=== PATIENT | female | born 1980 | race Caucasian/White ===

== ENCOUNTER → 2016-05-15 | Outpatient (CLI) | payer BC ==
[2016-05-15 09:34] VITALS: BP 119/76; PULSE 60; RESP 14; TEMP 97.9; BMI 32.2
[2016-05-15 10:50] LABS: INR 1.1 (<1.1); Partial Thromboplastin Time 24.6 sec (22.0-30.0); Prothrombin Time 11.4 sec (9.0-12.0)
[2016-05-15 11:06] LABS: ALT 35 U/L (9-52); AST 23 U/L (14-36); Alkaline Phosphatase 83 U/L (38-126); Anion Gap 9 mmol/L; Blood Urea Nitrogen 9 mg/dL (7-17); Calcium 8.9 mg/dL (8.4-10.2); Carbon Dioxide 27 mmol/L (22-30); Chloride 108 mmol/L (98-107); Cholesterol 120 mg/dL (<200); Glucose 91 mg/dL (74-99); HDL Cholesterol 49 mg/dL (40-60); Iron 84 ug/dL (37-170); Magnesium 2.1 mg/dL (1.6-2.3); Non-African American GFR(MDRD) >60 (>60 ml/min/1.73 sqM); Phosphorous 4.3 mg/dL (2.5-4.5); Potassium 3.7 mmol/L (3.5-5.1); Sodium 144 mmol/L (137-145); Total Bilirubin 0.8 mg/dL (0.2-1.3); Total Protein 6.5 g/dL (6.3-8.2); Triglycerides 76 mg/dL (<150)
[2016-05-15 11:16] LABS: % Iron Saturation 33.5 % (20-50); Prealbumin 18 mg/dL (18-36); Total Iron Binding Capacity 251 ug/dL (265-497)
[2016-05-15 12:12] LABS: Vitamin B12 355 pg/mL (239-931)
[2016-05-15 14:18] LABS: CH 28.8; CHCM 33.8; HCT 41.8 % (34.0-46.0); HDW 2.83; HGB 13.7 gm/dL (11.4-16.0); MCH 28.1 pg (25.0-35.0); MCHC 32.8 g/dL (31.0-37.0); MCV 85.6 fL (80.0-100.0); Mean Platelet Volume 7.8; RBC 4.88 m/uL (3.80-5.40); RDW 13.5 % (11.5-15.5); WBC 4.3 k/uL (3.8-10.6)
[2016-05-15 16:01] LABS: Hemoglobin A1C 4.6 % (4.2-6.1)
--- NOTE | 2016-05-17 17:53 | PN ---
DATE OF SERVICE: 05/15/2016 CHIEF COMPLAINT: Follow-up gastric bypass. HISTORY OF PRESENT ILLNESS: Shefali Akers is a 35-year-old female who is status post revision to Michelle-en-Y gastric bypass on 02/25/2016. She is short of 3 months out. Her gastroesophageal reflux disease has completely resolved. Now she is drinking adequate amounts of fluids. She does report some challenge with eating textured foods such as beef and steak. She is able to eat eggs including beef jerky. She started noticing more troubles with choking on more textured foods one month ago. Her highest weight for her 5 feet 4-3/4 inches frame is 302 pounds. Today she comes in weighing 192 pounds. She has maintained 110 pound weight loss. From her index bariatric operation in August 2015, she is still less than one year out from her procedure. She did achieve 70% excess weight loss. Body mass index is reduced was 50.8 down to 32.2. Total BMI reduction is 18.5. Separately she also reports moderate and recurrent panniculitis with erythema and redness. Now she presents for further evaluation and management. She also reports lower back pain as well. Separately she has developed diarrhea of unclear etiology. Incidentally, her gallbladder has been removed. PHYSICAL EXAM: VITAL SIGNS: 97.9, 60, 14, 119/76, 5 feet 4-3/4 inches frame. 192 pounds. Body mass index of 32.2. ABDOMEN: Pannus extends over pubis by over 6 cm. Mild hyperemic consistent with panniculitis. No large abdominal wall hernia is identified. Pannus weighed between 5 to 10 pounds. GENERAL: Well-developed female in mild distress. HEENT: No scleral icterus. Extraocular movements grossly intact. Moist buccal mucosa. NECK: Supple without lymphadenopathy. CHEST: Nonlabored respirations. Equal bilateral excursions. CARDIOVASCULAR: Regular rate, regular rhythm. Bilateral pulses radial 2+. MUSCULOSKELETAL: No clubbing, cyanosis. NEURO: Cranial nerves II through XII grossly within normal limits. No focal deficits. PSYCH: Alert and oriented to person, place, and time. LABS: Hemoglobin normal at 13.7. Platelet count of 156 and normal. This is improved from 377 two months ago. Chloride elevated at 108. Potassium normal at 3.7. Magnesium normal at 2.1. Iron normal at 84. Total iron-binding capacity low at 251. Vitamin A low at 36. Vitamin D low at 28.6. Zinc low at 58. Total protein and albumin within normal limits. Copper and selenium is pending. ASSESSMENT: 1. Morbid obesity due to excess calories, resolved. 2. Body mass index reduced from 50.8 down to 32.2. 3. Overweight. 4. 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 5. Personal history of complications from sleeve gastrectomy requiring revision. 6. Panniculitis. 7. Vitamin A deficiency. 8. Vitamin D deficiency. 9. Zinc deficiency. 10. Dysphagia to solid foods. 11. Status post massive weight loss, 110 pounds. 12. History of hypertension, resolved. 13. Intractable nausea and vomiting, resolved. 14. Epigastric abdominal pain, resolved. 15. Gastroesophageal reflux disease, resolved. PLAN: 1. Recommend upper endoscopy with balloon dilatation as she has trouble with textured food. This option was given to her; however, at this time she wants to consider her options. 2. Recommend vitamin A supplement. 3. Recommend vitamin D supplement. 4. Recommend zinc supplement. 5. On exam she does have panniculitis for which nystatin treatment is started. 6. Although she has obtained massive weight loss of over 100+ pounds, will still recommend nystatin treatment at this time. 7. Benefits and risks of surgical intervention with panniculectomy including bleeding, infection, need for further surgery, flap failure, was described at length. 8. Will need inpatient hospitalization anticipated for 2 nights. 9. Deep venous thrombosis prophylaxis. 10. Antibiotic prophylaxis. [facility]
[2016-05-20 18:24] LABS: Selenium 116 mcg/L (63-160)
== END | disposition home or self-care (01) ==
LOC: BARWHC3 09:10
PROVIDERS: ATTEND Surgery Plastic and Reconstructive Surgery
DX: Z48.815 Encounter for surgical aftercare following surgery on the digestive system (principal); Z71.3 Dietary counseling and surveillance; E89.1 Postprocedural hypoinsulinemia; E21.1 Secondary hyperparathyroidism, not elsewhere classified; D50.8 Other iron deficiency anemias; E44.0 Moderate protein-calorie malnutrition; K74.1 Hepatic sclerosis; N19 Unspecified kidney failure; K50.90 Crohn's disease, unspecified, without complications; Z68.32 Body mass index [BMI] 32.0-32.9, adult; E66.3 Overweight; Z98.84 Bariatric surgery status; K95.89 Other complications of other bariatric procedure; M79.3 Panniculitis, unspecified; E50.9 Vitamin A deficiency, unspecified; E55.9 Vitamin D deficiency, unspecified; E60 Dietary zinc deficiency; R13.10 Dysphagia, unspecified
CPT/HCPCS: 80053; 80061; 82306; 82525; 82607; 82728; 82746; 83036; 83540; 83550; 83735; 83970; 84100; 84134; 84255; 84425; 84443; 84590; 84630; 85027; 85610; 85730; 99211

== ENCOUNTER 2016-05-16 12:46 | Day surgery (SDC) | payer BC ==
[2016-05-15 14:41] VITALS: BMI 33.3
[~2016-05-16 12:46] MED LIST: LACTATED RINGERS 1,000 ML IV SCH
--- NOTE | 2016-05-16 13:22 | P.GSHP ---
History of Present Illness H&P Date: 05/16/16 CHIEF COMPLAINT: Dysphagia. HISTORY OF PRESENT ILLNESS: The patient is a 35-year-old female who presents reports dysphagia. Upper endoscopy was offered for further evaluation and management. PAST MEDICAL HISTORY: Please see list. PAST SURGICAL HISTORY: Please see list. MEDICATIONS: Please see list. ALLERGIES: Please see list. SOCIAL HISTORY: No illicit drug use FAMILY HISTORY: No reports of Crohn disease or ulcerative colitis. REVIEW OF ORGAN SYSTEMS: CONSTITUTIONAL: No reports of fevers or chills. GI: Denies any blood in stools or constipation. PHYSICAL EXAM: VITAL SIGNS: Stable GENERAL: Well-developed and pleasant in no acute distress. HEENT: No scleral icterus. Extraocular movements grossly intact. Moist buccal mucosa. NECK: Supple without lymphadenopathy. CHEST: Unlabored respirations. Equal bilateral excursions. CARDIOVASCULAR: Regular rate and rhythm. Distal 2+ pulses. ABDOMEN: Soft, nondistended. MUSCULOSKELETAL: No clubbing, cyanosis, or edema. ASSESSMENT: 1. Dysphagia. PLAN: 1. Recommend proceeding with an upper endoscopy Past Medical History Past Medical History: GERD/Reflux, Hypertension, Skin Disorder Additional Past Medical History / Comment(s): hx. migraines, skin irritation abd. skin folds History of Any Multi-Drug Resistant Organisms: None Reported Past Surgical History: Bariatric Surgery, Cholecystectomy, Orthopedic Surgery, Tubal Ligation Additional Past Surgical History / Comment(s): BILATERAL CARPAL TUNNEL, EGD, GASTRIC SLEEVE. 02-25-16 LEONCIO EN Y Past Anesthesia/Blood Transfusion Reactions: Previous Problems w/ Anesthesia, Motion Sickness, Postoperative Nausea & Vomiting (PONV) Additional Past Anesthesia/Blood Transfusion Reaction / Comment(s): STAYED 2 EXTRA DAYS R/T "ANESTHESIA NOT GETTING OUT OF MY SYSTEM" Past Psychological History: Depression Additional Psychological History / Comment(s): PT STATED FOR PAST 15 DAYS DIFFICLTY KEEPING PILLS DOWN. DENIES DEPRSSION CURRENTLY.NO THOUGHTS OF HARMING SELF. Smoking Status: Former smoker Past Alcohol Use History: None Reported Additional Past Alcohol Use History / Comment(s): QUIT SMOKING 02/2015, 23 YR SMOKER, 1 PPD. Past Drug Use History: None Reported Additional Drug Use History / Comment(s): PER PTS SPOUSE " TEENAGER USED CRACK " - Past Family History Father History Unknown: Yes Mother History Unknown: Yes Family Medical History: No Reported History Brother(s) History Unknown: Yes Sister(s) History Unknown: Yes Daughter(s) Family Medical History: No Reported History Son(s) Family Medical History: No Reported History Medications and Allergies Home Medications Medication Instructions Recorded Confirmed Type Multivitamin [Multivitamins Adult 4 each PO DAILY 05/15/16 05/15/16 History Gummies] Nystatin 100,000 Unit/gm Powd 1 applic TOPICAL TID 05/15/16 05/15/16 History [Mycostatin Powder] Allergies Allergy/AdvReac Type Severity Reaction Status Date / Time cinnamon AdvReac Wheezing Verified 05/15/16 14:39 environmental AdvReac Cough Uncoded 05/15/16 14:39 sun AdvReac skin Uncoded 05/15/16 14:39 blisters
[2016-05-16 13:28] VITALS: RESP 16; TEMP 97.4
[2016-05-16] MEDS ORDERED: LIDOCAINE 1% 20 ML VIAL (10MG/ML) FOR IV START INTRADERMA ONE (13:34)
[2016-05-16] MEDS ORDERED: PROPOFOL 10 MG/ML 20 ML VIAL IV ONE (13:43)
[2016-05-16] MEDS ORDERED: LIDOCAINE 1% INJ 10MG/ML (20 ML MDV) ONE (13:43)
--- NOTE | 2016-05-16 13:58 | P.PCN ---
Date of Procedure: 05/16/16 Description of Procedure: PREOPERATIVE DIAGNOSIS: Dysphagia. Nausea with vomiting. Gastrojejunal stricture. POSTOPERATIVE DIAGNOSIS: Dysphagia. Nausea with vomiting. Gastrojejunal stricture. OPERATION: Esophagogastrojejunoscopy with balloon dilatation from 10 to 15 mm. SURGEON: Monalisa Araiza MD ANESTHESIA: MAC. INDICATIONS: The patient is a 35-year-old female who presents with a history of dysphagia including gastrojejunal stricture. Benefits and risks of the procedure were described. Informed consent was obtained. DESCRIPTION: The patient was brought into the endoscopy suite and laid in the left lateral decubitus position. After a timeout was confirmed, the procedure was initiated. An Olympus gastroscope was passed along the posterior oropharynx down to the distal esophagus where the squamocolumnar junction was unremarkable. The gastric pouch was entered. A gastrojejunal stricture of 10 mm was found as the adult gastroscope was 8.6 mm in size. A [employer] balloon dilator was placed through the scope. Final insufflation up to 15 mm was performed with a total of 2 minutes. The scope was advanced up to 60 cm from the incisors into the Michelle limb. The mucosa of the gastrojejunal anastomosis was intact. No full-thickness injury was encountered. The GI tract was desufflated. The patient tolerated the procedure well. 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 No chronic gastrojejunal ulceration encountered. Foreign body staple along gastric jejunal anastomosis identified. Successful balloon dilatation to 15 mm. RECOMMENDATIONS: Upper endoscopy as needed.
[2016-05-16 14:40] VITALS: BP 137/86; PULSE 52
== END 2016-05-16 14:47 | disposition home or self-care (01) ==
LOC: ORWHC2ENDO 12:46
PROVIDERS: ATTEND Surgery Plastic and Reconstructive Surgery
DX: K56.69 Other intestinal obstruction (principal); K31.89 Other diseases of stomach and duodenum; K21.9 Gastro-esophageal reflux disease without esophagitis; I10 Essential (primary) hypertension; G43.909 Migraine, unspecified, not intractable, without status migrainosus; Z91.018 Allergy to other foods; Z91.09 Other allergy status, other than to drugs and biological substances; Z79.899 Other long term (current) drug therapy; Z87.891 Personal history of nicotine dependence; Z98.84 Bariatric surgery status
CPT/HCPCS: 81025; 43245; J2001; J2704; C1726; 43249; 99153

== ENCOUNTER 2016-05-25 20:57 | Observation (INO) | payer BC ==
[2016-05-25] MEDS ORDERED: SODIUM CHLORIDE 0.9% 1,000 ML IV STA ×2 (22:32)
[2016-05-25] MEDS ORDERED: HYDROmorphone 1 MG/ML 1 ML SYRINGE IVP STA (22:32)
[2016-05-25] MEDS ORDERED: ONDANSETRON 4 MG/2 ML VIAL IVP STA (22:32)
[2016-05-25] MEDS ORDERED: RX INFO: IV CONTRAST WAS GIVEN 1 EACH MISC MISCELLANE PRN (22:34)
[2016-05-25] MEDS ORDERED: IOHEXOL 350 MG/ML 25 ML BOTTLE (ORAL USE) PO PRN (22:34)
--- NOTE | 2016-05-25 22:42 | ED ---
General Adult HPI - General Chief complaint: Abdominal Pain Stated complaint: Abd Pain Time Seen by Provider: 05/25/16 22:23 Source: patient, family, RN notes reviewed, old records reviewed Mode of arrival: ambulatory Limitations: no limitations - History of Present Illness Initial comments: Chief complaint and history of present illness this is a 35-year-old female who' s had bariatric surgery. She called her surgeon tell her she had mid abdominal pain nausea vomiting once. She was sent in for further evaluation. Current problem started approximately 13 hours ago. Patient reports still eating and normal appetite. When the pain hits its stabbing twisting pain in the midabdomen. - Related Data Home Medications Medication Instructions Recorded Confirmed Multivitamin [Multivitamins Adult 4 each PO DAILY 05/15/16 05/16/16 Gummies] Nystatin 100,000 Unit/gm Powd 1 applic TOPICAL TID 05/15/16 05/16/16 [Mycostatin Powder] Previous Rx's Medication Instructions Recorded Omeprazole 40 mg PO DAILY #60 capsule. 05/16/16 Ergocalciferol [Vitamin D2 50,000 unit PO Q7D #10 cap 05/17/16 (DRISDOL)] Vitamin A 8,000 unit PO DAILY #30 capsule 05/17/16 Zinc Gluconate [Zinc] 50 mg PO DAILY@1200 #60 tablet 05/17/16 Allergies Allergy/AdvReac Type Severity Reaction Status Date / Time cinnamon AdvReac Wheezing Verified 05/15/16 14:39 environmental AdvReac Cough Uncoded 05/15/16 14:39 sun AdvReac skin Uncoded 05/15/16 14:39 blisters Review of Systems ROS Statement: Those systems with pertinent positive or pertinent negative responses have been documented in the HPI. Review of systems. No visual acuity changes headache chest pain or shortness of breath. Occasionally discomfort radiates to the epigastric region. No back pain. No complaints of a neuro deficits. Vomited once. She still have bowel movements. States she still has normal appetite. All systems are reviewed. Past medical problems significant for GERD, hypertension, eczema, migraines. Surgeries patient had a sleeve surgery followed by bypass bariatric procedure. She also had cholecystectomy, tubal ligation bilateral carpal tunnel surgeries. Family history significant for grandmother and skin cancer. She has ALLERGIES to cinnamon. Quit smoking 15 months ago drinks alcohol socially. ROS Other: All systems not noted in ROS Statement are negative. Past Medical History Past Medical History: GERD/Reflux, Hypertension, Skin Disorder Additional Past Medical History / Comment(s): hx. migraines, skin irritation abd. skin folds History of Any Multi-Drug Resistant Organisms: None Reported Past Surgical History: Bariatric Surgery, Cholecystectomy, Orthopedic Surgery, Tubal Ligation Additional Past Surgical History / Comment(s): BILATERAL CARPAL TUNNEL, EGD, GASTRIC SLEEVE. 02-25-16 LEONCIO EN Y Past Anesthesia/Blood Transfusion Reactions: Previous Problems w/ Anesthesia, Motion Sickness, Postoperative Nausea & Vomiting (PONV) Additional Past Anesthesia/Blood Transfusion Reaction / Comment(s): STAYED 2 EXTRA DAYS R/T "ANESTHESIA NOT GETTING OUT OF MY SYSTEM" Past Psychological History: Depression Additional Psychological History / Comment(s): PT STATED FOR PAST 15 DAYS DIFFICLTY KEEPING PILLS DOWN. DENIES DEPRSSION CURRENTLY.NO THOUGHTS OF HARMING SELF. Smoking Status: Former smoker Past Alcohol Use History: None Reported Additional Past Alcohol Use History / Comment(s): QUIT SMOKING 02/2015, 23 YR SMOKER, 1 PPD. Past Drug Use History: None Reported Additional Drug Use History / Comment(s): PER PTS SPOUSE " TEENAGER USED CRACK " - Past Family History Father History Unknown: Yes Mother History Unknown: Yes Family Medical History: No Reported History Brother(s) History Unknown: Yes Sister(s) History Unknown: Yes Daughter(s) Family Medical History: No Reported History Son(s) Family Medical History: No Reported History General Exam - General Exam Comments Initial Comments: General: The patient is awake and alert, in no distress, and does not appear acutely ill. Appears comfortable this time complains of stabbing pain on-again off- again midabdomen. No signs showed temperature 98.3 pulse 77 respiratory rate 20 pulse ox on percent room air blood pressure 117/77. Elevated systolic noted patient will be following up with family physician in next 1-2 weeks. Eye: Pupils are equal, round and reactive to light, extra-ocular movements are intact ; there is normal conjunctiva bilaterally. No signs of icterus. Ears, nose, mouth and throat: There are moist mucous membranes and no oral lesions. Multiple tongue rings Neck: The neck is supple, there is no tenderness , no anterior cervical lymphadenopathy thyroid not enlarged. Cardiovascular: There is a regular rate and rhythm. No murmur, rub or gallop is appreciated. Respiratory: Lungs are clear to auscultation, respirations are non-labored, breath sounds are equal. No wheezes, stridor, rales, or rhonchi. Gastrointestinal: Soft, non-distended, non-tender abdomen without masses or organomegaly noted. There is no rebound or guarding present. No CVA tenderness. Bowel sounds are unremarkable. On again off again sharp stabbing pains midabdomen Back: No back pain Musculoskeletal: Normal ROM, no tenderness, There is no pedal edema. There is no calf tenderness or swelling. Sensation intact. Neurological: No neuro deficits noted on complained of. Skin: Patient states she has eczema on her feet. Limitations: no limitations Course Vital Signs 05/25/16 05/25/16 21:20 23:15 Temperature 98.3 F Pulse Rate 57 L 64 Respiratory 20 18 Rate Blood Pressure 157/77 130/70 O2 Sat by Pulse 100 98 Oximetry Medical Decision Making - Medical Decision Making Medical decision making; patient's white count is 4.8 hemoglobin 14 hematocrit 41 with a potassium 3.6, BUN 8 creatinine 0.8 GFR greater than 60. Glucose 85. Urine shows large amount of blood 5 reds 6 whites. Amylase lipase within normal limits. Urine shows [address] the abdomen was done and reviewed by radiologist his final impression is #1 possible mild colitis changes involving the descending and sigmoid colon. #2 possible ileus or enteritis changes involving the small bowel loops. #3 stable nodularity in the right lung base. Number for stable cystic changes in both kidneys. #5 gastric sleeve surgery changes. As read by Dr. Bhakta Patient be admitted to the hospital for the evening for hydration for evaluation by her general surgeon in the morning. - Lab Data Result diagrams: 05/25/16 22:20 05/25/16 22:20 Lab Results 05/25/16 05/25/16 05/25/16 Range/Units 22:20 22:20 22:40 WBC 4.8 (3.8-10.6) k/uL RBC 4.95 (3.80-5.40) m/uL Hgb 14.0 (11.4-16.0) gm/dL Hct 41.5 (34.0-46.0) % MCV 83.8 (80.0-100.0) fL MCH 28.3 (25.0-35.0) pg MCHC 33.8 (31.0-37.0) g/dL RDW 13.5 (11.5-15.5) % Plt Count 153 (150-450) k/uL Neutrophils % 64 % Lymphocytes % 25 % Monocytes % 6 % Eosinophils % 1 % Basophils % 1 % Neutrophils # 3.1 (1.3-7.7) k/uL Lymphocytes # 1.2 (1.0-4.8) k/uL Monocytes # 0.3 (0-1.0) k/uL Eosinophils # 0.1 (0-0.7) k/uL Basophils # 0.1 (0-0.2) k/uL Sodium 146 H (137-145) mmol/L Potassium 3.6 (3.5-5.1) mmol/L Chloride 109 H (98-107) mmol/L Carbon Dioxide 27 (22-30) mmol/L Anion Gap 10 mmol/L BUN 8 (7-17) mg/dL Creatinine 0.80 (0.52-1.04) mg/dL Est GFR (MDRD) Af Amer >60 (>60 ml/min/1.73 sqM) Est GFR (MDRD) Non-Af >60 (>60 ml/min/1.73 sqM) Glucose 85 (74-99) mg/dL Plasma Lactic Acid Cecilio 0.7 (0.7-2.0) mmol/L Calcium 9.1 (8.4-10.2) mg/dL Total Bilirubin 0.5 (0.2-1.3) mg/dL AST 21 (14-36) U/L ALT 33 (9-52) U/L Alkaline Phosphatase 86 (38-126) U/L Total Protein 6.8 (6.3-8.2) g/dL Albumin 3.9 (3.5-5.0) g/dL Amylase 39 (30-110) U/L Lipase 137 (23-300) U/L Urine Color Urine Appearance (Clear) Urine pH (5.0-8.0) Ur Specific [place] (1.001-1.035) Urine Protein (Negative) Urine Glucose (UA) (Negative) Urine Ketones (Negative) Urine Blood (Negative) Urine Nitrate (Negative) Urine Bilirubin (Negative) Urine Urobilinogen (<2.0) mg/dL Ur Leukocyte Esterase (Negative) Urine RBC (0-5) /hpf Urine WBC (0-5) /hpf Ur Squamous Epith Cells (0-4) /hpf Calcium Oxalate Crystal (None) /hpf Urine Mucus (None) /hpf 05/25/16 Range/Units 23:00 WBC (3.8-10.6) k/uL RBC (3.80-5.40) m/uL Hgb (11.4-16.0) gm/dL Hct (34.0-46.0) % MCV (80.0-100.0) fL MCH (25.0-35.0) pg MCHC (31.0-37.0) g/dL RDW (11.5-15.5) % Plt Count (150-450) k/uL Neutrophils % % Lymphocytes % % Monocytes % % Eosinophils % % Basophils % % Neutrophils # (1.3-7.7) k/uL Lymphocytes # (1.0-4.8) k/uL Monocytes # (0-1.0) k/uL Eosinophils # (0-0.7) k/uL Basophils # (0-0.2) k/uL Sodium (137-145) mmol/L Potassium (3.5-5.1) mmol/L Chloride (98-107) mmol/L Carbon Dioxide (22-30) mmol/L Anion Gap mmol/L BUN (7-17) mg/dL Creatinine (0.52-1.04) mg/dL Est GFR (MDRD) Af Amer (>60 ml/min/1.73 sqM) Est GFR (MDRD) Non-Af (>60 ml/min/1.73 sqM) Glucose (74-99) mg/dL Plasma Lactic Acid Cecilio (0.7-2.0) mmol/L Calcium (8.4-10.2) mg/dL Total Bilirubin (0.2-1.3) mg/dL AST (14-36) U/L ALT (9-52) U/L Alkaline Phosphatase (38-126) U/L Total Protein (6.3-8.2) g/dL Albumin (3.5-5.0) g/dL Amylase (30-110) U/L Lipase (23-300) U/L Urine Color Yellow Urine Appearance Cloudy H (Clear) Urine pH 6.0 (5.0-8.0) Ur Specific [place] 1.021 (1.001-1.035) Urine Protein Trace H (Negative) Urine Glucose (UA) Negative (Negative) Urine Ketones Trace H (Negative) Urine Blood Large H (Negative) Urine Nitrate Negative (Negative) Urine Bilirubin Negative (Negative) Urine Urobilinogen 2.0 (<2.0) mg/dL Ur Leukocyte Esterase Trace H (Negative) Urine RBC 5 (0-5) /hpf Urine WBC 6 H (0-5) /hpf Ur Squamous Epith Cells 3 (0-4) /hpf Calcium Oxalate Crystal Few H (None) /hpf Urine Mucus Many H (None) /hpf Disposition Clinical Impression: Abdominal pain Disposition: ADMITTED IP TO THIS HOSP Condition: Stable
[2016-05-25 22:46] LABS: Basophils # (A) 0.1 k/uL (0-0.2); Basophils % (A) 1 %; CH 29.1; CHCM 34.8; Eosinophils # (A) 0.1 k/uL (0-0.7); Eosinophils % (A) 1 %; HCT 41.5 % (34.0-46.0); HDW 2.82; Luc # (Auto) 0.15; Luc % (Auto) 3; Lymphocytes # (A) 1.2 k/uL (1.0-4.8); Lymphocytes % (A) 25 %; MCH 28.3 pg (25.0-35.0); MCHC 33.8 g/dL (31.0-37.0); MCV 83.8 fL (80.0-100.0); Mean Platelet Volume 7.9; Monocytes # (A) 0.3 k/uL (0-1.0); Monocytes % (A) 6 %; Neutrophils # (A) 3.1 k/uL (1.3-7.7); Neutrophils % (A) 64 %; RBC 4.95 m/uL (3.80-5.40); RDW 13.5 % (11.5-15.5); WBC 4.8 k/uL (3.8-10.6); WBC (Perox) 4.57
[2016-05-25 22:55] LABS: ALT 33 U/L (9-52); AST 21 U/L (14-36); Alkaline Phosphatase 86 U/L (38-126); Amylase 39 U/L (30-110); Anion Gap 10 mmol/L; Blood Urea Nitrogen 8 mg/dL (7-17); Calcium 9.1 mg/dL (8.4-10.2); Carbon Dioxide 27 mmol/L (22-30); Chloride 109 mmol/L (98-107); Glucose 85 mg/dL (74-99); Non-African American GFR(MDRD) >60 (>60 ml/min/1.73 sqM); Potassium 3.6 mmol/L (3.5-5.1); Sodium 146 mmol/L (137-145); Total Bilirubin 0.5 mg/dL (0.2-1.3); Total Protein 6.8 g/dL (6.3-8.2)
[2016-05-25 23:17] LABS: Appearance,Urine Cloudy (Clear); Bilirubin,Urine Negative (Negative); Calcium Oxalate Crystals,Urine Few /hpf; Glucose,Urine (UA) Negative (Negative); Ketones,Urine Trace (Negative); Leukocyte Esterase,Urine Trace (Negative); Mucus,Urine Many /hpf; Nitrite,Urine Negative (Negative); Particle Count 10252; Protein,Urine Trace (Negative); RBC,Urine 5 /hpf (0-5); Specific Gravity,Urine 1.021 (1.001-1.035); Squamous Epithelial Cell,Urine 3 /hpf (0-4); UA Billing (MACRO vs. MICRO) MICRO; WBC,Urine 6 /hpf (0-5)
--- NOTE | 2016-05-26 00:24 | CT ---
EXAMINATION TYPE: CT abdomen pelvis w con DATE OF EXAM: 05/25/2016 11:35 PM COMPARISON: March 19, 2016 HISTORY: Lt sided abd pain Hx of gastric sleeve and other bariatric surgery, cholecystectomy, tubal8 23.30 CT DLP: 823.30 mGycm Automated exposure control for dose reduction was used. TECHNIQUE: Helical acquisition of images was performed from the lung bases through the pelvis. CONTRAST: Performed with Oral Contrast and with IV Contrast, patient injected with 100 mL of Omnipaque 300. FINDINGS: LUNG BASES: Stable nodular scarring is noted in the right lung base since previous study. LIVER/GB: Mild fatty infiltration of liver is noted. PANCREAS: No significant abnormality is seen. SPLEEN: Stable small cleft is noted in the anterior aspect of spleen in the axial image 28. ADRENALS: No significant abnormality is seen. KIDNEYS: Stable bilateral renal cysts are noted on one of the largest cyst measuring 7.8 cm in the ri ght kidney. RETROPERITONEAL ADENOPATHY: None visualized REPRODUCTIVE ORGANS: Uterus is tilted towards right. Mild cystic changes are suggested in the ovaries . URINARY BLADDER: No significant abnormality is seen. PELVIC ADENOPATHY: None visualized. OSSEOUS STRUCTURES: Mild degenerative changes are present in the thoracal lumbar spine. BOWEL: Gastric sleeve surgery changes are noted. Appendix is not well visualized. No significant inflammation is noted in the visualized appendix in t he axial image 67. Small bowel loops showed fluid distention with mild ileus changes or enteritis changes. No significan t focal bowel obstruction is noted. No definite transition zone is noted. Colonic bowel loops showed no significant obstruction. Mild mucosal thickening in the descending colo n and sigmoid colon could be related to mild colitis changes. OTHER: There is evidence of generalized edema and anasarca involving chest and abdomen and pelvic wal l. IMPRESSION: 1. POSSIBLE MILD COLITIS CHANGES INVOLVING DESCENDING AND SIGMOID COLON. 2. POSSIBLE ILEUS OR ENTERITIS CHANGES INVOLVING SMALL BOWEL LOOPS. 3. STABLE NODULARITY IN THE RIGHT LUNG BASE. 4. STABLE CYSTIC CHANGES IN BOTH KIDNEYS. 5. GASTRIC SLEEVE SURGERY CHANGES. A CLINICAL CORRELATION AND FOLLOW-UP IS RECOMMENDED.
[2016-05-26] MEDS ORDERED: NALOXONE 0.4 MG/ML 1 ML VIAL IV PRN (00:35)
[2016-05-26] MEDS ORDERED: HYDROmorphone 1 MG/ML 1 ML SYRINGE IV PRN (00:35)
[2016-05-26] MEDS ORDERED: ONDANSETRON 4 MG/2 ML VIAL IVP PRN (00:35)
[2016-05-26 01:44] VITALS: BMI 32.5
[2016-05-26] MEDS ORDERED: PANTOPRAZOLE 40 MG/10 ML VIAL IV SCH (09:00)
[2016-05-26] MEDS ORDERED: NYSTATIN 100,000 UNIT/GM POWD 15 GM TOPICAL SCH (09:00)
--- NOTE | 2016-05-26 09:46 | P.GSHP ---
History of Present Illness H&P Date: 05/26/16 A 35-year-old female being seen on rounds this morning. Patient presented to the emergency room on May 25 with a chief complaint of waking up with epigastric pain. After eating the pain seemed to get worse. Patient stated it was associated with nausea sensation vomit 1. Patient does have a history of bariatric surgery done in February 2016. Patient stated that she did call the surgeon was advised to come to the emergency room for further evaluation. Patient describes pain as a sharp stabbing twisting pain points to the mid abdomen as to the reference point. Patient does state that the pain medication has been effective for pain control. Patient states last week she did undergo esophageal dilatation for nausea with vomiting dysphagia gastrojejunal stricture CAT scan obtained in the emergency room of the abdomen and pelvis showed possible mild colitis changes involving the descending and sigmoid colon possible ileus or enteritis involving small bowel loops stable cystic changes in both kidneys stable nodule in the right lung base gastric sleeve surgery changes Patient currently is resting in bed states there is a slight improvement in the epigastric pain compared to admission - Review of Systems Comment: Essentially unremarkable except as mentioned in the present illness Past Medical History Past Medical History: GERD/Reflux, Hypertension, Skin Disorder Additional Past Medical History / Comment(s): hx. migraines, skin irritation abd. skin folds History of Any Multi-Drug Resistant Organisms: None Reported Past Surgical History: Bariatric Surgery, Cholecystectomy, Orthopedic Surgery, Tubal Ligation Additional Past Surgical History / Comment(s): BILATERAL CARPAL TUNNEL, EGD, GASTRIC SLEEVE. 02-25-16 LEONCIO EN Y Past Anesthesia/Blood Transfusion Reactions: Previous Problems w/ Anesthesia, Motion Sickness, Postoperative Nausea & Vomiting (PONV) Additional Past Anesthesia/Blood Transfusion Reaction / Comment(s): STAYED 2 EXTRA DAYS R/T "ANESTHESIA NOT GETTING OUT OF MY SYSTEM" Past Psychological History: Depression Additional Psychological History / Comment(s): PT STATED FOR PAST 15 DAYS DIFFICLTY KEEPING PILLS DOWN. DENIES DEPRSSION CURRENTLY.NO THOUGHTS OF HARMING SELF. Smoking Status: Former smoker Past Alcohol Use History: None Reported Additional Past Alcohol Use History / Comment(s): QUIT SMOKING 02/2015, 25 YR SMOKER, 1 PPD. Past Drug Use History: None Reported Additional Drug Use History / Comment(s): PER PTS SPOUSE " TEENAGER USED CRACK " - Past Family History Father History Unknown: Yes Mother History Unknown: Yes Family Medical History: No Reported History Brother(s) History Unknown: Yes Sister(s) History Unknown: Yes Daughter(s) Family Medical History: No Reported History Son(s) Family Medical History: No Reported History Medications and Allergies Home Medications Medication Instructions Recorded Confirmed Type Multivitamin [Multivitamins Adult 4 tab PO DAILY 05/15/16 05/26/16 History Gummies] Nystatin 100,000 Unit/gm Powd 1 applic TOPICAL TID 05/15/16 05/26/16 History [Mycostatin Powder] Zinc Gluconate [Zinc] 50 mg PO DAILY 05/26/16 05/26/16 History Allergies Allergy/AdvReac Type Severity Reaction Status Date / Time cinnamon AdvReac Wheezing Verified 05/26/16 08:30 grass pollen AdvReac Unknown Verified 05/26/16 08:30 sun AdvReac skin Uncoded 05/15/16 14:39 blisters Surgical - Exam Vital Signs Temp Pulse Resp BP Pulse Ox 98.3 F 57 L 20 157/77 100 05/25/16 21:20 05/25/16 21:20 05/25/16 21:20 05/25/16 21:20 05/25/16 21:20 GENERAL APPEARANCE: 35-year-old female patient is alert, oriented, in no acute distress. Currently resting comfortably in bed appears well-hydrated VITAL SIGNS: Reviewed HEENT: Head is normocephalic and atraumatic. Pupils are equal and reactive. The nares are patent. Oropharynx is clear without lesions. NECK: Supple without lymphadenopathy. Traches midline. HEART: S1, S2. Regular rate and rhythm. Denying chest pain LUNGS: No crackles or wheezes are heard. Adequate air movement bilaterally no cough noted no conversational dyspnea noted on room air sats are 94% ABDOMEN: Soft, nontender, nondistended with good bowel sounds. No peritoneal signs. No palpable organomegaly or masses. Patient states having on and off sharp stabbing pain to the mid abdominal area states no nausea sensation no active emesis no stooling states had a bowel movement yesterday EXTREMITIES: Normal skin color and turgor. No cyanosis, rash, ulceration, clubbing or edema. Radial pedal pulses are 2/4 bilaterally. NEUROLOGICAL: No focal deficits. Strength and sensation are grossly intact Skin warm and dry no rash Results - Labs 05/25/16 22:20 05/25/16 22:20 Assessment and Plan Plan: Impression Present on admission mid epigastric pain unclear etiology History of a gastric sleeve February 2016 for weight loss Status post 05/16/2016 esophagogastrojejunoscopy with balloon dilatation for gastrojejunal stricture History of dysphasia with nausea vomiting status post 05/16/2016 esophagojejunostomy with dilatation of gastrojejunal stricture History of vitamin a and D deficiency Hypertension Status post massive weight loss 110 pounds urinalysis microscopic hematuria likely due to menses Mild hypokalemia present on admission Plan Pain control IV fluid at 100 hours for hydration DVT and GI prophylaxis Resume home meds as appropriate Further recommendations pending will follow The above dictated assessment and findings were discussed with dr Araiza Impression and the plan of care have been dictated as directed. Miriam Hyatt nurse practitioner acting as a scribe for Dr. Araiza
[2016-05-26] MEDS: SODIUM CHLORIDE 0.9% 1,000 ML IV SCH ×2 (10:03→14:14)
[2016-05-26] MEDS ORDERED: ACETAMINOPHEN TAB 500 MG TAB PO STA (14:06)
[2016-05-26 14:11] VITALS: BP 135/87; PULSE 53; RESP 18; TEMP 97.9
--- NOTE | 2016-05-26 15:12 | P.DS ---
Providers Date of admission: 05/26/16 00:35 Expected date of discharge: 05/26/16 Attending physician: Monalisa Araiza [facility] Course: A 35-year-old female presented on the day of admission to the emergency room to be evaluated for a chief complaint of mid epigastric pain onset 12-13 hours prior. Patient states that she woke up experiencing sharp mid epigastric pain. Patient stated the pain felt like a stabbing twisting pain in the midabdomen. Patient points to the epigastric area as to the reference point. Patient stated that she felt that the pain continued to persist throughout the day with no relief came into the emergency room to be evaluated for the above-mentioned symptoms in the emergency room patient was afebrile hemoglobin 14 electrolytes within normal limits amylase and lipase within the normal limits CAT scan of the abdomen pelvis was done. It shows possible mild colitis changes involving the descending and sigmoid colon. Stable nodule in the right lung base. Multiple stable cysts noted on both kidneys. There were gastric sleeve surgery changes. Patient was admitted for hydration and was seen by the attending surgeon History of dysphasia with nausea vomiting status post 05/16/2016 esophagojejunostomy with dilatation of gastrojejunal stricture patient did report that she stopped taking omeprazole 40 mg daily patient stated that she was feeling better and didn't feel like she needed to take it. They attending Surgeon did have a discussion with the patient the importance of continuing to take omeprazole daily as directed. Patient was started on a diet and tolerated the diet was felt to be clinically stable and appropriate proceed with a discharge to home Impression discharge diagnosis Present on admission mid epigastric pain unclear etiology History of a gastric sleeve February 2016 for weight loss Status post 05/16/2016 esophagogastrojejunoscopy with balloon dilatation for gastrojejunal stricture History of dysphasia with nausea vomiting status post 05/16/2016 esophagojejunostomy with dilatation of gastrojejunal stricture History of vitamin a and D deficiency Hypertension Status post massive weight loss 110 pounds urinalysis microscopic hematuria likely due to menses Mild hypokalemia present on admission The above dictated assessment and findings were discussed with dr Araiza Impression and the plan of care have been dictated as directed. Miriam Hyatt nurse practitioner acting as a scribe for Dr. Araiza Patient Condition at Discharge: Stable Plan - Discharge Summary Discharge Medication List Multivitamin [Multivitamins Adult Gummies] 4 tab PO DAILY 05/15/16 [History] Nystatin 100,000 Unit/gm Powd [Mycostatin Powder] 1 applic TOPICAL TID 05/15/16 [History] Omeprazole 40 mg PO DAILY #60 capsule.dr 05/16/16 [Rx] Ergocalciferol [Vitamin D2 (DRISDOL)] 50,000 unit PO Q7D #10 cap 05/17/16 [Rx] Vitamin A 8,000 unit PO DAILY #30 capsule 05/17/16 [Rx] Zinc Gluconate [Zinc] 50 mg PO DAILY 05/26/16 [History] Follow up Appointment(s)/Referral(s): Tyler Daugherty MD [Primary Care Provider] - 1-2 days Monalisa Araiza MD [STAFF PHYSICIAN] - 05/29/16 10:45 am ([facility]) Patient Instructions/Handouts: Gastritis (GEN) Discharge Disposition: HOME SELF-CARE
== END 2016-05-26 17:29 | disposition home or self-care (01) ==
LOC: EC 20:57 → 3SUR 05-26 00:35
PROVIDERS: ADMIT Surgery Plastic and Reconstructive Surgery; ATTEND Surgery Plastic and Reconstructive Surgery
DX: R10.13 Epigastric pain (principal); E50.9 Vitamin A deficiency, unspecified; R11.2 Nausea with vomiting, unspecified; E55.9 Vitamin D deficiency, unspecified; I10 Essential (primary) hypertension; E87.6 Hypokalemia; L98.9 Disorder of the skin and subcutaneous tissue, unspecified; K21.9 Gastro-esophageal reflux disease without esophagitis; Z98.84 Bariatric surgery status; Z87.891 Personal history of nicotine dependence; Z79.899 Other long term (current) drug therapy; Z91.018 Allergy to other foods; Z91.048 Other nonmedicinal substance allergy status; Z90.49 Acquired absence of other specified parts of digestive tract; R91.1 Solitary pulmonary nodule; Q61.02 Congenital multiple renal cysts
CPT/HCPCS: 96361 ×3; 96376; 96375 ×2; 96374; 99285; 36415; 80053; 82150; 83605; 83690; 85025; 81001; 74177; G0378; J2405; J1170 ×2; Q9967; C9113

== ENCOUNTER → 2016-05-29 | Outpatient (CLI) | payer BC ==
[2016-05-29 11:23] VITALS: BP 128/91; PULSE 63; RESP 20; TEMP 98; BMI 30.9
--- NOTE | 2016-07-15 22:20 | P.PN ---
Progress Note - Text DATE OF SERVICE: 05/29/2016. CHIEF COMPLAINT: Follow-up gastric bypass. HISTORY OF PRESENT ILLNESS: Shefali Akers is a 36-year-old female with a complicated history of complications following a sleeve gastrectomy in August 2015. At her height of 5 feet 4-3/4 quarters inch frame, her ideal body weight on 144 pounds. She was initially 302 pounds. Today she comes in weighing 184 pounds. She has lost 118 pounds. Percent excess weight loss is 74%. Since her last follow-up just 3 weeks ago, she has already lost another 7 pounds. Body mass index reduced from 50.8 down to 31. Total BMI point reduction is 20 points. She is 40 pounds weight. Her hypertension is resolved. Gastroesophageal reflux disease is resolved. She was admitted within the last one week for acute onset abdominal pain. Her colitis is now completely resolved. Her main concern today also includes moderate redundant skin with redness consistent with panniculitis despite treatment. Now she presents for evaluation of panniculectomy. PAST MEDICAL HISTORY: 1. Morbid obesity. 2. Gastroesophageal reflux disease. 3. Hypertension. 4. Migraines. 5. Gastric stenosis following sleeve gastrectomy. PAST SURGICAL HISTORY: 1. Sleeve gastrectomy in August 13, 2015. 2. Bilateral carpal tunnel release. 3. Upper endoscopy. 4. Cholecystectomy. 5. Tubal ligation. 6. Gastric bypass, 02/2016. MEDICATIONS: 1. Vitamin A. 2. Thiamine. 3. Vitamin D. ALLERGIES: CINNAMON. ENVIRONMENTAL. SUN. SOCIAL HISTORY: She is . She reports prior tobacco abuse. She had quit smoking in February 2015. FAMILY HISTORY: Morbid obesity. REVIEW OF SYSTEMS: CONSTITUTIONAL: At her height of 5 feet 4-3/4 quarters inch frame, her ideal body weight on 144 pounds. She was initially 302 pounds. Today she comes in weighing 184 pounds. She has lost 118 pounds. Percent excess weight loss is 74%. Since her last follow-up just 3 weeks ago, she has already lost another 7 pounds. Body mass index reduced from 50.8 down to 31. Total BMI point reduction is 20 points. She is 40 pounds weight. GASTROINTESTINAL: Gastroesophageal reflux disease is resolved. Denies any blood in stools. HEENT: She wears glasses. She reports dysphagia to liquids including solid foods is resolved. No reports of troubles with hearing. ENDOCRINE: No reports of thyroid disorders or diabetes. CARDIOVASCULAR: History of hypertension, resolved. No reports of chest pain. RESPIRATORY: No overt history of obstructive sleep apnea or dyspnea on exertion. GENITOURINARY: Denies recent bladder infections. NEURO: Denies any procedure disorder, however, prior history of migraines. PSYCH: Prior history of depression. No recent suicidal ideation. HEMATOLOGIC: Denies any easy bruising or bleeding. PHYSICAL EXAM: VITAL SIGNS: 98, 63, 20, 120/91, 5' 4 3/4 inches, 184 pounds. Body mass index of 31. GENERAL: Well-developed female in no acute distress. ABDOMEN: Pannus extends over pubis by 6 cm with hyperemia consistent with panniculitis. Pannus weighed between 5 to 10 pounds. Soft, non-distended , nontender. HEENT: No scleral icterus. Extraocular movements grossly intact. Moist buccal mucosa. NECK: Supple without lymphadenopathy. CHEST: Nonlabored respirations. Equal bilateral excursions. CARDIOVASCULAR: Regular rate, regular rhythm. Bilateral pulses radial 2+. MUSCULOSKELETAL: No clubbing, cyanosis. NEURO: Cranial nerves II through XII grossly within normal limits. No focal deficits. PSYCH: Alert and oriented to person, place, and time. ASSESSMENT: 1. Morbid obesity due to excess calories, resolved. 2. Body mass index reduced from 50.8 down to 31. 3. Overweight. 4. 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 5. Personal history of complications from sleeve gastrectomy requiring revision. 6. Recurrent panniculitis. 7. Vitamin A deficiency. 8. Vitamin D deficiency. 9. Zinc deficiency. 10. Dysphagia to solid foods. 11. Status post massive weight loss of 118 pounds. 12. History of hypertension, resolved. 13. Intractable nausea and vomiting, resolved. 14. Epigastric abdominal pain, resolved. 15. Gastroesophageal reflux disease, resolved. PLAN: 1. I have gone over the benefits and risks of panniculectomy particularly flap failure, abdominal wall seroma, bleeding, infection and cosmetic deformity. 2. Panniculectomy packet has been reviewed and dispensed to her. 3. In the interim, I recommend complete correction of all nutritional deficiencies prior to any additional surgical intervention. 4. DVT prophylaxis. 5. Antibiotic prophylaxis. 6. Inpatient hospitalization anticipated for at least over night.
== END | disposition home or self-care (01) ==
LOC: BARWHC3 10:32
PROVIDERS: ATTEND Surgery Plastic and Reconstructive Surgery
DX: E66.01 Morbid (severe) obesity due to excess calories (principal); Z68.30 Body mass index [BMI] 30.0-30.9, adult
CPT/HCPCS: 99211

== ENCOUNTER → 2016-06-26 | Outpatient (CLI) | payer BC ==
[2016-06-26 12:26] LABS: EKG EKG PERFORMED
[2016-06-26 12:42] LABS: Basophils % (A) 0 %; CH 29.2; CHCM 34.6; Eosinophils % (A) 1 %; HCT 40.2 % (34.0-46.0); HDW 2.82; HGB 13.6 gm/dL (11.4-16.0); Luc # (Auto) 0.15; Luc % (Auto) 4; Lymphocytes # (A) 1.3 k/uL (1.0-4.8); Lymphocytes % (A) 34 %; MCH 28.8 pg (25.0-35.0); MCHC 33.9 g/dL (31.0-37.0); MCV 84.9 fL (80.0-100.0); Mean Platelet Volume 7.9; Monocytes # (A) 0.2 k/uL (0-1.0); Monocytes % (A) 6 %; Neutrophils # (A) 2.1 k/uL (1.3-7.7); Neutrophils % (A) 55 %; RBC 4.74 m/uL (3.80-5.40); RDW 13.7 % (11.5-15.5); WBC 3.8 k/uL (3.8-10.6); WBC (Perox) 4.04
[2016-06-26 12:54] LABS: ALT 33 U/L (9-52); AST 21 U/L (14-36); Alkaline Phosphatase 85 U/L (38-126); Anion Gap 9 mmol/L; Blood Urea Nitrogen 7 mg/dL (7-17); Calcium 9.2 mg/dL (8.4-10.2); Carbon Dioxide 27 mmol/L (22-30); Chloride 108 mmol/L (98-107); Glucose 86 mg/dL (74-99); Non-African American GFR(MDRD) >60 (>60 ml/min/1.73 sqM); Sodium 144 mmol/L (137-145); Total Bilirubin 0.6 mg/dL (0.2-1.3); Total Protein 6.4 g/dL (6.3-8.2)
== END ==
LOC: LABPAT 11:54
PROVIDERS: ATTEND Surgery Plastic and Reconstructive Surgery
DX: Z01.812 Encounter for preprocedural laboratory examination (principal)
CPT/HCPCS: 80053; 85025; 93005

== ENCOUNTER → 2016-06-26 | Outpatient (CLI) | payer BC ==
[2016-06-26 10:43] VITALS: BP 119/73; PULSE 58; TEMP 97.6; BMI 31.3
--- NOTE | 2016-07-20 08:12 | PN ---
DATE OF SERVICE: 06/26/2016 CHIEF COMPLAINT: Panniculitis. HISTORY OF PRESENT ILLNESS: Shefali Akers is a 36-year-old female status post sleeve gastrectomy August 2015. At her height of 5 feet 4-3/4 inches her initial weight has been 302 pounds. Today she comes in weighing 186 pounds. She has lost 116 pounds. Body mass index is reduced was 50.8 down to 31.3. BMI point reduction is 19.4. Percent excess weight loss is 73%. She is still 42 pounds overweight. She complains of moderate problems with the apron of her skin including hyperemia and panniculitis. PAST MEDICAL HISTORY: 1. Morbid obesity. 2. Gastroesophageal reflux disease. 3. Hypertension. 4. Migraines. 5. Gastric stenosis following sleeve gastrectomy. 6. Panniculitis. PAST SURGICAL HISTORY: 1. Sleeve gastrectomy in August 13, 2015. 2. Bilateral carpal tunnel release. 3. Upper endoscopy. 4. Cholecystectomy. 5. Tubal ligation. 6. Gastric bypass, 02/2016. MEDICATIONS: 1. Multivitamin. 2. Vitamin D. 3. Vitamin A. 4. Omeprazole. ALLERGIES: CINNAMON. ENVIRONMENTAL. SUN. SOCIAL HISTORY: She is . She reports prior tobacco abuse. She had quit smoking in February 2015. FAMILY HISTORY: Morbid obesity. REVIEW OF SYSTEMS: CONSTITUTIONAL: Weight loss of 116 pounds. Initial 302 pounds. Red Bud body weight of 144 pounds for a 5 foot 4-3/4 inches. Body mass index reduced from 50.8 down to 31.3. A 73% excess weight loss achieved in approximately 9 to 10 months. GASTROINTESTINAL: Gastroesophageal reflux disease is resolved. Denies any blood in stools. HEENT: She wears glasses. She reports dysphagia to liquids including solid foods is resolved. No reports of troubles with hearing. ENDOCRINE: No reports of thyroid disorders or diabetes. CARDIOVASCULAR: History of hypertension, resolved. No reports of chest pain. RESPIRATORY: No overt history of obstructive sleep apnea or dyspnea on exertion. GENITOURINARY: Denies recent bladder infections. NEURO: Denies any procedure disorder, however, prior history of migraines. PSYCH: Prior history of depression. No recent suicidal ideation. HEMATOLOGIC: Denies any easy bruising or bleeding. PHYSICAL EXAM: VITAL SIGNS: 97.6, 58, 119/73, 16, 5 feet 4-3/4 inches frame, 186 pounds. Body mass index is 31.3. ABDOMEN: Moderate-sized pannus weighing approximately 5 pounds. Pannus extends over pubis by over 6 cm with hyperemia and panniculitis. MUSCULOSKELETAL: Moderate skin elastosis. No clubbing, cyanosis. GENERAL: Well-developed female in no acute distress. HEENT: No scleral icterus. Extraocular movements grossly intact. Moist buccal mucosa. NECK: Supple without lymphadenopathy. CHEST: Nonlabored respirations. Equal bilateral excursions. CARDIOVASCULAR: Regular rate, regular rhythm. Bilateral pulses radial 2+. NEURO: Cranial nerves II through XII grossly within normal limits. No focal deficits. PSYCH: Alert and oriented to person, place, and time. ASSESSMENT: 1. Morbid obesity due to excess calories, resolved. 2. Body mass index reduced from 50.8 down to 31. 3. Overweight. 4. 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 5. Personal history of complications from sleeve gastrectomy requiring revision. 6. Recurrent panniculitis. 7. Vitamin A deficiency. 8. Vitamin D deficiency. 9. Zinc deficiency. 10. Dysphagia to solid foods, resolved. 11. Status post massive weight loss 116 pounds. 12. History of hypertension, resolved. 13. Intractable nausea and vomiting, resolved. 14. Epigastric abdominal pain, resolved. 15. Gastroesophageal reflux disease, resolved. 16. Panniculitis. 17. Adiposis panniculosis. PLAN: 1. Recommend panniculectomy as despite being treated with nystatin powders symptoms are still progressive. 2. She has achieved over 100 pound weight loss with features of moderate redundant skin and pain from her pannus. 3. Inpatient hospitalization overnight at minimum advised. 4. Deep venous thrombosis prophylaxis. 5. Antibiotic prophylaxis. 6. Goal protein intake of over 60 grams advised for full recovery. 7. Benefits and risks of panniculectomy, including flap failure, anemia, blood loss, infection, seroma, cosmetic deformity were described at length. She demonstrated understanding and wished to proceed. [facility]ERE[facility]
== END | disposition home or self-care (01) ==
LOC: BARWHC3 09:37
PROVIDERS: ATTEND Surgery Plastic and Reconstructive Surgery
DX: Z01.818 Encounter for other preprocedural examination (principal)
CPT/HCPCS: 99211

== ENCOUNTER 2016-07-14 07:29 | Inpatient (IN) | payer BC ==
--- NOTE | 2016-07-14 07:20 | P.GSHP ---
History of Present Illness H&P Date: 07/14/16 DATE OF SERVICE: 07/14/2016 CHIEF COMPLAINT: Panniculitis. HISTORY OF PRESENT ILLNESS: Shefali Akers is a 36-year-old female who is status post revision to Michelle-en-Y gastric bypass on 02/25/2016. Her highest weight for her 5 feet 4-3/4 inches frame is 302 pounds. Today she comes in weighing 183 pounds. She has maintained 118 pound weight loss. She did achieve over 70% excess weight loss. Body mass index is reduced was 50.8 down to 31.6 Separately she also reports moderate and recurrent panniculitis with erythema and redness. Now she presents for further evaluation and management. PAST MEDICAL HISTORY: 1. Morbid obesity. 2. Gastroesophageal reflux disease. 3. Hypertension. 4. Migraines. 5. Gastric stenosis following sleeve gastrectomy. PAST SURGICAL HISTORY: 1. Sleeve gastrectomy in August 13, 2015. 2. Bilateral carpal tunnel release. 3. Upper endoscopy. 4. Cholecystectomy. 5. Tubal ligation. 6. Status post Michelle-en-Y gastric bypass. MEDICATIONS: 1. Vitamin A. 2. Thiamine. 3. Zantac. 4. Reglan. 5. Lanagan. 6. Vitamin D. ALLERGIES: CINNAMON. ENVIRONMENTAL. SUN. SOCIAL HISTORY: She is . She reports prior tobacco abuse. She had quit smoking in February 2015. FAMILY HISTORY: Denies. REVIEW OF SYSTEMS: CONSTITUTIONAL: Weight loss of 118 pounds. Highest weight was 302 pounds. Body mass index reduction of 51.9 down to 31.6. Percent excess weight loss over 70%. GASTROINTESTINAL: Gastroesophageal reflux disease resolved. HEENT: She wears glasses. No reports of troubles with hearing. ENDOCRINE: No reports of thyroid disorders or diabetes. CARDIOVASCULAR: History of hypertension. Now resolved. No reports of chest pain. RESPIRATORY: No overt history of obstructive sleep apnea or dyspnea on exertion. Again, prior tobacco use. GENITOURINARY: Denies recent bladder infections. NEURO: Denies any procedure disorder, however, prior history of migraines. PSYCH: Prior history of depression. No recent suicidal ideation. HEMATOLOGIC: Denies any easy bruising or bleeding. PHYSICAL EXAM: VITAL SIGNS: 97.9, 60, 14, 119/76, 5 feet 4-3/4 inches frame. 183 pounds. Body mass index of 31.6. ABDOMEN: Pannus extends over pubis by over 6 cm. Mild hyperemic consistent with panniculitis. No large abdominal wall hernia is identified. Pannus weighed between 5 to 10 pounds. GENERAL: Well-developed female in mild distress. HEENT: No scleral icterus. Extraocular movements grossly intact. Moist buccal mucosa. NECK: Supple without lymphadenopathy. CHEST: Nonlabored respirations. Equal bilateral excursions. CARDIOVASCULAR: Regular rate, regular rhythm. Bilateral pulses radial 2+. MUSCULOSKELETAL: No clubbing, cyanosis. NEURO: Cranial nerves II through XII grossly within normal limits. No focal deficits. PSYCH: Alert and oriented to person, place, and time. LABS: Hemoglobin normal at 13.7. Platelet count of 156 and normal. This is improved from 377 two months ago. Chloride elevated at 108. Potassium normal at 3.7. Magnesium normal at 2.1. Iron normal at 84. Total iron-binding capacity low at 251. Vitamin A low at 36. Vitamin D low at 28.6. Zinc low at 58. Total protein and albumin within normal limits. Copper and selenium is pending. ASSESSMENT: 1. Morbid obesity due to excess calories, resolved. 2. Body mass index reduced from 50.8 down to 31.6 3. Overweight. 4. 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 5. Personal history of complications from sleeve gastrectomy requiring revision. 6. Panniculitis. 7. Vitamin A deficiency. 8. Vitamin D deficiency. 9. Zinc deficiency. 10. Dysphagia to solid foods. 11. Status post massive weight loss, 118 pounds. 12. History of hypertension, resolved. 13. Intractable nausea and vomiting, resolved. 14. Epigastric abdominal pain, resolved. 15. Gastroesophageal reflux disease, resolved. PLAN: 1. Benefits and risks of surgical intervention with panniculectomy including bleeding, infection, need for further surgery, flap failure, was described at length. 2. Will need inpatient hospitalization anticipated for 2 nights. 3. Deep venous thrombosis prophylaxis. 4. Antibiotic prophylaxis. Past Medical History Past Medical History: GERD/Reflux, Hypertension, Osteoarthritis (OA) Additional Past Medical History / Comment(s): Hx Migraines. HX BORDERLINE HTN. OA KNEES. HX Skin irritation abd skin folds. HX DYSPHAGIA - HAD DILATION. History of Any Multi-Drug Resistant Organisms: None Reported Past Surgical History: Bariatric Surgery, Cholecystectomy, Orthopedic Surgery, Tubal Ligation Additional Past Surgical History / Comment(s): [facility]. EGD. GASTRIC SLEEVE 2015; 02-25-16 MICHELLE-EN-Y. EGD W/ DILATION 05/16/16 Past Anesthesia/Blood Transfusion Reactions: Previous Problems w/ Anesthesia, Motion Sickness, Postoperative Nausea & Vomiting (PONV) Additional Past Anesthesia/Blood Transfusion Reaction / Comment(s): STAYED 2 EXTRA DAYS R/T "ANESTHESIA NOT GETTING OUT OF MY SYSTEM" Past Psychological History: Depression Additional Psychological History / Comment(s): DENIES DEPRESSION CURRENTLY. Smoking Status: Former smoker Past Alcohol Use History: Rare Additional Past Alcohol Use History / Comment(s): QUIT SMOKING 02/2015, 23 YR SMOKER, 1 PPD. Past Drug Use History: None Reported Additional Drug Use History / Comment(s): PER PTS SPOUSE " TEENAGER USED CRACK " - Past Family History Father History Unknown: Yes Mother History Unknown: Yes Family Medical History: No Reported History Brother(s) History Unknown: Yes Sister(s) History Unknown: Yes Daughter(s) Family Medical History: No Reported History Son(s) Family Medical History: No Reported History Medications and Allergies Home Medications Medication Instructions Recorded Confirmed Type Multivitamin [Multivitamins Adult 2 tab PO BID 05/15/16 07/08/16 History Gummies] Omeprazole 40 mg PO HS 07/08/16 07/08/16 History Vitamin A 8,000 unit PO HS 07/08/16 07/08/16 History Allergies Allergy/AdvReac Type Severity Reaction Status Date / Time cinnamon AdvReac Wheezing Verified 07/08/16 15:18 grass pollen AdvReac Unknown Verified 07/08/16 15:18 sun AdvReac skin Uncoded 07/08/16 15:18 blisters
[~2016-07-14 07:29] MED LIST changes: +DEXAMETHASONE SOD PHOSPHATE 10 MG/ML 1 ML VIAL IV ONE; +MIDAZOLAM 2 MG/2 ML VIAL IV PRN; +ONDANSETRON 4 MG/2 ML VIAL IVP ONE; +SCOPOLAMINE 1.5MG/72HR PATCH TRANSDERM ONE; +ceFAZolin 2 GM in SODIUM CHLORIDE 0.9% 100 ML IVPB ONE
[2016-07-14] MEDS ORDERED: HEPARIN SODIUM,PORCINE 5,000 UNIT/ML 1 ML VIAL SQ ONE (07:32)
[2016-07-14] MEDS ORDERED: LIDOCAINE 1% 20 ML VIAL (10MG/ML) FOR IV START INTRADERMA ONE (08:20)
[2016-07-14] MEDS ORDERED: SUCCINYLCHOLINE CHLORIDE 100 MG/5 ML SYR IV ONE (09:42)
[2016-07-14] MEDS ORDERED: MIDAZOLAM 2 MG/2 ML VIAL ONE (09:42)
[2016-07-14] MEDS ORDERED: fentaNYL (PF) 50 MCG/ML 2 ML AMP ONE (09:42)
[2016-07-14] MEDS ORDERED: NEOSTIGMINE 1 MG/ML 10 ML VIAL ONE (09:42)
[2016-07-14] MEDS ORDERED: PROPOFOL 10 MG/ML 20 ML VIAL IV ONE (09:42)
[2016-07-14] MEDS ORDERED: LIDOCAINE 1% INJ 10MG/ML (20 ML MDV) ONE (09:42)
[2016-07-14] MEDS ORDERED: GLYCOPYRROLATE 0.2 MG/ML 2 ML VIAL ONE (09:42)
[2016-07-14] MEDS ORDERED: VECURONIUM 10 MG VIAL IV ONE (09:42)
[2016-07-14] MEDS ORDERED: ONDANSETRON 4 MG/2 ML VIAL ONE (09:42)
[2016-07-14] MEDS ORDERED: LACTATED RINGERS 1,000 ML IV ONE ×2 (10:30→12:41)
[2016-07-14] MEDS ORDERED: BUPIVACAIN-EPI 0.25%-1:200,000 30 ML VIAL SQ ONE (10:40)
--- NOTE | 2016-07-14 13:23 | P.PCN ---
Date of Procedure: 07/14/16 Preoperative Diagnosis: Panniculitis Postoperative Diagnosis: Panniculitis, ventral hernia 18 x 28 cm Procedure(s) Performed: Panniculectomy, ventral hernia repair 18 x 20 cm, reducible Anesthesia: GETA, local (90 mL Marcaine) Surgeon: Monalisa Araiza Estimated Blood Loss (ml): 300 Urine output (ml): 350 Pathology: none sent Condition: stable Disposition: floor Operative Findings: Skin elastosis with panniculitis, 4.86 pounds of skin excised, ventral hernia 18 x 28 cm repaired using fascial imbrication
[2016-07-14] MEDS ORDERED: HYDROcodone/APAP 15 ML SOLUTION PO PRN (13:24)
[2016-07-14] MEDS ORDERED: ONDANSETRON 4 MG/2 ML VIAL IVP PRN (13:24)
[2016-07-14] MEDS ORDERED: HYDROmorphone 1 MG/ML 1 ML SYRINGE IVP PRN (13:24)
[2016-07-14] MEDS ORDERED: NALOXONE 0.4 MG/ML 1 ML VIAL IV PRN ×2 (13:24→17:14)
[2016-07-14 13:40] LABS: Glucose,Whole Blood 127 mg/dL (75-99)
[2016-07-14] MEDS: HYDROmorphone 1 MG/ML 1 ML SYRINGE IVP PRN ×2 (13:47→13:52)
[2016-07-14] MEDS ORDERED: HYDROmorphone PCA 5 MG/25 ML SYRINGE IV PRN (17:14)
[2016-07-14] MEDS: 0.9% NACL WITH KCL 20 MEQ/L 1,000 ML IV SCH (17:19)
[2016-07-14] MEDS: ceFAZolin 2 GM in SODIUM CHLORIDE 0.9% 100 ML IVPB SCH (17:20)
[2016-07-14 18:45] VITALS: BMI 31.1
[2016-07-14] MEDS: KETOROLAC 30 MG/ML 1 ML VIAL IVP SCH (18:49)
--- NOTE | 2016-07-14 18:57 | P.PN ---
Progress Note - Text Bhardwaj catheter discontinued this evening. Pain control with REPAIR DEPARTMENT SUPERVISOR. Discharged home once pain is controlled with oral pain meds.
[2016-07-15] MEDS: KETOROLAC 30 MG/ML 1 ML VIAL IVP SCH ×4 (00:05→17:55)
[2016-07-15] MEDS: ceFAZolin 2 GM in SODIUM CHLORIDE 0.9% 100 ML IVPB SCH (00:53)
[2016-07-15] MEDS: 0.9% NACL WITH KCL 20 MEQ/L 1,000 ML IV SCH ×3 (00:53→13:09)
[2016-07-15 07:26] LABS: Basophils % (A) 1 %; CH 28.4; CHCM 33.9; Eosinophils % (A) 1 %; HDW 2.75; HGB 12.3 gm/dL (11.4-16.0); Luc # (Auto) 0.11; Luc % (Auto) 2; Lymphocytes # (A) 1.6 k/uL (1.0-4.8); Lymphocytes % (A) 30 %; MCH 29.5 pg (25.0-35.0); MCHC 35.1 g/dL (31.0-37.0); MCV 84.1 fL (80.0-100.0); Mean Platelet Volume 7.2; Monocytes # (A) 0.3 k/uL (0-1.0); Monocytes % (A) 6 %; Neutrophils # (A) 3.2 k/uL (1.3-7.7); Neutrophils % (A) 61 %; RBC 4.17 m/uL (3.80-5.40); RDW 13.4 % (11.5-15.5); WBC 5.3 k/uL (3.8-10.6); WBC (Perox) 5.37
[2016-07-15] MEDS ORDERED: ENOXAPARIN 40 MG/0.4 ML SYRINGE SQ SCH (09:00)
[2016-07-15] MEDS ORDERED: PANTOPRAZOLE 40 MG/10 ML VIAL IV SCH (09:00)
--- NOTE | 2016-07-15 12:49 | P.PN ---
Subjective 36-year-old female being seen this morning on rounds patient is postop Panniculectomy, ventral hernia repair 18 x 20 cm, reducible done on July 14 for Panniculitis, ventral hernia 18 x 28 cm. 4.8 pounds of skin excised. Patient been started on a bariatric clear liquid diet [place] elixir has been initiated for pain control labs reviewed the white count 5.3 hemoglobin 12.3 patient has been afebrile. Objective - Vital Signs Vital signs: Vital Signs Temp 97.9 F 07/15/16 08:00 Pulse 51 L 07/15/16 08:00 Resp 20 07/15/16 08:00 BP 100/63 07/15/16 08:00 Pulse Ox 100 07/15/16 08:00 Intake & Output 07/14/16 07/15/16 07/15/16 18:59 06:59 18:59 Intake Total 2300 480 Output Total 1360 70 Balance 940 410 Weight 82.2 kg Intake: IV 2300 Oral 480 Output: Drainage 110 70 DONALDO #1 60 40 DONALDO #2 50 30 Urine 950 Uretheral (Bhardwaj) 600 Estimated Blood Loss 300 Other: Voiding Method Indwelling Catheter Toilet - Exam Physical exam 36-year-old female sitting up in bed states has been up to the bathroom denies any nausea vomiting Lungs essentially clear adequate air movement on room air sats 100% no cough noted heart S1-S2 audible and regular denying chest pain no murmur Abdomen abdominal binder in place soft not distended urinating no difficulty no nausea no vomiting Extremities no edema noted bilaterally - Labs CBC & Chem 7: 07/15/16 06:55 Labs: Abnormal Lab Results - Last 24 Hours (Table) 07/14/16 Range/Units 13:35 POC Glucose (mg/dL) 127 H (75-99) mg/dL Assessment and Plan Plan: Impression Postop July 14 Panniculectomy, ventral hernia repair 18 x 20 cm, reducible with 4.8 pounds of skin excised Panniculitis, ventral hernia 18 x 28 cm status post revision to Michelle-en-Y gastric bypass on 02/25/2016. Morbid obesity 118 pound weight loss after gastric bypass surgery Hypertension History of migraines Esophageal reflux disease Plan Pain control Bariatric clear diet Increase activity as tolerated Continue postop surgical care DVT prophylaxis Anticipate discharge in the next 24 hours The above dictated assessment and findings were discussed with dr guzman . Impression and the plan of care have been dictated as directed. Miriam Hyatt nurse practitioner acting as a scribe for dr guzman
[2016-07-15] MEDS ORDERED: HYDROcodone/APAP 7.5-325MG 1 EACH TAB PO PRN (18:49)
--- NOTE | 2016-07-15 18:59 | P.DS ---
Providers Date of admission: 07/14/16 07:29 Expected date of discharge: 07/15/16 Attending physician: Monalisa Araiza Primary care physician: Stated None - Discharge Diagnosis(es) (1) Panniculitis Status: Acute (2) Ventral hernia Status: Acute (3) Bariatric surgery status Status: Acute Hospital Course: POSTOPERATIVE DIAGNOSES: 1. Morbid obesity due to excess calories, resolved. 2. Body mass index reduced from 50.8 down to 31.1. 3. Overweight. 4. 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 5. Personal history of complications from sleeve gastrectomy requiring revision. 6. Panniculitis. 7. Vitamin A deficiency. 8. Vitamin D deficiency. 9. Zinc deficiency. 10. Dysphagia to solid foods. 11. Status post massive weight loss, 120 pounds. 12. History of hypertension, resolved. 13. Intractable nausea and vomiting, resolved. 14. Epigastric abdominal pain, resolved. 15. Gastroesophageal reflux disease, resolved. 16. Ventral hernia, reducible, 18 x 28 cm. 17. Central adiposity with adiposis panniculosis. The patient is a 36-year-old female with history of a bariatric procedure. She has lost over 100+ pounds. She has developed chronic panniculitis despite treatment with local prescription treatment. She presented for panniculectomy. She underwent panniculectomy with ventral hernia without sequela. Postoperatively, she had been doing well. Her pain is well-controlled. Procedures: OPERATION: 1. Panniculectomy, 4.86 pounds. 2. Primary repair of incarcerated incisional ventral hernia 18 cm x 28 cm without mesh with primary fascial indication bilateral musculocutaneous flap advancement. Patient Condition at Discharge: Stable Plan - Discharge Summary Discharge Medication List HYDROcodone/APAP 7.5-325MG [[place] 7.5-325] 1 tab PO Q6HR PRN #60 tab 07/21/16 [ Rx] Omeprazole 40 mg PO HS 08/02/16 [History] Omeprazole 40 mg PO DAILY #90 capsule. 08/07/16 [Rx] Follow up Appointment(s)/Referral(s): Monalisa Araiza MD [STAFF PHYSICIAN] - 07/17/16 10:30 am ([facility] Center) Patient Instructions/Handouts: *Surgery [facility] - Scopalamine Patch Instructions, Belt Lipectomy (GEN), Abdominal Binder (DC), Narcotic-Analgesic/Acetaminophen ( By mouth) Activity/Diet/Wound Care/Special Instructions: Wear abdominal binder at all times. Check DONALDO drains. Avoid pets. No lifting over 4 pound in 4 weeks. Discharge Disposition: HOME SELF-CARE
[2016-07-15 20:17] VITALS: BP 121/84; PULSE 76; RESP 18; TEMP 98.7
--- NOTE | 2016-07-15 22:09 | P.OP ---
Date of Procedure: 07/14/16 Description of Procedure: SURGEON: MAI MACKENZIE MD PREOPERATIVE DIAGNOSES: 1. Morbid obesity due to excess calories, resolved. 2. Body mass index reduced from 50.8 down to 31.1 3. Overweight. 4. 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 5. Personal history of complications from sleeve gastrectomy requiring revision. 6. Panniculitis of the lower abdomen. 7. Vitamin A deficiency. 8. Vitamin D deficiency. 9. Zinc deficiency. 10. Dysphagia to solid foods. 11. Status post massive weight loss, 120 pounds. 12. History of hypertension, resolved. 13. Intractable nausea and vomiting, resolved. 14. Epigastric abdominal pain, resolved. 15. Gastroesophageal reflux disease, resolved. POSTOPERATIVE DIAGNOSES: 1. Morbid obesity due to excess calories, resolved. 2. Body mass index reduced from 50.8 down to 31.1. 3. Overweight. 4. 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 5. Personal history of complications from sleeve gastrectomy requiring revision. 6. Panniculitis. 7. Vitamin A deficiency. 8. Vitamin D deficiency. 9. Zinc deficiency. 10. Dysphagia to solid foods. 11. Status post massive weight loss, 120 pounds. 12. History of hypertension, resolved. 13. Intractable nausea and vomiting, resolved. 14. Epigastric abdominal pain, resolved. 15. Gastroesophageal reflux disease, resolved. 16. Ventral hernia, reducible, 18 x 28 cm. 17. Central adiposity with adiposis panniculosis. OPERATION: 1. Panniculectomy, 4.86 pounds. 2. Primary repair of incarcerated incisional ventral hernia 18 cm x 28 cm without mesh with primary fascial indication bilateral musculocutaneous flap advancement. ANESTHESIA: General with 90 mL 0.25% sensorcaine with epinephrine and normal saline mixture. ESTIMATED BLOOD LOSS: 300 mL SPECIMENS REMOVED: Pannus 4.86 pounds. COMPLICATIONS: None. CONDITION: Stable. DRAINS: Two #19 Pedro drains below abdominal flap extending through the pubis. OPERATIVE FINDINGS: 1. Panniculectomy, 5.6 pounds. 2. Repair of incarcerated ventral hernia without mesh, 18 cm x 28 cm. INDICATIONS: Shefali Akers is a 36-year-old female who is status post revision to Michelle-en-Y gastric bypass on 02/25/2016. Her highest weight for her 5 feet 4-3/4 inches frame is 302 pounds. Today she comes in weighing 181 pounds. She has maintained 120 pound weight loss. She did achieve over 70% excess weight loss. Body mass index is reduced was 50.8 down to 31.1. Separately she also reports moderate and recurrent panniculitis with erythema and redness. Now she presents for further evaluation and management. Given her clinical symptoms, including massive weight loss, she elected for surgical intervention with a panniculectomy. Benefits and risks of the procedure including bleeding, infection, risk of flap failure, chronic pain, cosmetic deformity, need for further surgery were described at length. Informed consent was obtained. DESCRIPTION: In the preanesthesia care unit the patient was marked with an indelible marker. She had also been given heparin subcutaneously. The patient was brought into the operating room and laid in supine position. After general induction, a Bhardwaj catheter was placed. The abdomen was then prepped and draped in standard sterile fashion using ChloraPrep. The skin was prepped as far laterally to the back, inferiorly to the upper thighs and superiorly to above the bilateral breasts. A timeout protocol was confirmed with the surgical team regarding patient's name , procedure to be performed, including preoperative medications. She had received Ancef 2 grams IV antibiotics. Once the time-out protocol was confirmed with the surgical team, the patient was re-marked with indelible marker whereby the midline of the xiphoid to the mons pubis was marked. The anterior/superior iliac spine along the bilateral hips was also marked. Approximately 8 cm above the pubis commissure a transverse incision was made for the inferior portion of the flap. Using a #10 blade, the incision was taken from the midline laterally to above the anterior/superior iliac spine, initially on the left side of the patient and then on the right side of the patient. Electro-Bovie cautery was used to control for hemostasis. The dissection was taken down to the level of the fascia. Landmarks used were the xiphoid process as well as the bilateral costal margins for the superior margin. Care was taken to avoid any creation of dog ears during the dissection. Once hemostasis was checked, a large incarcerated incisional lower ventral hernia fascial defect of 18 cm x 28 cm was identified unrelated to her bariatric procedure. During this dissection, the umbilicus was truncated at its fascial insertion. Starting from the xiphoid process, fascial imbrication with bilateral musculocutaneous flap advancement was performed using #2 Ethibond. Multiple facial imbrications over 4 layers were performed. The ventral hernia defect was completely repaired and closed. For postop analgesia , 90 mL of sensorcaine with epinephrine and normal saline mixture was infiltrated along the midline and fascia. Hemostasis was once again checked with electro-Bovie cautery and all defects were addressed. Attention was now brought to closure of the flap. Using stainless steel skin vincent, the midline was once again marked of the upper flap as well as the pubic commissure. The patient was placed in a flexed position of approximately 30 degrees at the hips. The pannus was extended inferiorly to the feet. The upper flap was created once the excess skin was excised. Again care was taken to avoid any dog ears along the lateral aspect of the incisions. Once excised, the pannus was weighed at 4.86 pounds. The upper and lower flaps were reapproximated at the midline and then laterally to the skin with skin vincent. Once reapproximated, the skin was closed in layers using 0 Vicryl for the superficial fascial system followed by running 3- 0 Monocryl for the deep dermis. Prior to skin closure, two round #19 Pedro drains were placed underneath the flap and brought out just inferior to the incision along the pubis. Drain stitch using 2-0 nylon was placed. Once the incision was closed, bulb suction was attached. Hemostasis was checked. At the end of the procedure, the needle, sponge and instrument count was verified correct. Antibiotic Optifoam sponge dressing was placed over the incision following Dermabond tape. Antibiotic CHG Tegaderm was placed over the DONALDO exit sites. The patient was then transferred to a hospital bed in a beach chair position. An abdominal binder was placed and marked. The patient was taken to the postanesthesia care unit in stable condition, awake and extubated. Total time for procedure from skin to skin was 155 minutes. Patient was deemed an ASA2.
== END 2016-07-15 20:18 | disposition home or self-care (01) | DRG 572 ==
LOC: 2ORWHC 07:29 → 6PED 13:19
PROVIDERS: ADMIT Surgery Plastic and Reconstructive Surgery; ATTEND Surgery Plastic and Reconstructive Surgery
PROC: 0HB7XZZ Excision of Abdomen Skin, External Approach (ICD-10-PCS; principal; 2016-07-14 09:15)
PROC: 0WQF0ZZ Repair Abdominal Wall, Open Approach (ICD-10-PCS; principal; 2016-07-14 09:15)
PROC: 0KX10ZZ Transfer Facial Muscle, Open Approach (ICD-10-PCS; principal; 2016-07-14 09:15)
DX: M79.3 Panniculitis, unspecified (principal); R13.10 Dysphagia, unspecified; E50.9 Vitamin A deficiency, unspecified; K43.9 Ventral hernia without obstruction or gangrene; E55.9 Vitamin D deficiency, unspecified; E60 Dietary zinc deficiency; M17.0 Bilateral primary osteoarthritis of knee; Z79.899 Other long term (current) drug therapy; Z87.891 Personal history of nicotine dependence; Z98.84 Bariatric surgery status; E66.3 Overweight; Z68.31 Body mass index [BMI] 31.0-31.9, adult
CPT/HCPCS: 81025; 85025

== ENCOUNTER → 2016-07-17 | Outpatient (CLI) | payer BC ==
[2016-07-17 10:50] VITALS: BP 133/84; PULSE 85; RESP 20; TEMP 98.8; BMI 31.3
--- NOTE | 2016-07-27 13:20 | PN ---
DATE OF SERVICE: 07/17/2016 CHIEF COMPLAINT: Follow-up panniculectomy. HISTORY OF PRESENT ILLNESS: Shefali Akers is a 36-year-old female status post panniculectomy on 07/14/2016. She is now 3 days postop. Her pain is in control. No reports of fevers or chills. At her height of 5 feet 4-3/4 inches frame, her ideal body is 144 pound. Her highest weight is 302 pounds. Today she comes in weighing 186 pounds. She has lost 116 pounds. Body mass index has been reduced from 50.8 down to 31.3. BMI point reduction is 19.4. She is 42 pounds overweight. Her percent excess weight loss is 73%. She reports moderate drainage from her JPs drain. PHYSICAL EXAMINATION: VITAL SIGNS: 98.8, 85, 20, 133/84, 5 feet 4-3/4 inches frame, 186 pounds. Body mass index 31.3. ABDOMEN: Dressings clean, dry and intact. DONALDO were stripped. CHG antibiotic Tegaderm were changed. JPs were maintained, however. MUSCULOSKELETAL: Mild bilateral edema 1+ bilaterally. No clubbing, cyanosis. GENERAL: Well-developed female in no acute distress. HEENT: No scleral icterus. Extraocular movements grossly intact. Moist buccal mucosa. NECK: Supple without lymphadenopathy. CHEST: Nonlabored respirations. Equal bilateral excursions. CARDIOVASCULAR: Regular rate, regular rhythm. Bilateral pulses radial 2+. NEURO: Cranial nerves II through XII grossly within normal limits. No focal deficits. PSYCH: Alert and oriented to person, place, and time. ASSESSMENT: 1. Panniculitis, now resolved. 2. Status post panniculectomy. 3. Status post massive weight loss, 116 pounds. 4. Status post Michelle-en-Y gastric bypass. PLAN: 1. She reports moderate swelling of her bilateral legs following surgery and DVT cannot be excluded. Recommend ultrasound of bilateral lower extremities. 2. In the interim, recommend wearing an abdominal binder at all times to minimize risk for seromas. 3. Her JPs are still putting outputs over 30 mL which she will continue with her DONALDO drains. 4. Follow-up in one week. [facility]ITALEmeli
== END | disposition home or self-care (01) ==
LOC: BARWHC3 10:41
PROVIDERS: ATTEND Surgery Plastic and Reconstructive Surgery
DX: Z48.815 Encounter for surgical aftercare following surgery on the digestive system (principal); Z68.31 Body mass index [BMI] 31.0-31.9, adult; Z98.84 Bariatric surgery status; R60.9 Edema, unspecified
CPT/HCPCS: 99212

== ENCOUNTER → 2016-07-17 | Outpatient (CLI) | payer BC ==
--- NOTE | 2016-07-17 12:35 | US ---
EXAMINATION TYPE: US venous doppler duplex LE BI DATE OF EXAM: 07/17/2016 12:26 PM COMPARISON: NONE CLINICAL HISTORY: R0602,SOB,R22.42 SWELLING LLL,R22.41 SWELLING RLL. Leg pain and swelling/ No known prior DVT SIDE PERFORMED: Bilateral TECHNIQUE: The lower extremity deep venous system is examined utilizing real time linear array sonog rudy with graded compression, doppler sonography and color-flow sonography. VESSELS IMAGED: External Iliac Vein (EIV) Common Femoral Vein Deep Femoral Vein Greater Saphenous Vein * Femoral Vein Popliteal Vein Small Saphenous Vein * Proximal Calf Veins (* superficial vessels) Right Leg: Negative for DVT Left Leg: Negative for DVT IMPRESSION: No evidence of DVT at this time.
== END | disposition home or self-care (01) ==
LOC: RADUSWWP 12:00
PROVIDERS: ATTEND Surgery Plastic and Reconstructive Surgery
DX: R22.42 Localized swelling, mass and lump, left lower limb (principal); R06.02 Shortness of breath
CPT/HCPCS: 93970

== ENCOUNTER → 2016-07-21 | Outpatient (CLI) | payer BC ==
[2016-07-21 09:49] VITALS: BP 123/82; PULSE 74; RESP 14; TEMP 98.1; BMI 30.8
--- NOTE | 2016-07-21 10:38 | P.PN ---
Progress Note - Text TO whom it may concern: Shefali Akers is under my surgical care. She may return to work with restrictions of not lifting over 4 pounds for 4 weeks on July 28, 2016. Regards, Monalisa Araiza MD, FACS
--- NOTE | 2016-08-22 22:46 | P.PN ---
Progress Note - Text DATE OF SERVICE: 07/21/2016 CHIEF COMPLIANT: Panniculitis. HISTORY OF PRESENT ILLNESS: Shfeali Akers is a 36-year-old female status post panniculectomy on 07/14/2016. She is now one week out. She has been managing her drains. No reports of fevers or chills. No reports of increased abdominal pain. At her height of 5 feet 4 inches, her ideal body weight is 144 pounds. Her initial weight was 302 pounds. Today she comes weighing 179 pounds. She has lost 123 pounds. Percent excess weight loss is 78%. Body mass has reduced from 51.9 down to 30.8. Total BMI point reduction is 21. She is only 35 pounds overweight. In one week she has lost 7 pounds. Separately she also reports reduction of swelling of the bilateral lower extremities. PHYSICAL EXAM: VITAL SIGNS: 98.1, 74, 14, 123/82, 5'4", 179 pounds. Body mass index of 30.8. ABDOMEN: External dressings were discontinued. DONALDO drain with CHG Tegaderm were also changed. No signs of infection or cellulitis. Abdominal binder was replaced. GENERAL: Well-developed female in mild distress. HEENT: No scleral icterus. Extraocular movements grossly intact. Moist buccal mucosa. NECK: Supple without lymphadenopathy. CHEST: Nonlabored respirations. Equal bilateral excursions. CARDIOVASCULAR: Regular rate, regular rhythm. Bilateral pulses radial 2+. MUSCULOSKELETAL: No clubbing, cyanosis. NEURO: Cranial nerves II through XII grossly within normal limits. No focal deficits. PSYCH: Alert and oriented to person, place, and time. ASSESSMENT: 1. Morbid obesity due to excess calories, resolved. 2. Body mass index reduced from 51.9 to 30.8. 3. Status post massive weight loss of 123 pounds. 4. Status post panniculectomy for panniculitis. PLAN: 1. Continue with DONALDO drain as the output is still over 20 mL. We went over her risk of premature removal of DONALDO drains include needle aspirations for seromas. 2. She will wear abdominal binder at all time. 3. She and her significant other were shown how to change her dressings to minimize risk of infection. 4. Recommend follow-up in 2 weeks. ADDENDUM: Ultrasound of the bilateral lower extremities negative for DVTs.
== END ==
LOC: BARWHC3 09:06
PROVIDERS: ATTEND Surgery Plastic and Reconstructive Surgery
DX: Z48.815 Encounter for surgical aftercare following surgery on the digestive system (principal); Z98.84 Bariatric surgery status
CPT/HCPCS: 99212

== ENCOUNTER 2016-08-02 18:05 | Emergency (ER) | payer BC ==
[2016-08-02 18:16] VITALS: RESP 18
--- NOTE | 2016-08-02 18:50 | ED ---
General Adult HPI - General Chief complaint: Skin/Abscess/Foreign Body Stated complaint: poss post op infection drain tube Time Seen by Provider: 08/02/16 18:21 Source: patient, family, RN notes reviewed, old records reviewed Mode of arrival: ambulatory Limitations: no limitations - History of Present Illness Initial comments: If complaint and history of present illness a 28-year-old female who had a panniculectomy 3 weeks ago. She's been emptying the Laci-Caban drains daily approximately 25 ML's per day been coming out. For the last 2 days she's had an M rolled green colored drainage fluid being collected in the DONALDO drains. Odor similar to that of pseudomonas. Patient denies fever. She does have pain at the 2 sites with her drains are entering the skin just above the symphysis pubis. - Related Data Home Medications Medication Instructions Recorded Confirmed Omeprazole 40 mg PO HS 08/02/16 08/02/16 Previous Rx's Medication Instructions Recorded HYDROcodone/APAP 7.5-325MG [[place] 1 tab PO Q6HR PRN #60 tab 07/21/16 7.5-325] Allergies Allergy/AdvReac Type Severity Reaction Status Date / Time cinnamon AdvReac Wheezing Verified 08/02/16 18:46 grass pollen AdvReac Unknown Verified 08/02/16 18:46 sun AdvReac skin Uncoded 08/02/16 18:17 blisters Review of Systems ROS Statement: Those systems with pertinent positive or pertinent negative responses have been documented in the HPI. Review of systems no other complaints now denies headache chest pain shows breath GI or problems. All systems were reviewed. Past medical problems significant for GERD, hypertension, osteoarthritis, migraines. The patient said to bariatric surgeries and 3 weeks ago a panniculectomy. She's also had a gallbladder removed, tubal ligation. Family history no cancer. Patient quit smoking 18 months ago drinks alcohol socially. ROS Other: All systems not noted in ROS Statement are negative. Past Medical History Past Medical History: GERD/Reflux, Hypertension, Osteoarthritis (OA) Additional Past Medical History / Comment(s): Hx Migraines. HX BORDERLINE HTN. OA KNEES. HX Skin irritation abd skin folds. HX DYSPHAGIA - HAD DILATION. History of Any Multi-Drug Resistant Organisms: None Reported Past Surgical History: Bariatric Surgery, Cholecystectomy, Orthopedic Surgery, Tubal Ligation Additional Past Surgical History / Comment(s): [facility]. EGD. GASTRIC SLEEVE 2015; 02-25-16 [facility]-Y. EGD W/ DILATION 05/16/16, Panniculectomy 07/14/16 Past Anesthesia/Blood Transfusion Reactions: Previous Problems w/ Anesthesia, Motion Sickness, Postoperative Nausea & Vomiting (PONV) Additional Past Anesthesia/Blood Transfusion Reaction / Comment(s): STAYED 2 EXTRA DAYS R/T "ANESTHESIA NOT GETTING OUT OF MY SYSTEM" Past Psychological History: Depression Additional Psychological History / Comment(s): DENIES DEPRESSION CURRENTLY. Smoking Status: Former smoker Past Alcohol Use History: None Reported Additional Past Alcohol Use History / Comment(s): QUIT SMOKING 02/2015, 23 YR SMOKER, 1 PPD. Past Drug Use History: None Reported Additional Drug Use History / Comment(s): PER PTS SPOUSE " TEENAGER USED CRACK " - Past Family History Father History Unknown: Yes Mother History Unknown: Yes Family Medical History: No Reported History Brother(s) History Unknown: Yes Sister(s) History Unknown: Yes Daughter(s) Family Medical History: No Reported History Son(s) Family Medical History: No Reported History General Exam - General Exam Comments Initial Comments: General: The patient is awake and alert, plenty of increased pain at the sites where the Laci-Caban drains exit the skin. He also states the drains now filling the containers with a foul smelling [place] green liquid. Vital signs show temperature 98.6 pulse 70 respiratory rate 18 pulse ox on percent room air blood pressure 133/70 Eye: Pupils are equal, extra-ocular movements are intact; there is normal conjunctiva bilaterally. No signs of icterus. Ears, nose, mouth and throat: There are moist mucous membranes Neck: The neck is supple, no complaint of headache or neck pain. Cardiovascular: There is a regular rate and rhythm. No murmur, rub or gallop is appreciated. Respiratory: Lungs are clear to auscultation, respirations are non-labored, breath sounds are equal. No wheezes, stridor, rales, or rhonchi. Gastrointestinal: Well-healing surgical panniculectomy site. She does have [place] green colored fluid coming to both Laci-Caban drains with the odor of pseudomonas. Back: No back pain Musculoskeletal: Normal ROM, no tenderness, There is no pedal edema. There is no calf tenderness or swelling. Sensation intact. Neurological: No neuro deficits Skin: Skin is warm and dry and no rashes or lesions are noted. Limitations: no limitations Course Vital Signs 08/02/16 18:15 Temperature 98.6 F Pulse Rate 70 Respiratory 18 Rate Blood Pressure 133/70 O2 Sat by Pulse 100 Oximetry Medical Decision Making - Medical Decision Making Case discussed with Dr. Araiza she will see the patient in the emergency room. Dr. Callahan saw the patient in emergency room. Remove the Steri-Strips and the drains. sHe ordered a CBC and a comp. The patient's white count is normal she can go home and follow-up as directed. Patient white count 4.8 hemoglobin 13 hematocrit of 40, potassium 3.8 with a BUN 11 creatinine 0.7 and GFR is 60. Glucose 94. A she'll be discharged home to follow up with her family physician and her surgeon. - Lab Data Result diagrams: 08/02/16 20:25 08/02/16 20:25 Lab Results 08/02/16 08/02/16 Range/Units 20:25 20:25 WBC 4.8 (3.8-10.6) k/uL RBC 4.72 (3.80-5.40) m/uL Hgb 13.6 (11.4-16.0) gm/dL Hct 40.2 (34.0-46.0) % MCV 85.3 (80.0-100.0) fL MCH 28.8 (25.0-35.0) pg MCHC 33.8 (31.0-37.0) g/dL RDW 13.6 (11.5-15.5) % Plt Count 199 (150-450) k/uL Neutrophils % 68 % Lymphocytes % 24 % Monocytes % 4 % Eosinophils % 1 % Basophils % 1 % Neutrophils # 3.3 (1.3-7.7) k/uL Lymphocytes # 1.2 (1.0-4.8) k/uL Monocytes # 0.2 (0-1.0) k/uL Eosinophils # 0.1 (0-0.7) k/uL Basophils # 0.1 (0-0.2) k/uL Sodium 142 (137-145) mmol/L Potassium 3.8 (3.5-5.1) mmol/L Chloride 110 H (98-107) mmol/L Carbon Dioxide 25 (22-30) mmol/L Anion Gap 7 mmol/L BUN 11 (7-17) mg/dL Creatinine 0.70 (0.52-1.04) mg/dL Est GFR (MDRD) Af Amer >60 (>60 ml/min/1.73 sqM) Est GFR (MDRD) Non-Af >60 (>60 ml/min/1.73 sqM) Glucose 94 (74-99) mg/dL Calcium 9.0 (8.4-10.2) mg/dL Total Bilirubin 0.4 (0.2-1.3) mg/dL AST 22 (14-36) U/L ALT 28 (9-52) U/L Alkaline Phosphatase 95 (38-126) U/L Total Protein 6.7 (6.3-8.2) g/dL Albumin 3.8 (3.5-5.0) g/dL Disposition Clinical Impression: S/P panniculectomy Disposition: HOME SELF-CARE Condition: Good Instructions: [facility] Drain [facility] (ED) Additional Instructions: All follow-up with her surgeon and family doctor as needed follow the directions. Time of Disposition: 21:02
[2016-08-02 20:35] LABS: Basophils # (A) 0.1 k/uL (0-0.2); Basophils % (A) 1 %; CH 29.4; CHCM 34.6; Eosinophils # (A) 0.1 k/uL (0-0.7); Eosinophils % (A) 1 %; HCT 40.2 % (34.0-46.0); HDW 2.94; HGB 13.6 gm/dL (11.4-16.0); Luc # (Auto) 0.08; Luc % (Auto) 2; Lymphocytes # (A) 1.2 k/uL (1.0-4.8); Lymphocytes % (A) 24 %; MCH 28.8 pg (25.0-35.0); MCHC 33.8 g/dL (31.0-37.0); MCV 85.3 fL (80.0-100.0); Mean Platelet Volume 6.6; Monocytes # (A) 0.2 k/uL (0-1.0); Monocytes % (A) 4 %; Neutrophils # (A) 3.3 k/uL (1.3-7.7); Neutrophils % (A) 68 %; RBC 4.72 m/uL (3.80-5.40); RDW 13.6 % (11.5-15.5); WBC 4.8 k/uL (3.8-10.6)
[2016-08-02 20:43] LABS: ALT 28 U/L (9-52); AST 22 U/L (14-36); Alkaline Phosphatase 95 U/L (38-126); Anion Gap 7 mmol/L; Blood Urea Nitrogen 11 mg/dL (7-17); Carbon Dioxide 25 mmol/L (22-30); Chloride 110 mmol/L (98-107); Glucose 94 mg/dL (74-99); Non-African American GFR(MDRD) >60 (>60 ml/min/1.73 sqM); Potassium 3.8 mmol/L (3.5-5.1); Sodium 142 mmol/L (137-145); Total Bilirubin 0.4 mg/dL (0.2-1.3); Total Protein 6.7 g/dL (6.3-8.2)
[2016-08-02 21:20] VITALS: BP 130/82; PULSE 77; TEMP 98.5
--- NOTE | 2016-08-02 21:29 | P.GSCN ---
History of Present Illness Consult date: 08/02/16 Reason for Consult: Green fluid in Laci-Rich drain Requesting physician: Luis Snyder History of present illness: The patient is a 36-year-old female who status post panniculectomy over 2+ weeks ago. She was last seen in the bariatric center 1-1/2 weeks ago where her DONALDO drains had primarily serosanguineous drainage. She reports no fevers or chills. She also reports that her drains in the bulb had gone from pink to green within the last 2 days. She had not notified the bariatric center or myself regarding the green fluid. Secondary to the green color in her DONALDO drain , she presents to the emergency room for further evaluation. Again she denies any fevers or chills or purulent discharge from her DONALDO sites. Review of Systems CONSTITUTIONAL: Denies any fever or chills. Intentional weight also over heart 120+ pounds from sleeve gastrectomy and gastric bypass in 9 months. HEENT: Denies any trouble with vision, hearing or nosebleeds. She wears glasses. No difficulty swallowing. LYMPHATIC: The patient denies any lumps and bumps around the neck. ENDOCRINE: Denies any thyroid disorders. Denies any blood sugar glucose intolerance. RESPIRATORY: Denies pneumonia. Denies any troubles with breathing or dyspnea on exertion. CARDIOVASCULAR: Denies any chest pain, palpitations, or recent heart attacks. GASTROINTESTINAL: Denies heart burn, constipation or bright red blood per rectum. GENITOURINARY: Denies any blood in urine or increased urinary frequency. MUSCULOSKELETAL: Denies any back pain, stiffness, joint arthritis. NEUROLOGIC: Denies any numbness or tingling along the distal extremities. No seizure disorders or headaches. PSYCHIATRIC: Denies depression or suidical ideation. HEMATOLOGIC: Denies any abnormal bleeding or bruising. Past Medical History Past Medical History: GERD/Reflux, Hypertension, Osteoarthritis (OA) Additional Past Medical History / Comment(s): Hx Migraines. HX BORDERLINE HTN. OA KNEES. HX Skin irritation abd skin folds. HX DYSPHAGIA - HAD DILATION. History of Any Multi-Drug Resistant Organisms: None Reported Past Surgical History: Bariatric Surgery, Cholecystectomy, Orthopedic Surgery, Tubal Ligation Additional Past Surgical History / Comment(s): [facility]. EGD. GASTRIC SLEEVE 2015; 02-25-16 LEONCIO-EN-Y. EGD W/ DILATION 05/16/16, Panniculectomy 07/14/16 Past Anesthesia/Blood Transfusion Reactions: Previous Problems w/ Anesthesia, Motion Sickness, Postoperative Nausea & Vomiting (PONV) Additional Past Anesthesia/Blood Transfusion Reaction / Comm: STAYED 2 EXTRA DAYS R/T "ANESTHESIA NOT GETTING OUT OF MY SYSTEM" Past Psychological History: Depression Additional Psychological History / Comment(s): DENIES DEPRESSION CURRENTLY. Smoking Status: Former smoker Past Alcohol Use History: None Reported Additional Past Alcohol Use History / Comment(s): QUIT SMOKING 02/2015, 23 YR SMOKER, 1 PPD. Past Drug Use History: None Reported Additional Drug Use History / Comment(s): PER PTS SPOUSE " TEENAGER USED CRACK " - Past Family History Father History Unknown: Yes Mother History Unknown: Yes Family Medical History: No Reported History Brother(s) History Unknown: Yes Sister(s) History Unknown: Yes Daughter(s) Family Medical History: No Reported History Son(s) Family Medical History: No Reported History Medications and Allergies Home Medications Medication Instructions Recorded Confirmed Type Omeprazole 40 mg PO HS 08/02/16 08/02/16 History Allergies Allergy/AdvReac Type Severity Reaction Status Date / Time cinnamon AdvReac Wheezing Verified 08/02/16 18:46 grass pollen AdvReac Unknown Verified 08/02/16 18:46 sun AdvReac skin Uncoded 08/02/16 18:17 blisters Surgical - Exam Vital Signs Temp Pulse Resp BP Pulse Ox 98.6 F 70 18 133/70 100 08/02/16 18:15 08/02/16 18:15 08/02/16 18:15 08/02/16 18:15 08/02/16 18:15 GENERAL: Well developed and in no acute distress. Pleasant. HEENT: No sclera icterus. Extraocular movements grossly intact. Moist buccal mucosa. Head is atraumatic, normocephalic. Hears conversational speech. No nasal drainage. NECK: Supple without lymphadenopathy. No JV distention. CHEST: Non-labored respirations and equal bilateral excursions. CARDIOVASCULAR: Regular rate and rhythm. Palpable 2+ radial pulses. ABDOMEN: Soft. Nondistended. Two DONALDO drains exiting from the pubis with green fluid in DONALDO bulb. No cellulitis along the abdominal skin flap. No palpable fluid collection or seroma along the abdominal flap. No purulent drainage from the DONALDO insertion sites. Dermabond tape present along the panniculectomy incision. No cellulitis along the abdominal incisions. MUSCULOSKELETAL: No clubbing, cyanosis or edema. NEUROLOGIC: No focal or lateralizing signs. PSYCH: Appropriate affect. Alert and oriented to person, place and time. Results - Labs 08/02/16 20:25 08/02/16 20:25 Abnormal Lab Results - Last 24 Hours (Table) 08/02/16 Range/Units 20:25 Chloride 110 H (98-107) mmol/L Diabetes panel 08/02/16 Range/Units 20:25 Sodium 142 (137-145) mmol/L Potassium 3.8 (3.5-5.1) mmol/L Chloride 110 H (98-107) mmol/L Carbon Dioxide 25 (22-30) mmol/L BUN 11 (7-17) mg/dL Creatinine 0.70 (0.52-1.04) mg/dL Glucose 94 (74-99) mg/dL Calcium 9.0 (8.4-10.2) mg/dL AST 22 (14-36) U/L ALT 28 (9-52) U/L Alkaline Phosphatase 95 (38-126) U/L Total Protein 6.7 (6.3-8.2) g/dL Albumin 3.8 (3.5-5.0) g/dL Calcium panel 08/02/16 Range/Units 20:25 Calcium 9.0 (8.4-10.2) mg/dL Albumin 3.8 (3.5-5.0) g/dL Pituitary panel 08/02/16 Range/Units 20:25 Sodium 142 (137-145) mmol/L Potassium 3.8 (3.5-5.1) mmol/L Chloride 110 H (98-107) mmol/L Carbon Dioxide 25 (22-30) mmol/L BUN 11 (7-17) mg/dL Creatinine 0.70 (0.52-1.04) mg/dL Glucose 94 (74-99) mg/dL Calcium 9.0 (8.4-10.2) mg/dL Adrenal panel 08/02/16 Range/Units 20:25 Sodium 142 (137-145) mmol/L Potassium 3.8 (3.5-5.1) mmol/L Chloride 110 H (98-107) mmol/L Carbon Dioxide 25 (22-30) mmol/L BUN 11 (7-17) mg/dL Creatinine 0.70 (0.52-1.04) mg/dL Glucose 94 (74-99) mg/dL Calcium 9.0 (8.4-10.2) mg/dL Total Bilirubin 0.4 (0.2-1.3) mg/dL AST 22 (14-36) U/L ALT 28 (9-52) U/L Alkaline Phosphatase 95 (38-126) U/L Total Protein 6.7 (6.3-8.2) g/dL Albumin 3.8 (3.5-5.0) g/dL Assessment and Plan (1) Laci rich drain site pain Status: Acute (2) Status post panniculectomy Status: Acute Plan: 1. Laci-Rich drains and Dermabond tape were discontinued as the collecting system is contaminated. 2 x 2 dressing and Tegaderm were placed over DONALDO extraction sites. 2. No foul odor or purulent drainage noted from insertion site of DONALDO which is serosanguineous. 3. CBC and CMP has been obtained demonstrating no systemic infection. 4. Patient denies any systemic symptoms of fevers or chills. 5. As her drains have been discontinued, she is at high risk for postoperative seroma. She was advised to wear her abdominal binder at all times. 6. Recommended follow-up in 3-4 days or sooner for any new abdominal swelling or pain. 7. Patient is clear from a surgical standpoint for discharge home as CBC is normal and DONALDO drains have been discontinued. The above assessment and plan was discussed in detail with Dr. Synder.
== END 2016-08-02 21:20 | disposition home or self-care (01) ==
LOC: EC 18:05
DX: G89.18 Other acute postprocedural pain (principal); R10.30 Lower abdominal pain, unspecified; K21.9 Gastro-esophageal reflux disease without esophagitis; Z87.891 Personal history of nicotine dependence; Z79.899 Other long term (current) drug therapy; Z91.018 Allergy to other foods; Z91.09 Other allergy status, other than to drugs and biological substances; Z90.49 Acquired absence of other specified parts of digestive tract; Z98.84 Bariatric surgery status; Y83.8 Other surgical procedures as the cause of abnormal reaction of the patient, or of later complication, without mention of misadventure at the time of the procedure
CPT/HCPCS: 36415; 80053; 85025; 87070; 87075; 87077; 87186; 87205; 99284

== ENCOUNTER → 2016-08-07 | Outpatient (CLI) | payer BC ==
[2016-08-07 09:47] VITALS: BMI 29.2
--- NOTE | 2016-08-07 10:03 | P.PN ---
Progress Note - Text To whom it may concern: Shefali Akers is under my surgical care. She may return to work with restrictions on August 11, 2016 with restrictions of no lifting greater than 4 pounds. Regards, Monalisa Araiza MD, FACS
[2016-08-07 10:44] VITALS: BP 110/76; PULSE 63; TEMP 97.8
[2016-08-07 11:43] LABS: INR 1.1 (<1.1); Partial Thromboplastin Time 24.6 sec (22.0-30.0); Prothrombin Time 10.9 sec (9.0-12.0)
[2016-08-07 12:02] LABS: CH 29.1; CHCM 34.8; HCT 39.1 % (34.0-46.0); HGB 13.5 gm/dL (11.4-16.0); MCH 29.2 pg (25.0-35.0); MCHC 34.6 g/dL (31.0-37.0); MCV 84.3 fL (80.0-100.0); Mean Platelet Volume 6.8; RBC 4.64 m/uL (3.80-5.40); RDW 13.3 % (11.5-15.5)
[2016-08-07 12:59] LABS: Hemoglobin A1C 4.8 % (4.2-6.1)
[2016-08-07 14:42] LABS: ALT 28 U/L (9-52); AST 22 U/L (14-36); Alkaline Phosphatase 78 U/L (38-126); Anion Gap 9 mmol/L; Blood Urea Nitrogen 9 mg/dL (7-17); Carbon Dioxide 25 mmol/L (22-30); Chloride 109 mmol/L (98-107); Cholesterol 132 mg/dL (<200); Glucose 84 mg/dL (74-99); HDL Cholesterol 45 mg/dL (40-60); Iron 99 ug/dL (37-170); Magnesium 2.1 mg/dL (1.6-2.3); Non-African American GFR(MDRD) >60 (>60 ml/min/1.73 sqM); Phosphorous 4.1 mg/dL (2.5-4.5); Potassium 3.9 mmol/L (3.5-5.1); Sodium 143 mmol/L (137-145); Total Bilirubin 0.6 mg/dL (0.2-1.3); Total Protein 6.5 g/dL (6.3-8.2); Triglycerides 85 mg/dL (<150)
[2016-08-07 14:55] LABS: % Iron Saturation 41.8 % (20-50); Prealbumin 16 mg/dL (18-36); Total Iron Binding Capacity 237 ug/dL (265-497)
[2016-08-07 15:52] LABS: Vitamin B12 264 pg/mL (239-931)
[2016-08-12 16:31] LABS: Selenium 91 mcg/L (63-160)
--- NOTE | 2016-09-29 07:57 | PN ---
DATE OF SERVICE: 08/07/2016 CHIEF COMPLAINT: Follow-up panniculectomy. HISTORY OF PRESENT ILLNESS: Shefali Akers is a 36-year-old female who is status post panniculectomy on 07/14/2016. She is a little less than one month out. She had presented to the ER almost less than a week ago, as her DONALDO tube had changed colors. She denies any abdominal pain. Her DONALDO tube was discontinued in the ER. Separately, she reports no redness or swelling along her abdomen. No signs of infection is noted. Now she presents for further evaluation and management. At her height of 5 foot 4 and 3/4 inch, her initial weight was 302 pounds. Today she comes in weighing 174 pounds. She has 128 pounds in one year. Percent excess weight loss is 81%. Body mass index is reduced from 50.8 down to 29.2. Total BMI point reduction is 21.6 points. She is barely 30 pounds overweight. PHYSICAL EXAM: VITAL SIGNS: 97.8, 63, 16, 110/76, 5 foot 4-3/4 inches, 174 pounds. Body mass index 29.2. ABDOMEN: Abdomen flat, without palpable abdominal wall seroma. No palpable incisional hernias. No signs of cellulitis or infection. GENERAL: Well-developed female in mild distress. HEENT: No scleral icterus. Extraocular movements grossly intact. Moist buccal mucosa. NECK: Supple without lymphadenopathy. CHEST: Nonlabored respirations. Equal bilateral excursions. CARDIOVASCULAR: Regular rate, regular rhythm. Bilateral pulses radial 2+. MUSCULOSKELETAL: No clubbing, cyanosis. NEURO: Cranial nerves II through XII grossly within normal limits. No focal deficits. PSYCH: Alert and oriented to person, place, and time. ASSESSMENT: 1. History of panniculitis, now resolved. 2. Status post panniculectomy and ventral hernia repair. 3. Body mass index reduced from 50.8 down to 29.2. PLAN: 1. Return to work notice was written on her behalf. 2. She will continue wearing an abdominal binder at all times to minimize risk of postoperative seroma. 3. Limited activities including no lifting over 4 pounds for 4 weeks. 4. Recommend follow-up at minimum 1-2 months postop. [facility]
== END | disposition home or self-care (01) ==
LOC: BARWHC3 08:42
PROVIDERS: ATTEND Surgery Plastic and Reconstructive Surgery
DX: E66.01 Morbid (severe) obesity due to excess calories (principal); E21.1 Secondary hyperparathyroidism, not elsewhere classified; E89.1 Postprocedural hypoinsulinemia; D50.8 Other iron deficiency anemias; K90.89 Other intestinal malabsorption; E55.9 Vitamin D deficiency, unspecified; K76.9 Liver disease, unspecified; N19 Unspecified kidney failure; K50.90 Crohn's disease, unspecified, without complications
CPT/HCPCS: 80053; 80061; 82306; 82525; 82607; 82728; 82746; 83036; 83540; 83550; 83735; 83970; 84100; 84134; 84255; 84425; 84443; 84590; 84630; 85027; 85610; 85730; 97803; 99211

== ENCOUNTER → 2016-09-24 | Outpatient (CLI) | payer BC ==
[2016-09-24 15:06] VITALS: BP 143/101; PULSE 111; RESP 16; TEMP 98.1; BMI 29.0
--- NOTE | 2016-10-08 13:22 | P.PN ---
Progress Note - Text DATE OF SERVICE: 09/24/2016 CHIEF COMPLAINT: Follow-up panniculectomy. HISTORY OF PRESENT ILLNESS: Shefali Akers is a 36-year-old female who is status post panniculectomy on 07/14/2016. She is is also status post revision from a sleeve to the gastric bypass on 02/14/2016. She presents today with concerns of abdominal wall seroma. No reports of moderate increased abdominal pain. No reports of fevers or chills. No reports of intractable nausea and vomiting. No reports of dysphasia. At her height of 5 foot 4 and 3/4 inch, her initial weight was 302 pounds. Today she comes in weighing 173 pounds. She has 129 pounds. Percent excess weight loss is 82%. Body mass index is reduced from 50.8 down to 29.1. Total BMI point reduction is 21.7 points. She is 29 pounds overweight. She has lost another pound in 1 month. PHYSICAL EXAM: VITAL SIGNS: 5 foot 4-3/4 inches, 173 pounds. Body mass index 29.1. Vital Signs Temp 98.1 F 09/24/16 15:04 Pulse 111 H 09/24/16 15:04 Resp 16 09/24/16 15:04 BP 143/101 09/24/16 15:04 Pulse Ox ABDOMEN: Abdomen flat, without palpable abdominal wall seroma. Nondistended. Nontender. No palpable incisional hernias. GENERAL: Well-developed female in mild distress. HEENT: No scleral icterus. Extraocular movements grossly intact. Moist buccal mucosa. NECK: Supple without lymphadenopathy. CHEST: Nonlabored respirations. Equal bilateral excursions. CARDIOVASCULAR: Tachycardic. Bilateral pulses radial 2+. MUSCULOSKELETAL: No clubbing, cyanosis. NEURO: Cranial nerves II through XII grossly within normal limits. No focal deficits. PSYCH: Alert and oriented to person, place, and time. ASSESSMENT: 1. History of panniculitis, now resolved. 2. Status post panniculectomy and ventral hernia repair. 3. Body mass index reduced from 50.8 down to 29.1. 4. History of gastric bypass. PLAN: 1. On exam, no acute evidence of abdominal wall seroma. No needle compression needed. 2. Recommend follow up yearly for her bariatric procedure. 3. I recommended follow up sooner for any additional problems.
== END ==
LOC: BARWHC3 14:39
PROVIDERS: ATTEND Surgery Plastic and Reconstructive Surgery
DX: Z09 Encounter for follow-up examination after completed treatment for conditions other than malignant neoplasm (principal); Z98.890 Other specified postprocedural states; Z98.84 Bariatric surgery status
CPT/HCPCS: 99211

== ENCOUNTER → 2016-12-25 | Outpatient (CLI) | payer BC ==
--- NOTE | 2017-01-04 20:38 | P.PN ---
Progress Note - Text DATE OF SERVICE: 12/25/2016 CHIEF COMPLAINT: Sleeve gastrectomy. HISTORY OF PRESENT ILLNESS: Shefali Akers is a 36-year-old female status post sleeve gastrectomy August 2015. At her height of 5 feet 4-3/4 inches her initial weight has been 302 pounds. Today she comes in weighing 175 pounds. She has lost 127 pounds. Body mass index down from 50.8 down to 29.4. Percent excess weight loss is 80%. She is 31 pounds overweight. She has gastroesophageal reflux disease. She has been taking omeprazole. She is not able to eat chicken, pork, and turkey. She reports food being stuck. She reports epigastric abdominal pain as well as left lower quadrant abdominal pain. PAST MEDICAL HISTORY: 1. Morbid obesity. 2. Gastroesophageal reflux disease. 3. Hypertension. 4. Migraines. 5. Gastric stenosis following sleeve gastrectomy. 6. Panniculitis. PAST SURGICAL HISTORY: 1. Sleeve gastrectomy in August 13, 2015. 2. Bilateral carpal tunnel release. 3. Upper endoscopy. 4. Cholecystectomy. 5. Tubal ligation. 6. Gastric bypass, 02/2016. 7. Panniculectomy, 2016. MEDICATIONS: 1. Multivitamin. 2. Vitamin D. 3. Vitamin A. 4. Omeprazole. ALLERGIES: CINNAMON. ENVIRONMENTAL. SUN. SOCIAL HISTORY: She reports prior tobacco abuse. She had quit smoking in February 2015. FAMILY HISTORY: Morbid obesity. REVIEW OF SYSTEMS: CONSTITUTIONAL: At her height of 5 feet 4-3/4 inches her initial weight has been 302 pounds. Today she comes in weighing 175 pounds. She has lost 127 pounds. Body mass index down from 50.8 down to 29.4. Percent excess weight loss is 80%. She is 31 pounds overweight. GASTROINTESTINAL: Gastroesophageal reflux disease has returned. Has dysphagia to solid foods. Denies any blood in stools. HEENT: She wears glasses. She reports dysphagia to liquids including solid foods is resolved. No reports of troubles with hearing. ENDOCRINE: No reports of thyroid disorders or diabetes. CARDIOVASCULAR: History of hypertension, resolved. No reports of chest pain. RESPIRATORY: No overt history of obstructive sleep apnea or dyspnea on exertion. GENITOURINARY: Denies recent bladder infections. NEURO: Denies any procedure disorder, however, prior history of migraines. PSYCH: Prior history of depression. No recent suicidal ideation. HEMATOLOGIC: Denies any easy bruising or bleeding. MUSCULOSKELETAL: Bilateral hip and joint pain improved. PHYSICAL EXAM: VITAL SIGNS: 5 feet 4-3/4 inches frame, 175 pounds. Body mass index is 29.4. Vital Signs Temp 97.8 F 12/25/16 10:06 Pulse 56 L 12/25/16 10:06 Resp BP 125/76 12/25/16 10:06 Pulse Ox ABDOMEN: Soft, nondistended. Tenderness along the epigastrium and left lower quadrant. No palpable incisional hernias. MUSCULOSKELETAL: No clubbing, cyanosis. GENERAL: Well-developed female in no acute distress. HEENT: No scleral icterus. Extraocular movements grossly intact. Moist buccal mucosa. Hears conversational speech. NECK: Supple without lymphadenopathy. CHEST: Nonlabored respirations. Equal bilateral excursions. CARDIOVASCULAR: Regular rate, regular rhythm. Bilateral pulses radial 2+. NEURO: Cranial nerves II through XII grossly within normal limits. No focal deficits. PSYCH: Alert and oriented to person, place, and time. SKIN: Well perfused. Good skin turgor. Has tattoos. ASSESSMENT: 1. Morbid obesity due to excess calories, resolved. 2. Body mass index reduced from 50.8 down to 29.4. 3. Overweight. 4. 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 5. Personal history of complications from sleeve gastrectomy requiring revision. 6. Status post panniculectomy. 7. Vitamin A deficiency. 8. Vitamin D deficiency. 9. Zinc deficiency. 10. Dysphagia to solid foods. 11. Status post massive weight loss 127 pounds. PLAN: 1. Recommend upper endoscopy with her history of gastrojejunal stricture. 2. May benefit from Carafate. 3. Recommend bariatric panel.
== END | disposition home or self-care (01) ==
CPT/HCPCS: 99211

== ENCOUNTER 2016-12-26 06:13 | Inpatient (IN) | payer BC, OTHER ==
[2016-12-25 12:37] VITALS: BMI 29.3
[~2016-12-26 06:13] MED LIST changes: -DEXAMETHASONE SOD PHOSPHATE 10 MG/ML 1 ML VIAL IV ONE; -LACTATED RINGERS 1,000 ML IV SCH; +LIDOCAINE 1% 20 ML VIAL (10MG/ML) FOR IV START INTRADERMA PRN; -MIDAZOLAM 2 MG/2 ML VIAL IV PRN; -ONDANSETRON 4 MG/2 ML VIAL IVP ONE; -SCOPOLAMINE 1.5MG/72HR PATCH TRANSDERM ONE; -ceFAZolin 2 GM in SODIUM CHLORIDE 0.9% 100 ML IVPB ONE
--- NOTE | 2016-12-26 06:54 | P.GSHP ---
History of Present Illness H&P Date: 12/26/16 CHIEF COMPLAINT: GERD HISTORY OF PRESENT ILLNESS: The patient is a 36-year-old female who presents reports gastroesophageal reflux disease. Upper endoscopy was offered for further evaluation and management. PAST MEDICAL HISTORY: Please see list. PAST SURGICAL HISTORY: Please see list. MEDICATIONS: Please see list. ALLERGIES: Please see list. SOCIAL HISTORY: No illicit drug use FAMILY HISTORY: No reports of Crohn disease or ulcerative colitis. REVIEW OF ORGAN SYSTEMS: CONSTITUTIONAL: No reports of fevers or chills. GI: Denies any blood in stools or constipation. PHYSICAL EXAM: VITAL SIGNS: Stable GENERAL: Well-developed and pleasant in no acute distress. HEENT: No scleral icterus. Extraocular movements grossly intact. Moist buccal mucosa. NECK: Supple without lymphadenopathy. CHEST: Unlabored respirations. Equal bilateral excursions. CARDIOVASCULAR: Regular rate and rhythm. Distal 2+ pulses. ABDOMEN: Soft, nondistended. MUSCULOSKELETAL: No clubbing, cyanosis, or edema. ASSESSMENT: 1. Gastroesophageal reflux disease PLAN: 1. Recommend proceeding with an upper endoscopy Past Medical History Past Medical History: GERD/Reflux, Hypertension, Osteoarthritis (OA) Additional Past Medical History / Comment(s): Hx Migraines. HX BORDERLINE HTN. OA KNEES. HX DYSPHAGIA - HAD DILATION. GERD IS WORSENING. History of Any Multi-Drug Resistant Organisms: None Reported Past Surgical History: Bariatric Surgery, Cholecystectomy, Orthopedic Surgery, Tubal Ligation Additional Past Surgical History / Comment(s): [facility]. EGD. GASTRIC SLEEVE 2015; 02-25-16 [facility]-Y. EGD W/ DILATION 05/16/16. Panniculectomy 07/14/16. Past Anesthesia/Blood Transfusion Reactions: Previous Problems w/ Anesthesia, Motion Sickness, Postoperative Nausea & Vomiting (PONV) Additional Past Anesthesia/Blood Transfusion Reaction / Comment(s): STAYED 2 EXTRA DAYS R/T "ANESTHESIA NOT GETTING OUT OF MY SYSTEM" Smoking Status: Former smoker - Past Family History Father History Unknown: Yes Mother History Unknown: Yes Family Medical History: No Reported History Brother(s) History Unknown: Yes Sister(s) History Unknown: Yes Daughter(s) Family Medical History: No Reported History Son(s) Family Medical History: No Reported History Medications and Allergies Home Medications Medication Instructions Recorded Confirmed Type Omeprazole 40 mg PO DAILY #90 capsule. 08/07/16 12/25/16 Rx Multivitamin [Multivitamins Adult 2 each PO BID 12/25/16 12/25/16 History Gummies] Allergies Allergy/AdvReac Type Severity Reaction Status Date / Time cinnamon AdvReac Wheezing Verified 12/25/16 10:07 grass pollen AdvReac Unknown Verified 12/25/16 10:07 sun AdvReac skin Uncoded 12/25/16 10:07 blisters
[2016-12-26] MEDS: LACTATED RINGERS 1,000 ML IV SCH ×2 (06:57→23:29)
[2016-12-26] MEDS ORDERED: PROPOFOL 10 MG/ML 20 ML VIAL IV ONE (07:03)
[2016-12-26] MEDS ORDERED: LIDOCAINE 1% INJ 10MG/ML (20 ML MDV) ONE (07:03)
--- NOTE | 2016-12-26 07:23 | P.PCN ---
Date of Procedure: 12/26/16 Description of Procedure: PREOPERATIVE DIAGNOSIS: Dysphagia. s/p Michelle-en-y gastric bypass. Nausea with vomiting. Gastroesophageal reflux disease Personal history of gastrojejunal stricture. POSTOPERATIVE DIAGNOSIS: Dysphagia. s/p Michelle-en-y gastric bypass. Nausea with vomiting. 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 Esophagogastroduodenoscopy with cold forceps biopsy along gastric pouch. SURGEON: Monalisa Araiza MD ANESTHESIA: MAC. INDICATIONS: The patient is a 36-year-old female who presents with a history of dysphagia, gastroesophageal reflux disease, gastric bypass including nausea and vomiting. Benefits and risks of the procedure were described. Informed consent was obtained. DESCRIPTION: The patient was brought into the endoscopy suite and laid in the left lateral decubitus position. After a timeout was confirmed, the procedure was initiated. An Olympus gastroscope was passed along the posterior oropharynx down to the distal esophagus where the squamocolumnar junction was unremarkable. The gastric pouch was entered. A gastrojejunal stricture of 12 mm was found as the adult gastroscope was 9.5 mm in size. A Neon Mobile balloon dilator was placed through the scope. Final insufflation up to 20 mm was performed with a total of 2 minutes. The scope was advanced up to 60 cm from the incisors into the Michelle limb. The mucosa of the gastrojejunal anastomosis was intact. Healed chronic gastrojejunal marginal ulcer was encountered. No full-thickness injury was encountered. The GI tract was desufflated. The patient tolerated the procedure well. FINDINGS: Squamocolumnar junction unremarkable at 38 cm. Stricture of approximately 12 mm encountered. Healed chronic gastrojejunal ulceration encountered. Successful balloon dilatation to 20 mm. Gastric pouch 2 cm. Erosive esophagitis, LA grade A. RECOMMENDATIONS: Start combined therapy of Carafate and continue omeprazole. Upper endoscopy as needed Plan - Discharge Summary New Discharge Prescriptions: No Action Omeprazole 40 mg PO DAILY #90 capsule. Multivitamin [Multivitamins Adult Gummies] 2 each PO BID Discharge Medication List Omeprazole 40 mg PO DAILY #90 capsule. 08/07/16 [Rx] Multivitamin [Multivitamins Adult Gummies] 2 each PO BID 12/25/16 [History]
[2016-12-26] MEDS ORDERED: SODIUM CHLORIDE 0.9% 1,000 ML IV ONE (09:00)
[2016-12-26] MEDS ORDERED: DILTIAZEM 5 MG/ML 5 ML VIAL IVP STA (09:17)
[2016-12-26] MEDS ORDERED: METOPROLOL TARTRATE 25 MG TAB PO SCH (09:30)
[2016-12-26] MEDS: METOPROLOL TARTRATE 25 MG TAB PO STA ×2 (09:40→20:22)
--- NOTE | 2016-12-26 14:17 | P.CRDCN ---
History of Present Illness Consult date: 12/26/16 History of present illness: This is a pleasant a 36-year-old female patient with a past medical history significant for borderline diabetes who underwent in the past weight reduction surgery and she was scheduled today to undergo an upper endoscopy and possible esophageal dilation dictation. Just before the procedure the patient went into an A. fib with RVR which is a newly diagnosis atrial fibrillation for her. The patient was started on Cardizem drip and she was converted into normal sinus mechanism. Currently she denies having any chest pain or discomfort or difficulty breathing or heart racing or fluttering. Past Medical History Past Medical History: GERD/Reflux, Hypertension, Osteoarthritis (OA) Additional Past Medical History / Comment(s): Hx Migraines. HX BORDERLINE HTN. OA KNEES. HX DYSPHAGIA - HAD DILATION. GERD IS WORSENING. History of Any Multi-Drug Resistant Organisms: None Reported Past Surgical History: Bariatric Surgery, Cholecystectomy, Orthopedic Surgery, Tubal Ligation Additional Past Surgical History / Comment(s): [facility]. EGD. GASTRIC SLEEVE 2015; 02-25-16 LEONCIO-EN-Y. EGD W/ DILATION 05/16/16. Panniculectomy 07/14/16. Past Anesthesia/Blood Transfusion Reactions: Previous Problems w/ Anesthesia, Motion Sickness, Postoperative Nausea & Vomiting (PONV) Additional Past Anesthesia/Blood Transfusion Reaction / Comment(s): STAYED 2 EXTRA DAYS R/T "ANESTHESIA NOT GETTING OUT OF MY SYSTEM" Smoking Status: Former smoker - Past Family History Father History Unknown: Yes Mother History Unknown: Yes Family Medical History: No Reported History Brother(s) History Unknown: Yes Sister(s) History Unknown: Yes Daughter(s) Family Medical History: No Reported History Son(s) Family Medical History: No Reported History Medications and Allergies Home Medications Medication Instructions Recorded Confirmed Type Omeprazole 40 mg PO DAILY #90 capsule. 08/07/16 12/26/16 Rx Multivitamin [Multivitamins Adult 2 tab PO BID 12/25/16 12/26/16 History Gummies] Sucralfate [Carafate] 1 gm PO BID #30 tablet 12/26/16 Rx Allergies Allergy/AdvReac Type Severity Reaction Status Date / Time cinnamon AdvReac Wheezing Verified 12/26/16 11:29 grass pollen AdvReac Unknown Verified 12/26/16 11:29 sun AdvReac skin Uncoded 12/25/16 10:07 blisters Physical Exam Vitals: Vital Signs Temp Pulse Resp BP Pulse Ox 12/26/16 09:53 62 16 115/80 100 12/26/16 09:30 83 16 131/77 100 12/26/16 09:25 71 12/26/16 09:17 71 16 108/79 100 12/26/16 08:45 100 16 136/83 98 12/26/16 08:41 117 H 12/26/16 08:39 167 H 16 131/91 100 12/26/16 08:15 127 H 16 143/83 98 12/26/16 08:00 98 16 129/92 98 12/26/16 07:45 92 16 123/81 99 12/26/16 07:31 97.2 F L 97 16 127/87 100 12/26/16 06:54 97.9 F 62 18 127/77 98 Intake and Output 12/25/16 12/26/16 12/26/16 22:59 06:59 14:59 Intake Total 50 892 Balance 50 892 Intake: IV 50 670 Oral 222 - Constitutional General appearance: no acute distress - Respiratory Respiratory: bilateral: CTA - Cardiovascular Rhythm: regular Heart sounds: normal: S1, S2 Results Current Medications Generic Name Dose Route Start Last Admin Trade Name Pastorq PRN Reason Stop Dose Admin Lactated Ringer's 1,000 mls @ 20 mls/hr 12/26/16 05:49 12/26/16 06:57 Lactated Ringers IV 700 mls .Q24H JIA Administration Diltiazem HCl 125 mg/ Sodium 125 mls @ 10 mls/hr 12/26/16 09:30 Chloride IV .[id number] JIA Protocol 10 MG/HR Lidocaine HCl 0.1 ml 12/26/16 05:49 .Xylocaine 1% Inj (10mg/Ml) For Iv Start INTRADERMA PER PROTOCOL PRN IV Start Intake and Output 12/25/16 12/26/16 12/26/16 22:59 06:59 14:59 Intake Total 50 892 Balance 50 892 Intake: IV 50 670 Oral 222 Assessment and Plan Plan: This is a 36-year-old female patient was no significant past medical history besides borderline diabetes who was admitted to the hospital to undergo an upper endoscopy and she developed an A. fib with RVR. The procedure was canceled. The patient was converted to normal sinus mechanism. She has been maintaining normal sinus mechanism since then. I will start the patient on metoprolol by mouth. Obtain an echocardiogram was Doppler. Check the TSH. And the patient need to be on anticoagulation.
[2016-12-26] MEDS ORDERED: HEPARIN SODIUM,PORCINE 5,000 UNIT/ML 1 ML VIAL IV PRN (14:21)
[2016-12-26] MEDS ORDERED: HEPARIN SODIUM,PORCINE/D5W PMX 25,000 UNIT in DEXTROSE/WATER 1 500ML.BAG IV SCH (15:00)
[2016-12-26 15:04] LABS: Basophils % (A) 1 %; CH 28.6; CHCM 32.9; Eosinophils # (A) 0.1 k/uL (0-0.7); Eosinophils % (A) 1 %; HCT 40.3 % (34.0-46.0); HDW 2.68; HGB 13.1 gm/dL (11.4-16.0); Luc % (Auto) 2; Lymphocytes # (A) 1.1 k/uL (1.0-4.8); Lymphocytes % (A) 20 %; MCH 28.5 pg (25.0-35.0); MCHC 32.6 g/dL (31.0-37.0); MCV 87.3 fL (80.0-100.0); Mean Platelet Volume 7.1; Monocytes # (A) 0.3 k/uL (0-1.0); Monocytes % (A) 5 %; Neutrophils # (A) 4.1 k/uL (1.3-7.7); Neutrophils % (A) 72 %; RBC 4.62 m/uL (3.80-5.40); RDW 13.3 % (11.5-15.5); WBC 5.7 k/uL (3.8-10.6); WBC (Perox) 6.06
[2016-12-26] MEDS: DILTIAZEM 125 MG in SODIUM CHLORIDE 0.9% 100 ML IV SCH ×2 (20:23→23:07)
[2016-12-26] MEDS ORDERED: APIXABAN 5 MG TAB PO SCH (21:00)
--- NOTE | 2016-12-26 21:52 | ECHOF ---
Referral Reason:NEW ONSET A FIB MEASUREMENTS -------- HEIGHT: 162.6 cm WEIGHT: 79.4 kg BP: IVSd: 1.1 cm (0.6 - 1.1) LVIDd: 4.4 cm (3.9 - 5.3) LVPWd: 1.1 cm (0.6 - 1.1) IVSs: 1.0 cm LVIDs: 3.9 cm LVPWs: 0.8 cm LA Diam: 3.0 cm (2.7 - 3.8) LAESV Index (A-L): 28.62 ml/m Ao Diam: 2.6 cm (2.0 - 3.7) AV Cusp: 1.9 cm (1.5 - 2.6) LA Diam: 2.9 cm (2.7 - 3.8) MV EXCURSION: 20.043 mm (> 18.000) MV EF SLOPE: 112 mm/s (70 - 150) EPSS: 0.2 cm MV E Gui: 0.94 m/s MV DecT: 188 ms MV A Gui: 0.72 m/s MV E/A Ratio: 1.32 RAP: 5.00 mmHg RVSP: 22.30 mmHg FINDINGS -------- Sinus rhythm. This was a technically excellent study. LV size, wall thickness and systolic function are normal, with an EF greater than 55%. The left ventricular size is normal. Overall left ventricular systolic function is normal with, an EF between 60 - 65 %. The right ventricle is normal in size. Normal LA size by volume 22+/-6 ml/m2. The right atrial size is normal. The aortic valve is trileaflet, and appears structurally normal. No aortic stenosis or regurgitation. Mild mitral regurgitation is present. Mild tricuspid regurgitation present. Right ventricular systolic pressure is normal at < 35 mmHg. There is no evidence of pulmonary hypertension. There is no pulmonic regurgitation present. The aortic root size is normal. There is no pericardial effusion. CONCLUSIONS -------- 1. LV size, wall thickness and systolic function are normal, with an EF greater than 55%. 2. There is no pulmonic regurgitation present. 3. The aortic root size is normal. 4. There is no pericardial effusion. 5. The left ventricular size is normal. 6. Overall left ventricular systolic function is normal with, an EF between 60 - 65 %. 7. Normal LA size by volume 22+/-6 ml/m2. 8. The aortic valve is trileaflet, and appears structurally normal. No aortic stenosis or regurgitation. 9. Mild mitral regurgitation is present. 10. Mild tricuspid regurgitation present. 11. Right ventricular systolic pressure is normal at < 35 mmHg. 12. There is no evidence of pulmonary hypertension. NEPHROLOGY NURSE: Ximena Berkowitz RDCS
[2016-12-27 03:04] VITALS: RESP 16
[2016-12-27 07:00] LABS: Basophils % (A) 1 %; CH 28.5; CHCM 33.2; Eosinophils # (A) 0.1 k/uL (0-0.7); Eosinophils % (A) 2 %; HDW 2.66; Luc % (Auto) 3; Lymphocytes # (A) 1.7 k/uL (1.0-4.8); Lymphocytes % (A) 40 %; MCH 28.7 pg (25.0-35.0); MCHC 33.3 g/dL (31.0-37.0); MCV 86.4 fL (80.0-100.0); Mean Platelet Volume 7.4; Monocytes # (A) 0.2 k/uL (0-1.0); Monocytes % (A) 6 %; Neutrophils # (A) 2.1 k/uL (1.3-7.7); Neutrophils % (A) 50 %; RBC 4.52 m/uL (3.80-5.40); RDW 13.2 % (11.5-15.5); WBC 4.2 k/uL (3.8-10.6); WBC (Perox) 4.09
[2016-12-27] MEDS ORDERED: METOPROLOL TARTRATE 25 MG TAB PO SCH (09:00)
[2016-12-27] MEDS: DILTIAZEM 125 MG in SODIUM CHLORIDE 0.9% 100 ML IV SCH (10:31)
[2016-12-27 11:14] VITALS: BP 116/72; PULSE 55; TEMP 97.4
[2016-12-27] MEDS ORDERED: APIXABAN 5 MG TAB PO SCH (12:00)
--- NOTE | 2016-12-27 12:29 | P.PN ---
Subjective Principal diagnosis: new onset PAF This a pleasant 36-year-old female with medical history significant for borderline diabetes. She came in for a scheduled upper endoscopy and possible esophageal dilatation. She was found to be in atrial fibrillation with rapid ventricular response of new onset. She is started on a Cardizem drip and converted to sinus rhythm. She is maintaining sinus rhythm. TSH is normal. Echocardiogram shows ejection fraction of 60-65% with mild MR and mild TR. She is currently on IV heparin and metoprolol 25 mg by mouth twice a day. Objective - Vital Signs Vital signs: Vital Signs Temp 97.4 F L 12/27/16 11:14 Pulse 55 L 12/27/16 11:14 Resp 16 12/27/16 11:14 BP 116/72 12/27/16 11:14 Pulse Ox 99 12/27/16 08:00 Intake & Output 12/26/16 12/27/16 12/27/16 18:59 06:59 18:59 Intake Total 1252 624.633 118 Output Total 800 Balance 452 624.633 118 Weight 79.379 kg 79.7 kg Intake: IV 670 226.2 Heparin Sodium,Porcine/ 226.2 D5w Pmx 25,000 unit In Dextrose/Water 1 500ml. bag @ 12 UNITS/KG/HR 19. 05 mls/hr IV .Q24H JIA Rx #:[id number] Intake, IV Titration 158.433 Amount Heparin Sodium,Porcine/ 158.433 D5w Pmx 25,000 unit In Dextrose/Water 1 500ml. bag @ 12 UNITS/KG/HR 19. 05 mls/hr IV .Q24H JIA Rx #:[id number] Oral 582 240 118 Output: Urine 800 Other: Voiding Method Toilet # Voids 3 - Exam PHYSICAL EXAMINATION: HEENT: [Head is atraumatic, normocephalic. Pupils equal, round. Neck is supple. There is no elevated jugular venous pressure.] HEART EXAMINATION: [Heart sounds regular, S1 and S2 normal. No murmur or gallop heard.] CHEST EXAMINATION:[ Lungs are clear to auscultation and precussion. No chest wall tenderness is noted on palpation or with deep breathing.] ABDOMEN: [ Soft, nontender. Bowel sounds are heard. No organomegaly noted]. EXTREMITIES:[ 2+ peripheral pulses with no evidence of peripheral edema and no calf tenderness noted]. NEUROLOGIC [patient is awake, alert and oriented x3.] . - Labs CBC & Chem 7: 12/27/16 05:54 Labs: Abnormal Lab Results - Last 24 Hours (Table) 12/26/16 12/27/16 Range/Units 21:38 05:54 APTT 34.8 H 68.4 H (22.0-30.0) sec Assessment and Plan Plan: Assessment and plan #1 new onset paroxysmal atrial fibrillation with rapid ventricular response #2 borderline diabetes From cardiology's perspective, we will start the patient on Eliquis 5 mg by mouth twice a day. She may be discharged home today on anticoagulation and metoprolol 25 mg by mouth twice a day. Follow-up in the office with Dr. Freed within the next 3 weeks. ARCH SUPPORT TECHNICIAN note has been reviewed, I agree with a documented findings and plan of care. Patient was seen and examined.
== END 2016-12-27 15:04 | disposition home or self-care (01) | DRG 309 ==
LOC: ORWHC2ENDO 06:13 → 6SEL 08:00
PROVIDERS: ADMIT Internal Medicine Interventional Cardiology; ATTEND Internal Medicine Interventional Cardiology
PROC: 0DB68ZX Excision of Stomach, Via Natural or Artificial Opening Endoscopic, Diagnostic (ICD-10-PCS; principal; 2016-12-26 07:00)
PROC: 0D7A8ZZ Dilation of Jejunum, Via Natural or Artificial Opening Endoscopic (ICD-10-PCS; principal; 2016-12-26 07:00)
PROC: 0D768ZZ Dilation of Stomach, Via Natural or Artificial Opening Endoscopic (ICD-10-PCS; principal; 2016-12-26 07:00)
DX: I48.0 Paroxysmal atrial fibrillation (principal); K22.10 Ulcer of esophagus without bleeding; I10 Essential (primary) hypertension; K21.9 Gastro-esophageal reflux disease without esophagitis; M17.0 Bilateral primary osteoarthritis of knee; R73.03 Prediabetes; Z79.899 Other long term (current) drug therapy; Z87.11 Personal history of peptic ulcer disease; Z87.891 Personal history of nicotine dependence; Z98.84 Bariatric surgery status
CPT/HCPCS: 43239; 43245; 81025; 84443; 85025; 85730; 88305; 88342; 93005; 93306

== ENCOUNTER → 2017-08-19 | Outpatient (CLI) | payer BC ==
[2017-08-19 18:25] VITALS: BP 135/81; PULSE 64; RESP 16; TEMP 98.4; BMI 32.3
--- NOTE | 2017-08-19 18:27 | P.PN ---
Subjective Progress Note Date: 08/19/17 HPI: She comes in with GERD. She reports right lower quadrant pain that is transient. She comes in with 20 pound weight gain. She is not food tracking. She reports transient a-fib secondary to anesthetic medication upon her last upper endoscopy. She is taking Omeprazole. She denies dysphagia to food. ABDOMEN: No palpable incisional hernia. PLAN: 1. Bariatric labs. 2. Food tracker advised. 3. Carafate for heartburn, however upper endoscopy discussed. 4. Protein goal of 70+ grams advised. Carbohydrate restriction reviewed. 5. For brachioplasty, board certified plastic surgeon referral reviewed for Dr. Locke
== END | disposition home or self-care (01) ==
LOC: BARWHC3 18:16
PROVIDERS: ATTEND Surgery Plastic and Reconstructive Surgery
DX: R10.31 Right lower quadrant pain (principal); K21.9 Gastro-esophageal reflux disease without esophagitis; R63.5 Abnormal weight gain
CPT/HCPCS: 99211

== ENCOUNTER → 2017-08-20 | Outpatient (CLI) | payer BC ==
[2017-08-20 16:53] LABS: HCT 37.9 % (34.0-46.0); HGB 12.6 gm/dL (11.4-16.0); MCH 26.8 pg (25.0-35.0); MCHC 33.2 g/dL (31.0-37.0); MCV 80.5 fL (80.0-100.0); Mean Platelet Volume 6.5; Platelet Count 214 k/uL (150-450); RBC 4.71 m/uL (3.80-5.40); WBC 5.1 k/uL (3.8-10.6)
[2017-08-20 16:55] LABS: INR 1.1 (<1.2); Partial Thromboplastin Time 22.6 sec (22.0-30.0); Prothrombin Time 10.4 sec (9.0-12.0)
[2017-08-20 17:07] LABS: ALT 27 U/L (9-52); AST 23 U/L (14-36); Albumin 3.9 g/dL (3.5-5.0); Alkaline Phosphatase 100 U/L (38-126); Anion Gap 12 mmol/L; Blood Urea Nitrogen 13 mg/dL (7-17); Carbon Dioxide 25 mmol/L (22-30); Chloride 107 mmol/L (98-107); Cholesterol 138 mg/dL (<200); Glucose 79 mg/dL (74-99); HDL Cholesterol 65 mg/dL (40-60); LDL Cholesterol,Calculated 54 mg/dL (0-99); Magnesium 1.9 mg/dL (1.6-2.3); Phosphorus 3.8 mg/dL (2.5-4.5); Potassium 4.1 mmol/L (3.5-5.1); Sodium 144 mmol/L (137-145); Total Bilirubin 0.4 mg/dL (0.2-1.3); Total Protein 6.5 g/dL (6.3-8.2); Triglycerides 96 mg/dL (<150)
[2017-08-21 00:34] LABS: Iron Saturation 17.91 (12.00-45.00)
[2017-08-21 00:44] LABS: Vitamin D 25 Hydroxy 24.2 ng/mL (30.0-100.0)
[2017-08-21 00:48] LABS: Folate, Serum 18.9 ng/mL
[2017-08-21 01:04] LABS: Parathyroid Hormone Intact 89.4 pg/mL (14.0-72.0)
[2017-08-21 15:30] LABS: Zinc, Serum 73 ug/dL (60-130)
[2017-08-22 10:11] LABS: Vitamin A 36 ug/dL (38-106)
[2017-08-24 06:16] LABS: Vitamin B1 47 ug/L (38-122)
== END ==
LOC: LABWHC1 16:14
PROVIDERS: ATTEND Surgery Plastic and Reconstructive Surgery
DX: E66.01 Morbid (severe) obesity due to excess calories (principal); E21.1 Secondary hyperparathyroidism, not elsewhere classified; E89.1 Postprocedural hypoinsulinemia; D50.9 Iron deficiency anemia, unspecified; E44.0 Moderate protein-calorie malnutrition; E55.9 Vitamin D deficiency, unspecified; K74.1 Hepatic sclerosis; N19 Unspecified kidney failure; K50.90 Crohn's disease, unspecified, without complications
CPT/HCPCS: 36415; 80053; 80061; 82306; 82525; 82607; 82728; 82746; 83036; 83540; 83550; 83735; 83970; 84100; 84134; 84255; 84425; 84443; 84590; 84630; 85027; 85610; 85730

== ENCOUNTER 2018-05-08 16:07 | Emergency (ER) | payer BC ==
[2018-05-08 16:24] VITALS: RESP 18
[2018-05-08] MEDS ORDERED: FLUCONAZOLE 150 MG TAB PO STA (18:07)
[2018-05-08] MEDS ORDERED: AZITHROMYCIN 500 MG TAB PO STA (18:07)
[2018-05-08] MEDS ORDERED: cefTRIAXone 250 MG VIAL IM STA (18:07)
--- NOTE | 2018-05-08 18:11 | ED ---
General Adult HPI - General Chief complaint: Urogenital Stated complaint: Urogenital Time Seen by Provider: 05/08/18 17:41 Source: patient, RN notes reviewed Mode of arrival: ambulatory Limitations: no limitations - History of Present Illness Initial comments: 37-year-old female presents to the emergency department for a chief complaint of vaginal irritation times one day. Patient states this started yesterday. She states she did not want to wait until Thursday to see her physician. Patient describes this irritation as a burning pain. She denies burning with urination and states all the burn is in the vaginal area. Patient states this worsens when she is walking. Patient admits to discharge, denies foul order. Patient denies concern for sexually transmitted diseases. Patient denies chance of stating she had a tubal ligation previously. Patient denies abdominal pain. Patient has no other complaints at this time including shortness of breath, chest pain, abdominal pain, nausea or vomiting, headache, or visual changes. - Related Data Home Medications Medication Instructions Recorded Confirmed Multivitamin [Multivitamins Adult 2 tab PO BID 12/25/16 05/08/18 Gummies] Ferrous Sulfate [Iron (65 MG 325 mg PO DAILY 05/08/18 05/08/18 Elemental)] Propylene Glycol/Peg 400/Pf 1 drop RIGHT EYE DAILY PRN 05/08/18 05/08/18 [Systane 0.3-0.4% Eye Drop] Allergies Allergy/AdvReac Type Severity Reaction Status Date / Time cinnamon AdvReac Wheezing Verified 05/08/18 16:49 grass pollen AdvReac Unknown Verified 05/08/18 16:49 sun AdvReac skin Uncoded 12/25/16 10:07 blisters Review of Systems ROS Statement: Those systems with pertinent positive or pertinent negative responses have been documented in the HPI. ROS Other: All systems not noted in ROS Statement are negative. Past Medical History Past Medical History: GERD/Reflux, Hypertension, Osteoarthritis (OA) Additional Past Medical History / Comment(s): Hx Migraines. HX BORDERLINE HTN. OA KNEES. HX DYSPHAGIA - HAD DILATION. GERD IS WORSENING. History of Any Multi-Drug Resistant Organisms: None Reported Past Surgical History: Bariatric Surgery, Cholecystectomy, Orthopedic Surgery, Tubal Ligation Additional Past Surgical History / Comment(s): [facility]. EGD. GASTRIC SLEEVE 2015; 02-25-16 LEONCIO-EN-Y. EGD W/ DILATION 05/16/16. Panniculectomy 07/14/16. Past Anesthesia/Blood Transfusion Reactions: Previous Problems w/ Anesthesia, Motion Sickness, Postoperative Nausea & Vomiting (PONV) Additional Past Anesthesia/Blood Transfusion Reaction / Comment(s): STAYED 2 EXTRA DAYS R/T "ANESTHESIA NOT GETTING OUT OF MY SYSTEM" Past Psychological History: Depression Smoking Status: Former smoker Past Alcohol Use History: None Reported Past Drug Use History: None Reported - Past Family History Father History Unknown: Yes Mother History Unknown: Yes Family Medical History: No Reported History Brother(s) History Unknown: Yes Sister(s) History Unknown: Yes Daughter(s) Family Medical History: No Reported History Son(s) Family Medical History: No Reported History General Exam Limitations: no limitations General appearance: alert, in no apparent distress Head exam: Present: atraumatic, normocephalic, normal inspection Eye exam: Present: normal appearance, PERRL, EOMI. Absent: scleral icterus, conjunctival injection ENT exam: Present: normal exam, normal oropharynx, mucous membranes moist, TM's normal bilaterally, normal external ear exam Neck exam: Present: normal inspection, full ROM. Absent: tenderness, meningismus, lymphadenopathy Respiratory exam: Present: normal lung sounds bilaterally. Absent: respiratory distress, wheezes, rales, rhonchi, stridor Cardiovascular Exam: Present: regular rate, normal rhythm, normal heart sounds. Absent: systolic murmur, diastolic murmur, rubs, gallop, clicks GI/Abdominal exam: Present: soft, normal bowel sounds. Absent: distended, tenderness, guarding, rebound, rigid External exam: Present: normal external exam. Absent: erythema, swelling, lesions, lacerations, ecchymosis, other Speculum exam: Present: vaginal discharge (white milky vaginal discharge, non odorous). Absent: normal speculum exam, cervical discharge, vaginal bleeding, foreign body By manual exam: Present: normal by manual exam. Absent: cervical motion tenderness, adnexal tenderness, adnexal mass, uterine enlargement, uterine tenderness Neurological exam: Present: alert, oriented X3, CN II-XII intact Psychiatric exam: Present: normal affect, normal mood Course Vital Signs 05/08/18 16:20 Temperature 97.8 F Pulse Rate 57 L Respiratory 18 Rate Blood Pressure 125/73 O2 Sat by Pulse 99 Oximetry Medical Decision Making - Medical Decision Making 37-year-old female presents for vaginal discharge times one day. On exam patient does have white nonodorous vaginal discharge. No pelvic pain. Swabs were sent for gonorrhea chlamydia and Trichomonas, still pending. Patient was treated empirically for gonorrhea and chlamydia as well as bacterial vaginosis and trich with Flagyl. Patient was also given Diflucan for possible yeast infection. Patient will follow-up with her primary care provider on Thursday. She will return if she has any worsening symptoms or abdominal pain or discomfort. - Lab Data Lab Results 05/08/18 05/08/18 Range/Units 18:14 18:14 Urine Color Yellow Urine Appearance Cloudy H (Clear) Urine pH 5.5 (5.0-8.0) Ur Specific [place] 1.018 (1.001-1.035) Urine Protein Negative (Negative) Urine Glucose (UA) Negative (Negative) Urine Ketones Negative (Negative) Urine Blood Negative (Negative) Urine Nitrite Negative (Negative) Urine Bilirubin Negative (Negative) Urine Urobilinogen <2.0 (<2.0) mg/dL Ur Leukocyte Esterase Large H (Negative) Urine RBC 3 (0-5) /hpf Urine WBC 3 (0-5) /hpf Ur Squamous Epith Cells 19 H (0-4) /hpf Calcium Oxalate Crystal Moderate H (None) /hpf Urine Bacteria Rare H (None) /hpf Urine Mucus Occasional H (None) /hpf Urine HCG, Qual Not Detected (Not Detectd) Disposition Clinical Impression: Vaginal discharge Disposition: HOME SELF-CARE Condition: Good Instructions (If sedation given, give patient instructions): Yeast Infection ( ED), Vaginal Discharge (ED) Additional Instructions: Please follow up on results for cultures. Do not engage in sexual activity until you have results. Follow up with primary care in 1-2 days. Please return to the emergency department if you have any worsening symptoms. Is patient prescribed a controlled substance at d/c from ED?: No Referrals: Tyler Daugherty MD [Primary Care Provider] - 1-2 days Time of Disposition: 18:49
[2018-05-08 18:28] LABS: Appearance,Urine Cloudy (Clear); Bacteria,Urine Rare /hpf; Bilirubin,Urine Negative (Negative); Blood,Urine Negative (Negative); Calcium Oxalate Crystals,Urine Moderate /hpf; Color,Urine Yellow; Glucose,Urine (UA) Negative (Negative); Ketones,Urine Negative (Negative); Leukocyte Esterase,Urine Large (Negative); Mucus,Urine Occasional /hpf; Nitrite,Urine Negative (Negative); PH, Urine 5.5 (5.0-8.0); Protein,Urine Negative (Negative); RBC,Urine 3 /hpf (0-5); Specific Gravity,Urine 1.018 (1.001-1.035); Squamous Epithelial Cell,Urine 19 /hpf (0-4); Urobilinogen,Urine <2.0 mg/dL (<2.0); WBC,Urine 3 /hpf (0-5)
[2018-05-08] MEDS ORDERED: metroNIDAZOLE 500 MG TAB PO STA (18:52)
[2018-05-08 19:24] VITALS: BP 132/72; PULSE 70; TEMP 98
[2018-05-10 15:25] LABS: C. trachomatis,PCR Negative (Neg,Equiv); Chlamydia trachomatis Source Vagina
[2018-05-10 15:34] LABS: N. gonorrhoeae,PCR Negative (Neg,Equiv); Neisseria Source Vagina
== END 2018-05-08 19:24 | disposition home or self-care (01) ==
LOC: EC 16:07
DX: N89.8 Other specified noninflammatory disorders of vagina (principal); Z98.51 Tubal ligation status; Z87.891 Personal history of nicotine dependence; Z91.018 Allergy to other foods; Z91.048 Other nonmedicinal substance allergy status
CPT/HCPCS: 81001; 81025; 87808; 87491; 87591; 99283; 96372; J0696

== ENCOUNTER → 2018-06-09 | Outpatient (CLI) | payer BC ==
--- NOTE | 2018-06-09 09:57 | MM ---
Reason for exam: screening (asymptomatic). Baseline mammogram. Physical Findings: Nurse did not find any significant physical abnormalities on exam. MG 3D Screening Mammo W/Cad Bilateral CC and MLO view(s) were taken. The breast tissue is heterogeneously dense. This may lower the sensitivity of mammography. There is no discrete abnormality. Skin lesion posterior upper outer quadrant. These results were verbally communicated with the patient and result sheet given to the patient on 06/09/18. ASSESSMENT: Negative, BI-RAD 1 RECOMMENDATION: Routine screening mammogram of both breasts in 1 year.
== END | disposition home or self-care (01) ==
LOC: RADMAMWWP 08:55
PROVIDERS: ATTEND Obstetrics & Gynecology
DX: Z12.31 Encounter for screening mammogram for malignant neoplasm of breast (principal)
CPT/HCPCS: 77063; 77067

== ENCOUNTER → 2018-07-07 | Outpatient (CLI) | payer BC ==
--- NOTE | 2018-07-07 18:07 | P.PN ---
Subjective Progress Note Date: 07/07/18 DATE OF SERVICE: 07/07/2018 CHIEF COMPLAINT: s/p Sleeve gastrectomy HISTORY OF PRESENT ILLNESS: Shefali Akers is a 38-year-old female status post sleeve gastrectomy August 2015. She is 3 years out. She reports recurrent gastroesophageal reflux disease. She has epigastric pain. She also has dysphagia. At her height of 5 feet 4-3/4 inches her initial weight has been 302 pounds. Today she comes in weighing 187 pounds from 193, 1 year ago. She has lost 5 pounds in 1 year. She has lost 115 pounds. Body mass index down from 50.8 down to 31.5. Percent excess weight loss is 73%. She is 43 pounds overweight. PAST MEDICAL HISTORY: 1. Morbid obesity, initial 50.8. 2. Gastroesophageal reflux disease. 3. Hypertension. 4. Migraines. 5. Gastric stenosis following sleeve gastrectomy. 6. Panniculitis. PAST SURGICAL HISTORY: 1. Sleeve gastrectomy in August 13, 2015. 2. Bilateral carpal tunnel release. 3. Upper endoscopy. 4. Cholecystectomy. 5. Tubal ligation. 6. Gastric bypass, 02/2016. 7. Panniculectomy, 2017. MEDICATIONS: 1. Multivitamin. 2. Vitamin D. 3. Vitamin A. 4. Omeprazole. ALLERGIES: CINNAMON. ENVIRONMENTAL. SUN. SOCIAL HISTORY: She reports prior tobacco abuse. She had quit smoking in February 2015. FAMILY HISTORY: Morbid obesity. REVIEW OF SYSTEMS: CONSTITUTIONAL: At her height of 5 feet 4-3/4 inches her initial weight has been 302 pounds. Body mass index was 50.8. GASTROINTESTINAL: Gastroesophageal reflux disease has returned. Denies any blood in stools. HEENT: She wears glasses. She reports dysphagia intermittent troubles with swallowing. No reports of troubles with hearing. ENDOCRINE: No reports of thyroid disorders or diabetes. CARDIOVASCULAR: History of hypertension, resolved. No reports of chest pain. RESPIRATORY: No overt history of obstructive sleep apnea or dyspnea on exertion. GENITOURINARY: Denies recent bladder infections. NEURO: Denies any procedure disorder, however, prior history of migraines. PSYCH: Prior history of depression. No recent suicidal ideation. HEMATOLOGIC: Denies any easy bruising or bleeding. MUSCULOSKELETAL: Bilateral hip and joint pain improved. PHYSICAL EXAM: VITAL SIGNS: 5 feet 4-3/4 inches frame, 187 pounds. Body mass index is 31.5. Vital Signs Temp 98.2 F 07/08/18 17:45 Pulse 62 07/08/18 17:45 Resp BP 144/86 07/08/18 17:45 Pulse Ox ABDOMEN: Soft, nondistended. Nontender. No palpable incisional hernias. MUSCULOSKELETAL: No clubbing, cyanosis. GENERAL: Well-developed female in no acute distress. HEENT: No scleral icterus. Extraocular movements grossly intact. Moist buccal mucosa. Hears conversational speech. NECK: Supple without lymphadenopathy. CHEST: Nonlabored respirations. Equal bilateral excursions. CARDIOVASCULAR: Regular rate, regular rhythm. Bilateral pulses radial 2+. NEURO: Cranial nerves II through XII grossly within normal limits. No focal deficits. PSYCH: Alert and oriented to person, place, and time. SKIN: Well perfused. Good skin turgor. Has tattoos. ASSESSMENT: 1. Morbid obesity due to excess calories, resolved. 2. Body mass index reduced from 50.8 down to 31.5 3. Overweight. 4. 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 5. Personal history of complications from sleeve gastrectomy requiring revision. 6. Dietary surveillance and counseling. 7. Gastroesophageal reflux disease. 8. Dysphagia PLAN: 1. Recommend upper scope for gastrojejunal stricture and dysphagia 2. Recommend bariatric labs
[2018-07-15 15:12] VITALS: BP 144/86; PULSE 62; TEMP 98.2; BMI 31.4
== END | disposition home or self-care (01) ==
LOC: BARWHC3 15:50
PROVIDERS: ATTEND Surgery Plastic and Reconstructive Surgery
DX: E66.01 Morbid (severe) obesity due to excess calories (principal); K21.9 Gastro-esophageal reflux disease without esophagitis; R63.4 Abnormal weight loss; I10 Essential (primary) hypertension; Z68.31 Body mass index [BMI] 31.0-31.9, adult; Z98.84 Bariatric surgery status; Z87.898 Personal history of other specified conditions; Z71.3 Dietary counseling and surveillance; Z79.899 Other long term (current) drug therapy; Z87.891 Personal history of nicotine dependence; Z90.49 Acquired absence of other specified parts of digestive tract; Z98.890 Other specified postprocedural states
CPT/HCPCS: 99211

== ENCOUNTER → 2018-07-08 | Outpatient (CLI) | payer BC ==
[2018-07-08 13:12] LABS: HCT 37.9 % (34.0-46.0); HGB 12.8 gm/dL (11.4-16.0); MCH 26.6 pg (25.0-35.0); MCHC 33.8 g/dL (31.0-37.0); MCV 78.6 fL (80.0-100.0); Mean Platelet Volume 7.3; Platelet Count 225 k/uL (150-450); RBC 4.82 m/uL (3.80-5.40); RDW 13.5 % (11.5-15.5); WBC 4.7 k/uL (3.8-10.6)
[2018-07-08 13:16] LABS: Partial Thromboplastin Time 23.1 sec (22.0-30.0); Prothrombin Time 10.5 sec (9.0-12.0)
[2018-07-08 18:48] LABS: Albumin 4.1 g/dL (3.80-4.90); Albumin/Globulin Ratio 2.16 (1.60-3.17); Anion Gap 4.8 mmol/L (4.00-12.00); Calcium 8.9 mg/dL (8.7-10.3); Carbon Dioxide 24.2 mmol/L (21.6-31.8); Globulin 1.9 g/dL (1.6-3.3); Iron Saturation 14.4 (12.00-45.00); LDL Cholesterol,Calculated 68.8 mg/dL (0.0-131.0); Phosphorus 2.7 mg/dL (2.4-5.1); Potassium 3.8 mmol/L (3.5-5.5); Total Bilirubin 0.4 mg/dL (0.3-1.2); VLDL Calculation 14.2 mg/dL (5.00-40.00)
[2018-07-08 18:57] LABS: Vitamin D 25 Hydroxy 23.3 ng/mL (30.0-100.0)
[2018-07-08 19:56] LABS: Parathyroid Hormone Intact 50.8 pg/mL (14.0-72.0)
[2018-07-08 20:46] LABS: Folate, Serum 16.7 ng/mL
[2018-07-09 14:37] LABS: Zinc, Serum 78 ug/dL (60-130)
[2018-07-09 14:51] LABS: Vit B1(Thiamine) 63 ug/L (38-122)
== END | disposition home or self-care (01) ==
LOC: LABWHC1 12:18
PROVIDERS: ATTEND Surgery Plastic and Reconstructive Surgery
DX: E66.01 Morbid (severe) obesity due to excess calories (principal); E21.1 Secondary hyperparathyroidism, not elsewhere classified; E89.1 Postprocedural hypoinsulinemia; D50.9 Iron deficiency anemia, unspecified; K90.9 Intestinal malabsorption, unspecified; E55.9 Vitamin D deficiency, unspecified; K76.9 Liver disease, unspecified; N19 Unspecified kidney failure; K50.90 Crohn's disease, unspecified, without complications
CPT/HCPCS: 36415; 80053; 80061; 82306; 82525; 82607; 82728; 82746; 83036; 83540; 83550; 83735; 83970; 84100; 84134; 84255; 84425; 84443; 84590; 84630; 85027; 85610; 85730

== ENCOUNTER 2018-07-14 07:23 | Day surgery (SDC) | payer BC ==
[2018-07-12 13:37] VITALS: BMI 32.2
[~2018-07-14 07:23] MED LIST changes: +LACTATED RINGERS 1,000 ML IV SCH
[2018-07-14 07:43] VITALS: RESP 16; TEMP 97.7
--- NOTE | 2018-07-14 08:01 | P.GSHP ---
History of Present Illness H&P Date: 07/14/18 CHIEF COMPLAINT: GERD HISTORY OF PRESENT ILLNESS: The patient is a 38-year-old female who presents reports gastroesophageal reflux disease. Upper endoscopy was offered for further evaluation and management. PAST MEDICAL HISTORY: Please see list. PAST SURGICAL HISTORY: Please see list. MEDICATIONS: Please see list. ALLERGIES: Please see list. SOCIAL HISTORY: No illicit drug use FAMILY HISTORY: No reports of Crohn disease or ulcerative colitis. REVIEW OF ORGAN SYSTEMS: CONSTITUTIONAL: No reports of fevers or chills. GI: Denies any blood in stools or constipation. PHYSICAL EXAM: VITAL SIGNS: Stable GENERAL: Well-developed and pleasant in no acute distress. HEENT: No scleral icterus. Extraocular movements grossly intact. Moist buccal mucosa. NECK: Supple without lymphadenopathy. CHEST: Unlabored respirations. Equal bilateral excursions. CARDIOVASCULAR: Regular rate and rhythm. Distal 2+ pulses. ABDOMEN: Soft, nondistended. MUSCULOSKELETAL: No clubbing, cyanosis, or edema. ASSESSMENT: 1. Gastroesophageal reflux disease PLAN: 1. Recommend proceeding with an upper endoscopy Past Medical History Past Medical History: GERD/Reflux, Hypertension, Osteoarthritis (OA) Additional Past Medical History / Comment(s): Hx Migraines. HX BORDERLINE HTN. OA KNEES. HX DYSPHAGIA - HAD DILATION. GERD IS WORSENING. History of Any Multi-Drug Resistant Organisms: None Reported Past Surgical History: Bariatric Surgery, Cholecystectomy, Orthopedic Surgery, Tubal Ligation Additional Past Surgical History / Comment(s): [facility]. EGD. GASTRIC SLEEVE 08/2015; 02-25-16 LEONCIO-EN-Y. EGD W/ DILATION 05/16/16. Panniculectomy 07/14/16, lesions removed from cervix Past Anesthesia/Blood Transfusion Reactions: Previous Problems w/ Anesthesia, Motion Sickness, Postoperative Nausea & Vomiting (PONV) Additional Past Anesthesia/Blood Transfusion Reaction / Comment(s): STAYED 2 EXTRA DAYS R/T "ANESTHESIA NOT GETTING OUT OF MY SYSTEM" Smoking Status: Former smoker - Past Family History Father History Unknown: Yes Mother History Unknown: Yes Family Medical History: No Reported History Brother(s) History Unknown: Yes Sister(s) History Unknown: Yes Daughter(s) Family Medical History: No Reported History Son(s) Family Medical History: No Reported History Medications and Allergies Home Medications Medication Instructions Recorded Confirmed Type Multivitamin [Multivitamins Adult 2 tab PO BID 12/25/16 07/12/18 History Gummies] Ferrous Sulfate [Iron (65 MG 325 mg PO DAILY 05/08/18 07/12/18 History Elemental)] Propylene Glycol/Peg 400/Pf 1 drop RIGHT EYE DAILY PRN 05/08/18 07/12/18 History [Systane 0.3-0.4% Eye Drop] Omeprazole [PriLOSEC] 20 mg PO AC-BRKFST 07/12/18 07/12/18 History Thyroid,Pork [Thyroid] 30 mg PO DAILY 07/12/18 07/12/18 History Allergies Allergy/AdvReac Type Severity Reaction Status Date / Time cinnamon AdvReac Wheezing Verified 07/14/18 07:36 grass pollen AdvReac Unknown Verified 07/14/18 07:36 sun AdvReac skin Uncoded 07/12/18 13:28 blisters Surgical - Exam Vital Signs Temp Pulse Resp BP Pulse Ox 97.7 F 65 16 141/84 98 07/14/18 07:42 07/14/18 07:42 07/14/18 07:42 07/14/18 07:42 07/14/18 07:42
[2018-07-14] MEDS ORDERED: LIDOCAINE 1% INJ 10MG/ML (20 ML MDV) ONE (08:03)
[2018-07-14] MEDS ORDERED: PROPOFOL 10 MG/ML 20 ML VIAL IV ONE (08:03)
--- NOTE | 2018-07-14 08:20 | P.PCN ---
Date of Procedure: 07/14/18 Description of Procedure: PREOPERATIVE DIAGNOSIS: Dysphagia. Nausea with vomiting. POSTOPERATIVE DIAGNOSIS: Dysphagia. Nausea with vomiting. 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 SURGEON: Monalisa Araiza MD ANESTHESIA: MAC. INDICATIONS: The patient is a 38-year-old female who presents with a history of dysphagia including new-onset nausea and vomiting. Benefits and risks of the procedure were described. Informed consent was obtained. DESCRIPTION: The patient was brought into the endoscopy suite and laid in the left lateral decubitus position. After a timeout was confirmed, the procedure was initiated. An Olympus gastroscope was passed along the posterior oropharynx down to the distal esophagus where the squamocolumnar junction was unremarkable. The gastric pouch was entered. A distal esophageal stricture of 15 mm was found as the adult gastroscope was 9.5 mm in size. A [employer] balloon dilator was placed through the scope. Final insufflation up to 20 mm was performed with a total of 2 minutes. The scope was advanced up to 60 cm from the incisors into the Michelle limb. The mucosa of the distal esophagus was intact. No chronic gastrojejunal marginal ulcer was encountered. No full-thickness injury was encountered. The GI tract was desufflated. The patient tolerated the procedure well. FINDINGS: Esophageal stricture of approximately 15 mm encountered. No chronic gastrojejunal ulceration encountered. Successful balloon dilatation to 20 mm. Gastric pouch 3 cm. RECOMMENDATIONS: Continue omeprazole indefinitely Upper endoscopy as needed Plan - Discharge Summary Discharge Rx Participant: No New Discharge Prescriptions: No Action Multivitamin [Multivitamins Adult Gummies] 2 tab PO BID Ferrous Sulfate [Iron (65 MG Elemental)] 325 mg PO DAILY Propylene Glycol/Peg 400/Pf [Systane 0.3-0.4% Eye Drop] 1 drop RIGHT EYE DAILY PRN PRN Reason: Dry Eye(S) Thyroid,Pork [Thyroid] 30 mg PO DAILY Omeprazole [PriLOSEC] 20 mg PO AC-BRKFST Discharge Medication List Multivitamin [Multivitamins Adult Gummies] 2 tab PO BID 12/25/16 [History] Ferrous Sulfate [Iron (65 MG Elemental)] 325 mg PO DAILY 05/08/18 [History] Propylene Glycol/Peg 400/Pf [Systane 0.3-0.4% Eye Drop] 1 drop RIGHT EYE DAILY PRN 05/08/18 [History] Omeprazole [PriLOSEC] 20 mg PO AC-BRKFST 07/12/18 [History] Thyroid,Pork [Thyroid] 30 mg PO DAILY 07/12/18 [History] Follow up Appointment(s)/Referral(s): [facility] [[facility]-STAFF] - 08/04/18 Patient Instructions/Handouts: Esophageal Dilation (DC) Activity/Diet/Wound Care/Special Instructions: Liquid diet today. Regular diet tomorrow. Discharge Disposition: HOME SELF-CARE
[2018-07-14 08:48] VITALS: BP 133/85; PULSE 62
== END 2018-07-14 09:23 | disposition home or self-care (01) ==
LOC: ORWHC2ENDO 07:23
PROVIDERS: ATTEND Surgery Plastic and Reconstructive Surgery
DX: K22.2 Esophageal obstruction (principal); K21.9 Gastro-esophageal reflux disease without esophagitis; M19.90 Unspecified osteoarthritis, unspecified site; I10 Essential (primary) hypertension; G43.909 Migraine, unspecified, not intractable, without status migrainosus; Z98.84 Bariatric surgery status; Z87.891 Personal history of nicotine dependence; Z79.899 Other long term (current) drug therapy; Z91.018 Allergy to other foods; Z91.09 Other allergy status, other than to drugs and biological substances
CPT/HCPCS: 81025; 43249; J2001; J2704; C1726

== ENCOUNTER → 2018-08-04 | Outpatient (CLI) | payer BC ==
[2018-08-04 16:23] VITALS: BP 106/67; PULSE 78; TEMP 98.5; BMI 30.4
--- NOTE | 2018-08-04 17:06 | P.PN ---
Subjective Progress Note Date: 08/04/18 HPI: She has lost weight. She is feeling better. She reports diarrhea. ABDOMEN: Unremarkable LABS: Reviewed ASSESSMENT: 1. S/p gastric bypass PLAN: 1. Vitamin B-12 2. Supplement Vitamin A Objective - Vital Signs Vital signs: Vital Signs Temp 98.5 F 08/04/18 16:17 Pulse 78 08/04/18 16:17 Resp BP 106/67 08/04/18 16:17 Pulse Ox Intake & Output 08/03/18 08/04/18 08/04/18 18:59 06:59 18:59 Weight 82.418 kg
== END ==
LOC: BARWHC3 15:05
PROVIDERS: ATTEND Surgery Plastic and Reconstructive Surgery
DX: R19.7 Diarrhea, unspecified (principal); Z98.84 Bariatric surgery status
CPT/HCPCS: 99211

== ENCOUNTER → 2018-08-09 | Outpatient (CLI) | payer BC ==
[~2018-08-09] MED LIST changes: +CYANOCOBALAMIN 1,000 MCG/ML 1 ML VIAL IM ONE; -LACTATED RINGERS 1,000 ML IV SCH; -LIDOCAINE 1% 20 ML VIAL (10MG/ML) FOR IV START INTRADERMA PRN
[2018-08-09 13:53] VITALS: BP 123/81; PULSE 60; RESP 16; TEMP 97.9
== END ==
LOC: PROCWHC3 13:38
PROVIDERS: ATTEND Surgery Plastic and Reconstructive Surgery
DX: D51.9 Vitamin B12 deficiency anemia, unspecified (principal)
CPT/HCPCS: 96372; J3420

== ENCOUNTER → 2018-08-27 | Outpatient (CLI) | payer BC ==
[2018-08-27 09:28] LABS: HCT 37.2 % (34.0-46.0); HGB 11.9 gm/dL (11.4-16.0); MCH 25.4 pg (25.0-35.0); MCHC 31.9 g/dL (31.0-37.0); MCV 79.4 fL (80.0-100.0); Platelet Count 193 k/uL (150-450); RBC 4.69 m/uL (3.80-5.40); RDW 14.3 % (11.5-15.5); WBC 4.3 k/uL (3.8-10.6)
[2018-08-27 16:32] LABS: Iron Saturation 18.47 (12.00-45.00)
== END | disposition home or self-care (01) ==
LOC: LABWHC1 08:48
PROVIDERS: ATTEND Surgery Plastic and Reconstructive Surgery
DX: D50.8 Other iron deficiency anemias (principal); E66.01 Morbid (severe) obesity due to excess calories
CPT/HCPCS: 36415; 82607; 82728; 83540; 83550; 85027

== ENCOUNTER 2018-10-17 18:27 | Emergency (ER) | payer OTHER, BC ==
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
[2018-10-17] MEDS ORDERED: CYCLOBENZAPRINE 10MG STARTER 3 TAB BTL PO STA (20:24)
[2018-10-17] MEDS ORDERED: ACETAMINOPHEN TAB 500 MG TAB PO STA (20:24)
[2018-10-17] MEDS ORDERED: IBUPROFEN 600 MG TAB PO STA (20:24)
[2018-10-17 21:09] VITALS: BP 124/71; PULSE 58; RESP 14; TEMP 98.8
== END 2018-10-17 21:02 | disposition home or self-care (01) ==
LOC: EC 18:27
DX: S06.0X0A Concussion without loss of consciousness, initial encounter (principal); S80.11XA Contusion of right lower leg, initial encounter; M79.89 Other specified soft tissue disorders; M25.562 Pain in left knee; K21.9 Gastro-esophageal reflux disease without esophagitis; Z87.891 Personal history of nicotine dependence; Z91.018 Allergy to other foods; Z91.048 Other nonmedicinal substance allergy status; Z79.890 Hormone replacement therapy; Z79.899 Other long term (current) drug therapy; Z87.39 Personal history of other diseases of the musculoskeletal system and connective tissue; V49.59XA Passenger injured in collision with other motor vehicles in traffic accident, initial encounter; Y92.410 Unspecified street and highway as the place of occurrence of the external cause
CPT/HCPCS: 70450; 72125; 99285

== ENCOUNTER 2018-10-18 16:48 | Emergency (ER) | payer BC ==
[2018-10-18 17:00] VITALS: BP 127/83; PULSE 62; RESP 18; TEMP 98.4
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
== END 2018-10-18 17:48 | disposition home or self-care (01) ==
LOC: EC 16:48
DX: M54.2 Cervicalgia (principal); K21.9 Gastro-esophageal reflux disease without esophagitis; M19.90 Unspecified osteoarthritis, unspecified site; Z87.891 Personal history of nicotine dependence; Z79.899 Other long term (current) drug therapy; Z91.018 Allergy to other foods; Z91.048 Other nonmedicinal substance allergy status
CPT/HCPCS: 99283

== ENCOUNTER → 2019-04-28 | Outpatient (CLI) | payer BC ==
[2019-04-28 08:52] LABS: Appearance,Urine Clear (Clear); Bilirubin,Urine Negative (Negative); Blood,Urine Negative (Negative); Color,Urine Yellow; Glucose,Urine (UA) Negative (Negative); Ketones,Urine Negative (Negative); Leukocyte Esterase,Urine Negative (Negative); Nitrite,Urine Negative (Negative); Protein,Urine Negative (Negative); Specific Gravity,Urine 1.019 (1.001-1.035); Urobilinogen,Urine <2.0 mg/dL (<2.0)
[2019-04-28 08:53] LABS: Basophils % (A) 1 %; Eosinophils # (A) 0.1 k/uL (0-0.7); Eosinophils % (A) 1 %; HCT 41.3 % (34.0-46.0); HGB 13.7 gm/dL (11.4-16.0); Lymphocytes # (A) 1.3 k/uL (1.0-4.8); Lymphocytes % (A) 34 %; MCH 26.3 pg (25.0-35.0); MCV 79.5 fL (80.0-100.0); Mean Platelet Volume 7.4; Monocytes # (A) 0.3 k/uL (0-1.0); Monocytes % (A) 7 %; Neutrophils # (A) 2.1 k/uL (1.3-7.7); Neutrophils % (A) 55 %; Platelet Count 180 k/uL (150-450); RDW 13.8 % (11.5-15.5); WBC 3.9 k/uL (3.8-10.6)
[2019-04-28 16:32] LABS: African American GFR (CKD) 106.9 (60.0-200.0); Albumin 4.4 g/dL (3.80-4.90); Albumin/Globulin Ratio 2.2 (1.60-3.17); Anion Gap 7.3 mmol/L (4.00-12.00); BUN/Creat Ratio 16.25 Ratio (12.00-20.00); Calcium 9.1 mg/dL (8.7-10.3); Carbon Dioxide 24.7 mmol/L (21.6-31.8); Non-African American GFR(CKD) 92.2 (60.0-200.0); Potassium 3.8 mmol/L (3.5-5.5); Total Bilirubin 0.5 mg/dL (0.3-1.2); Total Protein 6.4 g/dL (6.2-8.2)
== END | disposition home or self-care (01) ==
LOC: LABWHC1 08:16
PROVIDERS: ATTEND Family Medicine
DX: N28.1 Cyst of kidney, acquired (principal)
CPT/HCPCS: 36415; 80053; 81003; 84100; 85025

== ENCOUNTER → 2019-05-18 | Outpatient (CLI) | payer BC ==
[2019-05-18 14:53] VITALS: BP 128/87; PULSE 61; RESP 16; TEMP 97.9; BMI 30.2
--- NOTE | 2019-05-18 15:54 | P.PN ---
Subjective Progress Note Date: 05/18/19 DATE OF SERVICE: 05/18/2019 CHIEF COMPLAINT: s/p conversion sleeve to gastric bypass HISTORY OF PRESENT ILLNESS: Shefali Akers is a 38-year-old female status post sleeve gastrectomy to gastric bypass, 2016. She is over 2 years out. She comes in with new right lower quadrant abdominal pain for more than 2 weeks sharp, and crampy in nature. She also reports new dysphagia with textured foods for the past week. She still has her appendix. Her last bariatric labs were July 2018. She is not taking Omeprazoel regularly. At her height of 5 feet 4-3/4 inches her initial weight has been 302 pounds. Today she comes in weighing 180 pounds from 181 pounds, 9 months ago. She has lost 2 pounds in 9 months. She has lost 122 pounds lifetime. Body mass index down from 50.8 down to 30.2. Percent excess weight loss is 77 %. She is 36 pounds overweight. PAST MEDICAL HISTORY: 1. Morbid obesity, initial 50.8. 2. Gastroesophageal reflux disease. 3. Hypertension. 4. Migraines. 5. Gastric stenosis following sleeve gastrectomy. 6. Panniculitis. PAST SURGICAL HISTORY: 1. Sleeve gastrectomy in August 13, 2015. 2. Bilateral carpal tunnel release. 3. Upper endoscopy. 4. Cholecystectomy. 5. Tubal ligation. 6. Gastric bypass, 02/2016. 7. Panniculectomy, 2016. MEDICATIONS: Home Medications Medication Instructions Recorded Confirmed Multivitamin [Multivitamins Adult 2 tab PO BID 12/25/16 08/09/18 Gummies] Ferrous Sulfate [Iron (65 MG 325 mg PO DAILY 05/08/18 08/09/18 Elemental)] Propylene Glycol/Peg 400/Pf 1 drop RIGHT EYE DAILY PRN 05/08/18 08/09/18 [Systane 0.3-0.4% Eye Drop] Omeprazole [PriLOSEC] 20 mg PO AC-BRKFST 07/12/18 08/09/18 Thyroid,Pork [Thyroid] 30 mg PO DAILY 07/12/18 08/09/18 Cholecalciferol (Vitamin D3) 10,000 unit PO DAILY 08/04/18 08/09/18 [Vitamin D3] Cyanocobalamin (Vitamin B-12) 1,000 mcg PO DAILY 08/04/18 08/09/18 [Vitamin B-12] Vitamin A Acetate [Vitamin A] 10,000 unit SL DAILY 08/04/18 08/09/18 ALLERGIES: CINNAMON. ENVIRONMENTAL. SUN. SOCIAL HISTORY: She reports prior tobacco abuse. She had quit smoking in February 2015. FAMILY HISTORY: Morbid obesity. REVIEW OF SYSTEMS: CONSTITUTIONAL: At her height of 5 feet 4-3/4 inches her initial weight has been 302 pounds. Body mass index was 50.8. GASTROINTESTINAL: Gastroesophageal reflux disease. Denies any blood in stools. HEENT: She wears glasses. She reports dysphagia intermittent troubles with swallowing. No reports of troubles with hearing. ENDOCRINE: No reports of thyroid disorders or diabetes. CARDIOVASCULAR: History of hypertension, resolved. No reports of chest pain. RESPIRATORY: No overt history of obstructive sleep apnea or dyspnea on exertion. GENITOURINARY: Denies recent bladder infections. NEURO: Denies any procedure disorder, however, prior history of migraines. PSYCH: Prior history of depression. No recent suicidal ideation. HEMATOLOGIC: Denies any easy bruising or bleeding. MUSCULOSKELETAL: Bilateral hip and joint pain improved. PHYSICAL EXAM: VITAL SIGNS: 5 feet 4-3/4 inches frame, 180 pounds. Body mass index is 30.2 Vital Signs Temp 97.9 F 05/18/19 14:51 Pulse 61 05/18/19 14:51 Resp 16 05/18/19 14:51 BP 128/87 05/18/19 14:51 Pulse Ox ABDOMEN: Soft, nondistended. Nontender. MUSCULOSKELETAL: No clubbing, cyanosis. GENERAL: Well-developed female in no acute distress. HEENT: No scleral icterus. Extraocular movements grossly intact. Moist buccal mucosa. Hears conversational speech. NECK: Supple without lymphadenopathy. CHEST: Nonlabored respirations. Equal bilateral excursions. CARDIOVASCULAR: Regular rate, regular rhythm. Bilateral pulses radial 2+. NEURO: Cranial nerves II through XII grossly within normal limits. No focal deficits. PSYCH: Alert and oriented to person, place, and time. SKIN: Well perfused. Good skin turgor. Has tattoos. ASSESSMENT: 1. Morbid obesity due to excess calories, resolved. 2. Body mass index reduced from 50.8 down to 30.2 3. Overweight. 4. 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 5. Personal history of complications from sleeve gastrectomy requiring conversion to gastric bypass. 6. Dietary surveillance and counseling. 7. Gastroesophageal reflux disease. 8. Dysphagia 9. Vitamin A deficiency 10. Vitamin B-12 deficiency 11. Right lower quadrant abdominal pain PLAN: 1. Recommend upper endoscopy and dilation for dysphagia. She is at risk for ulcers and strictures. 2. Recommend diagnostic laparoscopy with appendectomy for right lower quadrant abdominal pain. 3. DVT prophylaxis 4. Antibiotic prophylaxis. Objective - Vital Signs Vital signs: Vital Signs Temp 97.9 F 05/18/19 14:51 Pulse 61 05/18/19 14:51 Resp 16 05/18/19 14:51 BP 128/87 05/18/19 14:51 Pulse Ox Intake & Output 05/17/19 05/18/19 05/18/19 18:59 06:59 18:59 Weight 81.647 kg
== END | disposition home or self-care (01) ==
LOC: BARWHC3 14:14
PROVIDERS: ATTEND Surgery Plastic and Reconstructive Surgery
DX: Z48.815 Encounter for surgical aftercare following surgery on the digestive system (principal); E66.01 Morbid (severe) obesity due to excess calories; I10 Essential (primary) hypertension; K21.9 Gastro-esophageal reflux disease without esophagitis; G43.909 Migraine, unspecified, not intractable, without status migrainosus; M79.3 Panniculitis, unspecified; Z68.43 Body mass index [BMI] 50.0-59.9, adult; Z98.84 Bariatric surgery status; Z90.49 Acquired absence of other specified parts of digestive tract
CPT/HCPCS: 99211

== ENCOUNTER → 2019-05-19 | Outpatient (CLI) | payer BC ==
[2019-05-19 07:37] LABS: HCT 38.1 % (34.0-46.0); HGB 12.4 gm/dL (11.4-16.0); MCH 25.3 pg (25.0-35.0); MCHC 32.6 g/dL (31.0-37.0); MCV 77.6 fL (80.0-100.0); Mean Platelet Volume 7.5; Platelet Count 160 k/uL (150-450); RBC 4.92 m/uL (3.80-5.40); RDW 14.1 % (11.5-15.5)
[2019-05-19 07:50] LABS: Partial Thromboplastin Time 23.2 sec (22.0-30.0); Prothrombin Time 10.8 sec (9.0-12.0)
[2019-05-19 12:31] LABS: % Iron Saturation 12.68 (12.00-45.00); ALT 11 U/L (8-44); AST 16 U/L (13-35); African American GFR (CKD) 106.9 (60.0-200.0); Albumin/Globulin Ratio 1.95 (1.60-3.17); Alkaline Phosphatase 97 U/L (41-126); Calcium 8.5 mg/dL (8.7-10.3); Carbon Dioxide 22.6 mmol/L (21.6-31.8); Chloride 114 mmol/L (96-109); Chol/HDL Ratio 2.59; Cholesterol 119 mg/dL (0-200); Glucose 87 mg/dL (70-110); Iron 45 ug/dL (50-170); Magnesium 2.1 mg/dL (1.5-2.4); Non-African American GFR(CKD) 92.2 (60.0-200.0); Phosphorus 3.7 mg/dL (2.4-5.1); Potassium 3.5 mmol/L (3.5-5.5); Sodium 143 mmol/L (135-145); Total Bilirubin 0.4 mg/dL (0.3-1.2); Total Iron Binding Capacity 355 ug/dL (228-460); Total Protein 5.9 g/dL (6.2-8.2); Triglycerides <50.0 mg/dL (0.0-149.0)
[2019-05-19 12:41] LABS: Folate, Serum 7.7 ng/mL
[2019-05-19 13:13] LABS: Ferritin 6.1 ng/mL (10.0-291.0)
[2019-05-19 13:59] LABS: Hemoglobin A1C 5.2 % (4.0-6.0)
[2019-05-20 13:51] LABS: Zinc, Serum 74 ug/dL (60-130)
[2019-05-21 11:14] LABS: Vitamin A 33 ug/dL (38-106)
[2019-05-21 23:16] LABS: Selenium 103 mcg/L (63-160)
[2019-05-23 06:31] LABS: Vit B1(Thiamine) 55 ug/L (38-122)
== END | disposition home or self-care (01) ==
LOC: LABWHC1 07:06
PROVIDERS: ATTEND Surgery Plastic and Reconstructive Surgery
DX: Z01.818 Encounter for other preprocedural examination (principal); E21.1 Secondary hyperparathyroidism, not elsewhere classified; D50.9 Iron deficiency anemia, unspecified; K90.9 Intestinal malabsorption, unspecified; E55.9 Vitamin D deficiency, unspecified; K74.1 Hepatic sclerosis; N19 Unspecified kidney failure; K50.90 Crohn's disease, unspecified, without complications
CPT/HCPCS: 36415; 80053; 80061; 82306; 82525; 82607; 82728; 82746; 83036; 83540; 83550; 83735; 83970; 84100; 84134; 84255; 84425; 84443; 84590; 84630; 85027; 85610; 85730; 93005

== ENCOUNTER 2019-05-30 07:03 | Inpatient (IN) | payer BC ==
[2019-05-26 14:55] VITALS: BMI 29.0
--- NOTE | 2019-05-29 20:03 | P.GSHP ---
History of Present Illness H&P Date: 05/30/19 CHIEF COMPLAINT: GERD HISTORY OF PRESENT ILLNESS: The patient is a 38-year-old female who presents reports gastroesophageal reflux disease. Upper endoscopy was offered for further evaluation and management. PAST MEDICAL HISTORY: Please see list. PAST SURGICAL HISTORY: Please see list. MEDICATIONS: Please see list. ALLERGIES: Please see list. SOCIAL HISTORY: No illicit drug use FAMILY HISTORY: No reports of Crohn disease or ulcerative colitis. REVIEW OF ORGAN SYSTEMS: CONSTITUTIONAL: No reports of fevers or chills. GI: Denies any blood in stools or constipation. PHYSICAL EXAM: VITAL SIGNS: Stable GENERAL: Well-developed and pleasant in no acute distress. HEENT: No scleral icterus. Extraocular movements grossly intact. Moist buccal mucosa. NECK: Supple without lymphadenopathy. CHEST: Unlabored respirations. Equal bilateral excursions. CARDIOVASCULAR: Regular rate and rhythm. Distal 2+ pulses. ABDOMEN: Soft, nondistended. MUSCULOSKELETAL: No clubbing, cyanosis, or edema. ASSESSMENT: 1. Gastroesophageal reflux disease PLAN: 1. Recommend proceeding with an upper endoscopy Past Medical History Past Medical History: GERD/Reflux, Osteoarthritis (OA) Additional Past Medical History / Comment(s): Hx Migraines. past HX BORDERLINE HTN. prev hx of diabeties, no problems post weight loss. HX DYSPHAGIA (leading to multiple EGD with DILATION procedures). History of Any Multi-Drug Resistant Organisms: None Reported Past Surgical History: Bariatric Surgery, Cholecystectomy, Orthopedic Surgery, Tubal Ligation Additional Past Surgical History / Comment(s): [facility]. EGD. GASTRIC SLEEVE 08/2015; 02-25-16 LEONCIO-EN-Y. EGD W/ DILATION 05/16/16. Panniculectomy 07/14/16,LEEP Past Anesthesia/Blood Transfusion Reactions: Previous Problems w/ Anesthesia, Motion Sickness, Postoperative Nausea & Vomiting (PONV) Additional Past Anesthesia/Blood Transfusion Reaction / Comment(s): STAYED 2 EXTRA DAYS R/T "ANESTHESIA NOT GETTING OUT OF MY SYSTEM" states takes "a long time to wake up" also "new anesthesia put me in AFIB" Smoking Status: Former smoker - Past Family History Father History Unknown: Yes Mother History Unknown: Yes Family Medical History: No Reported History Brother(s) History Unknown: Yes Sister(s) History Unknown: Yes Daughter(s) Family Medical History: No Reported History Son(s) Family Medical History: No Reported History Medications and Allergies Home Medications Medication Instructions Recorded Confirmed Type No Known Home Medications 05/18/19 05/26/19 History Allergies Allergy/AdvReac Type Severity Reaction Status Date / Time cinnamon AdvReac Wheezing Verified 05/26/19 14:52 grass pollen AdvReac Unknown Verified 05/26/19 14:52 sun AdvReac skin Uncoded 05/26/19 14:52 blisters
[~2019-05-30 07:03] MED LIST changes: -CYANOCOBALAMIN 1,000 MCG/ML 1 ML VIAL IM ONE; +LIDOCAINE 1% 20 ML VIAL (10MG/ML) FOR IV START INTRADERMA PRN
[2019-05-30] MEDS ORDERED: ONDANSETRON 4 MG/2 ML VIAL IVP ONE ×2 (07:40→21:35)
[2019-05-30] MEDS ORDERED: DEXAMETHASONE SOD PHOSPHATE 10 MG/ML 1 ML VIAL IV ONE (07:40)
[2019-05-30] MEDS: LACTATED RINGERS 1,000 ML IV SCH (07:40)
[2019-05-30] MEDS ORDERED: LIDOCAINE 1% INJ 10MG/ML (20 ML MDV) ONE ×2 (08:02→20:10)
[2019-05-30] MEDS ORDERED: PROPOFOL 10 MG/ML 20 ML VIAL IV ONE ×2 (08:02→20:10)
[2019-05-30] MEDS ORDERED: METOCLOPRAMIDE 5 MG/ML 2 ML VIAL IVP PRN (08:19)
[2019-05-30] MEDS ORDERED: NALOXONE 0.4 MG/ML 1 ML VIAL IV PRN (08:19)
[2019-05-30] MEDS ORDERED: ONDANSETRON 4 MG/2 ML VIAL IVP PRN (08:19)
--- NOTE | 2019-05-30 08:19 | P.HPADDEND ---
H&P Addendum H&P Addendum Date: 05/30/19 Patient presents with right lower quadrant abdominal pain. She still has her appendix. It has become moderate to severe. Recommend admission for appendicitis.
--- NOTE | 2019-05-30 08:25 | P.PCN ---
Date of Procedure: 05/30/19 Description of Procedure: PREOPERATIVE DIAGNOSIS: Dysphagia. History of gastroesophageal reflux disease POSTOPERATIVE DIAGNOSIS: Dysphagia. History of gastroesophageal reflux disease Distal esophageal spasms Gastrojejunal stricture OPERATION: Esophagogastrojejunoscopy with balloon dilatation from 15 to 20 mm. SURGEON: Monalisa Araiza MD ANESTHESIA: MAC. INDICATIONS: The patient is a 38-year-old female who presents with a history of dysphagia and gastroesophageal reflux disease. Benefits and risks of the procedure were described. Informed consent was obtained. DESCRIPTION: The patient was brought into the endoscopy suite and laid in the left lateral decubitus position. After a timeout was confirmed, the procedure was initiated. An Olympus gastroscope was passed along the posterior oropharynx down to the distal esophagus where the squamocolumnar junction was unremarkable. The gastric pouch was entered. A gastrojejunal stricture of 15 mm was found as the adult gastroscope was 9.5 mm in size. A [employer] balloon dilator was placed through the scope. Final insufflation up to 20 mm was performed with a total of 2 minutes. The scope was advanced up to 60 cm from the incisors into the Michelle limb. The mucosa of the gastrojejunal anastomosis was intact. No chronic gastrojejunal marginal ulcer was encountered. No full-thickness injury was encountered. Separately, diffuse distal esophageal spasms were identified. The GI tract was desufflated. The patient tolerated the procedure well. FINDINGS: Squamocolumnar junction unremarkable at 37 cm. Stricture of approximately 15 mm encountered. No chronic gastrojejunal ulceration encountered. Successful balloon dilatation to 20 mm. Diffuse distal esophageal spasm RECOMMENDATIONS: 1. Recommend manometry for assessment of esophageal spasms
[2019-05-30] MEDS ORDERED: BUPIVACAINE (PF) 0.25% 30 ML VIAL SQ ONE (08:37)
[2019-05-30] MEDS: IOPAMIDOL CONTRAST (ORAL USE) VIAL PO PRN ×2 (09:28→10:21)
[2019-05-30 09:37] LABS: Basophils % (A) 0 %; Eosinophils % (A) 1 %; HCT 36.2 % (34.0-46.0); Lymphocytes # (A) 0.6 k/uL (1.0-4.8); Lymphocytes % (A) 15 %; MCH 25.8 pg (25.0-35.0); MCHC 33.2 g/dL (31.0-37.0); MCV 77.8 fL (80.0-100.0); Mean Platelet Volume 7.7; Monocytes # (A) 0.1 k/uL (0-1.0); Monocytes % (A) 3 %; Neutrophils # (A) 3.1 k/uL (1.3-7.7); Neutrophils % (A) 80 %; Platelet Count 150 k/uL (150-450); RBC 4.65 m/uL (3.80-5.40); RDW 13.9 % (11.5-15.5); WBC 3.9 k/uL (3.8-10.6)
[2019-05-30 09:47] LABS: ALT 12 U/L (4-34); AST 22 U/L (14-36); African American GFR (CKD) >90 (>60 ml/min/1.73 sqM); Albumin 3.6 g/dL (3.5-5.0); Alkaline Phosphatase 96 U/L (38-126); Anion Gap 6 mmol/L; Blood Urea Nitrogen 11 mg/dL (7-17); Calcium 8.6 mg/dL (8.4-10.2); Carbon Dioxide 24 mmol/L (22-30); Chloride 112 mmol/L (98-107); Glucose 90 mg/dL (74-99); Non-African American GFR(CKD) >90 (>60 ml/min/1.73 sqM); Potassium 3.7 mmol/L (3.5-5.1); Sodium 142 mmol/L (137-145); Total Bilirubin 0.6 mg/dL (0.2-1.3); Total Protein 6.3 g/dL (6.3-8.2)
--- NOTE | 2019-05-30 11:51 | CT ---
EXAMINATION TYPE: CT abdomen pelvis w con DATE OF EXAM: 05/30/2019 COMPARISON: 05/25/2016 HISTORY: RLQ pain with fever. CT DLP: 934.2 mGycm CONTRAST: CT scan of the abdomen and pelvis is performed with Oral Contrast and with IV Contrast, patient injec john with 100 mL of Isovue 300. FINDINGS: LUNG BASES-: No visible nodule. No infiltrate. LIVER/GB: Nonvisualization of the gallbladder. No space occupying hepatic lesion. Biliary tree is of normal caliber. PANCREAS: No inflammation. No distinct mass. SPLEEN: No splenic enlargement. No lesion seen. ADRENALS: No nodule. No thickening. KIDNEYS/BLADDER: No hydronephrosis. No nephrolithiasis. Large bilateral simple renal cysts redemons trated. Urinary bladder grossly unremarkable. BOWEL: Normal appendix. Normal bowel caliber. No inflammation. Gastric bypass changes identified. GENITAL ORGANS: No gross abnormality. LYMPH NODES: No greater than 1cm abdominal or pelvic lymph nodes are appreciated. AORTA: No significant abnormality. OSSEOUS STRUCTURES: No significant abnormality is seen. OTHER: No significant additional abnormality is seen. IMPRESSION: 1. No evidence for acute appendicitis.
[2019-05-30] MEDS ORDERED: SUMAtriptan SUCCINATE 6 MG/0.5 ML VIAL SQ STA (17:37)
--- NOTE | 2019-05-30 20:03 | P.PN ---
Progress Note - Text Progress Note Date: 05/30/19 CT of the abdomen and pelvis independently reviewed demonstrating worsening bilateral large renal cysts. At the patient's location of pain right lower and right upper quadrant, appendix is also present. Presence of mesenteric swirl of the mid abdomen highly suspicious for internal hernia. With patient's clinical presentation including history of gastric bypass, she is higher risk of small bowel volvulus and small bowel obstruction. Recommend robotic lysis of adhesions, diagnostic laparoscopy, appendectomy for right lower quadrant pain in patient with history of gastric bypass reviewed. All questions addressed. Patient agreed with proceeding with surgery.
[2019-05-30] MEDS ORDERED: ceFAZolin 1,000 MG VIAL ONE (20:10)
[2019-05-30] MEDS ORDERED: NEOSTIGMINE 1 MG/ML 10 ML VIAL ONE (20:10)
[2019-05-30] MEDS ORDERED: GLYCOPYRROLATE 0.2 MG/ML 2 ML VIAL ONE (20:10)
[2019-05-30] MEDS ORDERED: MIDAZOLAM 2 MG/2 ML VIAL ONE (20:10)
[2019-05-30] MEDS ORDERED: fentaNYL (PF) 50 MCG/ML 2 ML AMP ONE (20:10)
[2019-05-30] MEDS ORDERED: ROCURONIUM BROMIDE 10 MG/ML 5 ML VIAL IV ONE (20:10)
[2019-05-30] MEDS ORDERED: SUCCINYLCHOLINE CHLORIDE 100 MG/5 ML SYR IV ONE (20:10)
[2019-05-30] MEDS ORDERED: LACTATED RINGERS 1,000 ML IV ONE ×2 (20:15→20:30)
[2019-05-30] MEDS ORDERED: ACETAMINOPHEN TAB 325 MG TAB PO PRN (21:42)
--- NOTE | 2019-05-30 21:42 | P.OP ---
Date of Procedure: 05/30/19 Description of Procedure: SURGEON: MONALISA ARAIZA MD Preoperative Diagnosis: 1. Right lower quadrant abdominal pain 2. Right upper quadrant abdominal pain 3. History of peritoneal adhesions 4. Abnormal computed tomography scan with mesenteric swirl, internal hernia 5. Large bilateral renal cyst right greater than left Postoperative Diagnosis: 1. Right lower quadrant abdominal pain 2. Right upper quadrant abdominal pain 3. History of peritoneal adhesions 4. Abnormal computed tomography scan with mesenteric swirl, internal hernia 5. Large bilateral renal cyst right greater than left 6. Other appendicitis 7. Adhesive band epigastrium causing small bowel volvulus/internal hernia Procedure(s) Performed: 1. Robotic-assisted daVinci Xi laparoscopic lysis of adhesions 2. Robotic-assisted daVinci Xi laparoscopic appendectomy Anesthesia: GETA, local Surgeon: Monalisa Araiza Estimated Blood Loss (ml): 5 Pathology: other (appendix) Condition: stable Disposition: floor Operative Findings: 1. Adhesive band from abdominal wall of epigastrium to jejunojejunostomy causing small bowel volvulus, internal hernia 2. Terminal ileum unremarkable 3. Cecum unremarkable 4. No bilateral inguinal hernias 5. Large right renal cyst with compression along the proximal transverse colon and duodenum 6. Obliterated Petersons defect 7. Obliterated jejunojejunostomy defect INDICATIONS: The patient is a 38-year-old female who presents with right lower quadrant abdominal pain including right upper quadrant abdominal pain. CT of the abdomen and pelvis independently reviewed demonstrated mesenteric swirl suspicious for internal hernia and adhesive band disease. Separately with her right lower quadrant abdominal pain, other appendicitis cannot be excluded. Benefits and risks, including infection, open surgery, and bleeding for additional surgery was discussed at length. Informed consent was obtained. All questions of the patient and family were answered. DESCRIPTION: The patient was transferred to the operating room and placed in supine position. The patient had previously voided. The abdomen was then prepped and draped in standard sterile fashion as Ioban was placed along the abdomen to minimize any contamination of skin floor. After a timeout protocol was performed, attention was then brought to the left upper quadrant whereby a 0 degree 5 mm laparoscopic trocar entry was performed. The abdominal cavity was entered and insufflated to 15 mmHg pressure, which was tolerated well. Diagnostic laparoscopy demonstrated no injury to bowel, viscera or mesentery. The appendix was extremely long with dilated tip. Adhesive band from the abdominal wall epigastrium to the jejunojejunostomy was found with small bowel volvulus/internal hernia. Next a robotic 12-mm trocar was placed along the left lower quadrant, 15-cm lateral to the midline. Two 8 mm ports were placed along the left lateral abdominal wall after exchanging the 5 mm trocar. Ports were placed 10 cm apart from each other including 15-20 cm away from the target anatomy of the right pelvis. The patient was then placed in Trendelenburg position, at least 6 down and right side up at least 6. The robotic da Abhijit XI system was primed and docked from the left side of the patient. Using atraumatic graspers and vessel sealer, the robotic system was docked and primed as described. Instruments were interchanged by the data control assistant including graspers, robotic stapler and vessel sealer. The adhesive band was lysed using vessel sealer. The internal hernia/volvulus was released after excising the adhesive band. Next, attention was brought to identify the cecum. A systematic view within the abdominal cavity was started with the small bowel which was unremarkable. The base of the cecum was unremarkable. No inguinal hernias were identified. The tip of the appendix was dilated with extremely long body. No perforation was identified. A 45 mm blue robotic staple loads were fired along the base of the appendix. The staple line was hemostatic. The small bowel was investigated from the terminal ileum proximally to the jejunojejunostomy. Likewise the small bowel was investigated from the ligament of Treitz distally as well as the Michelle limb distally. The Petersons defect and jejunojejunostomy defect were completely obliterated. Hemostasis was checked prior to undocking the robot. The robot was undocked. I re-scrubbed into the case. The specimen was removed from the abdominal cavity with an Endo Catch bag through the 12 mm trocar at the left lower quadrant. All instruments and pneumoperitoneum were evacuated from the abdominal cavity. Local anesthetic was infiltrated to all wounds for postop analgesia. All incisions were also cleansed with diluted hydrogen peroxide. The incisions were closed with 4-0 Monocryl. Exofin glue was applied to the rest of the skin incisions. The patient had tolerated the procedure well. The patient was extubated successfully. The patient was transferred to the postanesthesia care unit in stable condition.
[2019-05-30] MEDS ORDERED: SODIUM CHLORIDE 0.9% 2,000 ML IV ONE (21:43)
[2019-05-30] MEDS ORDERED: PROMETHAZINE INJ 25 MG/ML 1 ML VIAL IVPB ONE (21:46)
[2019-05-30] MEDS: MEPERIDINE 50 MG/ML SYRINGE IVP ONE ×2 (21:53→22:03)
[2019-05-31] MEDS: HYDROmorphone 0.5 MG/0.5 ML SYRINGE IVP PRN ×5 (00:44→21:05)
[2019-05-31] MEDS: D5-0.45% NACL WITH KCL 20MEQ/L 1,000 ML IV SCH ×4 (01:14→21:06)
[2019-05-31] MEDS: LACTATED RINGERS 1,000 ML IV SCH (02:25)
[2019-05-31] MEDS: HYDROcodone/APAP 5-325MG 1 EACH TAB PO PRN (07:35)
[2019-05-31] MEDS ORDERED: ENOXAPARIN 30 MG/0.3 ML SYRINGE SQ SCH (09:00)
[2019-05-31] MEDS ORDERED: CYANOCOBALAMIN 1,000 MCG/ML 1 ML VIAL IM ONE (09:01)
[2019-05-31] MEDS: SODIUM FERRIC GLUCONAT-SUCROSE 125 MG in SODIUM CHLORIDE 0.9% 100 ML IVPB SCH (09:32)
[2019-05-31] MEDS: PANTOPRAZOLE 40 MG/10 ML VIAL IVP SCH (09:34)
[2019-05-31] MEDS: KETOROLAC 30 MG/ML 1 ML VIAL IVP PRN ×2 (10:17→15:36)
--- NOTE | 2019-05-31 11:20 | P.PN ---
<Sue Blair Argentina - Last Filed: 05/31/19 11:15> Subjective Progress Note Date: 05/31/19 CHIEF COMPLAINT: Abdominal pain HISTORY OF PRESENT ILLNESS: 38-year-old female who is status post robotic- assisted laparoscopic lysis of adhesions and appendectomy with Dr. Araiza. Postoperative day #1. Patient examined this morning at the bedside. Patient reports her pain is currently in 9. She is tolerating diet without nausea or vomiting. She has not been ambulating this morning per the RN. Vital signs are stable. She is afebrile. PHYSICAL EXAM: VITAL SIGNS: Currently stable. GENERAL: Well-developed in no acute distress. HEENT: No sclera icterus. Extraocular movements grossly intact. Moist buccal mucosa. Head is atraumatic, normocephalic. Hears conversational speech. No nasal drainage. NECK: Supple without lymphadenopathy. CHEST: Non-labored respirations and equal bilateral excursions. CARDIOVASCULAR: Regular rate with regular rhythm. Palpable 2+ radial pulses. ABDOMEN: Soft. Nondistended. Surgical sites clean and dry without drainage or erythema. MUSCULOSKELETAL: No clubbing, cyanosis or edema. NEUROLOGIC: No focal or lateralizing signs. Cranial nerves II through XII grossly intact. PSYCH: Appropriate affect. Alert and oriented to person, place and time. SKIN: Well perfused. Good skin turgor. ASSESSMENT: 1. Right lower quadrant abdominal pain 2. Right upper quadrant abdominal pain 3. History of peritoneal adhesions 4. Abnormal computed tomography scan with mesenteric swirl, internal hernia 5. Large bilateral renal cyst right greater than left 6. Other appendicitis 7. 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 Large right renal cyst with compression along the proximal transverse colon and duodenum PLAN: -Urology consulted for large right renal cyst. Await recommendations and input -Continue diet as tolerated -Increase activity as tolerated -Incentive spirometer 10 times an hour -Pain control. Continue [place]. Add Toradol when necessary -Anticipate discharge home when pain is controlled and cleared by urology Nurse practitioner note has been reviewed by physician. Signing provider agrees with the documented findings, assessment, and plan of care. Objective - Vital Signs Vital signs: Vital Signs Temp 98.1 F 05/31/19 07:25 Pulse 55 L 05/31/19 09:00 Resp 16 02/25/20 09:00 BP 115/55 05/31/19 07:25 Pulse Ox 100 05/31/19 07:25 Intake & Output 05/30/19 05/31/19 05/31/19 18:59 06:59 18:59 Intake Total 300 3300 Output Total 205 Balance 300 3095 Weight 83.6 kg Intake: IV 300 800 Intake, IV Titration 2500 Amount D5-0.45% NaCl with KCl 500 20Meq/l 1,000 ml @ 100 mls/hr IV .Q10H JIA Rx#: [id number] Sodium Chloride 0.9% 2, 2000 000 ml @ 999 mls/hr IV . Q2H1M ONE Rx#:[id number] Output: Urine 200 Estimated Blood Loss 5 Other: Voiding Method Toilet Toilet # Voids 1 175 3 - Labs CBC & Chem 7: 05/30/19 09:20 05/30/19 09:20 <Monalisa Araiza - Last Filed: 05/31/19 18:47> Subjective Patient seen and evaluated. Patient has been seen by urology with recommendations noted. Patient has elected for aspiration of her renal cysts as she still has pain present prior to surgery along the right lower/upper quadrant. Patient to be discharged after aspiration of cysts and cleared by urology. Objective - Vital Signs Vital signs: Vital Signs Temp 98.5 F 05/31/19 15:00 Pulse 60 05/31/19 15:00 Resp 16 05/31/19 15:00 BP 115/65 05/31/19 15:00 Pulse Ox 100 05/31/19 15:00 Intake & Output 05/30/19 05/31/19 05/31/19 18:59 06:59 18:59 Intake Total 300 3300 Output Total 205 Balance 300 3095 Weight 83.6 kg Intake: IV 300 800 Intake, IV Titration 2500 Amount D5-0.45% NaCl with KCl 500 20Meq/l 1,000 ml @ 100 mls/hr IV .Q10H JIA Rx#: [id number] Sodium Chloride 0.9% 2, 2000 000 ml @ 999 mls/hr IV . Q2H1M ONE Rx#:[id number] Output: Urine 200 Estimated Blood Loss 5 Other: Voiding Method Toilet Toilet # Voids 1 175 3 - Labs CBC & Chem 7: 05/30/19 09:20 05/30/19 09:20
--- NOTE | 2019-05-31 15:47 | P.GSCN ---
History of Present Illness Consult date: 05/31/19 Reason for Consult: Renal cysts Requesting physician: Monalisa Araiza History of present illness: The patient is a 38-year-old white female admitted with right-sided abdominal pain. She underwent robotic-assisted daVinci Xi laparoscopic lysis of adhesions and appendectomy yesterday. Her computed tomography scan showed bilateral simple renal cysts. The largest on the right side is a 9.2 cm upper pole cyst, while the largest on the left side is a 9.5 cm lower pole cyst. She reports recent bilateral abdominal discomfort, R > L. She denies any prior history of kidney stones. She has been treated for occasional UTIs. Review of Systems - Constitutional Denies chills, Denies fever - Gastrointestinal Reports abdominal pain - Genitourinary Genitourinary: Denies dysuria, Denies hematuria Past Medical History Past Medical History: GERD/Reflux, Osteoarthritis (OA) Additional Past Medical History / Comment(s): Hx Migraines. past HX BORDERLINE HTN. prev hx of diabeties, no problems post weight loss. HX DYSPHAGIA (leading to multiple EGD with DILATION procedures). History of Any Multi-Drug Resistant Organisms: None Reported Past Surgical History: Bariatric Surgery, Cholecystectomy, Orthopedic Surgery, Tubal Ligation Additional Past Surgical History / Comment(s): [facility]. EGD. GASTRIC SLEEVE 08/2015; 02-25-16 LEONCIO-EN-Y. EGD W/ DILATION 05/16/16. Panniculectomy 07/14/16,LEEP Past Anesthesia/Blood Transfusion Reactions: Previous Problems w/ Anesthesia, Motion Sickness, Postoperative Nausea & Vomiting (PONV) Additional Past Anesthesia/Blood Transfusion Reaction / Comm: STAYED 2 EXTRA DAYS R/T "ANESTHESIA NOT GETTING OUT OF MY SYSTEM" states takes "a long time to wake up" also "new anesthesia put me in AFIB" Past Psychological History: No Psychological Hx Reported Additional Psychological History / Comment(s): DENIES DEPRESSION CURRENTLY. Smoking Status: Former smoker Past Alcohol Use History: None Reported Additional Past Alcohol Use History / Comment(s): QUIT SMOKING 02/2015, 25 YR SMOKER, 1 PPD. Past Drug Use History: None Reported Additional Drug Use History / Comment(s): . - Past Family History Father History Unknown: Yes Mother History Unknown: Yes Family Medical History: No Reported History Brother(s) History Unknown: Yes Sister(s) History Unknown: Yes Daughter(s) Family Medical History: No Reported History Son(s) Family Medical History: No Reported History Medications and Allergies Home Medications Medication Instructions Recorded Confirmed Type No Known Home Medications 05/18/19 05/26/19 History Allergies Allergy/AdvReac Type Severity Reaction Status Date / Time cinnamon AdvReac Wheezing Verified 05/26/19 14:52 grass pollen AdvReac Unknown Verified 05/26/19 14:52 sun AdvReac skin Uncoded 05/26/19 14:52 blisters Surgical - Exam Vital Signs Temp Pulse Resp BP Pulse Ox 98.6 F 68 20 117/77 97 05/30/19 07:40 05/30/19 07:40 05/30/19 07:40 05/30/19 07:40 05/30/19 07:40 - General well developed, well nourished, no distress - Neck no masses, trachea midline - Respiratory normal respiratory effort - Abdomen Soft, non-distended. Right lateral abdominal tenderness to palpation is noted, without guarding or rebound. The incisions are clean and dry. - Psychiatric oriented to time, oriented to person, oriented to place, speech is normal, memory intact Results - Labs 05/30/19 09:20 05/30/19 09:20 - Imaging CT scan - abdomen: report reviewed, image reviewed Assessment and Plan (1) Renal cyst Current Visit: Yes Status: Acute Code(s): N28.1 - CYST OF KIDNEY, ACQUIRED SNOMED Code(s): 123750508 Plan: I had a lengthy discussion with Mrs. Akers regarding her bilateral renal cysts. I explained to her that renal cysts are common, and that classification of the cyst(s) allows one to determine its risk of malignancy. The patient was reassured that the cysts meet the criteria of simple cysts. These are non-malignant and do not require further evaluation. While renal cysts usually do not cause symptoms, they can cause discomfort and there is no diagnostic test to determine whether or not the cysts are responsible for her symptoms. Treatment options include aspiration with or without sclerotherapy versus surgical unroofing, typically done laparoscopically. The patient has elected to undergo aspiration of the right renal cyst. She understands that the cyst will reaccumulate over time, in which case she will undergo surgical unroofing the first symptoms resolved following aspiration. Potential risks associated with aspiration were discussed, including renal injury, infection, a nd injury to adjacent organs such as the colon. Time with Patient: Greater than 30
[2019-06-01] MEDS: HYDROmorphone 0.5 MG/0.5 ML SYRINGE IVP PRN ×2 (02:51→07:44)
[2019-06-01] MEDS: LACTATED RINGERS 1,000 ML IV SCH (05:20)
[2019-06-01] MEDS: SODIUM FERRIC GLUCONAT-SUCROSE 125 MG in SODIUM CHLORIDE 0.9% 100 ML IVPB SCH (08:41)
--- NOTE | 2019-06-01 08:50 | P.PN ---
Progress Note - Text Progress Note Date: 06/01/19 Mrs. Akers continues to report abdominal discomfort. It is impossible to determine whether or not her renal cysts are contributing to this discomfort. I spoke with interventional radiology, and her schedules do not allow cyst aspiration to be performed during this hospitalization. Arrangements will be made for this to be done as an outpatient. Please notify me if I can be of any further assistance.
[2019-06-01] MEDS ORDERED: ENOXAPARIN 40 MG/0.4 ML SYRINGE SQ SCH (09:00)
[2019-06-01] MEDS: HYDROcodone/APAP 5-325MG 1 EACH TAB PO PRN ×3 (09:33→19:58)
[2019-06-01] MEDS: PANTOPRAZOLE 40 MG/10 ML VIAL IVP SCH (10:04)
--- NOTE | 2019-06-01 10:40 | P.PN ---
<Sue Blair [place] - Last Filed: 06/01/19 10:38> Subjective Progress Note Date: 06/01/19 CHIEF COMPLAINT: Abdominal pain HISTORY OF PRESENT ILLNESS: 38-year-old female who is status post robotic- assisted laparoscopic lysis of adhesions and appendectomy with Dr. Araiza. Postoperative day #2. Patient examined this morning at the bedside. Patient reports her pain is currently is 8/10. She is tolerating diet without nausea or vomiting. Patient has been ambulating minimally in her room. Vital signs are stable. She is afebrile. PHYSICAL EXAM: VITAL SIGNS: Currently stable. GENERAL: Well-developed in no acute distress. HEENT: No sclera icterus. Extraocular movements grossly intact. Moist buccal mucosa. Head is atraumatic, normocephalic. Hears conversational speech. No nasal drainage. NECK: Supple without lymphadenopathy. CHEST: Non-labored respirations and equal bilateral excursions. CARDIOVASCULAR: Regular rate with regular rhythm. Palpable 2+ radial pulses. ABDOMEN: Soft. Nondistended. Surgical sites clean and dry without drainage or erythema. MUSCULOSKELETAL: No clubbing, cyanosis or edema. NEUROLOGIC: No focal or lateralizing signs. Cranial nerves II through XII grossly intact. PSYCH: Appropriate affect. Alert and oriented to person, place and time. SKIN: Well perfused. Good skin turgor. ASSESSMENT: 1. Right lower quadrant abdominal pain 2. Right upper quadrant abdominal pain 3. History of peritoneal adhesions 4. Abnormal computed tomography scan with mesenteric swirl, internal hernia 5. Large bilateral renal cyst right greater than left 6. Other appendicitis 7. 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 Large right renal cyst with compression along the proximal transverse colon and duodenum PLAN: -Urology consulted for large right renal cyst. Patient to follow up outpatient for cyst aspiration -Continue diet as tolerated -Increase activity as tolerated -Incentive spirometer 10 times an hour -Pain control. Continue [place]. Continue Toradol. Limit use of IV Dilaudid if possible Nurse practitioner note has been reviewed by physician. Signing provider agrees with the documented findings, assessment, and plan of care. Objective - Vital Signs Vital signs: Vital Signs Temp 98.2 F 06/01/19 08:14 Pulse 72 06/01/19 08:14 Resp 16 06/01/19 08:14 BP 130/83 06/01/19 08:14 Pulse Ox 99 06/01/19 08:14 Intake & Output 05/31/19 06/01/19 06/01/19 18:59 06:59 18:59 Other: Voiding Method Toilet Toilet # Voids 3 - Labs CBC & Chem 7: 05/30/19 09:20 05/30/19 09:20 <Monalisa Araiza - Last Filed: 06/01/19 18:28> Subjective Patient initially was scheduled to undergo drainage of renal cysts however now scheduled for outpatient management per urology. Pathology report of appendix, consistent with benign pathology. Separately, patient being treated for severe iron deficiency anemia and vitamin B12 deficiency with iron infusion and vitamin b12 supplements. Patient also advised to ambulate to minimize risk for pulmonary embolus and DVTs. Patient also advised for adjustment of pain management as Dilaudid will not be discharged upon home. Recommend discharge home tomorrow. Continue with vitamin supplements. Objective - Vital Signs Vital signs: Vital Signs Temp 98.3 F 06/01/19 14:33 Pulse 61 06/01/19 14:33 Resp 16 06/01/19 14:33 BP 125/75 06/01/19 14:33 Pulse Ox 99 06/01/19 14:33 Intake & Output 05/31/19 06/01/19 06/01/19 18:59 06:59 18:59 Other: Voiding Method Toilet Toilet # Voids 3 - Labs CBC & Chem 7: 05/30/19 09:20 05/30/19 09:20
[2019-06-01] MEDS: KETOROLAC 30 MG/ML 1 ML VIAL IVP PRN (11:22)
[2019-06-01] MEDS: D5-0.45% NACL WITH KCL 20MEQ/L 1,000 ML IV SCH (15:25)
[2019-06-01] MEDS: KETOROLAC 30 MG/ML 1 ML VIAL IVP SCH ×2 (17:15→23:58)
[2019-06-01] MEDS: CYANOCOBALAMIN 1,000 MCG/ML 1 ML VIAL IM SCH (19:57)
[2019-06-02] MEDS: D5-0.45% NACL WITH KCL 20MEQ/L 1,000 ML IV SCH ×3 (00:01→10:54)
[2019-06-02] MEDS: KETOROLAC 30 MG/ML 1 ML VIAL IVP SCH ×4 (06:08→23:31)
[2019-06-02] MEDS: PANTOPRAZOLE 40 MG/10 ML VIAL IVP SCH (08:57)
[2019-06-02] MEDS: HYDROcodone/APAP 5-325MG 1 EACH TAB PO PRN ×2 (08:57→21:17)
[2019-06-02] MEDS: CYANOCOBALAMIN 1,000 MCG/ML 1 ML VIAL IM SCH (08:58)
[2019-06-02] MEDS: SODIUM FERRIC GLUCONAT-SUCROSE 125 MG in SODIUM CHLORIDE 0.9% 100 ML IVPB SCH (08:58)
--- NOTE | 2019-06-02 13:35 | P.PN ---
<Sue Blair - Last Filed: 06/02/19 13:34> Subjective Progress Note Date: 06/02/19 CHIEF COMPLAINT: Abdominal pain HISTORY OF PRESENT ILLNESS: 38-year-old female who is status post robotic- assisted laparoscopic lysis of adhesions and appendectomy with Dr. Araiza. Postoperative day #3. Patient examined this morning at the bedside. Patient continues to report abdominal pain. She is tolerating diet without nausea or vomiting. Patient has been ambulating minimally in her room. Vital signs are stable. She is afebrile. PHYSICAL EXAM: VITAL SIGNS: Currently stable. GENERAL: Well-developed in no acute distress. HEENT: No sclera icterus. Extraocular movements grossly intact. Moist buccal mucosa. Head is atraumatic, normocephalic. Hears conversational speech. No nasal drainage. NECK: Supple without lymphadenopathy. CHEST: Non-labored respirations and equal bilateral excursions. CARDIOVASCULAR: Regular rate with regular rhythm. Palpable 2+ radial pulses. ABDOMEN: Soft. Nondistended. Surgical sites clean and dry without drainage or erythema. MUSCULOSKELETAL: No clubbing, cyanosis or edema. NEUROLOGIC: No focal or lateralizing signs. Cranial nerves II through XII grossly intact. PSYCH: Appropriate affect. Alert and oriented to person, place and time. SKIN: Well perfused. Good skin turgor. ASSESSMENT: 1. Right lower quadrant abdominal pain 2. Right upper quadrant abdominal pain 3. History of peritoneal adhesions 4. Abnormal computed tomography scan with mesenteric swirl, internal hernia 5. Large bilateral renal cyst right greater than left 6. Other appendicitis 7. 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 Large right renal cyst with compression along the proximal transverse colon and duodenum PLAN: -Urology consulted for large right renal cyst. Patient to follow up outpatient for cyst aspiration -Continue diet as tolerated -Increase activity as tolerated -Incentive spirometer 10 times an hour -Pain control. Continue [place]. -Anticipate discharge home this afternoon after patient is reevaluated by Dr. Araiza Nurse practitioner note has been reviewed by physician. Signing provider agrees with the documented findings, assessment, and plan of care. Objective - Vital Signs Vital signs: Vital Signs Temp 98.5 F 06/02/19 08:20 Pulse 66 06/02/19 08:20 Resp 16 06/02/19 08:20 BP 136/85 06/02/19 08:20 Pulse Ox 94 L 06/02/19 08:20 Intake & Output 06/01/19 06/02/19 06/02/19 18:59 06:59 18:59 Intake Total 360 Balance 360 Intake: Oral 360 Other: Voiding Method Toilet Toilet # Voids 2 1 - Labs CBC & Chem 7: 05/30/19 09:20 05/30/19 09:20 <Monalisa Araiza - Last Filed: 06/02/19 16:06> Subjective Spoke with patient and interventional radiology team for drainage of renal cysts. Will attempt tomorrow as she reports persistent flank/abdominal pain. PT/INR ordered. Objective - Vital Signs Vital signs: Vital Signs Temp 98.2 F 06/02/19 14:52 Pulse 66 06/02/19 14:52 Resp 16 06/02/19 14:52 BP 142/89 06/02/19 14:52 Pulse Ox 98 06/02/19 14:52 Intake & Output 06/01/19 06/02/19 06/02/19 18:59 06:59 18:59 Intake Total 360 Balance 360 Intake: Oral 360 Other: Voiding Method Toilet Toilet # Voids 2 1 - Labs CBC & Chem 7: 05/30/19 09:20 05/30/19 09:20
[2019-06-02 16:57] LABS: INR 1.1 (<1.2); Prothrombin Time 11.4 sec (9.0-12.0)
[2019-06-03] MEDS: D5-0.45% NACL WITH KCL 20MEQ/L 1,000 ML IV SCH (04:42)
[2019-06-03] MEDS: KETOROLAC 30 MG/ML 1 ML VIAL IVP SCH ×2 (05:34→12:07)
[2019-06-03 07:56] VITALS: TEMP 98.5
[2019-06-03] MEDS: PANTOPRAZOLE 40 MG/10 ML VIAL IVP SCH (09:45)
[2019-06-03] MEDS: CYANOCOBALAMIN 1,000 MCG/ML 1 ML VIAL IM SCH (09:47)
--- NOTE | 2019-06-03 10:27 | P.DS ---
<Sue Blair - Last Filed: 06/03/19 10:24> Providers Expected date of discharge: 06/03/19 Hospital Course: 38-year-old female who originally presented to Hospital for scheduled outpatient EGD secondary to GERD. Patient began complaining of right lower quadrant abdominal pain afterwards. She was admitted to the hospital. Computed tomography scan was completed revealing worsening bilateral large renal cyst. Presence of mesenteric swirling of the mid abdomen highly suspicious for internal hernia. Patient underwent robotic-assisted laparoscopic lysis of adhesions and appendectomy with Dr. Araiza on 05/30/2019. Patient continued to complain of a lot of pain postoperatively. Urology was consulted to evaluate her large renal cyst and recommended aspiration. Interventional radiology was consulted and patient is to undergo aspiration of right renal cyst today. She w ill be discharged home following procedure today. Please see EMR for further Hospital course details. Discharge diagnosis 1. Right lower quadrant abdominal pain 2. Right upper quadrant abdominal pain 3. History of peritoneal adhesions 4. Abnormal computed tomography scan with mesenteric swirl, internal hernia 5. Large bilateral renal cyst right greater than left 6. Other appendicitis 7. 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 Large right renal cyst with compression along the proximal transverse colon and duodenum Nurse practitioner note has been reviewed by physician. Signing provider agrees with the documented findings, assessment, and plan of care. Patient Condition at Discharge: Stable Plan - Discharge Summary Discharge Rx Participant: No New Discharge Prescriptions: New Hydrocodone/Acetaminophen [Worth 5-325] 1 tab PO Q6HR PRN #10 tab PRN Reason: Pain Discharge Medication List Hydrocodone/Acetaminophen [Worth 5-325] 1 tab PO Q6HR PRN #10 tab 06/02/19 [Rx] [facility]Ref[facility] [place] [place] [facility] [place] [facility] 2:00 pm Activity/Diet/Wound Care/Special Instructions: No driving while taking [place] No lifting over 10 pounds You may shower. No soaking or tub baths Very light activity until you are reevaluated at your follow up appointment with your surgeon Discharge Disposition: HOME SELF-CARE <Monalisa Araiza - Last Filed: 06/03/19 15:46> Providers Date of admission: 06/02/19 09:38 Attending physician: Monalisa Araiza Consults: 05/30/19 21:42 Consult Physician Routine Consulting Provider: Stalin Briseno Consult Reason/Comments: Symptomatic LARGE renal cysts Do you want consulting provider notified?: Yes, Notify in am Primary care physician: Marvin Brown [facility] Hospital Course: As above. Patient has symptomatic renal cyst with over 400 mL of fluid aspirated for persistent right flank/right upper and lower quadrant abdominal pain due to symptomatic renal cysts. Patient was discharged following drainage of renal cyst.
[2019-06-03 11:22] VITALS: PULSE 58; RESP 18
[2019-06-03 11:51] VITALS: BP 155/84
--- NOTE | 2019-06-03 11:59 | CT ---
EXAMINATION TYPE: CT guided right renal cyst aspiration DATE OF EXAM: 06/03/2019 HISTORY: Right lower quadrant pain COMPARISON: CT 05/30/2019 PROCEDURE: Maximal barrier technique was utilized. The skin over suitable path to the right renal cyst was loca lized with CT and the overlying skin prepped and draped. Lidocaine was used for local anesthesia. A skin faustino made with a scalpel. Access was gained using CT guidance with 8 Czech catheter, clear fl uid returned in the hub of the needle. The catheter advanced and needle removed. Catheter attached t o suction and 400 cc of clear fluid was removed. The catheter was removed. Hemostasis achieved. No i mmediate complication. The patient remained in stable condition. IMPRESSION: STATUS POST CT GUIDED RIGHT RENAL CYST DRAINAGE. THIS PROCEDURE WAS PERFORMED BY THE UNDERSIGNED.
== END 2019-06-03 12:31 | disposition home or self-care (01) | DRG 336 ==
LOC: ORWHC2ENDO 07:03 → 4SSUR 08:36 → OBSVTOIN 06-02 09:38
PROVIDERS: ADMIT Surgery Plastic and Reconstructive Surgery; ATTEND Surgery Plastic and Reconstructive Surgery
PROC: 0D7A8ZZ Dilation of Jejunum, Via Natural or Artificial Opening Endoscopic (ICD-10-PCS; 2019-05-30)
PROC: 0D768ZZ Dilation of Stomach, Via Natural or Artificial Opening Endoscopic (ICD-10-PCS; 2019-05-30)
PROC: 0DTJ4ZZ Resection of Appendix, Percutaneous Endoscopic Approach (ICD-10-PCS; principal; 2019-05-30 07:50)
PROC: 8E0W4CZ Robotic Assisted Procedure of Trunk Region, Percutaneous Endoscopic Approach (ICD-10-PCS; principal; 2019-05-30 07:50)
PROC: 0DN84ZZ Release Small Intestine, Percutaneous Endoscopic Approach (ICD-10-PCS; principal; 2019-05-30 07:50)
PROC: 0T903ZZ Drainage of Right Kidney, Percutaneous Approach (ICD-10-PCS; 2019-06-03)
DX: K56.50 Intestinal adhesions [bands], unspecified as to partial versus complete obstruction (principal); K95.89 Other complications of other bariatric procedure; D50.9 Iron deficiency anemia, unspecified; E53.8 Deficiency of other specified B group vitamins; N28.1 Cyst of kidney, acquired; K21.9 Gastro-esophageal reflux disease without esophagitis; K22.4 Dyskinesia of esophagus; K37 Unspecified appendicitis; G43.909 Migraine, unspecified, not intractable, without status migrainosus; M19.90 Unspecified osteoarthritis, unspecified site; R13.10 Dysphagia, unspecified; Z87.891 Personal history of nicotine dependence; Z90.49 Acquired absence of other specified parts of digestive tract; Z91.048 Other nonmedicinal substance allergy status; Z87.440 Personal history of urinary (tract) infections; Z98.51 Tubal ligation status; Y83.8 Other surgical procedures as the cause of abnormal reaction of the patient, or of later complication, without mention of misadventure at the time of the procedure
CPT/HCPCS: 43249; 74177; 77012; 80053; 81025; 85025; 85610; 88304

== ENCOUNTER 2019-06-05 20:47 | Emergency (ER) | payer BC ==
[2019-06-05] MEDS ORDERED: IOPAMIDOL CONTRAST (ORAL USE) VIAL PO PRN (21:08)
[2019-06-05] MEDS ORDERED: MORPHINE SULFATE 4 MG/ML SYRINGE IV STA (21:08)
[2019-06-05] MEDS ORDERED: SODIUM CHLORIDE 0.9% 1,000 ML IV STA (21:08)
[2019-06-05 21:35] LABS: Basophils % (A) 1 %; Eosinophils # (A) 0.1 k/uL (0-0.7); Eosinophils % (A) 2 %; HGB 13.6 gm/dL (11.4-16.0); Lymphocytes # (A) 1.1 k/uL (1.0-4.8); Lymphocytes % (A) 30 %; MCH 25.4 pg (25.0-35.0); MCHC 32.4 g/dL (31.0-37.0); MCV 78.3 fL (80.0-100.0); Mean Platelet Volume 7.4; Monocytes # (A) 0.3 k/uL (0-1.0); Monocytes % (A) 7 %; Neutrophils # (A) 2.1 k/uL (1.3-7.7); Neutrophils % (A) 57 %; Platelet Count 221 k/uL (150-450); RBC 5.36 m/uL (3.80-5.40); RDW 14.2 % (11.5-15.5); WBC 3.7 k/uL (3.8-10.6)
[2019-06-05 21:37] LABS: Appearance,Urine Clear (Clear); Bilirubin,Urine Negative (Negative); Blood,Urine Negative (Negative); Color,Urine Yellow; Glucose,Urine (UA) Negative (Negative); Ketones,Urine Negative (Negative); Leukocyte Esterase,Urine Negative (Negative); Nitrite,Urine Negative (Negative); PH, Urine 5.5 (5.0-8.0); Protein,Urine Trace (Negative); Specific Gravity,Urine 1.031 (1.001-1.035)
[2019-06-05 21:39] LABS: ALT 13 U/L (4-34); AST 23 U/L (14-36); African American GFR (CKD) >90 (>60 ml/min/1.73 sqM); Albumin 4.6 g/dL (3.5-5.0); Alkaline Phosphatase 96 U/L (38-126); Anion Gap 10 mmol/L; Blood Urea Nitrogen 16 mg/dL (7-17); Carbon Dioxide 22 mmol/L (22-30); Chloride 109 mmol/L (98-107); Glucose 88 mg/dL (74-99); Non-African American GFR(CKD) >90 (>60 ml/min/1.73 sqM); Potassium 3.5 mmol/L (3.5-5.1); Sodium 141 mmol/L (137-145); Total Bilirubin 0.3 mg/dL (0.2-1.3); Total Protein 7.6 g/dL (6.3-8.2)
--- NOTE | 2019-06-05 21:50 | CT ---
EXAMINATION TYPE: CT abdomen pelvis w con DATE OF EXAM: 06/05/2019 HISTORY: abdominal pain post appy and renal cyst drainage CT DLP: 888.2mGycm Automated Exposure Control for Dose Reduction was Utilized. CONTRAST: CT scan of the abdomen and pelvis is performed with IV Contrast, patient injected with 100 mL of Isov ue 300. COMPARISON: CT abdomen and pelvis 8 days earlier. FINDINGS: LUNG BASES: Bibasilar linear scarring redemonstrated. LIVER/GB: Gallbladder not seen and presumed surgically absent similar to prior. PANCREAS: No significant abnormality is seen. SPLEEN: No significant abnormality is seen. ADRENALS: No significant abnormality is seen. KIDNEYS: Symmetric cortical medullary uptake and excretion from both kidneys without hydronephrosis s een bilaterally. Several simple appearing thin-walled renal cysts bilaterally. Interval aspiration of the exophytic anterior large right renal renal cyst. Some residual hypodensity axial image 33 likely reflects small amount of residual fluid in the prior visualized thin-walled cyst. Small area of ezequiel l nonperfusion not excluded along with other etiologies. Stable large exophytic anterior left renal c yst measuring 9.0 x 9.3 x 10.7 cm-image 37 and coronal image 47. BOWEL: Oral contrast only reaches mid small bowel loops in the central abdomen. Surgical sutures from gastric bypass surgery are identified. No suspicious small or large bowel dilatation. Surgical sutur es from appendectomy seen at base of cecum. Small bowel feces sign ileal loops in the pelvis. UTERUS/ADNEXA: Heterogeneous slightly anteverted uterus. LYMPH NODES: No greater than 1cm abdominal or pelvic lymph nodes are appreciated. OSSEOUS STRUCTURES: Mild disc space narrowing lumbosacral junction. OTHER: No significant additional abnormality is seen. IMPRESSION: 1. No bowel obstruction. Small bowel feces sign consistent with delayed passage of ingested material to colonic level. Interval appendectomy. 2. Interval near complete drainage of large exophytic anterior right renal cyst. Persistent large exo phytic anterior left renal cyst with focal mass effect. No new well-formed thick walled drainable abs cess.
--- NOTE | 2019-06-05 22:40 | ED ---
General Adult HPI - General Chief complaint: Abdominal Pain Stated complaint: Abd pain Time Seen by Provider: 06/05/19 20:59 Source: patient, RN notes reviewed, old records reviewed Mode of arrival: ambulatory Limitations: no limitations - History of Present Illness Initial comments: 38-year-old female patient presents emergency and plan postop pain. Patient reports that one week ago she had an appendectomy and adhesion removal by Dr. Araiza. Reports that she's had significant pain since reports that she was discharged on Thursday. Reports that her pain has been worse. Reports that she has pain in her incision site left lower quadrant. Denies any other complaints. Systemic: Pt denies fatigue, fever/chills, rash. Pt denies weakness, night swe ats, weight loss. Neuro: Pt denies headache, visual disturbances, syncope or pre-syncope. HEENT: Pt denies ocular discharge or irritation, otalgia, rhinorrhea, pharyngitis or notable lymphadenopathy. Cardiopulmonary: Pt denies chest pain, SOB, heart palpitations, dyspnea on exertion. Abdominal/GI: Pt denies abdominal pain, n/v/d. : Pt denies dysuria, burning w/ urination, frequency/urgency. Denies new onset urinary or bowel incontinence. MSK: Pt denies myalgia, loss of strength or function in extremities. Neuro: Pt denies new onset weakness, paresthesias. - Related Data Previous Rx's Medication Instructions Recorded Hydrocodone/Acetaminophen [[place] 1 tab PO Q6HR PRN #10 tab 06/02/19 5-325] Allergies Allergy/AdvReac Type Severity Reaction Status Date / Time cinnamon AdvReac Wheezing Verified 06/05/19 20:54 grass pollen AdvReac Unknown Verified 06/05/19 20:54 sun AdvReac skin Uncoded 06/05/19 20:54 blisters Review of Systems ROS Statement: Those systems with pertinent positive or pertinent negative responses have been documented in the HPI. ROS Other: All systems not noted in ROS Statement are negative. Past Medical History Past Medical History: GERD/Reflux, Osteoarthritis (OA) Additional Past Medical History / Comment(s): Hx Migraines. past HX BORDERLINE HTN. prev hx of diabeties, no problems post weight loss. HX DYSPHAGIA (leading to multiple EGD with DILATION procedures). History of Any Multi-Drug Resistant Organisms: None Reported Past Surgical History: Appendectomy, Bariatric Surgery, Cholecystectomy, Orthopedic Surgery, Tubal Ligation Additional Past Surgical History / Comment(s): THUAN CTR. EGD. GASTRIC SLEEVE 08/2015; 02-25-16 LEONCIO-EN-Y. EGD W/ DILATION 05/16/16. Panniculectomy 07/14/16,LEEP Past Anesthesia/Blood Transfusion Reactions: Previous Problems w/ Anesthesia, Motion Sickness, Postoperative Nausea & Vomiting (PONV) Additional Past Anesthesia/Blood Transfusion Reaction / Comment(s): STAYED 2 EXTRA DAYS R/T "ANESTHESIA NOT GETTING OUT OF MY SYSTEM" states takes "a long time to wake up" also "new anesthesia put me in AFIB" Past Psychological History: No Psychological Hx Reported Smoking Status: Former smoker Past Alcohol Use History: None Reported Past Drug Use History: None Reported - Past Family History Father History Unknown: Yes Mother History Unknown: Yes Family Medical History: No Reported History Brother(s) History Unknown: Yes Sister(s) History Unknown: Yes Daughter(s) Family Medical History: No Reported History Son(s) Family Medical History: No Reported History General Exam - General Exam Comments Initial Comments: Constitutional: NAD, AOX3, Pt has pleasant affect. HEENT: NC/AT, trachea midline, neck supple, no lymphadenopathy. Posterior pharynx non erythematous, without exudates. External ears appear normal, without discharge. Mucous membranes moist. Eyes PERRLA, EOM intact. There is no scleral icterus. No pallor noted. Cardiopulmonary: RRR, no murmurs, rubs or gallops, no JVD noted. Lungs CTAB in anterior and posterior flores. No peripheral edema. Abdominal exam: Abdomen soft and non-distended. Mild generalized abdominal tenderness, left lower quadrant region., incision site clean and dry nonerythematous signs of infection or drainage.. Bowel sounds active in LLQ. No hepatosplenomegaly. No ecchymosis Neuro: CN II-XII grossly intact. No nuchal rigidity. No raccon eyes, no west sign, no hemotympanum. No cervical spinal tenderness. MSK: No posterior calf tenderness bilaterally, homans sign negative bilaterally. Posterior tibialis and radial pulse +2 bilaterally. Sensation intact in upper and lower extremities. Full active ROM in upper and lower extremities, 5/5 stregnth. Limitations: no limitations Course Vital Signs 06/05/19 20:51 Temperature 97.4 F L Pulse Rate 80 Respiratory 20 Rate Blood Pressure 159/91 O2 Sat by Pulse 100 Oximetry Medical Decision Making - Medical Decision Making 38-year-old female patient presents emergency and plan postop pain. Patient reports that one week ago she had an appendectomy and adhesion removal by Dr. Araiza. Reports that she's had significant pain since reports that she was discharged on Thursday. Reports that her pain has been worse. Reports that she has pain in her incision site left lower quadrant. Denies any other complaints. Patient vital signs are stable, afebrile. Physical exam displayed: Abdomen soft and non-distended. Mild generalized abdominal tenderness, left lower quadrant region., incision site clean and dry nonerythematous signs of infection or drainage. Laboratory investigations obtained non-impressive. TMs pelvis displayed no bowel obstruction, intra-abdominal appendectomy. General new complete drainage of a large exophytic anterior right renal cyst. Present large exophytic anterior left renal cyst with focal mass effect. No new well formed thick-walled general abscess. Patient pain well-controlled in ED. Attempts to reach Dr. Araiza unsuccessful. Patient requests not to contact the on-call surgeon Dr. Sprague. Patient will be discharged for follow-up with primary care provider and has appointment with Dr. Araiza Thursday. Return to ER physician worsens. Case discussed and pt seen by Dr. Adorno. - Lab Data Result diagrams: 06/05/19 21:05 06/05/19 21:05 Lab Results 06/05/19 06/05/19 06/05/19 Range/Units 21:05 21:05 21:05 WBC 3.7 L (3.8-10.6) k/uL RBC 5.36 (3.80-5.40) m/uL Hgb 13.6 (11.4-16.0) gm/dL Hct 42.0 (34.0-46.0) % MCV 78.3 L (80.0-100.0) fL MCH 25.4 (25.0-35.0) pg MCHC 32.4 (31.0-37.0) g/dL RDW 14.2 (11.5-15.5) % Plt Count 221 (150-450) k/uL Neutrophils % 57 % Lymphocytes % 30 % Monocytes % 7 % Eosinophils % 2 % Basophils % 1 % Neutrophils # 2.1 (1.3-7.7) k/uL Lymphocytes # 1.1 (1.0-4.8) k/uL Monocytes # 0.3 (0-1.0) k/uL Eosinophils # 0.1 (0-0.7) k/uL Basophils # 0.0 (0-0.2) k/uL Sodium 141 (137-145) mmol/L Potassium 3.5 (3.5-5.1) mmol/L Chloride 109 H (98-107) mmol/L Carbon Dioxide 22 (22-30) mmol/L Anion Gap 10 mmol/L BUN 16 (7-17) mg/dL Creatinine 0.75 (0.52-1.04) mg/dL Est GFR (CKD-EPI)AfAm >90 (>60 ml/min/1.73 sqM) Est GFR (CKD-EPI)NonAf >90 (>60 ml/min/1.73 sqM) Glucose 88 (74-99) mg/dL Plasma Lactic Acid Cecilio 0.8 (0.7-2.0) mmol/L Calcium 9.0 (8.4-10.2) mg/dL Total Bilirubin 0.3 (0.2-1.3) mg/dL AST 23 (14-36) U/L ALT 13 (4-34) U/L Alkaline Phosphatase 96 (38-126) U/L Total Protein 7.6 (6.3-8.2) g/dL Albumin 4.6 (3.5-5.0) g/dL Lipase 208 (23-300) U/L Urine Color Urine Appearance (Clear) Urine pH (5.0-8.0) Ur Specific [place] (1.001-1.035) Urine Protein (Negative) Urine Glucose (UA) (Negative) Urine Ketones (Negative) Urine Blood (Negative) Urine Nitrite (Negative) Urine Bilirubin (Negative) Urine Urobilinogen (<2.0) mg/dL Ur Leukocyte Esterase (Negative) Urine HCG, Qual (Not Detectd) 06/05/19 06/05/19 Range/Units 21:20 21:20 WBC (3.8-10.6) k/uL RBC (3.80-5.40) m/uL Hgb (11.4-16.0) gm/dL Hct (34.0-46.0) % MCV (80.0-100.0) fL MCH (25.0-35.0) pg MCHC (31.0-37.0) g/dL RDW (11.5-15.5) % Plt Count (150-450) k/uL Neutrophils % % Lymphocytes % % Monocytes % % Eosinophils % % Basophils % % Neutrophils # (1.3-7.7) k/uL Lymphocytes # (1.0-4.8) k/uL Monocytes # (0-1.0) k/uL Eosinophils # (0-0.7) k/uL Basophils # (0-0.2) k/uL Sodium (137-145) mmol/L Potassium (3.5-5.1) mmol/L Chloride (98-107) mmol/L Carbon Dioxide (22-30) mmol/L Anion Gap mmol/L BUN (7-17) mg/dL Creatinine (0.52-1.04) mg/dL Est GFR (CKD-EPI)AfAm (>60 ml/min/1.73 sqM) Est GFR (CKD-EPI)NonAf (>60 ml/min/1.73 sqM) Glucose (74-99) mg/dL Plasma Lactic Acid Cecilio (0.7-2.0) mmol/L Calcium (8.4-10.2) mg/dL Total Bilirubin (0.2-1.3) mg/dL AST (14-36) U/L ALT (4-34) U/L Alkaline Phosphatase (38-126) U/L Total Protein (6.3-8.2) g/dL Albumin (3.5-5.0) g/dL Lipase (23-300) U/L Urine Color Yellow Urine Appearance Clear (Clear) Urine pH 5.5 (5.0-8.0) Ur Specific [place] 1.031 (1.001-1.035) Urine Protein Trace H (Negative) Urine Glucose (UA) Negative (Negative) Urine Ketones Negative (Negative) Urine Blood Negative (Negative) Urine Nitrite Negative (Negative) Urine Bilirubin Negative (Negative) Urine Urobilinogen 2.0 (<2.0) mg/dL Ur Leukocyte Esterase Negative (Negative) Urine HCG, Qual Not Detected (Not Detectd) Disposition Clinical Impression: Postoperative abdominal pain Disposition: HOME SELF-CARE Condition: Stable Instructions (If sedation given, give patient instructions): Abdominal Pain (ED) Additional Instructions: Follow-up with primary care provider and Dr. Araiza on Thursday. May use z ofran as needed for nausea every 8 hours. Return to ER if condition worsens. Is patient prescribed a controlled substance at d/c from ED?: No Referrals: Marvin Dukes MD [Primary Care Provider] - 1-2 days
[2019-06-05] MEDS ORDERED: ONDANSETRON 4 MG ODT STARTER PACK 2 TAB BTL PO STA (23:05)
[2019-06-05 23:16] VITALS: BP 137/89; PULSE 75; RESP 18; TEMP 98.1
== END 2019-06-05 23:10 | disposition home or self-care (01) ==
LOC: EC 20:47
DX: G89.18 Other acute postprocedural pain (principal); R10.32 Left lower quadrant pain; N28.1 Cyst of kidney, acquired; Z87.891 Personal history of nicotine dependence; Z91.018 Allergy to other foods; Z91.048 Other nonmedicinal substance allergy status; Z87.19 Personal history of other diseases of the digestive system; Z90.49 Acquired absence of other specified parts of digestive tract; Z98.84 Bariatric surgery status
CPT/HCPCS: 99284; 96374; 96361; 36415; 80053; 83605; 83690; 85025; 81003; 81025; 74177; J2270; S0119; Q9967

== ENCOUNTER → 2019-06-08 | Outpatient (CLI) | payer BC ==
[2019-06-08 15:06] VITALS: BP 112/63; PULSE 54; RESP 16; TEMP 97.9; BMI 30.3
--- NOTE | 2019-06-08 15:31 | P.PN ---
Subjective Progress Note Date: 06/08/19 DATE OF SERVICE: 06/08/2019 CHIEF COMPLAINT: Abdominal pain HISTORY OF PRESENT ILLNESS: Shefali Akers is a 38-year-old female status post sleeve gastrectomy to gastric bypass, 2017. She is over 3 years out. She reports abdominal pain now on the left side which is new. The right side went away after her kidney cyst drainage. She is status post appendectomy, 05/30/19. She is 1 week out. She also had drainage of a complicated right renal cyst. She comes in seeking additional pain meds for left renal cyst pain. At her height of 5 feet 4-3/4 inches her initial weight has been 302 pounds. Today she comes in weighing 181 pounds from 180 pounds, 1 month ago. She has gained 1 pound in 1 month. She has lost 121 pounds lifetime. Body mass index down from 50.8 down to 30.4. Percent excess weight loss is 77 %. She is 37 pounds overweight. PHYSICAL EXAM: VITAL SIGNS: 5 feet 4-3/4 inches frame, 181 pounds. Body mass index is 30.4 Vital Signs Temp 97.9 F 06/08/19 15:02 Pulse 54 L 06/08/19 15:02 Resp 16 06/08/19 15:02 BP 112/63 06/08/19 15:02 Pulse Ox ABDOMEN: Soft, nondistended. No peritonitis. Incisions are clean, dry and intact. MUSCULOSKELETAL: No clubbing, cyanosis. GENERAL: Well-developed female in no acute distress. HEENT: No scleral icterus. Extraocular movements grossly intact. Moist buccal mucosa. Hears conversational speech. NECK: Supple without lymphadenopathy. CHEST: Nonlabored respirations. Equal bilateral excursions. CARDIOVASCULAR: Regular rate, regular rhythm. Bilateral pulses radial 2+. NEURO: Cranial nerves II through XII grossly within normal limits. No focal deficits. PSYCH: Alert and oriented to person, place, and time. SKIN: Well perfused. Good skin turgor. ASSESSMENT: 1. Morbid obesity due to excess calories, resolved. 2. Body mass index reduced from 50.8 down to 30.4 3. Overweight. 4. 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 5. Personal history of complications from sleeve gastrectomy requiring conversion to gastric bypass. 6. Dietary surveillance and counseling. 7. Gastroesophageal reflux disease. 8. Dysphagia 9. Vitamin A deficiency 10. Vitamin B-12 deficiency 11. Right lower quadrant abdominal pain 12. Status post appendectomy 13. Complicated bilateral renal cysts. PLAN: 1. Plan for cyst drainage of the left side of her kidney 2. Dille was e-prescribed 5-325 tablets given for 10 tablets 3. Patient to follow up with urology regarding recurrent large symptomatic renal cysts Objective - Vital Signs Vital signs: Vital Signs Temp 97.9 F 06/08/19 15:02 Pulse 54 L 06/08/19 15:02 Resp 16 06/08/19 15:02 BP 112/63 06/08/19 15:02 Pulse Ox Intake & Output 06/07/19 06/08/19 06/08/19 18:59 06:59 18:59 Weight 82.1 kg
== END | disposition home or self-care (01) ==
LOC: BARWHC3 13:40
PROVIDERS: ATTEND Surgery Plastic and Reconstructive Surgery
DX: E66.01 Morbid (severe) obesity due to excess calories (principal); R10.31 Right lower quadrant pain; N28.1 Cyst of kidney, acquired; Z68.30 Body mass index [BMI] 30.0-30.9, adult; Z98.84 Bariatric surgery status; Z98.890 Other specified postprocedural states; Z90.49 Acquired absence of other specified parts of digestive tract; Z71.3 Dietary counseling and surveillance; K21.9 Gastro-esophageal reflux disease without esophagitis; E50.9 Vitamin A deficiency, unspecified; E53.8 Deficiency of other specified B group vitamins
CPT/HCPCS: 99211

== ENCOUNTER → 2020-04-25 | Outpatient (CLI) | payer BC ==
--- NOTE | 2020-04-26 07:18 | US ---
EXAMINATION TYPE: US kidneys/renal and bladder DATE OF EXAM: 04/25/2020 COMPARISON: CT 06/04/2018 CLINICAL HISTORY: N28.1 Cyst of kidney, acquired. EXAM MEASUREMENTS: Right Kidney: 11.1 x 6.0 x 8.8 cm Left Kidney: 11.7 x 5.1 x 5.4 cm Right Kidney: No hydronephrosis. Multiple cystic areas visualized, largest upper pole measuring 7.5 x 6.5 x 8.0 cm Left Kidney: No hydronephrosis. Multiple cystic areas visualized, largest upper pole measuring 8.0 x 5.1 x 7.3 cm Bladder: Not distended There is no evidence for hydronephrosis at this point in time. No nephrolithiasis is seen. IMPRESSION: 1. Multiple bilateral renal cysts
== END | disposition home or self-care (01) ==
LOC: RADUSWWP 16:05
PROVIDERS: ATTEND Urology
DX: N28.1 Cyst of kidney, acquired (principal)
CPT/HCPCS: 76770

== ENCOUNTER → 2020-06-14 | Outpatient (CLI) | payer BC | END | disposition home or self-care (01) | LOC: LABPAT 10:04 | PROVIDERS: ATTEND Urology | DX: Z53.9 Procedure and treatment not carried out, unspecified reason (principal) | CPT/HCPCS: 80048; 85025; 86850; 86900; 86901 ==

== ENCOUNTER 2020-06-21 10:14 | Day surgery (SDC) | payer BC ==
[2020-06-14 10:51] LABS: Basophils % (A) 1 %; Eosinophils # (A) 0.1 k/uL (0-0.7); Eosinophils % (A) 2 %; HCT 38.5 % (34.0-46.0); Lymphocytes % (A) 27 %; MCHC 33.7 g/dL (31.0-37.0); MCV 82.9 fL (80.0-100.0); Monocytes # (A) 0.3 k/uL (0-1.0); Monocytes % (A) 8 %; Neutrophils # (A) 2.3 k/uL (1.3-7.7); Neutrophils % (A) 62 %; Platelet Count 188 k/uL (150-450); RBC 4.65 m/uL (3.80-5.40); RDW 13.2 % (11.5-15.5); WBC 3.7 k/uL (3.8-10.6)
[2020-06-14 11:02] LABS: African American GFR (CKD) >90 (>60 ml/min/1.73 sqM); Anion Gap 6 mmol/L; Blood Urea Nitrogen 10 mg/dL (7-17); Calcium 8.7 mg/dL (8.4-10.2); Carbon Dioxide 26 mmol/L (22-30); Chloride 109 mmol/L (98-107); Glucose 89 mg/dL (74-99); Non-African American GFR(CKD) >90 (>60 ml/min/1.73 sqM); Sodium 141 mmol/L (137-145)
[2020-06-19 12:03] VITALS: BMI 32.9
--- NOTE | 2020-06-20 22:31 | P.HPIHPCON ---
History of Present Illness H&P Date: 06/20/20 39 yo female with hx of bilateral renal cyst. She is symptomatic from her cyst, requiring narcotic pain medications. She is S/P IR aspiration of bilateral large renal cysts in 06/2019 . He symptoms resolved post drainage, But her pain reoccurred this year. She underwent a renal U/S which showed the cyst have reformed. Discussed with her the option of doing robotic cyst decortication. Discussed with her the surgery in details. Discussed risk of bleeding, infection, injury to the kidney, injury to nearby organs. Discussed with her she is at an increased risk of complication give her multiple previous abdominal surgeries. Discussed risk of reoccurrence of the cyst, discussed potential of persistent pain. Discussed with her will start with the left sided renal cyst, and if there is no significant adhesions then will do the right sided in the same setting. She understood all risks and agreed to proceed with robotic left sided cyst decortication possible right Consent for Procedure: I have explained the operation/procedure to the patient, including the risks, benefits, side effects, alternative therapies (including not receiving the proposed treatment or service), the likelihood of the patient achieving his/her goals, and potential recuperation problems for the procedure/sedation/analgesia, as well as any blood products, if indicated. I also explained to the patient the risks, benefits and side effects of the alternatives, as well as the risks related to not receiving the proposed procedure, care, treatment, or services. Past Medical History Past Medical History: GERD/Reflux, Osteoarthritis (OA) Additional Past Medical History / Comment(s): Hx Migraines. past HX BORDERLINE HTN. prev hx of diabeties, no problems post weight loss. HX DYSPHAGIA-not currently cyst on thuan kidneys, History of Any Multi-Drug Resistant Organisms: None Reported Past Surgical History: Appendectomy, Bariatric Surgery, Cholecystectomy, Ortho pedic Surgery, Tubal Ligation Additional Past Surgical History / Comment(s): THUAN carpal tunnel surgery, GASTRIC SLEEVE then LEONCIO-EN-Y in 2016. MULT EGD W/ DILATION Panniculectomy, LEEP, thuan kidney cyst aspiration Past Anesthesia/Blood Transfusion Reactions: Previous Problems w/ Anesthesia, Motion Sickness, Postoperative Nausea & Vomiting (PONV) Additional Past Anesthesia/Blood Transfusion Reaction / Comment(s): STAYED 2 EXTRA DAYS R/T "ANESTHESIA NOT GETTING OUT OF MY SYSTEM" states takes "a long time to wake up" also "new anesthesia put me in AFIB" Smoking Status: Former smoker - Past Family History Father History Unknown: Yes Mother History Unknown: Yes Family Medical History: No Reported History Brother(s) History Unknown: Yes Sister(s) History Unknown: Yes Daughter(s) Family Medical History: No Reported History Son(s) Family Medical History: No Reported History Medications and Allergies Home Medications Medication Instructions Recorded Confirmed Type HYDROcodone/APAP 5-325MG [[place] 1 tab PO Q6HR PRN 3 Days #10 tab 06/08/19 06/19/20 Rx 5-325] Medroxyprogesterone Acetate 150 mg IM DIRECTED 06/19/20 06/19/20 History [Depo-Provera] Melatonin 20 mg PO HS 06/19/20 06/19/20 History buPROPion XL [Wellbutrin Xl] 150 mg PO HS 06/19/20 06/19/20 History Allergies Allergy/AdvReac Type Severity Reaction Status Date / Time cinnamon AdvReac Wheezing Verified 06/19/20 11:51 grass pollen AdvReac Unknown Verified 06/19/20 11:51 sun AdvReac skin Uncoded 06/19/20 11:51 blisters Surgical - Exam - General well developed, well nourished - Eyes PERRL, normal ocular movement - Respiratory normal expansion, normal respiratory effort - Psychiatric oriented to time, oriented to person, oriented to place Results - Labs 06/14/20 10:13 06/14/20 10:13 Assessment and Plan Assessment: Bilateral renal cysts OR for robotic left sided cyst decortication possible right
[~2020-06-21 10:14] MED LIST changes: +DEXAMETHASONE SOD PHOSPHATE 4 MG/ML 1 ML VIAL IV ONE; +HEPARIN SODIUM,PORCINE 5,000 UNIT/ML 1 ML VIAL SQ PRN; -LIDOCAINE 1% 20 ML VIAL (10MG/ML) FOR IV START INTRADERMA PRN; +ONDANSETRON 4 MG/2 ML VIAL IVP ONE
[2020-06-21] MEDS: LACTATED RINGERS 1,000 ML IV SCH (10:55)
[2020-06-21 11:00] LABS: Glucose,Whole Blood 93 mg/dL (75-99)
[2020-06-21] MEDS ORDERED: SCOPOLAMINE 1.5MG/72HR PATCH TRANSDERM ONE (11:00)
[2020-06-21] MEDS ORDERED: LIDOCAINE 1% (10MG/ML) FOR IV START INTRADERMA ONE (11:00)
[2020-06-21] MEDS ORDERED: MIDAZOLAM 2 MG/2 ML VIAL IV ONE (11:25)
[2020-06-21] MEDS ORDERED: fentaNYL (PF) 50 MCG/ML 2 ML AMP IV ONE ×2 (11:26→11:41)
[2020-06-21] MEDS ORDERED: fentaNYL (PF) 50 MCG/ML 2 ML AMP ONE (12:04)
[2020-06-21] MEDS ORDERED: PROPOFOL 10 MG/ML 20 ML VIAL IV ONE (12:04)
[2020-06-21] MEDS ORDERED: ROPIVACAINE 5 MG/ML 30 ML VIAL ONE (12:04)
[2020-06-21] MEDS ORDERED: ROCURONIUM 10 MG/ML (5 ML VIAL) IV ONE (12:04)
[2020-06-21] MEDS ORDERED: GLYCOPYRROLATE 0.2 MG/ML 2 ML VIAL ONE (12:04)
[2020-06-21] MEDS ORDERED: DEXAMETHASONE SOD PHOSPHATE 4 MG/ML 1 ML VIAL ONE (12:04)
[2020-06-21] MEDS ORDERED: NEOSTIGMINE 1 MG/ML 10 ML VIAL ONE (12:04)
[2020-06-21] MEDS ORDERED: LIDOCAINE 1% INJ 10MG/ML (20 ML MDV) ONE (12:04)
[2020-06-21] MEDS ORDERED: SUCCINYLCHOLINE CHLORIDE 100 MG/5 ML SYR IV ONE (12:04)
[2020-06-21] MEDS ORDERED: BUPIVACAINE (PF) 0.5% 30 ML VIAL SQ ONE (12:08)
--- NOTE | 2020-06-21 13:31 | P.ANPRN ---
Procedure Note - Anesthesia - Nerve Block Performed Bilateral Erector Spinae Single Time Out Performed: Yes Date of Procedure: 06/21/20 Procedure Start Time: 11:24 Procedure Stop Time: 11:33 Location of Patient: PreOp Indication: Requested by Surgeon Specifically requested for management of pain by DrFermín: Kang Barone Sedation Type: Sedate with meaningful contact maintained Preparation: Sterile Prep Position: Prone Needle Types: Pajunk Needle Gauge: 21 Ultrasound used to visualize needle placement: Yes Ultrasound used to observe medication spread: Yes Injectate: Other (see comment) (Ropivacaine 0.25 % 30 ml plus Dexamethason 4 mg Per side) Blood Aspirated: No Pain Paresthesia on Injection Noted: No Resistance on Injection: Normal Image Stored and Saved: Yes Events: Uneventful and Well Tolerated (thae block done as part of multimodel pain management ,to minimize post operative opioid use)
[2020-06-21] MEDS ORDERED: LACTATED RINGERS 1,000 ML IV ONE (13:45)
[2020-06-21] MEDS ORDERED: NON FORMULARY DRUG (Medroxyprogesterone Acetate [Depo-Provera] 150 MG/ML Syringe) IM SCH (15:15)
--- NOTE | 2020-06-21 15:26 | P.OP ---
Date of Procedure: 06/21/20 Preoperative Diagnosis: bilateral renal cysts Postoperative Diagnosis: same Procedure(s) Performed: robotic assisted bilateral cyst decortication Implants: none Anesthesia: SHEN Surgeon: Kang Barone Honey Grader And Blender #1: Forrest Eli Estimated Blood Loss (ml): 25 Pathology: other (bilateral cysts wall) Condition: stable Disposition: PACU Indications for Procedure: 39 yo female with hx of bilateral renal cyst. She is symptomatic from her cyst, requiring narcotic pain medications. She is S/P IR aspiration of bilateral large renal cysts in 06/2019 . He symptoms resolved post drainage, But her pain reoccurred this year. She underwent a renal U/S which showed the cyst have reformed. Discussed with her the option of doing robotic cyst decortication. Discussed with her the surgery in details. Discussed risk of bleeding, in fection, injury to the kidney, injury to nearby organs. Discussed with her she is at an increased risk of complication give her multiple previous abdominal surgeries. Discussed risk of reoccurrence of the cyst, discussed potential of persistent pain. Discussed with her will start with the left sided renal cyst, and if there is no significant adhesions then will do the right sided in the same setting. She understood all risks and agreed to proceed with robotic left sided cyst decortication possible right Operative Findings: 3large renal cysts on the left 2 large renal cysts on the right Description of Procedure: patient was brought to the operating room, general anesthesia was induced. she was prepped and draped in sterile fashion and placed in left flank position. Pneumoperitoneum was obtained using a Veress needle. After obtaining pneumoperitoneum 8mm camera port was placed, 3 additional robotic arms were also placed. A 12 mm shipping assistant port was placed along the midline. The robot was docked. The colon was mobilized along the line of Toldt, exposing the anterior cyst. Of note spleen was adherent to the kidney, but I was able to mobilize the spleen away from the kidney. The upper pole cyst was incised and fluid was drained. The cyst wall was excised, and the edges of the cyst wall were cauterized. Same procedure was performed for the 2 additional cyst along the left side, both of the cyst wall were removed and the edges were cauterized. In total there was 3 cyst on the left kidneys the were drained. At this time the robot was undocked, the robotic arms were removed, and the skin incision were closed with 4-0 Monocryl. The midline port was covered with Tegaderm. The patient was repositioned in right flank, the midline port was reinserted and insufflation was obtained. A total of 4 robotic arms were placed laterally along the right side. The robot was docked in place. The colon was mobilized along the line of Toldt. Exposing the anterior cyst. Of note there were 2 large anterior cysts. Both cysts were drained and the cyst wall were removed. In total there were 2 cysts along the right kidney, the edges of the cyst was thoroughly fulgurated. At this time the robot was undocked, the 12 mm port was closed with a Miguel Boyer using 0 vicryl. The skin incision were closed in 4-0 Monocryl. Dermabond was applied to the incisions. The patient tolerated the procedure well was taken to PACU in stable condition
[2020-06-21] MEDS ORDERED: ONDANSETRON 4 MG/2 ML VIAL IVP ONE (15:52)
[2020-06-21] MEDS: HYDROmorphone 0.5 MG/0.5 ML SYRINGE IVP PRN ×4 (15:55→17:55)
[2020-06-21] MEDS ORDERED: KETOROLAC 15 MG/ML 1 ML VIAL IVP ONE (16:20)
[2020-06-21 16:28] LABS: Glucose,Whole Blood 113 mg/dL (75-99)
[2020-06-21] MEDS ORDERED: HYDROmorphone 0.5 MG/0.5 ML SYRINGE IVP ONE (19:00)
[2020-06-21] MEDS: KETOROLAC 15 MG/ML 1 ML VIAL IVP SCH (21:48)
[2020-06-21] MEDS: HEPARIN SODIUM,PORCINE 5,000 UNIT/ML 1 ML VIAL SQ SCH ×2 (22:07→23:03)
[2020-06-21] MEDS: D5-0.45% NACL WITH KCL 20MEQ/L 1,000 ML IV SCH (22:08)
[2020-06-21] MEDS: buPROPion XL 150 MG TAB.ER.24H PO SCH (22:13)
[2020-06-21] MEDS: HYDROcodone/APAP 5-325MG 1 EACH TAB PO PRN (23:01)
[2020-06-22] MEDS: KETOROLAC 15 MG/ML 1 ML VIAL IVP SCH ×5 (01:25→23:43)
[2020-06-22] MEDS: HYDROcodone/APAP 5-325MG 1 EACH TAB PO PRN ×3 (04:10→17:41)
[2020-06-22] MEDS: D5-0.45% NACL WITH KCL 20MEQ/L 1,000 ML IV SCH ×3 (04:28→20:26)
[2020-06-22] MEDS: HEPARIN SODIUM,PORCINE 5,000 UNIT/ML 1 ML VIAL SQ SCH ×3 (08:21→23:43)
[2020-06-22] MEDS ORDERED: methocarbamoL 750 MG TAB PO PRN (08:54)
[2020-06-22] MEDS ORDERED: MORPHINE SULFATE 4 MG/ML SYRINGE IVP PRN (14:12)
--- NOTE | 2020-06-22 17:31 | P.PN ---
Progress Note - Text Progress Note Date: 06/22/20 No acute overnight event, still having incisional pain this am. denies any N/V, has ambulated. Incision; CDI Abdomen: soft non tender graf clear yellow urine A/P 39 yo female with hx of bilateral renal cyst, She is S/P Bilateral renal cyst decortication -Ambulate -Will add robaxin -D/C graf -Possible discharge home today vs tomorrow based on pain control
[2020-06-22] MEDS: buPROPion XL 150 MG TAB.ER.24H PO SCH (20:25)
[2020-06-23] MEDS: LACTATED RINGERS 1,000 ML IV SCH (00:45)
[2020-06-23] MEDS: D5-0.45% NACL WITH KCL 20MEQ/L 1,000 ML IV SCH (00:45)
[2020-06-23] MEDS: KETOROLAC 15 MG/ML 1 ML VIAL IVP SCH (05:13)
[2020-06-23 07:21] VITALS: BP 115/69; PULSE 80; RESP 16; TEMP 98.6
[2020-06-23] MEDS: HEPARIN SODIUM,PORCINE 5,000 UNIT/ML 1 ML VIAL SQ SCH (08:30)
--- NOTE | 2020-06-23 10:14 | P.DS ---
Providers Attending physician: Kang Barone MD Primary care physician: [facility] Course: This a 39-year-old female with history of bilateral renal cyst. She underwent a robotic cyst decortication bilaterally on June 21. Patient admitted to the hospital postoperatively, catheter was removed on postoperative day #1. Patient was having intractable pain on POD #1. Her pain improved on postoperative day #2, she was discharged home on postoperative day #2. At time of discharge she was tolerating a diet, ambulating, and pain was well-controlled Plan - Discharge Summary Discharge Rx Participant: No New Discharge Prescriptions: New Hydrocodone/Acetaminophen [[place] 7.5-325] 1 tab PO Q6HR PRN 3 Days #12 tab PRN Reason: Pain methocarbamoL [Robaxin] 750 mg PO QID 10 Days #40 tab No Action HYDROcodone/APAP 5-325MG [[place] 5-325] 1 tab PO Q6HR PRN 3 Days #10 tab PRN Reason: Pain buPROPion XL [Wellbutrin Xl] 150 mg PO HS Melatonin 20 mg PO HS Medroxyprogesterone Acetate [Depo-Provera] 150 mg IM DIRECTED Discharge Medication List HYDROcodone/APAP 5-325MG [[place] 5-325] 1 tab PO Q6HR PRN 3 Days #10 tab 06/08/19 [Rx] Medroxyprogesterone Acetate [Depo-Provera] 150 mg IM DIRECTED 06/19/20 [History] Melatonin 20 mg PO HS 06/19/20 [History] buPROPion XL [Wellbutrin Xl] 150 mg PO HS 06/19/20 [History] Hydrocodone/Acetaminophen [[place] 7.5-325] 1 tab PO Q6HR PRN 3 Days #12 tab 06/22/20 [Rx] methocarbamoL [Robaxin] 750 mg PO QID 10 Days #40 tab 06/22/20 [Rx] Follow up Appointment(s)/Referral(s): Kang Barone MD [STAFF PHYSICIAN] - 07/04/20 10:50 am Patient Instructions/Handouts: Kidney Cyst (GEN) Activity/Diet/Wound Care/Special Instructions: No heavy lifting or straining for 4 weeks
== END 2020-06-23 10:20 | disposition home or self-care (01) ==
LOC: OR 10:14 → 4SSUR 19:49 → OR 06-23 10:20
PROVIDERS: ATTEND Urology
DX: N28.1 Cyst of kidney, acquired (principal); K21.9 Gastro-esophageal reflux disease without esophagitis; M19.90 Unspecified osteoarthritis, unspecified site; G43.909 Migraine, unspecified, not intractable, without status migrainosus; E11.9 Type 2 diabetes mellitus without complications; Z91.02 Food additives allergy status; Z91.09 Other allergy status, other than to drugs and biological substances; Z98.890 Other specified postprocedural states; Z86.79 Personal history of other diseases of the circulatory system; Z86.39 Personal history of other endocrine, nutritional and metabolic disease; Z90.49 Acquired absence of other specified parts of digestive tract; Z98.84 Bariatric surgery status; Z98.51 Tubal ligation status; Z91.89 Other specified personal risk factors, not elsewhere classified; Z87.898 Personal history of other specified conditions; Z87.891 Personal history of nicotine dependence; Z79.891 Long term (current) use of opiate analgesic; Z79.3 Long term (current) use of hormonal contraceptives; Z79.899 Other long term (current) drug therapy
CPT/HCPCS: 50541; S2900; 64999; 76942; 80048; 81025; 85025; 86850; 86900; 86901; 88305

== ENCOUNTER → 2020-07-11 | Outpatient (CLI) | payer BC ==
[2020-07-11 15:39] VITALS: BP 145/84; PULSE 64; RESP 16; TEMP 98.4; BMI 33.3
--- NOTE | 2020-07-11 16:12 | P.HPBAR ---
Bariatric H&P - History & Physicial H&P Date: 07/11/20 History & Physicial: Visit/CC: Pt stated having issues Patient initial contact: Initial weight: 134.173 kg Initial weight in pounds: 295.80 Height: 5 ft 4.75 in Initial BMI: 49.6 Last weight: Current weight: 90.265 kg Current weight in pounds: 199.00 Current BMI: 33.3 [place] body weight (based on NIH guidelines): 56.132 kg Excess body weight loss: 56.2% The patient is a 40 year-old F who presents for Bariatric Assessment. Status post cyst drainage of both kidneys. She had surgery and have new pain. May have incisional hernia. Has trouble swallowing. Plan for EGD. May need lysis of adhesions. Past Medical History Past Medical History: GERD/Reflux, Osteoarthritis (OA) Additional Past Medical History / Comment(s): Hx Migraines. past HX BORDERLINE HTN. prev hx of diabeties, no problems post weight loss. HX DYSPHAGIA (leading to multiple EGD with DILATION procedures). History of Any Multi-Drug Resistant Organisms: None Reported Past Surgical History: Appendectomy, Bariatric Surgery, Cholecystectomy, Orthopedic Surgery, Tubal Ligation Additional Past Surgical History / Comment(s): [facility]. EGD. GASTRIC SLEEVE 08/2015; 02-25-16 LEONCIO-EN-Y. EGD W/ DILATION 05/16/16. Panniculectomy 07/14/16,LEEP, right kidney cyst aspiration 06/23 Past Anesthesia/Blood Transfusion Reactions: Previous Problems w/ Anesthesia, Motion Sickness, Postoperative Nausea & Vomiting (PONV) Additional Past Anesthesia/Blood Transfusion Reaction / Comm: STAYED 2 EXTRA DAYS R/T "ANESTHESIA NOT GETTING OUT OF MY SYSTEM" states takes "a long time to wake up" also "new anesthesia put me in AFIB" Past Psychological History: No Psychological Hx Reported Additional Psychological History / Comment(s): DENIES DEPRESSION CURRENTLY. Smoking Status: Former smoker Past Alcohol Use History: None Reported Additional Past Alcohol Use History / Comment(s): QUIT SMOKING 02/2015, 23 YR SMOKER, 1 PPD. Past Drug Use History: None Reported Additional Drug Use History / Comment(s): . - Past Family History Father History Unknown: Yes Mother History Unknown: Yes Brother(s) History Unknown: Yes Sister(s) History Unknown: Yes Daughter(s) Family Medical History: No Reported History Son(s) Family Medical History: No Reported History Surgical - Exam Vital Signs Temp Pulse Resp BP 98.4 F 64 16 145/84 07/11/20 15:35 07/11/20 15:35 07/11/20 15:35 07/11/20 15:35 Bariatric Checklist Checklist: Plan: Checklist: EGD: 1. Hiatal hernia: 2. H. Pylori: HgbA1c: Vitamin D: Smoking: Former smoker Primary care physician referral: Dr. Rosado Psychiatry clearance: Cardiology clearance: Sleep study: Diet journal: VTE risk score: VTE risk level: Rehab needs at discharge:
== END ==
LOC: BARWHC3 14:31
PROVIDERS: ATTEND Surgery Plastic and Reconstructive Surgery
DX: E66.01 Morbid (severe) obesity due to excess calories (principal); Z68.33 Body mass index [BMI] 33.0-33.9, adult; K21.9 Gastro-esophageal reflux disease without esophagitis; M19.90 Unspecified osteoarthritis, unspecified site; G43.909 Migraine, unspecified, not intractable, without status migrainosus; Z98.84 Bariatric surgery status; Z87.891 Personal history of nicotine dependence
CPT/HCPCS: 99211

== ENCOUNTER 2020-07-12 08:02 | Day surgery (SDC) | payer BC ==
--- NOTE | 2020-07-12 08:28 | P.GSHP ---
History of Present Illness H&P Date: 07/12/20 CHIEF COMPLAINT: GERD HISTORY OF PRESENT ILLNESS: The patient is a 40-year-old female who presents reports gastroesophageal reflux disease. Upper endoscopy was offered for further evaluation and management. PAST MEDICAL HISTORY: Please see list. PAST SURGICAL HISTORY: Please see list. MEDICATIONS: Please see list. ALLERGIES: Please see list. SOCIAL HISTORY: No illicit drug use FAMILY HISTORY: No reports of Crohn disease or ulcerative colitis. REVIEW OF ORGAN SYSTEMS: CONSTITUTIONAL: No reports of fevers or chills. GI: Denies any blood in stools or constipation. PHYSICAL EXAM: VITAL SIGNS: Stable GENERAL: Well-developed and pleasant in no acute distress. HEENT: No scleral icterus. Extraocular movements grossly intact. Moist buccal mucosa. NECK: Supple without lymphadenopathy. CHEST: Unlabored respirations. Equal bilateral excursions. CARDIOVASCULAR: Regular rate and rhythm. Distal 2+ pulses. ABDOMEN: Soft, nondistended. MUSCULOSKELETAL: No clubbing, cyanosis, or edema. ASSESSMENT: 1. Gastroesophageal reflux disease PLAN: 1. Recommend proceeding with an upper endoscopy Past Medical History Past Medical History: GERD/Reflux, Osteoarthritis (OA) Additional Past Medical History / Comment(s): Hx Migraines. past HX BORDERLINE HTN. prev hx of diabeties, no problems post weight loss. HX DYSPHAGIA (leading to multiple EGD with DILATION procedures). History of Any Multi-Drug Resistant Organisms: None Reported Past Surgical History: Appendectomy, Bariatric Surgery, Cholecystectomy, Orthopedic Surgery, Tubal Ligation Additional Past Surgical History / Comment(s): [facility]. EGD. GASTRIC SLEEVE 08/2015; 02-25-16 LEONCIO-EN-Y. EGD W/ DILATION 05/16/16. Panniculectomy 07/14/16,LEEP, right kidney cyst aspiration 06/23 Past Anesthesia/Blood Transfusion Reactions: Previous Problems w/ Anesthesia, Motion Sickness, Postoperative Nausea & Vomiting (PONV) Additional Past Anesthesia/Blood Transfusion Reaction / Comment(s): STAYED 2 EXTRA DAYS R/T "ANESTHESIA NOT GETTING OUT OF MY SYSTEM" states takes "a long time to wake up" also "new anesthesia put me in AFIB" Past Psychological History: No Psychological Hx Reported Additional Psychological History / Comment(s): DENIES DEPRESSION CURRENTLY. Smoking Status: Former smoker Past Alcohol Use History: None Reported Additional Past Alcohol Use History / Comment(s): QUIT SMOKING 02/2015, 23 YR SMOKER, 1 PPD. Past Drug Use History: None Reported Additional Drug Use History / Comment(s): . - Past Family History Father History Unknown: Yes Mother History Unknown: Yes Family Medical History: No Reported History Brother(s) History Unknown: Yes Sister(s) History Unknown: Yes Daughter(s) Family Medical History: No Reported History Son(s) Family Medical History: No Reported History Medications and Allergies Home Medications Medication Instructions Recorded Confirmed Type HYDROcodone/APAP 5-325MG [[place] 1 tab PO Q6HR PRN 3 Days #10 tab 06/08/19 06/21/20 Rx 5-325] Medroxyprogesterone Acetate 150 mg IM DIRECTED 06/19/20 06/21/20 History [Depo-Provera] Melatonin 20 mg PO HS 06/19/20 06/21/20 History buPROPion XL [Wellbutrin Xl] 150 mg PO HS 06/19/20 06/21/20 History Hydrocodone/Acetaminophen [[place] 1 tab PO Q6HR PRN 3 Days #12 tab 06/22/20 Rx 7.5-325] methocarbamoL [Robaxin] 750 mg PO QID 10 Days #40 tab 06/22/20 Rx Allergies Allergy/AdvReac Type Severity Reaction Status Date / Time cinnamon AdvReac Wheezing Verified 06/21/20 10:41 grass pollen AdvReac Unknown Verified 06/21/20 10:41 sun AdvReac skin Uncoded 06/21/20 10:41 blisters
[2020-07-12 09:20] VITALS: TEMP 98.2
[2020-07-12] MEDS ORDERED: LACTATED RINGERS 1,000 ML IV ONE (09:35)
[2020-07-12] MEDS ORDERED: LIDOCAINE 1% (10MG/ML) FOR IV START INTRADERMA ONE (09:36)
[2020-07-12] MEDS ORDERED: PROPOFOL 10 MG/ML 20 ML VIAL IV ONE (09:44)
[2020-07-12] MEDS ORDERED: LIDOCAINE 1% INJ 10MG/ML (20 ML MDV) ONE (09:44)
--- NOTE | 2020-07-12 10:15 | P.PCN ---
Date of Procedure: 07/12/20 Description of Procedure: PREOPERATIVE DIAGNOSIS: Dysphagia. Epigastric abdominal pain History of gastrojejunal stricture POSTOPERATIVE DIAGNOSIS: Dysphagia. Epigastric abdominal pain History of gastrojejunal stricture OPERATION: Esophagogastrojejunoscopy with balloon dilatation from 15 to 20 mm. SURGEON: Monalisa Araiza MD ANESTHESIA: MAC. INDICATIONS: The patient is a 40-year-old female who presents with a history of dysphagia and epigastric abdominal pain. Benefits and risks of the procedure were described. Informed consent was obtained. DESCRIPTION: The patient was brought into the endoscopy suite and laid in the left lateral decubitus position. After a timeout was confirmed, the procedure was initiated. An Olympus gastroscope was passed along the posterior oropharynx down to the distal esophagus where the squamocolumnar junction was unremarkable. The gastric pouch was entered. A gastrojejunal stricture of 12 mm was found as the adult gastroscope was 9.5 mm in size. A OpenQ balloon dilator was placed through the scope. Final insufflation up to 20 mm was performed with a total of 2 minutes. The scope was advanced up to 60 cm from the incisors into the Michelle limb. The mucosa of the gastrojejunal anastomosis was intact. No chronic gastrojejunal marginal ulcer was encountered. No full-thickness injury was encountered. The GI tract was desufflated. The patient tolerated the procedure well. FINDINGS: Squamocolumnar junction unremarkable at 37 cm. Stricture of approximately 15 mm encountered. No chronic gastrojejunal ulceration encountered. Successful balloon dilatation to 20 mm. Gastric pouch 3 cm. RECOMMENDATIONS: Upper endoscopy as needed Plan - Discharge Summary New Discharge Prescriptions: Continue Melatonin 20 mg PO HS Medroxyprogesterone Acetate [Depo-Provera] 150 mg IM DIRECTED Hydrocodone/Acetaminophen [Mun[place] 7.5-325] 1 tab PO Q6HR PRN 3 Days #12 tab PRN Reason: Pain methocarbamoL [Robaxin] 750 mg PO QID 10 Days #40 tab Desvenlafaxine Succinate [Pristiq] 25 mg PO DAILY Discharge Medication List Medroxyprogesterone Acetate [Depo-Provera] 150 mg IM DIRECTED 06/19/20 [History] Melatonin 20 mg PO HS 06/19/20 [History] Hydrocodone/Acetaminophen [Munith 7.5-325] 1 tab PO Q6HR PRN 3 Days #12 tab 06/22/20 [Rx] methocarbamoL [Robaxin] 750 mg PO QID 10 Days #40 tab 06/22/20 [Rx] Desvenlafaxine Succinate [Pristiq] 25 mg PO DAILY 07/12/20 [History] Follow up App[facility]ment(s[facility] [place] [facility] - [facility] Patient Instructions/Handouts: *[facility] - (Anesthesia) Endoscopy Discharge Instructions, Upper Endoscopy (DC), Esophageal Dilation (DC) Activity/Diet/Wound Care/Special Instructions: Diet as tolerated Discharge Disposition: HOME SELF-CARE
[2020-07-12 10:41] VITALS: BP 120/77; PULSE 57; RESP 16
== END 2020-07-12 10:54 | disposition home or self-care (01) ==
LOC: ORWHC2ENDO 08:02
PROVIDERS: ATTEND Surgery Plastic and Reconstructive Surgery
DX: K95.89 Other complications of other bariatric procedure (principal); K56.699 Other intestinal obstruction unspecified as to partial versus complete obstruction; K21.9 Gastro-esophageal reflux disease without esophagitis; M19.90 Unspecified osteoarthritis, unspecified site; I25.10 Atherosclerotic heart disease of native coronary artery without angina pectoris; F32.9 Major depressive disorder, single episode, unspecified; Z87.19 Personal history of other diseases of the digestive system; Z88.8 Allergy status to other drugs, medicaments and biological substances; Z86.69 Personal history of other diseases of the nervous system and sense organs; Z86.79 Personal history of other diseases of the circulatory system; Z86.39 Personal history of other endocrine, nutritional and metabolic disease; Z90.49 Acquired absence of other specified parts of digestive tract; Z98.890 Other specified postprocedural states; Z98.51 Tubal ligation status; Z91.89 Other specified personal risk factors, not elsewhere classified; Z87.898 Personal history of other specified conditions; Z87.891 Personal history of nicotine dependence; Z79.891 Long term (current) use of opiate analgesic; Z79.3 Long term (current) use of hormonal contraceptives; Z79.899 Other long term (current) drug therapy; Z91.02 Food additives allergy status; Z91.09 Other allergy status, other than to drugs and biological substances
CPT/HCPCS: 81025; 43245; J2001; J2704; C1726; 43249

== ENCOUNTER → 2020-07-18 | Outpatient (CLI) | payer BC ==
[2020-07-18 15:14] VITALS: BP 129/81; PULSE 66; RESP 18; TEMP 98.4; BMI 33.2
--- NOTE | 2020-09-08 21:31 | P.PN ---
Subjective Progress Note Date: 07/18/20 DATE OF SERVICE: 07/18/2020 CHIEF COMPLAINT: Abdominal pain HISTORY OF PRESENT ILLNESS: Shefali Akers is a 40-year-old female status post sleeve gastrectomy to gastric bypass, 2016. She is over 4 years out. She is status post drainage of a complex bilateral renal cysts over one month ago. She is status post upper endoscopy for epigastric abdominal pain and history of gastric strictures. She presents for follow up. She still reports moderate to severe abdominal pain of the lower midline and epigastrium. She reports no improvement of her symptoms following stretch. Her pain is worse after eating. "I can't eat." Her symptoms are worse with movement. She presents for management of her symptoms. At her height of 5 feet 4.75 inches her initial weight has been 302 pounds. Today she comes in weighing 197 pounds from 199 pounds, 1 month ago. She has lost 2 pounds in 1 month. She has lost 104 pounds lifetime. Body mass index down from 50.8 down to 33.2. Percent excess weight loss is 68 %. She is 48 pounds overweight. PAST MEDICAL HISTORY: 1. Morbid obesity, initial 50.8. 2. Gastroesophageal reflux disease. 3. Hypertension. 4. Migraines. 5. Depressive disorder PAST SURGICAL HISTORY: 1. Sleeve gastrectomy in August 13, 2015. 2. Bilateral carpal tunnel release. 3. Upper endoscopy. 4. Cholecystectomy. 5. Tubal ligation. 6. Gastric bypass, 02/2016. 7. Panniculectomy, 2017. 8. Appendectomy 9. Renal cystectomy, bilateral MEDICATIONS: Home Medications Medication Instructions Recorded Confirmed Medroxyprogesterone Acetate 150 mg IM DIRECTED 06/19/20 07/24/20 [Depo-Provera] Melatonin 20 mg PO HS 06/19/20 07/27/20 Desvenlafaxine Succinate [Pristiq] 50 mg PO HS 07/24/20 07/27/20 lamoTRIgine [LaMICtal] 25 mg PO DAILY 07/27/20 07/27/20 Previous Rx's Medication Instructions Recorded Hydrocodone/Acetaminophen [Shickley 1 tab PO Q6HR PRN 3 Days #12 tab 06/22/20 7.5-325] Acetaminophen Tab [Tylenol Tab] 1,000 mg PO Q6HR PRN #30 tablet 07/27/20 Simethicone [Gas-X] 125 mg PO AC-TID PRN #20 capsule 07/27/20 bisacodyL [Dulcolax] 5 mg PO DAILY #20 tablet. 08/01/20 ALLERGIES: Allergies Allergy/AdvReac Type Severity Reaction Status Date / Time cinnamon AdvReac Wheezing Verified 07/27/20 07:35 grass pollen AdvReac Unknown Verified 07/27/20 07:35 sun AdvReac skin Uncoded 07/27/20 07:35 blisters SOCIAL HISTORY: She reports prior tobacco abuse. She had quit smoking in February 2015. FAMILY HISTORY: Morbid obesity. REVIEW OF SYSTEMS: CONSTITUTIONAL: At her height of 5 feet 4-3/4 inches her initial weight has been 302 pounds. Body mass index was 50.8. GASTROINTESTINAL: Gastroesophageal reflux disease. Denies any blood in stools. HEENT: She wears glasses. She reports dysphagia intermittent troubles with swallowing. No reports of troubles with hearing. ENDOCRINE: No reports of thyroid disorders or diabetes. CARDIOVASCULAR: History of hypertension, resolved. No reports of chest pain. RESPIRATORY: No overt history of obstructive sleep apnea or dyspnea on exertion. GENITOURINARY: Multiple symptomatic renal cysts drained, 1 month ago. NEURO: Denies any procedure disorder, however, prior history of migraines. PSYCH: Prior history of depression. No recent suicidal ideation. HEMATOLOGIC: Denies any easy bruising or bleeding. MUSCULOSKELETAL: Bilateral hip and joint pain improved. PHYSICAL EXAM: VITAL SIGNS: 5 feet 4.75 inches frame, 197 pounds. Body mass index is 33.2 Vital Signs Temp 98.4 F 07/18/20 15:08 Pulse 66 07/18/20 15:08 Resp 18 07/18/20 15:08 BP 129/81 07/18/20 15:08 Pulse Ox ABDOMEN: Soft, nondistended. Tenderness along the epigastrium. No moderate swelling. MUSCULOSKELETAL: No clubbing, cyanosis. GENERAL: Well-developed female in no acute distress. HEENT: No scleral icterus. Extraocular movements grossly intact. Moist buccal mucosa. Hears conversational speech. NECK: Supple without lymphadenopathy. CHEST: Nonlabored respirations. Equal bilateral excursions. CARDIOVASCULAR: Regular rate, regular rhythm. Bilateral pulses radial 2+. NEURO: Cranial nerves II through XII grossly within normal limits. No focal deficits. PSYCH: Alert and oriented to person, place, and time. SKIN: Well perfused. Good skin turgor. ASSESSMENT: 1. Morbid obesity due to excess calories, resolved. 2. Body mass index reduced from 50.8 down to 33.2 3. Overweight. 4. 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 5. Personal history of complications from sleeve gastrectomy requiring conversion to gastric bypass. 6. Dietary surveillance and counseling. 7. Gastroesophageal reflux disease. 8. Dysphagia 9. Vitamin A deficiency 10. Vitamin B-12 deficiency 11. Right lower quadrant abdominal pain 12. Status post appendectomy 13. Complicated bilateral renal cysts status post drainage PLAN: 1. Her symptoms are progressive despite treatment for gastric stricture. 2. Recommend robotic lysis of adhesions to address her abdominal pain. 3. She is elevated risk of complications due to recent surgical intervention less than 3 months ago. 4. Risks of persistent pain following surgery also described. 1. Objective - Vital Signs Vital signs: Vital Signs Temp 98.4 F 07/18/20 15:08 Pulse 66 07/18/20 15:08 Resp 18 07/18/20 15:08 BP 129/81 07/18/20 15:08 Pulse Ox
== END | disposition home or self-care (01) ==
LOC: BARWHC3 14:44
PROVIDERS: ATTEND Surgery Plastic and Reconstructive Surgery
DX: E66.3 Overweight (principal); N28.1 Cyst of kidney, acquired; K21.9 Gastro-esophageal reflux disease without esophagitis; E50.9 Vitamin A deficiency, unspecified; E53.8 Deficiency of other specified B group vitamins; I10 Essential (primary) hypertension; F32.9 Major depressive disorder, single episode, unspecified; Z91.018 Allergy to other foods; Z90.49 Acquired absence of other specified parts of digestive tract; Z91.09 Other allergy status, other than to drugs and biological substances; Z71.3 Dietary counseling and surveillance; Z98.84 Bariatric surgery status; Z87.891 Personal history of nicotine dependence; Z68.33 Body mass index [BMI] 33.0-33.9, adult
CPT/HCPCS: 99211

== ENCOUNTER → 2020-07-24 | Outpatient (CLI) | payer BC ==
[2020-07-24 16:47] LABS: HCT 40.4 % (34.0-46.0); HGB 13.5 gm/dL (11.4-16.0); MCH 27.8 pg (25.0-35.0); MCHC 33.3 g/dL (31.0-37.0); MCV 83.4 fL (80.0-100.0); Mean Platelet Volume 7.4; Platelet Count 182 k/uL (150-450); RBC 4.84 m/uL (3.80-5.40); RDW 13.4 % (11.5-15.5); WBC 5.2 k/uL (3.8-10.6)
== END | disposition home or self-care (01) ==
LOC: LABPAT 15:35
PROVIDERS: ATTEND Anesthesiology
DX: Z01.818 Encounter for other preprocedural examination (principal)
CPT/HCPCS: 36415; 85027

== ENCOUNTER 2020-07-27 07:22 | Day surgery (SDC) | payer BC ==
[2020-07-24 14:56] VITALS: BMI 32.5
--- NOTE | 2020-07-27 06:01 | P.GSHP ---
History of Present Illness H&P Date: 07/27/20 CHIEF COMPLAINT: History of intra-abdominal adhesions HISTORY OF PRESENT ILLNESS: The patient is a 40-year-old female who presents with history of intra-abdominal adhesions from multiple prior surgeries including increasing abdominal pain. She now presents for diagnostic laparoscopy including lysis of adhesions. PAST MEDICAL HISTORY: Please see list. PAST SURGICAL HISTORY: Please see list. MEDICATIONS: Please see list. ALLERGIES: Please see list. SOCIAL HISTORY: No illicit drug use FAMILY HISTORY: No reports of Crohn disease or ulcerative colitis. REVIEW OF ORGAN SYSTEMS: CONSTITUTIONAL: No reports of fevers or chills. GI: Denies any blood in stools or constipation. PHYSICAL EXAM: VITAL SIGNS: Stable GENERAL: Well-developed pleasant and in no acute distress. HEENT: No scleral icterus. Extraocular movements grossly intact. Moist buccal mucosa. NECK: Supple without lymphadenopathy. CHEST: Unlabored respirations. Equal bilateral excursions. CARDIOVASCULAR: Regular rate and rhythm. Distal 2+ pulses. ABDOMEN: Soft, diffuse abdominal tenderness. No peritonitis. MUSCULOSKELETAL: No clubbing, cyanosis, or edema. ASSESSMENT: 1. Diffuse abdominal pain. 2. History of multiple abdominal surgeries. 3. Intra-abdominal adhesions. PLAN: 1. Robotic lysis of adhesions were described in detail including risk of injury to the intestine, need for further surgery, and open technique. 2. DVT prophylaxis. 3. Antibiotic prophylaxis. Past Medical History Past Medical History: Eye Disorder, GERD/Reflux, Hearing Disorder / Deafness, Osteoarthritis (OA) Additional Past Medical History / Comment(s): Hx Migraines. Hx Borderline Hypertension and Diabetes, no problems post weight loss. HX DYSPHAGIA. Macular Degeneration. Hard of hearing. History of Any Multi-Drug Resistant Organisms: None Reported Past Surgical History: Appendectomy, Bariatric Surgery, Cholecystectomy, Orthopedic Surgery, Tubal Ligation Additional Past Surgical History / Comment(s): BILATERAL Carpal Tunnel Realease. GASTRIC SLEEVE 08/19, LEONCIO-EN-Y 02/19. MULTIPLE EGD's/EGD's W/ DILATION. Panniculectomy, LEEP, bilateral kidney cyst aspirations. Past Anesthesia/Blood Transfusion Reactions: Previous Problems w/ Anesthesia, Motion Sickness, Postoperative Nausea & Vomiting (PONV) Additional Past Anesthesia/Blood Transfusion Reaction / Comment(s): STAYED 2 EXTRA DAYS R/T "ANESTHESIA NOT GETTING OUT OF MY SYSTEM" states takes "a long time to wake up" also "new anesthesia put me in AFIB" Past Psychological History: Depression Additional Psychological History / Comment(s): DENIES DEPRESSION CURRENTLY. Smoking Status: Former smoker Past Alcohol Use History: None Reported Additional Past Alcohol Use History / Comment(s): QUIT SMOKING 02/2015, 23 YR SMOKER, 1 PPD. Past Drug Use History: None Reported - Past Family History Father History Unknown: Yes Mother History Unknown: Yes Brother(s) History Unknown: Yes Sister(s) History Unknown: Yes Daughter(s) Family Medical History: No Reported History Son(s) Family Medical History: No Reported History Medications and Allergies Home Medications Medication Instructions Recorded Confirmed Type Medroxyprogesterone Acetate 150 mg IM DIRECTED 06/19/20 07/24/20 History [Depo-Provera] Melatonin 20 mg PO HS 06/19/20 07/24/20 History Hydrocodone/Acetaminophen [[place] 1 tab PO Q6HR PRN 3 Days #12 tab 06/22/20 07/24/20 Rx 7.5-325] Desvenlafaxine Succinate [Pristiq] 50 mg PO HS 07/24/20 07/24/20 History Allergies Allergy/AdvReac Type Severity Reaction Status Date / Time cinnamon AdvReac Wheezing Verified 07/24/20 14:34 grass pollen AdvReac Unknown Verified 07/24/20 14:34 sun AdvReac skin Uncoded 07/24/20 14:34 blisters
[~2020-07-27 07:22] MED LIST changes: +ACETAMINOPHEN TAB 500 MG TAB PO PRN; +GABAPENTIN 300 MG CAP PO PRN; -HEPARIN SODIUM,PORCINE 5,000 UNIT/ML 1 ML VIAL SQ PRN; +HEPARIN SODIUM,PORCINE/PF 5,000 UNIT/0.5 ML SYRINGE SQ PRN; +HYDROmorphone 0.5 MG/0.5 ML SYRINGE IVP PRN; +KETOROLAC 15 MG/ML 1 ML VIAL IVP PRN; +LACTATED RINGERS 1,000 ML IV SCH; +MIDAZOLAM 2 MG/2 ML VIAL IV PRN; +SCOPOLAMINE 1.5MG/72HR PATCH TRANSDERM ONE
[2020-07-27 07:46] VITALS: TEMP 98.4
[2020-07-27] MEDS ORDERED: fentaNYL (PF) 50 MCG/ML 2 ML AMP IVP ONE (08:38)
[2020-07-27] MEDS ORDERED: LIDOCAINE 1% INJ 10MG/ML (20 ML MDV) ONE (09:15)
[2020-07-27] MEDS ORDERED: SUCCINYLCHOLINE CHLORIDE 100 MG/5 ML SYR IV ONE (09:15)
[2020-07-27] MEDS ORDERED: SODIUM CHLORIDE 0.9% (PF) 10 ML VIAL ONE (09:15)
[2020-07-27] MEDS ORDERED: GLYCOPYRROLATE 0.2 MG/ML 2 ML VIAL ONE (09:15)
[2020-07-27] MEDS ORDERED: ROCURONIUM 10 MG/ML (5 ML VIAL) IV ONE (09:15)
[2020-07-27] MEDS ORDERED: NEOSTIGMINE 1 MG/ML 10 ML VIAL ONE (09:15)
[2020-07-27] MEDS ORDERED: KETOROLAC 15 MG/ML 1 ML VIAL ONE (09:15)
[2020-07-27] MEDS ORDERED: PROPOFOL 10 MG/ML 20 ML VIAL IV ONE (09:15)
[2020-07-27] MEDS ORDERED: fentaNYL (PF) 50 MCG/ML 2 ML AMP ONE (09:15)
[2020-07-27] MEDS ORDERED: ROPIVACAINE 5 MG/ML 30 ML VIAL ONE (09:15)
[2020-07-27] MEDS ORDERED: LIDOCAINE 1%-EPI 1:100,000 20 ML VIAL SQ ONE (09:19)
[2020-07-27] MEDS ORDERED: LACTATED RINGERS 1,000 ML IV ONE (09:59)
--- NOTE | 2020-07-27 11:44 | P.OP ---
Date of Procedure: 07/27/20 Description of Procedure: SURGEON: MAI MACKENZIE MD PREOPERATIVE DIAGNOSES: 1. Epigastric abdominal pain 2. History of multiple abdominal surgeries with peritoneal adhesions 3. Personal history of complications from sleeve gastrectomy requiring conversion to gastric bypass. 4. Overweight. 5. Morbid obesity due to excess calories, resolved. 6. Body mass index reduced from 50.8 down to 32.5 POSTOPERATIVE DIAGNOSES: 1. Epigastric abdominal pain due to internal hernia and small bowel volvulus 2. Peritoneal adhesions, epigastrium/left upper quadrant 3. Personal history of complications from sleeve gastrectomy requiring conversion to gastric bypass. 4. Overweight. 5. Morbid obesity due to excess calories, resolved. 6. Body mass index reduced from 50.8 down to 32.5 OPERATION: 1. Robotic-assisted da Abhijit Xi laparoscopic reduction of internal hernia and small bowel volvulus from Reynolds defect 2. Robotic-assisted da Abhijit Xi laparoscopic with extensive lysis of adhesions 3. Robotic-assisted da Abhijit Xi laparoscopic repair of Reynolds's defect/internal hernia ESTIMATED BLOOD LOSS: 5 mL. SPECIMENS REMOVED: None. COMPLICATIONS: None. OPERATIVE FINDINGS: 1. Small bowel volvulus involving Reynolds's defect, reduced and repair 2. Jejunojejunostomy mesenteric defects completely scarred 3. Interloop adhesions asif limb to jejunojejunostomy, epigastrium/left upper quadrant lysed 4. Small bowel herniation of distal duodenum and jejunum of Reynolds's defect reduced INDICATIONS: The patient is a 40-year-old female who presents with epigastric abdominal pain following recent exploration and excision of bilateral renal cysts. She had developed immediate epigastric persistent abdominal pain including inability to eat with intractable nausea and vomiting. Surgical intervention with diagnostic laparoscopy, lysis of adhesions were described. Informed consent was obtained. Robotic assisted laparoscopic approach was described. Benefits and risks of the procedure including but not limited to bleeding, infection, injury to the small bowel was described. Informed consent was obtained. DESCRIPTION OF PROCEDURE: Patient was brought to the operating room, placed in supine position. After general induction, the abdomen had been prepped and josé miguel ped in standard sterile fashion. The robotic da Abhijit XI system was primed. After a timeout protocol was performed, the patient had been prepped and draped in standard sterile fashion. Second-generation cephalosporin Ancef 2 g was given including heparin 5000 units with bilateral sequential compression devices for DVT prophylaxis. The robot was docked along the right lateral abdomen. A 5 mm 0 degrees laparoscopic trocar entry was performed along the left upper quadrant. The abdomen was insufflated to 15 mmHg pressure which she tolerated well. Diagnostic laparoscopy was performed. Next, three 8 mm robotic ports were placed along the right lateral abdominal wall. The camera 8-mm port was maintained along mid-lateral abdomen. Please note that the ports were placed at least 10 to 15 cm away from the target anatomy. Instruments including graspers and scissors were interchanged by the senior sales assistant. I had sat at the console. No incisional hernia was identified. The small bowel was investigated from the terminal ileum to the ligament of Treitz with finding of redundant mesentery with active small bowel volvulus involving the jejunum to the Reynolds mesenteric defect. Abnormal adhesions from the Asif limb to the jejunojejunostomy was identified and divided. The mesentery small bowel volvulus were reduced. Small bowel herniation involving distal duodenum and proximal jejunum into the Reynolds defect was reduced. The defect was oversewn using 2-0 VLOC. The jejunojejunostomy mesenteric defect was completely scarred. Lysis of adhesions using scissors and cautery was performed to free the Asif limb from the redundant biliopancreatic limb of 5 cm. The small bowel was viable.The robot was undocked. All pneumoperitoneum instruments were evacuated from the abdominal cavity. The incisions were reapproximated using 4-0 Monocryl in an interrupted subcuticular fashion. Please note along the trocar sites, local anesthetic was placed as a field block prior to insertion of all instruments. Exofin was applied to the skin. At the end of the procedure needle, sponge, and instrument count had been verified correct by the surgical nurse practitioner. The patient was transferred to postanesthesia care unit in stable condition. Plan - Discharge Summary Discharge Rx Participant: Yes New Discharge Prescriptions: New Simethicone [Gas-X] 125 mg PO AC-TID PRN #20 capsule PRN Reason: Pain Acetaminophen Tab [Tylenol Tab] 1,000 mg PO Q6HR PRN #30 tablet PRN Reason: Pain Continue Melatonin 20 mg PO HS Medroxyprogesterone Acetate [Depo-Provera] 150 mg IM DIRECTED Hydrocodone/Acetaminophen [[place] 7.5-325] 1 tab PO Q6HR PRN 3 Days #12 tab PRN Reason: Pain Desvenlafaxine Succinate [Pristiq] 50 mg PO HS lamoTRIgine [LaMICtal] 25 mg PO DAILY Discharge Medication List Medroxyprogesterone Acetate [Depo-Provera] 150 mg IM DIRECTED 06/19/20 [History] Melatonin 20 mg PO HS 06/19/20 [History] Hydrocodone/Acetaminophen [[place] 7.5-325] 1 tab PO Q6HR PRN 3 Days #12 tab 06/22/20 [Rx] Desvenlafaxine Succinate [Pristiq] 50 mg PO HS 07/24/20 [History] Acetaminophen Tab [Tylenol Tab] 1,000 mg PO Q6HR PRN #30 tablet 07/27/20 [Rx] Simethicone [Gas-X] 125 mg PO AC-TID PRN #20 capsule 07/27/20 [Rx] lamoTRIgine [LaMICtal] 25 mg PO DAILY 07/27/20 [History] Follow up Appointment(s)/Referral(s): [facility] [place] [facility] - 08/01/20 Patient Instructions/Handouts: Lysis of Abdominal Adhesions (DC) Activity/Diet/Wound Care/Special Instructions: Using antibacterial soap. No lifting over 10 pounds 2 weeks, August 10 May shower. No bathtub soaks for 2 weeks, August 10 Use ice along incisions for today to prevent swelling. Take tylenol, simethicone scheduled for 3 days for best pain relief Discharge Disposition: HOME SELF-CARE
[2020-07-27 12:21] VITALS: RESP 17
[2020-07-27] MEDS ORDERED: ONDANSETRON 4 MG/2 ML VIAL IVP ONE ×2 (12:30→12:35)
[2020-07-27] MEDS ORDERED: ONDANSETRON 4 MG/2 ML VIAL ONE (12:32)
--- NOTE | 2020-07-27 12:37 | P.ANPRN ---
Procedure Note - Anesthesia - Nerve Block Performed Bilateral Erector Spinae Single Time Out Performed: Yes ([id number]) Date of Procedure: 07/27/20 Procedure Start Time: 08:40 Procedure Stop Time: 08:51 Location of Patient: PreOp Indication: Acute Post-Operative Pain, Requested by Surgeon Specifically requested for management of pain by : Monalisa Araiza Sedation Type: Sedate with meaningful contact maintained Preparation: Sterile Prep Position: Prone Catheter: None Needle Types: Pajunk Needle Gauge: 21 Ultrasound used to visualize needle placement: Yes Ultrasound used to observe medication spread: Yes Injectate: 0.5% Ropivacaine (see comment for volume) (15cc + Nacl 15cc PF each side) Blood Aspirated: No Pain Paresthesia on Injection Noted: No Resistance on Injection: Normal Image Stored and Saved: Yes Events: Uneventful and Well Tolerated
[2020-07-27] MEDS ORDERED: METOCLOPRAMIDE 5 MG/ML 2 ML VIAL IVP ONE (12:53)
[2020-07-27] MEDS ORDERED: METOCLOPRAMIDE 5 MG/ML 2 ML VIAL ONE (12:55)
[2020-07-27 13:41] VITALS: BP 107/63; PULSE 67
== END 2020-07-27 13:46 | disposition home or self-care (01) ==
LOC: OR 07:22
PROVIDERS: ATTEND Surgery Plastic and Reconstructive Surgery
DX: K66.0 Peritoneal adhesions (postprocedural) (postinfection) (principal); K56.2 Volvulus; K45.8 Other specified abdominal hernia without obstruction or gangrene; K21.9 Gastro-esophageal reflux disease without esophagitis; H91.90 Unspecified hearing loss, unspecified ear; I10 Essential (primary) hypertension; E11.9 Type 2 diabetes mellitus without complications; H35.30 Unspecified macular degeneration; Z90.89 Acquired absence of other organs; E66.3 Overweight; Z68.32 Body mass index [BMI] 32.0-32.9, adult; Z98.84 Bariatric surgery status; Z90.49 Acquired absence of other specified parts of digestive tract; Z98.51 Tubal ligation status; Z98.890 Other specified postprocedural states; F32.9 Major depressive disorder, single episode, unspecified; Z87.891 Personal history of nicotine dependence; Z91.09 Other allergy status, other than to drugs and biological substances; Z79.3 Long term (current) use of hormonal contraceptives; Z79.899 Other long term (current) drug therapy; Z91.018 Allergy to other foods; Z91.048 Other nonmedicinal substance allergy status
CPT/HCPCS: 44180; 44238; S2900; 64999; 76942; 81025

== ENCOUNTER → 2020-08-01 | Outpatient (CLI) | payer BC ==
[2020-08-01 14:56] VITALS: BP 133/88; PULSE 78; RESP 18; TEMP 98; BMI 33.5
--- NOTE | 2020-08-01 15:23 | P.PN ---
Subjective Progress Note Date: 08/01/20 DATE OF SERVICE: 08/01/2020 CHIEF COMPLAINT: Status post gastric bypass HISTORY OF PRESENT ILLNESS: Shefali Akers is a 40-year-old female status post sleeve gastrectomy to gastric bypass, 2017. She is over 4 years out. She is status post lysis of adhesions 07/27/20. She is POD 5. She reports still having pain along the epigastrium but can tolerate popcorn. She has constipation. No fevers or chills. At her height of 5 feet 4.75 inches her initial weight has been 302 pounds. Today she comes in weighing 199 pounds from 197 pounds, 2 weeks ago. She has gained 2 pounds in 2 weeks. She has lost 102 pounds lifetime. Body mass index down from 50.8 down to 33.5. Percent excess weight loss is 65 %. She is 56 pounds overweight. PHYSICAL EXAM: VITAL SIGNS: 5 feet 4.75 inches frame, 199 pounds. Body mass index is 33.5 Vital Signs Temp 98.0 F 08/01/20 14:46 Pulse 78 08/01/20 14:46 Resp 18 08/01/20 14:46 BP 133/88 08/01/20 14:46 Pulse Ox ABDOMEN: Incisions intact. MUSCULOSKELETAL: No clubbing, cyanosis. GENERAL: Well-developed female in no acute distress. HEENT: No scleral icterus. Extraocular movements grossly intact. Moist buccal mucosa. Hears conversational speech. NECK: Supple without lymphadenopathy. CHEST: Nonlabored respirations. Equal bilateral excursions. CARDIOVASCULAR: Regular rate, regular rhythm. Bilateral pulses radial 2+. NEURO: Cranial nerves II through XII grossly within normal limits. No focal deficits. PSYCH: Alert and oriented to person, place, and time. SKIN: Well perfused. Good skin turgor. ASSESSMENT: 1. Morbid obesity due to excess calories, resolved. 2. Body mass index reduced from 50.8 down to 33.5 3. Overweight. 4. 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 5. Personal history of complications from sleeve gastrectomy requiring conversion to gastric bypass. 6. Dietary surveillance and counseling. 7. Gastroesophageal reflux disease. 8. Dysphagia 9. Vitamin A deficiency 10. Vitamin B-12 deficiency 11. Right lower quadrant abdominal pain 12. Status post appendectomy 13. Complicated bilateral renal cysts status post drainage 14. Peritoneal adhesions PLAN: 1. She has constipation which may add to her abdominal pain. 2. Recommend laxative. 3. Follow up as needed. Objective - Vital Signs Vital signs: Vital Signs Temp 98.0 F 08/01/20 14:46 Pulse 78 08/01/20 14:46 Resp 18 08/01/20 14:46 BP 133/88 08/01/20 14:46 Pulse Ox Intake & Output 07/31/20 08/01/20 08/01/20 18:59 06:59 18:59 Weight 90.718 kg
== END ==
LOC: BARWHC3 13:54
PROVIDERS: ATTEND Surgery Plastic and Reconstructive Surgery
DX: E66.3 Overweight (principal); K21.9 Gastro-esophageal reflux disease without esophagitis; E53.8 Deficiency of other specified B group vitamins; N28.1 Cyst of kidney, acquired; E50.9 Vitamin A deficiency, unspecified; K66.0 Peritoneal adhesions (postprocedural) (postinfection); Z71.3 Dietary counseling and surveillance; Z68.33 Body mass index [BMI] 33.0-33.9, adult; Z98.84 Bariatric surgery status; Z90.49 Acquired absence of other specified parts of digestive tract; Z87.891 Personal history of nicotine dependence; Z91.018 Allergy to other foods; Z91.048 Other nonmedicinal substance allergy status
CPT/HCPCS: 99211

== ENCOUNTER → 2020-09-07 | Outpatient (CLI) | payer BC ==
[2020-09-07 16:14] LABS: Basophils % (A) 1 %; Eosinophils # (A) 0.1 k/uL (0-0.7); Eosinophils % (A) 2 %; HCT 37.9 % (34.0-46.0); HGB 12.8 gm/dL (11.4-16.0); Lymphocytes # (A) 1.3 k/uL (1.0-4.8); Lymphocytes % (A) 28 %; MCH 27.6 pg (25.0-35.0); MCHC 33.8 g/dL (31.0-37.0); MCV 81.8 fL (80.0-100.0); Monocytes # (A) 0.3 k/uL (0-1.0); Monocytes % (A) 6 %; Neutrophils # (A) 2.8 k/uL (1.3-7.7); Neutrophils % (A) 61 %; Platelet Count 193 k/uL (150-450); RBC 4.63 m/uL (3.80-5.40); RDW 14.1 % (11.5-15.5); WBC 4.6 k/uL (3.8-10.6)
[2020-09-07 16:27] LABS: Carbon Dioxide 25 mmol/L (22-30); Chloride 111 mmol/L (98-107); Glucose 59 mg/dL (74-99); Potassium 3.4 mmol/L (3.5-5.1); Sodium 142 mmol/L (137-145)
[2020-09-07 16:28] LABS: African American GFR (CKD) >90 (>60 ml/min/1.73 sqM); Anion Gap 6 mmol/L; Blood Urea Nitrogen 8 mg/dL (7-17); Non-African American GFR(CKD) >90 (>60 ml/min/1.73 sqM)
== END | disposition home or self-care (01) ==
LOC: LABPAT 15:49
PROVIDERS: ATTEND Obstetrics & Gynecology Obstetrics
DX: Z01.812 Encounter for preprocedural laboratory examination (principal); D06.9 Carcinoma in situ of cervix, unspecified
CPT/HCPCS: 36415; 80051; 82565; 82947; 84520; 85025; 87086

== ENCOUNTER 2020-09-17 06:36 | Day surgery (SDC) | payer BC ==
[2020-09-13 14:28] VITALS: BMI 32.9
--- NOTE | 2020-09-13 17:19 | P.HPOB ---
History of Present Illness H&P Date: 09/13/20 Chief Complaint: MIRIAM 2/3 severe cervical dysplasia, s/p LEEP This is a 40-year-old female with a history of high-grade cervical lesions. Patient has a history of a LEEP in the past. Patient underwent colposcopy secondary to high-grade Pap smear. Biopsy revealing MIRIAM 2/3. Patient has had a LEEP in the past and minimal cervix remains. I do not believe she has enough cervix to perform cold knife cone or LEEP procedure. Patient states she is done with childbearing and has been struggling with irregular/heavy menstrual cycles off of Depo-Provera. She does desire definitive treatment with robotic cyst vaginal hysterectomy with ovarian conservation. Review of Systems Constitutional: Reports fatigue, Denies chills, Denies fever Ears, nose, mouth and throat: Denies headache Respiratory: Denies dyspnea Gastrointestinal: Denies constipation, Denies nausea, Denies vomiting Genitourinary: Reports abnormal vaginal bleeding, Reports dysmenorrhea, Reports menorrhagia, Denies Past Medical History Past Medical History: Eye Disorder, GERD/Reflux, Hearing Disorder / Deafness, Osteoarthritis (OA) Additional Past Medical History / Comment(s): "I had too much of cancerous cells on my cervix so I now need to have a hysterectomy",Hx Migraines. HX DYSPHAGIA. Macular Degeneration. Hard of hearing. History of Any Multi-Drug Resistant Organisms: None Reported Past Surgical History: Appendectomy, Bariatric Surgery, Cholecystectomy, Orthopedic Surgery, Tubal Ligation Additional Past Surgical History / Comment(s): BILATERAL Carpal Tunnel Realease. GASTRIC SLEEVE 08/19, LEONCIO-EN-Y 02/19. MULTIPLE EGD's/EGD's W/ DILATION. Panniculectomy, LEEP, bilateral kidney cyst aspirations,elis kidney cysts removed,scar tissue removed from abdomen Past Anesthesia/Blood Transfusion Reactions: Previous Problems w/ Anesthesia, Motion Sickness, Postoperative Nausea & Vomiting (PONV) Additional Past Anesthesia/Blood Transfusion Reaction / Comment(s): stated "STAYED 2 EXTRA DAYS R/T ANESTHESIA NOT GETTING OUT OF MY SYSTEM takes a long time to wake up" and once anesthesia put me in AFIB",Hx PONV Smoking Status: Former smoker - Past Family History Father History Unknown: Yes Mother History Unknown: Yes Brother(s) History Unknown: Yes Sister(s) History Unknown: Yes Daughter(s) Family Medical History: No Reported History Son(s) Family Medical History: No Reported History Medications and Allergies Home Medications Medication Instructions Recorded Confirmed Type lamoTRIgine [LaMICtal] 50 mg PO HS 07/27/20 09/12/20 History Desvenlafaxine Succinate [Pristiq] 50 mg PO HS 09/12/20 09/12/20 History Allergies Allergy/AdvReac Type Severity Reaction Status Date / Time cinnamon AdvReac Wheezing Verified 09/12/20 15:14 grass pollen AdvReac Unknown Verified 09/12/20 15:14 sun AdvReac skin Uncoded 09/12/20 15:14 blisters Exam Osteopathic Statement: *. No significant issues noted on an osteopathic structural exam other than those noted in the History and Physical/Consult. Intake and Output 09/13/20 09/13/20 09/13/20 06:59 14:59 22:59 Other: Weight 92.533 kg Targeted physical exam is performed and state in general this a well-nourished well-developed non female in no acute distress, breathing is nonlabored, heart has a regular rate and rhythm, abdomen is obese. External genitalia is noted to be normal for age no lesions are appreciated. Cervix is noted to be shortened secondary to prior LEEP procedure. Vaginal tissue is noted to be pink and well rugated. No adnexal masses are appreciated. Assessment and Plan (1) Severe dysplasia of cervix (MIRIAM III) Status: Acute Code(s): D06.9 - CARCINOMA IN SITU OF CERVIX, UNSPECIFIED SNOMED Code(s): 625790059 (2) S/P LEEP Status: Acute Code(s): Z98.890 - OTHER SPECIFIED POSTPROCEDURAL STATES SNOMED Code(s): 683289865296653 Plan: Patient is desirous of definitive treatment with robotic assist vaginal hysterotomy, bilateral salpingectomy, diagnostic cystoscopy. Given patient's prior history of LEEP in high-grade/severe dysplasia remaining. Patient does have a history of multiple surgeries. Patient is understanding of possibility of scar tissue and possible bowel/bladder injury. Long discussion with patient regarding these concerns. Patient states understanding and wishes to proceed.
[~2020-09-17 06:36] MED LIST changes: +ACETAMINOPHEN IV (For NPO) 1,000 MG in EMPTY BAG 1 BAG IVPB PRN; -ACETAMINOPHEN TAB 500 MG TAB PO PRN; -GABAPENTIN 300 MG CAP PO PRN; -HEPARIN SODIUM,PORCINE/PF 5,000 UNIT/0.5 ML SYRINGE SQ PRN; -KETOROLAC 15 MG/ML 1 ML VIAL IVP PRN; -LACTATED RINGERS 1,000 ML IV SCH; +LIDOCAINE 1% (10MG/ML) FOR IV START INTRADERMA PRN; -SCOPOLAMINE 1.5MG/72HR PATCH TRANSDERM ONE
[2020-09-17] MEDS: LACTATED RINGERS 1,000 ML IV SCH ×2 (07:34→15:54)
[2020-09-17] MEDS ORDERED: SCOPOLAMINE 1.5MG/72HR PATCH TRANSDERM ONE (07:48)
[2020-09-17] MEDS ORDERED: fentaNYL (PF) 50 MCG/ML 2 ML AMP IVP ONE (08:14)
[2020-09-17] MEDS ORDERED: MIDAZOLAM 2 MG/2 ML VIAL IVP ONE (08:14)
[2020-09-17] MEDS ORDERED: GLYCOPYRROLATE 0.2 MG/ML 2 ML VIAL ONE (08:27)
[2020-09-17] MEDS ORDERED: LIDOCAINE 1% INJ 10MG/ML (20 ML MDV) ONE (08:27)
[2020-09-17] MEDS ORDERED: PROPOFOL 10 MG/ML 20 ML VIAL IV ONE (08:27)
[2020-09-17] MEDS ORDERED: SUCCINYLCHOLINE CHLORIDE 100 MG/5 ML SYR IV ONE (08:27)
[2020-09-17] MEDS ORDERED: ROCURONIUM 10 MG/ML (5 ML VIAL) IV ONE (08:27)
[2020-09-17] MEDS ORDERED: fentaNYL (PF) 50 MCG/ML 2 ML AMP ONE (08:27)
[2020-09-17] MEDS ORDERED: NEOSTIGMINE 1 MG/ML 10 ML VIAL ONE (08:27)
[2020-09-17] MEDS ORDERED: ROPIVACAINE 5 MG/ML 30 ML VIAL ONE (08:27)
[2020-09-17] MEDS ORDERED: BUPIVACAINE (PF) 0.25% 30 ML VIAL SQ ONE (09:31)
[2020-09-17] MEDS ORDERED: SIMETHICONE 80 MG CHEWABLE PO PRN (11:00)
[2020-09-17] MEDS ORDERED: ONDANSETRON 4 MG/2 ML VIAL IVP PRN (11:00)
[2020-09-17] MEDS ORDERED: Acetaminophen-Codeine 300-30mg TAB PO PRN ×2 (11:00)
--- NOTE | 2020-09-17 11:00 | P.OP ---
Date of Procedure: 09/17/20 Preoperative Diagnosis: Persistent MIRIAM 2/3 status post LEEP Postoperative Diagnosis: Same, + endometriosis noted in the posterior cul de sac Procedure(s) Performed: Robotic assist vaginal hysterectomy, bilateral salpingectomy, diagnostic cystoscopy Anesthesia: SHEN Surgeon: Jen Parks Clinical Trial Leader #1: Pedro Blackwell Estimated Blood Loss (ml): 20 IV fluids (ml): 900 Urine output (ml): 200 Pathology: other (Uterus cervix, bilateral fallopian tubes) Condition: stable Disposition: PACU Indications for Procedure: Persistent MIRIAM-2 despite LEEP procedure. Patient desires definitive treatment with hysterectomy. Patient on exam had very minimal cervix and inability to perform second LEEP procedure for cervical dysplasia was noted. Operative Findings: Globular uterus appreciated, normal ovaries bilaterally, endometriosis noted in the posterior cul-de-sac Description of Procedure: Patient was seen in the preoperative suite and surgery is reviewed. Discussion was had with the patient regarding her multiple prior surgeries and risk of scarring. Patient states understanding and wishes to proceed. Patient was taken back to the operating suite where general anesthesia was obtained by the anesthesia Department without difficulty. She was then prepped and draped in the normal sterile fashion in the dorsal lithotomy position. A weighted specul um was placed the posterior vaginal vault and the anterior lip of the cervix is visualized. The endocervical canal was then dilated to be carried her medically was advanced into the cervix and uterus as a means to manipulate the uterus throughout the procedure. A Bhardwaj catheter was placed under sterile technique. Attention was then turned the patient's abdomen where a small skin incision is made approximately 27 m from the pubic symphysis. A Veress needle is placed through the incision and toward the abdominal cavity. Once the Veress needle was deemed to be in the proper position with a drop of CO2 pressure with insufflation of CO2 gas CO2 insufflation was allowed to occur. At this time a 8 mm trocar and sleeve with the laparoscope in place is placed through the skin incision toward the pneumoperitoneum. The above-noted findings are visualized. The da Abhijit robot was then docked in usual fashion with the operative arms placed in the right operative arm the monopolar scissors and the left operative arm the bipolar forceps is placed. Attention then turned to the patient's left fallopian tube which was grasped coagulated and transected. Uterine ovarian ligament was regular distally and proximally and divided. Good hemostasis was appreciated. The round ligament was then visualized regular distally proximal plane divided. The bladder flap from the left was then created using sharp and blunt dissection. The ascending branch the uterine artery was visualized regular distally proximal main divided hemostasis was appreciated. Attention was then turned to the right fallopian tube which was grasped coagulated and transected. This continued through the broad and toward the round which was regular distally proximal length and divided. Hemostasis was appreciated. The bladder flap from the right was then created using sharp and blunt dissection. The ascending branch of the uterine artery from the right was visualized coagulated and transected. At this time the only remaining attachment was a vaginal attachment therefore a colpotomy incision was made in a circumferential fashion. The uterus and fallopian tubes were then delivered through the vaginal opening. The pelvis then copiously irrigated and the vaginal cuff was closed with 0 Vicryl with multiple [id number] sutures. FloSeal was placed over the vaginal cuff. All inserts were then removed from the patient's abdomen and the da Abhijit was undocked in usual fashion. At this time the Bhardwaj catheter was then removed and a cystoscopy was performed. The cystoscope was placed through the urethra and toward the bladder. Bladder bubble was appreciated both ureteral orifices were noted to be spilling clear yellow urine. Attention was then turned the patient's abdomen where the skin incisions were closed with 4-0 Vicryl in a subarticular fashion. Suture strips and sterile dressings were applied. All counts were noted be correct 2 patient tolerated procedure well and was taken the recovery room awake in stable condition.
--- NOTE | 2020-09-17 11:42 | P.ANPRN ---
Procedure Note - Anesthesia - Nerve Block Performed Bilateral Erector Spinae Time Out Performed: Yes (08:12) Date of Procedure: 09/17/20 Procedure Start Time: : Procedure Stop Time: Location of Patient: PreOp Indication: Acute Post-Operative Pain, Requested by Surgeon (Dr Parks) Sedation Type: Sedate with meaningful contact maintained Preparation: Sterile Prep Position: Prone Catheter: None Needle Types: Pajunk Needle Gauge: 21 Ultrasound used to visualize needle placement: Yes Ultrasound used to observe medication spread: Yes Injectate: 0.5% Ropivacaine (see comment for volume) (15cc + 10cc PF normal saline each side) Blood Aspirated: No Pain Paresthesia on Injection Noted: No Resistance on Injection: Normal Image Stored and Saved: Yes Events: Uneventful and Well Tolerated
[2020-09-17] MEDS ORDERED: IBUPROFEN IV 800 MG in SODIUM CHLORIDE 0.9% 250 ML IV ONE (12:00)
[2020-09-17] MEDS: ACETAMINOPHEN TAB 325 MG TAB PO PRN (16:10)
[2020-09-17] MEDS ORDERED: DESVENLAFAXINE SUCCINATE 50 MG TAB.ER.24H PO SCH (21:00)
[2020-09-17] MEDS ORDERED: SENNOSIDES-DOCUSATE SODIUM 1 EACH TAB PO SCH (21:00)
[2020-09-17] MEDS ORDERED: lamoTRIgine 25 MG TAB PO SCH (21:00)
[2020-09-18] MEDS: ACETAMINOPHEN TAB 325 MG TAB PO PRN (03:11)
[2020-09-18 05:44] LABS: Basophils % (A) 1 %; Eosinophils # (A) 0.1 k/uL (0-0.7); Eosinophils % (A) 2 %; HCT 37.6 % (34.0-46.0); HGB 13.3 gm/dL (11.4-16.0); Lymphocytes # (A) 1.2 k/uL (1.0-4.8); Lymphocytes % (A) 22 %; MCH 28.8 pg (25.0-35.0); MCHC 35.2 g/dL (31.0-37.0); MCV 81.8 fL (80.0-100.0); Mean Platelet Volume 7.2; Monocytes # (A) 0.4 k/uL (0-1.0); Monocytes % (A) 7 %; Neutrophils # (A) 3.6 k/uL (1.3-7.7); Neutrophils % (A) 67 %; Platelet Count 178 k/uL (150-450); RDW 13.6 % (11.5-15.5); WBC 5.3 k/uL (3.8-10.6)
[2020-09-18 07:30] VITALS: BP 116/66; PULSE 63; RESP 16; TEMP 98.6
--- NOTE | 2020-09-18 08:31 | P.DS ---
Providers Date of admission: 09/17/2020 Expected date of discharge: 09/18/20 Attending physician: Jen Parks Primary care physician: Yosvany Mccray - Discharge Diagnosis(es) (1) Severe dysplasia of cervix (MIRIAM III) Current Visit: No Status: Acute (2) S/P LEEP Current Visit: No Status: Acute (3) S/P laparoscopic hysterectomy Current Visit: Yes Status: Acute Hospital Course: This is a 40-year-old female that presented to the hospital for scheduled robotic-assisted vaginal hysterectomy with bilateral salpingectomy, diagnostic cystoscopy. Patient has known persistent MIRIAM-2 despite LEEP procedure. Patient desired definitive treatment and given this diagnosis. Patient in addition has struggled off-and-on with irregular vaginal bleeding. Patient was admitted minute and taken to the operating suite for scheduled procedure. For full details on the procedure please see the dictated operative report. Patient's postoperative course has been uneventful. This postoperative day #1 she is ambulating and voiding without difficulty. She is tolerating a regular diet without nausea or vomiting. She states her pain is controlled with by mouth Tylenol 3. She would like discharge home. Patient Condition at Discharge: Good Plan - Discharge Summary Discharge Rx Participant: No New Discharge Prescriptions: No Action lamoTRIgine [LaMICtal] 50 mg PO HS Desvenlafaxine Succinate [Pristiq] 50 mg PO HS Discharge Medication List lamoTRIgine [LaMICtal] 50 mg PO HS 07/27/20 [History] Desvenlafaxine Succinate [Pristiq] 50 mg PO HS 09/12/20 [History] Follow up Appointment(s)/Referral(s): Jen Parks DO [Doctor of Osteopathic Medicine] - 2 Weeks Patient Instructions/Handouts: *Surgery [facility] - Scopalamine Patch Instructions, Laparoscopic Hysterectomy (DC), Laparoscopic Hysterectomy (GEN) Discharge Disposition: HOME SELF-CARE
== END 2020-09-18 09:45 | disposition home or self-care (01) ==
LOC: OR 06:36 → 4FBP 11:13 → OR 09-18 09:45
PROVIDERS: ATTEND Obstetrics & Gynecology Obstetrics
DX: D06.7 Carcinoma in situ of other parts of cervix (principal); K21.9 Gastro-esophageal reflux disease without esophagitis; M19.90 Unspecified osteoarthritis, unspecified site; G43.909 Migraine, unspecified, not intractable, without status migrainosus; Z98.84 Bariatric surgery status; Z98.890 Other specified postprocedural states; H35.30 Unspecified macular degeneration; Z79.899 Other long term (current) drug therapy; Z91.018 Allergy to other foods; Z91.048 Other nonmedicinal substance allergy status
CPT/HCPCS: 58571; S2900; 64999; 81025; 84132; 85025; 86850; 86900; 86901; 87635; 88309

== ENCOUNTER → 2020-10-17 | Outpatient (CLI) | payer BC ==
--- NOTE | 2020-10-17 14:06 | XR ---
EXAMINATION TYPE: XR elbow complete RT DATE OF EXAM: 10/17/2020 CLINICAL HISTORY: Right elbow pain TECHNIQUE: Frontal, lateral and oblique images of the right elbow are obtained. COMPARISON: None FINDINGS: There is no acute fracture/dislocation evident in the right elbow. No abnormal fat pad si gns are seen. The overlying soft tissue appears unremarkable. IMPRESSION: There is no acute fracture or dislocation in the right elbow.
== END | disposition home or self-care (01) ==
LOC: RADXRMAIN 13:30
PROVIDERS: ATTEND Family Medicine
DX: M25.521 Pain in right elbow (principal)

== ENCOUNTER 2020-11-09 16:08 | Emergency (ER) | payer OTHER, BC ==
[2020-11-09 16:54] VITALS: TEMP 97.9
[2020-11-09] MEDS ORDERED: IBUPROFEN 600 MG TAB PO STA (18:14)
--- NOTE | 2020-11-09 19:01 | XR ---
EXAMINATION TYPE: XR Hip LT and AP Pelvis DATE OF EXAM: 11/09/2020 COMPARISON: NONE HISTORY: Pain TECHNIQUE: 3 views FINDINGS: Pelvic ring is intact. Proximal femurs and hip joints are intact. Sacroiliac joints are int act. Hip joint space is fairly normal. IMPRESSION: Negative pelvis and left hip exam.
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
[2020-11-09 19:37] VITALS: BP 144/72; PULSE 78; RESP 18
== END 2020-11-09 19:37 | disposition home or self-care (01) ==
LOC: EC 16:08
DX: M25.552 Pain in left hip (principal); M54.5 Low back pain; M19.90 Unspecified osteoarthritis, unspecified site; K21.9 Gastro-esophageal reflux disease without esophagitis; Z87.891 Personal history of nicotine dependence; V43.52XA Car driver injured in collision with other type car in traffic accident, initial encounter; Y92.410 Unspecified street and highway as the place of occurrence of the external cause
CPT/HCPCS: 73502; 99284

== ENCOUNTER → 2020-12-26 | Outpatient (CLI) | payer BC ==
--- NOTE | 2020-12-27 08:00 | US ---
EXAMINATION TYPE: US kidneys/renal and bladder DATE OF EXAM: 12/26/2020 COMPARISON: US April 25 2020, CT 06/05/2019 CLINICAL HISTORY: N28.1 Renal cyst. Follow up renal cysts, history surgery to have multiple kidney cy sts removed EXAM MEASUREMENTS: Right Kidney: 10.7 x 5.1 x 5.9 cm Left Kidney: 11.7 x 5.6 x 5.3 cm Right Kidney: multiple cysts with largest measuring 2.6cm medial mid pole, there is imperceptible wal l, anechoic appearance, increased through transmission consistent with simple cyst as on prior. [place] e distortion of the right renal cortex likely due to postop change. Left Kidney: multiple cysts with largest measuring2.2cm medial inferior pole, there is increased thro ugh transmission and imperceptible wall, no internal echoes are identified Bladder: wnl Bilateral Jets seen: yes There is no evidence for hydronephrosis at this point in time. No nephrolithiasis is seen. No fiona s are identified. The urinary bladder is anechoic. Bilateral ureteral jets are seen. IMPRESSION: Cysts appear simple within the bilateral kidneys
== END | disposition home or self-care (01) ==
LOC: RADUSWWP 16:13
PROVIDERS: ATTEND Urology
DX: N28.1 Cyst of kidney, acquired (principal)
CPT/HCPCS: 76770

== ENCOUNTER → 2021-02-05 | Outpatient (CLI) | payer BC ==
--- NOTE | 2021-02-06 09:47 | CT ---
EXAMINATION TYPE: CT abdomen pelvis w con DATE OF EXAM: 02/05/2021 COMPARISON: CT 06/05/2019 HISTORY: renal cysts CT DLP: 1194.5 mGycm Automated exposure control for dose reduction was used. TECHNIQUE: Helical acquisition of images from the lung bases through the pelvis have been completed. CONTRAST: Performed with Oral Contrast and with IV Contrast, patient injected with 100 mL of Isovue 300. FINDINGS: Patient is post gastric sleeve LUNG BASES: No significant abnormality is appreciated, minimal atelectatic change or scarring present medially in the right lower lobe. AORTA: No significant abnormality is appreciated. LIVER/GB: No significant interval change is appreciated, patient is post cholecystectomy. PANCREAS: No significant abnormality is seen. SPLEEN: No significant abnormality is seen. ADRENALS: No significant abnormality is seen. KIDNEYS: The large cyst seen at the upper pole the left kidney is no longer noted, there are multiple cortical cysts with areas of focal cortical volume loss, axial image 34 at the midpole the left kidn ey, anteriorly at the midpole the right kidney on axial image 39 and inferior pole axial image 43 rig ht kidney, upper pole left kidney, the largest cortical cyst in the right kidney seen on prior exam i s no longer seen REPRODUCTIVE ORGANS: Not seen, interval hysterectomy BOWEL: No significant abnormality is seen. FREE AIR: No Free Air visible. ASCITES: None visible. PELVIC ADENOPATHY: None visualized. RETROPERITONEAL ADENOPATHY: No Retroperitoneal Adenopathy visible. URINARY BLADDER: No significant abnormality is seen. OSSEOUS STRUCTURES: No significant abnormality is seen. IMPRESSION: SUSPECT INTERVAL SURGERY TO THE KIDNEYS. THERE ARE POSTOP CHANGES STATUS POST GASTRIC SLEEVE.
== END | disposition home or self-care (01) ==
LOC: RADCTMAIN 14:51
PROVIDERS: ATTEND Urology
DX: N28.1 Cyst of kidney, acquired (principal); Z98.84 Bariatric surgery status
CPT/HCPCS: 74177; Q9967

== ENCOUNTER 2021-03-09 19:58 | Emergency (ER) | payer BC ==
[2021-03-09 20:29] VITALS: BP 170/90; PULSE 68; RESP 24; TEMP 98.6
--- NOTE | 2021-03-09 20:34 | ED ---
Abdominal Pain HPI - General Stated Complaint: Dizziness Time Seen by Provider: 03/09/21 20:25 - History of Present Illness Initial Comments: Seen for ATP purposes in triage: 40 year-old female patient presents for evaluation of headache x4 days. State she is also having abdominal pain for months. She has been evaluated and they are having difficulty finding a cause. She does have history of migraine headache. States that she has had some dizziness. Reports some light and sound sensitivity. Denies head injury. Numbness, tingling, or weakness to the extremities. Denies any blurred or double vision. She is also reporting easy bruising over the last couple of weeks. Denies history of clotting disorder. Denies any use of blood thinning medications. - Related Data Home Medications Medication Instructions Recorded Confirmed lamoTRIgine [LaMICtal] 50 mg PO HS 07/27/20 09/12/20 Desvenlafaxine Succinate [Pristiq] 50 mg PO HS 09/12/20 09/12/20 Previous Rx's Medication Instructions Recorded Lidocaine 5% Patch [Lidoderm 5% 1 patch TOPICAL DAILY 7 Days #7 11/09/20 Patch] patch Allergies Allergy/AdvReac Type Severity Reaction Status Date / Time cinnamon AdvReac Wheezing Verified 03/09/21 20:29 grass pollen AdvReac Unknown Verified 03/09/21 20:29 sun AdvReac skin Uncoded 03/09/21 20:29 blisters Review of Systems ROS Statement: Those systems with pertinent positive or pertinent negative responses have been documented in the HPI. ROS Other: All systems not noted in ROS Statement are negative. Past Medical History Past Medical History: Eye Disorder, GERD/Reflux, Hearing Disorder / Deafness, Osteoarthritis (OA) Additional Past Medical History / Comment(s): Hx Migraines. Hx Borderline Hyp ertension and Diabetes, no problems post weight loss. HX DYSPHAGIA. Macular Degeneration. Hard of hearing. History of Any Multi-Drug Resistant Organisms: None Reported Past Surgical History: Appendectomy, Bariatric Surgery, Cholecystectomy, Orthopedic Surgery, Tubal Ligation Additional Past Surgical History / Comment(s): BILATERAL Carpal Tunnel Realease. GASTRIC SLEEVE 08/19, LEONCIO-EN-Y 02/19. MULTIPLE EGD's/EGD's W/ DILATION. Panniculectomy, LEEP, bilateral kidney cyst aspirations. lysis of adhesions 4/23/21. Past Anesthesia/Blood Transfusion Reactions: Previous Problems w/ Anesthesia, Motion Sickness, Postoperative Nausea & Vomiting (PONV) Additional Past Anesthesia/Blood Transfusion Reaction / Comment(s): STAYED 2 EXTRA DAYS R/T "ANESTHESIA NOT GETTING OUT OF MY SYSTEM" states takes "a long time to wake up" also "new anesthesia put me in AFIB" Past Psychological History: Depression Smoking Status: Former smoker - Past Family History Father History Unknown: Yes Mother History Unknown: Yes Family Medical History: No Reported History Brother(s) History Unknown: Yes Sister(s) History Unknown: Yes Daughter(s) Family Medical History: No Reported History Son(s) Family Medical History: No Reported History General Exam General appearance: alert, in no apparent distress, other (This is a well- developed, well-nourished adult female in no acute distress) ENT exam: Present: normal exam, normal oropharynx, mucous membranes moist Respiratory exam: Present: normal lung sounds bilaterally. Absent: respiratory distress, wheezes, rales, rhonchi, stridor Cardiovascular Exam: Present: regular rate, normal rhythm, normal heart sounds. Absent: systolic murmur, diastolic murmur, rubs, gallop, clicks GI/Abdominal exam: Present: soft, normal bowel sounds. Absent: distended, tenderness, guarding, rebound, rigid Neurological exam: Present: alert, oriented X3, CN II-XII intact Expanded Speech: Present: fluid speech Cranial nerves: EOM's Intact: Normal, Tongue Deviation: Normal, Nystagmus: Normal Motor strength exam: RUE: 5, LUE: 5, RLE: 5, LLE: 5 Eye Response: (4) open spontaneously Motor Response: (6) obeys commands Verbal Response: (5) oriented [place] Total: 15 Psychiatric exam: Present: normal affect, normal mood Skin exam: Present: warm, dry, intact, normal color. Absent: rash Course Vital Signs 03/09/21 20:25 Temperature 98.6 F Pulse Rate 68 Respiratory 24 Rate Blood Pressure 170/90 O2 Sat by Pulse 100 Oximetry Medical Decision Making - Medical Decision Making Female patient presented for evaluation of headache and abdominal pain. She was seen in the triage aguilar. Labs were drawn, EKG obtained. Patient left the waiting room before she was able to get a bed and complete her care here. - Lab Data Result diagrams: 03/09/21 20:40 03/09/21 20:40 Lab Results 03/09/21 03/09/21 03/09/21 Range/Units 20:40 20:40 20:40 WBC 4.9 (3.8-10.6) k/uL RBC 5.13 (3.80-5.40) m/uL Hgb 15.2 (11.4-16.0) gm/dL Hct 43.6 (34.0-46.0) % MCV 85.0 (80.0-100.0) fL MCH 29.6 (25.0-35.0) pg MCHC 34.8 (31.0-37.0) g/dL RDW 13.4 (11.5-15.5) % Plt Count 218 (150-450) k/uL MPV 7.4 Neutrophils % 63 % Lymphocytes % 25 % Monocytes % 6 % Eosinophils % 2 % Basophils % 1 % Neutrophils # 3.1 (1.3-7.7) k/uL Lymphocytes # 1.2 (1.0-4.8) k/uL Monocytes # 0.3 (0-1.0) k/uL Eosinophils # 0.1 (0-0.7) k/uL Basophils # 0.0 (0-0.2) k/uL PT 10.3 (9.0-12.0) sec INR 1.0 (<1.2) APTT 23.1 (22.0-30.0) sec Sodium (137-145) mmol/L Potassium (3.5-5.1) mmol/L Chloride (98-107) mmol/L Carbon Dioxide (22-30) mmol/L Anion Gap mmol/L BUN (7-17) mg/dL Creatinine (0.52-1.04) mg/dL Est GFR (CKD-EPI)AfAm (>60 ml/min/1.73 sqM) Est GFR (CKD-EPI)NonAf (>60 ml/min/1.73 sqM) Glucose (74-99) mg/dL Calcium (8.4-10.2) mg/dL Total Bilirubin (0.2-1.3) mg/dL AST (14-36) U/L ALT (4-34) U/L Alkaline Phosphatase (38-126) U/L Total Protein (6.3-8.2) g/dL Albumin (3.5-5.0) g/dL Lipase (23-300) U/L Urine Color Yellow Urine Appearance Clear (Clear) Urine pH 6.5 (5.0-8.0) Ur Specific Carbon 1.018 (1.001-1.035) Urine Protein Negative (Negative) Urine Glucose (UA) Negative (Negative) Urine Ketones Negative (Negative) Urine Blood Negative (Negative) Urine Nitrite Negative (Negative) Urine Bilirubin Negative (Negative) Urine Urobilinogen 3.0 (<2.0) mg/dL Ur Leukocyte Esterase Negative (Negative) 03/09/21 Range/Units 20:40 WBC (3.8-10.6) k/uL RBC (3.80-5.40) m/uL Hgb (11.4-16.0) gm/dL Hct (34.0-46.0) % MCV (80.0-100.0) fL MCH (25.0-35.0) pg MCHC (31.0-37.0) g/dL RDW (11.5-15.5) % Plt Count (150-450) k/uL MPV Neutrophils % % Lymphocytes % % Monocytes % % Eosinophils % % Basophils % % Neutrophils # (1.3-7.7) k/uL Lymphocytes # (1.0-4.8) k/uL Monocytes # (0-1.0) k/uL Eosinophils # (0-0.7) k/uL Basophils # (0-0.2) k/uL PT (9.0-12.0) sec INR (<1.2) APTT (22.0-30.0) sec Sodium 140 (137-145) mmol/L Potassium 3.7 (3.5-5.1) mmol/L Chloride 109 H (98-107) mmol/L Carbon Dioxide 24 (22-30) mmol/L Anion Gap 7 mmol/L BUN 11 (7-17) mg/dL Creatinine 0.64 (0.52-1.04) mg/dL Est GFR (CKD-EPI)AfAm >90 (>60 ml/min/1.73 sqM) Est GFR (CKD-EPI)NonAf >90 (>60 ml/min/1.73 sqM) Glucose 126 H (74-99) mg/dL Calcium 8.6 (8.4-10.2) mg/dL Total Bilirubin 0.3 (0.2-1.3) mg/dL AST 34 (14-36) U/L ALT 32 (4-34) U/L Alkaline Phosphatase 157 H (38-126) U/L Total Protein 6.6 (6.3-8.2) g/dL Albumin 3.8 (3.5-5.0) g/dL Lipase 648 H (23-300) U/L Urine Color Urine Appearance (Clear) Urine pH (5.0-8.0) Ur Specific Carbon (1.001-1.035) Urine Protein (Negative) Urine Glucose (UA) (Negative) Urine Ketones (Negative) Urine Blood (Negative) Urine Nitrite (Negative) Urine Bilirubin (Negative) Urine Urobilinogen (<2.0) mg/dL Ur Leukocyte Esterase (Negative) Disposition Clinical Impression: Headache, Abdominal pain Disposition: Left Against Medical Advice Condition: Undetermined Referrals: Yosvany Mccray DO [Primary Care Provider] - 1-2 days
[2021-03-09 21:20] LABS: ALT 32 U/L (4-34); AST 34 U/L (14-36); African American GFR (CKD) >90 (>60 ml/min/1.73 sqM); Albumin 3.8 g/dL (3.5-5.0); Alkaline Phosphatase 157 U/L (38-126); Anion Gap 7 mmol/L; Blood Urea Nitrogen 11 mg/dL (7-17); Calcium 8.6 mg/dL (8.4-10.2); Carbon Dioxide 24 mmol/L (22-30); Chloride 109 mmol/L (98-107); Glucose 126 mg/dL (74-99); Lipase 648 U/L (23-300); Non-African American GFR(CKD) >90 (>60 ml/min/1.73 sqM); Potassium 3.7 mmol/L (3.5-5.1); Sodium 140 mmol/L (137-145); Total Bilirubin 0.3 mg/dL (0.2-1.3); Total Protein 6.6 g/dL (6.3-8.2)
[2021-03-09 21:26] LABS: Basophils % (A) 1 %; Eosinophils # (A) 0.1 k/uL (0-0.7); Eosinophils % (A) 2 %; HCT 43.6 % (34.0-46.0); HGB 15.2 gm/dL (11.4-16.0); Lymphocytes # (A) 1.2 k/uL (1.0-4.8); Lymphocytes % (A) 25 %; MCH 29.6 pg (25.0-35.0); MCHC 34.8 g/dL (31.0-37.0); Mean Platelet Volume 7.4; Monocytes # (A) 0.3 k/uL (0-1.0); Monocytes % (A) 6 %; Neutrophils # (A) 3.1 k/uL (1.3-7.7); Neutrophils % (A) 63 %; Platelet Count 218 k/uL (150-450); RBC 5.13 m/uL (3.80-5.40); RDW 13.4 % (11.5-15.5); WBC 4.9 k/uL (3.8-10.6)
[2021-03-09 21:30] LABS: Partial Thromboplastin Time 23.1 sec (22.0-30.0); Prothrombin Time 10.3 sec (9.0-12.0)
[2021-03-09 21:32] LABS: Appearance,Urine Clear (Clear); Bilirubin,Urine Negative (Negative); Blood,Urine Negative (Negative); Color,Urine Yellow; Glucose,Urine (UA) Negative (Negative); Ketones,Urine Negative (Negative); Leukocyte Esterase,Urine Negative (Negative); Nitrite,Urine Negative (Negative); PH, Urine 6.5 (5.0-8.0); Protein,Urine Negative (Negative); Specific Gravity,Urine 1.018 (1.001-1.035)
== END 2021-03-09 23:38 | disposition left against medical advice (07) ==
LOC: EC 19:58
DX: R51.9 Headache, unspecified (principal); R10.9 Unspecified abdominal pain; K21.9 Gastro-esophageal reflux disease without esophagitis; M19.90 Unspecified osteoarthritis, unspecified site; Z87.891 Personal history of nicotine dependence; Z79.899 Other long term (current) drug therapy
CPT/HCPCS: 36415; 80053; 81003; 83690; 85025; 85610; 85730; 93005; 99284

== ENCOUNTER → 2021-03-20 | Outpatient (CLI) | payer BC ==
[~2021-03-20] MED LIST changes: -ACETAMINOPHEN IV (For NPO) 1,000 MG in EMPTY BAG 1 BAG IVPB PRN; +CYANOCOBALAMIN 1,000 MCG/ML 1 ML VIAL IM ONE; -DEXAMETHASONE SOD PHOSPHATE 4 MG/ML 1 ML VIAL IV ONE; -HYDROmorphone 0.5 MG/0.5 ML SYRINGE IVP PRN; -LIDOCAINE 1% (10MG/ML) FOR IV START INTRADERMA PRN; -MIDAZOLAM 2 MG/2 ML VIAL IV PRN; -ONDANSETRON 4 MG/2 ML VIAL IVP ONE
[2021-03-20 12:12] VITALS: BP 143/83; PULSE 67; RESP 18; TEMP 98.3
== END ==
LOC: PROCWHC3 11:29
PROVIDERS: ATTEND Surgery Plastic and Reconstructive Surgery
DX: D51.9 Vitamin B12 deficiency anemia, unspecified (principal); Z91.018 Allergy to other foods; Z91.09 Other allergy status, other than to drugs and biological substances; Z87.891 Personal history of nicotine dependence
CPT/HCPCS: 96372; J3420

== ENCOUNTER 2021-03-25 09:07 | Day surgery (SDC) | payer BC ==
[2021-03-21 17:01] VITALS: BMI 35.5
--- NOTE | 2021-03-25 08:39 | P.GSHP ---
History of Present Illness H&P Date: 03/25/21 CHIEF COMPLAINT: GERD HISTORY OF PRESENT ILLNESS: The patient is a 40-year-old female who presents reports gastroesophageal reflux disease. Upper endoscopy was offered for further evaluation and management. PAST MEDICAL HISTORY: Please see list. PAST SURGICAL HISTORY: Please see list. MEDICATIONS: Please see list. ALLERGIES: Please see list. SOCIAL HISTORY: No illicit drug use FAMILY HISTORY: No reports of Crohn disease or ulcerative colitis. REVIEW OF ORGAN SYSTEMS: CONSTITUTIONAL: No reports of fevers or chills. GI: Denies any blood in stools or constipation. PHYSICAL EXAM: VITAL SIGNS: Stable GENERAL: Well-developed and pleasant in no acute distress. HEENT: No scleral icterus. Extraocular movements grossly intact. Moist buccal mucosa. NECK: Supple without lymphadenopathy. CHEST: Unlabored respirations. Equal bilateral excursions. CARDIOVASCULAR: Regular rate and rhythm. Distal 2+ pulses. ABDOMEN: Soft, nondistended. MUSCULOSKELETAL: No clubbing, cyanosis, or edema. ASSESSMENT: 1. Gastroesophageal reflux disease PLAN: 1. Recommend proceeding with an upper endoscopy Past Medical History Past Medical History: GERD/Reflux, Hearing Disorder / Deafness, Osteoarthritis (OA) Additional Past Medical History / Comment(s): Hx Migraines. Hx Borderline Hypertension. c/o Dysphagia. Hard of hearing. OA Lt knee. Low iron level, vitamin deficiencies History of Any Multi-Drug Resistant Organisms: None Reported Past Surgical History: Appendectomy, Bariatric Surgery, Cholecystectomy, Hysterectomy, Orthopedic Surgery, Tubal Ligation Additional Past Surgical History / Comment(s): Bilat Carpal Tunnel Release. Gastric Sleeve 08/2015, Michelle-en-Y 02/2017. Multiple EGD's/EGD's w/ dilation. Panniculectomy, LEEP, bilateral kidney cyst aspirations. lysis of adhesions 07/27/20. Past Anesthesia/Blood Transfusion Reactions: Previous Problems w/ Anesthesia, Motion Sickness, Postoperative Nausea & Vomiting (PONV) Additional Past Anesthesia/Blood Transfusion Reaction / Comment(s): STAYED 2 EXTRA DAYS R/T "ANESTHESIA NOT GETTING OUT OF MY SYSTEM" states takes "a long t judy to wake up" also "new anesthesia put me in AFIB" Smoking Status: Former smoker - Past Family History Father History Unknown: Yes Mother History Unknown: Yes Brother(s) History Unknown: Yes Sister(s) History Unknown: Yes Daughter(s) Family Medical History: No Reported History Son(s) Family Medical History: No Reported History Medications and Allergies Home Medications Medication Instructions Recorded Confirmed Type lamoTRIgine [LaMICtal] 100 mg PO HS 07/27/20 03/21/21 History Desvenlafaxine Succinate [Pristiq] 100 mg PO HS 09/12/20 03/21/21 History Acetaminophen [Tylenol Extra 500 - 1,000 mg PO DIRECTED PRN 03/21/21 03/21/21 History Strength] Ascorbic Acid [Vitamin C] 1,000 mg PO HS 03/21/21 03/21/21 History Diclofenac Sodium [Voltaren] 75 mg PO BID PRN 03/21/21 03/21/21 History Ergocalciferol [Vitamin D2 (1250 1,250 mcg PO WE 03/21/21 03/21/21 History Mcg = 40065 Iu)] Ferrous Sulfate [Feosol] 325 mg PO HS 03/21/21 03/21/21 History Ketorolac [Toradol] 10 mg PO Q6HR PRN 03/21/21 03/21/21 History Multivit-Min/Folic Acid/Biotin 2,500 mcg PO HS 03/21/21 03/21/21 History [Hair, Skin and Nails Softgel] SUMAtriptan SUCCINATE [Imitrex] 100 mg PO DIRECTED PRN 03/21/21 03/21/21 History Vitamin A [Vitamin A (8,000 Units 4,800 mcg PO HS 03/21/21 03/21/21 History = 2,400 MCG)] dexAMETHasone 0.75 mg PO DIRECTED 03/21/21 03/21/21 History hydrOXYzine HCL [Atarax] 25 mg PO TID PRN 03/21/21 03/21/21 History Allergies Allergy/AdvReac Type Severity Reaction Status Date / Time cinnamon AdvReac Wheezing Verified 03/21/21 13:48 grass pollen AdvReac Unknown Verified 03/21/21 13:48 sun AdvReac skin Uncoded 03/21/21 13:48 blisters
[~2021-03-25 09:07] MED LIST changes: -CYANOCOBALAMIN 1,000 MCG/ML 1 ML VIAL IM ONE; +LACTATED RINGERS 1,000 ML IV SCH
[2021-03-25 09:38] VITALS: TEMP 97.6
[2021-03-25 09:43] LABS: Glucose,Whole Blood 87 mg/dL (75-99)
[2021-03-25] MEDS ORDERED: PROPOFOL 10 MG/ML 20 ML VIAL IV ONE (10:22)
[2021-03-25] MEDS ORDERED: LIDOCAINE 1% INJ 10MG/ML (20 ML MDV) ONE (10:22)
[2021-03-25 10:42] VITALS: RESP 14
--- NOTE | 2021-03-25 10:44 | P.PCN ---
Date of Procedure: 03/25/21 Description of Procedure: PREOPERATIVE DIAGNOSIS: Dysphagia. Substernal pain Epigastric abdominal pain Nausea with vomiting. POSTOPERATIVE DIAGNOSIS: Dysphagia. Substernal pain Epigastric abdominal pain Nausea with vomiting. Esophageal stricture OPERATION: Esophagogastrojejunoscopy with rigid dilatation, 57 Fr SURGEON: Monalisa Araiza MD ANESTHESIA: MAC. INDICATIONS: The patient is a 40-year-old female who presents with a history of dysphagia, nausea and vomiting, substernal epigastric abdominal pain. Benefits and risks of the procedure were described. Informed consent was obtained. DESCRIPTION: The patient was brought into the endoscopy suite and laid in the left lateral decubitus position. After a timeout was confirmed, the procedure was initiated. An Olympus gastroscope was passed along the posterior oropharynx down to the distal esophagus where the squamocolumnar junction was unremarkable. The gastric pouch was entered. Additional findings below. Esophageal dysmotility was found as the adult gastroscope was 9.5 mm in size. A guidewire was placed through the scope. The scope was removed. A rigid dilator 57-Syriac placed for dilation performed for 2 minutes. The patient tolerated the procedure well. FINDINGS: Upper esophageal stricture/esophageal dysmotility addressed with rigid dilator, 57-Syriac Early chronic gastrojejunal ulceration encountered. RECOMMENDATIONS: Discontinue nonsteroidal anti-inflammatory drugs Omeprazole 40 mg daily for 2 weeks Plan - Discharge Summary Discharge Rx Participant: No New Discharge Prescriptions: New Omeprazole [PriLOSEC] 40 mg PO DAILY #14 cap Continue lamoTRIgine [LaMICtal] 100 mg PO HS Acetaminophen [Tylenol Extra Strength] 500 - 1,000 mg PO DIRECTED PRN PRN Reason: Pain Ergocalciferol [Vitamin D2 (1250 Mcg = 13604 Iu)] 1,250 mcg PO WE Ferrous Sulfate [Iron (65 MG Elemental)] 325 mg PO HS hydrOXYzine HCL [Atarax] 25 mg PO TID PRN PRN Reason: Panic attack, Anxiety Desvenlafaxine Succinate [Pristiq] 100 mg PO HS Ascorbic Acid [Vitamin C] 1,000 mg PO HS Multivit-Min/Folic Acid/Biotin [Hair, Skin and Nails Softgel] 2,500 mcg PO HS SUMAtriptan SUCCINATE [Imitrex] 100 mg PO DIRECTED PRN PRN Reason: Migraine Headache Vitamin A [Vitamin A (8,000 Units = 2,400 MCG)] 4,800 mcg PO HS dexAMETHasone 0.75 mg PO DIRECTED Discontinued Diclofenac Sodium [Voltaren] 75 mg PO BID PRN PRN Reason: Pain Ketorolac [Toradol] 10 mg PO Q6HR PRN PRN Reason: kidney pain Discharge Medication List lamoTRIgine [LaMICtal] 100 mg PO HS 07/27/20 [History] Desvenlafaxine Succinate [Pristiq] 100 mg PO HS 09/12/20 [History] Acetaminophen [Tylenol Extra Strength] 500 - 1,000 mg PO DIRECTED PRN 03/21/21 [History] Ascorbic Acid [Vitamin C] 1,000 mg PO HS 03/21/21 [History] Ergocalciferol [Vitamin D2 (1250 Mcg = 60060 Iu)] 1,250 mcg PO WE 03/21/21 [History] Ferrous Sulfate [Iron (65 MG Elemental)] 325 mg PO HS 03/21/21 [History] Multivit-Min/Folic Acid/Biotin [Hair, Skin and Nails Softgel] 2,500 mcg PO HS 03/21/21 [History] SUMAtriptan SUCCINATE [Imitrex] 100 mg PO DIRECTED PRN 03/21/21 [History] Vitamin A [Vitamin A (8,000 Units = 2,400 MCG)] 4,800 mcg PO HS 03/21/21 [History] dexAMETHasone 0.75 mg PO DIRECTED 03/21/21 [History] hydrOXYzine HCL [Atarax] 25 mg PO TID PRN 03/21/21 [History] Omeprazole [PriLOSEC] 40 mg PO DAILY #14 cap 03/25/21 [Rx] Follow up Appointment(s[facility] [place] [facility] - [facility] Patient Instructions/Handouts: Diet for Stomach Ulcers and Gastritis (ED), Esophageal Dilation (DC) Activity/Diet/Wound Care/Special Instructions: Avoid NSAIDs for ulcers Discharge Disposition: HOME SELF-CARE
[2021-03-25 10:59] VITALS: PULSE 54
[2021-03-25 11:10] VITALS: BP 150/86
== END 2021-03-25 11:35 | disposition home or self-care (01) ==
LOC: ORWHC2ENDO 09:07
PROVIDERS: ATTEND Surgery Plastic and Reconstructive Surgery
DX: K22.2 Esophageal obstruction (principal); K28.9 Gastrojejunal ulcer, unspecified as acute or chronic, without hemorrhage or perforation; K21.9 Gastro-esophageal reflux disease without esophagitis; H91.90 Unspecified hearing loss, unspecified ear; M19.90 Unspecified osteoarthritis, unspecified site; E61.1 Iron deficiency; Z90.49 Acquired absence of other specified parts of digestive tract; Z98.84 Bariatric surgery status; Z90.710 Acquired absence of both cervix and uterus; Z98.51 Tubal ligation status; Z98.890 Other specified postprocedural states; Z87.891 Personal history of nicotine dependence; Z79.899 Other long term (current) drug therapy; Z91.018 Allergy to other foods; Z91.09 Other allergy status, other than to drugs and biological substances
CPT/HCPCS: 43248; J2001; J2704; 43249

== ENCOUNTER 2022-02-10 08:20 | Day surgery (SDC) | payer BC ==
--- NOTE | 2022-02-10 05:03 | P.GSHP ---
History of Present Illness H&P Date: 02/10/22 CHIEF COMPLAINT: GERD HISTORY OF PRESENT ILLNESS: The patient is a 41-year-old female who presents reports gastroesophageal reflux disease. Upper endoscopy was offered for further evaluation and management. PAST MEDICAL HISTORY: Please see list. PAST SURGICAL HISTORY: Please see list. MEDICATIONS: Please see list. ALLERGIES: Please see list. SOCIAL HISTORY: No illicit drug use FAMILY HISTORY: No reports of Crohn disease or ulcerative colitis. REVIEW OF ORGAN SYSTEMS: CONSTITUTIONAL: No reports of fevers or chills. GI: Denies any blood in stools or constipation. PHYSICAL EXAM: VITAL SIGNS: Stable GENERAL: Well-developed and pleasant in no acute distress. HEENT: No scleral icterus. Extraocular movements grossly intact. Moist buccal mucosa. NECK: Supple without lymphadenopathy. CHEST: Unlabored respirations. Equal bilateral excursions. CARDIOVASCULAR: Regular rate and rhythm. Distal 2+ pulses. ABDOMEN: Soft, nondistended. MUSCULOSKELETAL: No clubbing, cyanosis, or edema. ASSESSMENT: 1. Gastroesophageal reflux disease PLAN: 1. Recommend proceeding with an upper endoscopy Past Medical History Past Medical History: Eye Disorder, GERD/Reflux, Hearing Disorder / Deafness, Osteoarthritis (OA) Additional Past Medical History / Comment(s): Hx Migraines. Hx Borderline Hypertension and Diabetes, no problems post weight loss. HX DYSPHAGIA. Macular Degeneration. Hard of hearing. OA bilateral knees, cycst on kidney. pain with eating and food getting stuck History of Any Multi-Drug Resistant Organisms: None Reported Past Surgical History: Appendectomy, Bariatric Surgery, Cholecystectomy, Hysterectomy, Orthopedic Surgery, Tubal Ligation Additional Past Surgical History / Comment(s): BILATERAL Carpal Tunnel Realease. GASTRIC SLEEVE 08/19, LEONCIO-EN-Y 02/19. MULTIPLE EGD's/EGD's W/ DILATION. Panniculectomy, LEEP, bilateral kidney cyst aspirations. lysis of adhesions 07/27/20. Past Anesthesia/Blood Transfusion Reactions: Previous Problems w/ Anesthesia, Motion Sickness, Postoperative Nausea & Vomiting (PONV) Additional Past Anesthesia/Blood Transfusion Reaction / Comment(s): STAYED 2 EXTRA DAYS R/T "ANESTHESIA NOT GETTING OUT OF MY SYSTEM" states takes "a long time to wake up" also "new anesthesia put me in AFIB" Smoking Status: Former smoker - Past Family History Father History Unknown: Yes Mother History Unknown: Yes Brother(s) History Unknown: Yes Sister(s) History Unknown: Yes Daughter(s) Family Medical History: No Reported History Son(s) Family Medical History: No Reported History Medications and Allergies Home Medications Medication Instructions Recorded Confirmed Type lamoTRIgine [LaMICtal] 200 mg PO BID 07/27/20 02/05/22 History Desvenlafaxine Succinate [Pristiq] 100 mg PO HS 09/12/20 02/05/22 History Acetaminophen [Tylenol Extra 500 - 1,000 mg PO DIRECTED PRN 03/21/21 02/05/22 History Strength] Ascorbic Acid [Vitamin C] 1,000 mg PO HS 03/21/21 02/05/22 History Ergocalciferol [Vitamin D2 (1250 1,250 mcg PO WE 03/21/21 02/05/22 History Mcg = 25850 Iu)] Ferrous Sulfate [Iron (65 MG 325 mg PO HS 03/21/21 02/05/22 History Elemental)] Multivit-Min/Folic Acid/Biotin 2,500 mcg PO HS 03/21/21 02/05/22 History [Hair, Skin and Nails Softgel] SUMAtriptan succinate [Imitrex] 100 mg PO DIRECTED PRN 03/21/21 02/05/22 History Vitamin A [Vitamin A (8,000 Units 4,800 mcg PO HS 03/21/21 02/05/22 History = 2,400 MCG)] hydrOXYzine HCL [Atarax] 25 mg PO TID PRN 03/21/21 02/05/22 History Omeprazole [PriLOSEC] 20 mg PO DAILY 01/15/22 02/05/22 History Allergies Allergy/AdvReac Type Severity Reaction Status Date / Time cinnamon AdvReac Wheezing Verified 02/05/22 18:10 grass pollen AdvReac Unknown Verified 02/05/22 18:10 sun AdvReac skin Uncoded 02/05/22 18:10 blisters
[2022-02-10 09:19] LABS: Glucose,Whole Blood 94 mg/dL (70-110)
[2022-02-10] MEDS ORDERED: LACTATED RINGERS 1,000 ML IV ONE (09:20)
[2022-02-10 09:23] VITALS: TEMP 97.4
[2022-02-10] MEDS ORDERED: PROPOFOL 10 MG/ML 20 ML VIAL IV ONE (09:27)
[2022-02-10 09:50] VITALS: RESP 18
[2022-02-10 10:01] VITALS: BP 140/74; PULSE 66
--- NOTE | 2022-02-10 10:18 | P.PCN ---
Date of Procedure: 02/10/22 Description of Procedure: PREOPERATIVE DIAGNOSES: 1. Gastroesophageal reflux disease 2. History of gastric ulcer 3. History of Michelle-en-Y gastric bypass 4. Epigastric abdominal pain. POSTOPERATIVE DIAGNOSES: 1. Gastroesophageal reflux disease 2. History of gastric ulcer 3. History of Michelle-en-Y gastric bypass 4. Epigastric abdominal pain. PROCEDURE PERFORMED: Esophagogastrojejunoscopy with biopsies of jejunum SURGEON: Monalisa Araiza MD ANESTHESIA: MAC. INDICATIONS: The patient is a 41-year-old female with prior history of Michelle-en-Y gastric bypass. She presents with intermittent nausea and vomiting, particularly of the epigastric abdominal pain. With her history of Michelle-en-Y gastric bypass, upper endoscopy was offered for further evaluation and management. Benefits and risks described. Informed consent was obtained. DESCRIPTION: Patient was brought to the endoscopy suite and laid in the left lateral decubitus position. After adequate IV sedation, a bite block was placed. An Olympus gastroscope was passed along the posterior oropharynx down to the distal esophagus where the squamocolumnar junction was found at approximately 33 cm from the incisors. The diaphragmatic hiatus was found at 38 cm from the incisors. Her anastomosis was found at 41 cm, consistent with approximately 3 cm gastric pouch. No evidence of foreign body was found. No gastrojejunal ulceration acute on chronic without bleeding was encountered. Biopsies along the gastric pouch. The scope was passed to 60 cm of the Michelle limb. No remnant of blind jejunal limb was retained. The GI tract was desufflated. The patient tolerated the procedure well. FINDINGS: 1. No gastrojejunal ulceration of 5 mm. 2. No foreign body found along the anastomosis. 3. No elongated jejunal blind pouch. 4. Squamocolumnar junction at 35 cm from the incisors. 5. Diaphragmatic hiatus at 38 cm from the incisors. 6. Gastric pouch 3 cm. 7. Anastomosis widely patent PLAN: 1. Upper endoscopy as needed Plan - Discharge Summary Discharge Rx Participant: No New Discharge Prescriptions: New Omeprazole [PriLOSEC] 40 mg PO DAILY #14 cap Continue lamoTRIgine [LaMICtal] 200 mg PO BID Acetaminophen [Tylenol Extra Strength] 500 - 1,000 mg PO DIRECTED PRN PRN Reason: Pain Ergocalciferol [Vitamin D2 (1250 Mcg = 86137 Iu)] 1,250 mcg PO WE Ferrous Sulfate [Iron (65 MG Elemental)] 325 mg PO HS hydrOXYzine HCL [Atarax] 25 mg PO TID PRN PRN Reason: Panic attack, Anxiety Desvenlafaxine Succinate [Pristiq] 100 mg PO HS Ascorbic Acid [Vitamin C] 1,000 mg PO HS Multivit-Min/Folic Acid/Biotin [Hair, Skin and Nails Softgel] 2,500 mcg PO HS SUMAtriptan succinate [Imitrex] 100 mg PO DIRECTED PRN PRN Reason: Migraine Headache Vitamin A [Vitamin A (8,000 Units = 2,400 MCG)] 4,800 mcg PO HS Discontinued Omeprazole [PriLOSEC] 20 mg PO DAILY Discharge Medication List lamoTRIgine [LaMICtal] 200 mg PO BID 07/27/20 [History] Desvenlafaxine Succinate [Pristiq] 100 mg PO HS 09/12/20 [History] Acetaminophen [Tylenol Extra Strength] 500 - 1,000 mg PO DIRECTED PRN 03/21/21 [History] Ascorbic Acid [Vitamin C] 1,000 mg PO HS 03/21/21 [History] Ergocalciferol [Vitamin D2 (1250 Mcg = 85922 Iu)] 1,250 mcg PO WE 03/21/21 [History] Ferrous Sulfate [Iron (65 MG Elemental)] 325 mg PO HS 03/21/21 [History] Multivit-Min/Folic Acid/Biotin [Hair, Skin and Nails Softgel] 2,500 mcg PO HS 03/21/21 [History] SUMAtriptan succinate [Imitrex] 100 mg PO DIRECTED PRN 03/21/21 [History] Vitamin A [Vitamin A (8,000 Units = 2,400 MCG)] 4,800 mcg PO HS 03/21/21 [History] hydrOXYzine HCL [Atarax] 25 mg PO TID PRN 03/21/21 [History] Omeprazole [PriLOSEC] 40 mg PO DAILY #14 cap 02/10/22 [Rx] Follow up App[facility]ment(s)/Ref[facility] [place] [facility] - 02/19/22 Patient Instructions/Handouts: Upper Endoscopy (DC) Discharge Disposition: HOME SELF-CARE
== END 2022-02-10 10:28 | disposition home or self-care (01) ==
LOC: ORWHC2ENDO 08:20
PROVIDERS: ATTEND Surgery Plastic and Reconstructive Surgery
DX: K63.89 Other specified diseases of intestine (principal); K44.9 Diaphragmatic hernia without obstruction or gangrene; K31.4 Gastric diverticulum; K21.9 Gastro-esophageal reflux disease without esophagitis; M19.90 Unspecified osteoarthritis, unspecified site; H57.9 Unspecified disorder of eye and adnexa; K91.0 Vomiting following gastrointestinal surgery; H91.90 Unspecified hearing loss, unspecified ear; Z90.49 Acquired absence of other specified parts of digestive tract; Z90.710 Acquired absence of both cervix and uterus; Z98.84 Bariatric surgery status; Z98.890 Other specified postprocedural states; Z98.51 Tubal ligation status; Z87.891 Personal history of nicotine dependence; Z91.048 Other nonmedicinal substance allergy status
CPT/HCPCS: 43239; J2704; 88305

== ENCOUNTER → 2022-03-07 | Outpatient (CLI) | payer BC ==
--- NOTE | 2022-03-07 11:49 | FL ---
EXAMINATION TYPE: FL barium swallow DATE OF EXAM: 03/07/2022 COMPARISON: None HISTORY: Token and water, hunger pains, status post Michelle-en-Y 2017. Weight loss and weight gain TECHNIQUE: Single contrast technique is utilized to evaluate the esophagus and upper GI anastomosis. FINDINGS: Fluoroscopy time: 35 seconds Images: 257 Esophagus dilation normal caliber and is normal contour to the gastroesophageal junction. Gastroesoph ageal junction opens normal caliber. No focal stenosis is evident. There is complete stripping esopha geal bolus in the horizontal drinking position. However, on the right lateral oblique view otherwise has tendency of clearing the bolus during swallowing in the upright position and not reproduced later in the exam. Michelle-en-Y appears widely patent with no hesitancy of contrast passing through to the small bowel. IMPRESSION: 1. No discrete abnormality to account for patient's symptoms. 2. No focal stenosis is evident.
== END | disposition home or self-care (01) ==
LOC: RADUSWWP 10:40
PROVIDERS: ATTEND Surgery Plastic and Reconstructive Surgery
DX: R13.10 Dysphagia, unspecified (principal); Z98.84 Bariatric surgery status
CPT/HCPCS: 74220

== ENCOUNTER → 2022-11-13 | Outpatient (CLI) | payer BC ==
--- NOTE | 2022-11-13 08:44 | US ---
EXAMINATION TYPE: US abdomen limited DATE OF EXAM: 11/13/2022 COMPARISON: CT abdomen and pelvis 02/05/2021 CLINICAL INDICATION: Female, 42 years old with history of R10.31 RT LOWER QUAD PAIN; patient has hist ory of bariatric surgery and has noticed RLQ pain and bulging sensation that comes and goes. She does not feel it at time of exam, does have some RLQ pain Assess for hernia at location of: Right lower quadrant Soft tissue scan of RLQ at area of concern produces no focal abnormality. With valsalva, no break in the abdominal sheath was seen. Incidentally, right ovarian cyst seen = 2.5 x 2.1 x 1.5cm IMPRESSION: 1. No ultrasound evidence for hernia within the right lower quadrant. 2. Incidental right ovarian 2.5 cm follicular cyst.
== END | disposition home or self-care (01) ==
LOC: RADUSWWP 08:01
PROVIDERS: ATTEND Surgery Plastic and Reconstructive Surgery
DX: N83.01 Follicular cyst of right ovary (principal); R10.31 Right lower quadrant pain
CPT/HCPCS: 76705

== ENCOUNTER → 2022-12-03 | Outpatient (CLI) | payer BC ==
[2022-12-03 15:48] VITALS: BP 130/84; PULSE 69; TEMP 98.3; BMI 39.4
--- NOTE | 2022-12-03 16:06 | P.BASOAP ---
Subjective Progress Note Date: 12/03/22 US shows no ohernia. SHe has persisitent abdominal pain R lateral abdeomne. History of scar tissue. Recommend Lysis of adhesions. Objective - Vital Signs Vital signs: Vital Signs Temp 98.3 F 12/03/22 15:45 Pulse 69 12/03/22 15:45 Resp BP 130/84 12/03/22 15:45 Pulse Ox FiO2 Intake & Output 12/02/22 12/03/22 12/03/22 18:59 06:59 18:59 Weight 106.866 kg Assessment/Plan Plan: Date: 12/03/22 Initial Weight: 134.173 kg Initial BMI: 49.6 Current Weight: 106.866 kg Current BMI: 39.4 Type of Surgery: Total Volume in Band: Previous Volume: Volume Removed: Volume Added: Band Size:
== END ==
LOC: BARWHC3 15:14
PROVIDERS: ATTEND Surgery Plastic and Reconstructive Surgery
DX: Z53.9 Procedure and treatment not carried out, unspecified reason (principal)
CPT/HCPCS: 99211

== ENCOUNTER 2023-02-14 15:21 | Inpatient (IN) | payer BC ==
--- NOTE | 2023-02-14 16:27 | ED ---
Psych HPI - General Chief Complaint: Psychiatric Symptoms Stated Complaint: Suicidal thoughts Time Seen by Provider: 02/14/23 15:30 Source: patient, family, RN notes reviewed Mode of arrival: ambulatory - History of Present Illness Initial Comments: 42-year-old female with a history depression and history of cutting who is here today for evaluation for suicidal thoughts she is had thoughts of overdosing on sleeping medication. She states this is a chronic condition of last several weeks at least probably longer but she denies any alcohol or drugs. MD Complaint: suicidal ideation, feels depressed - Related Data Home Medications Medication Instructions Recorded Confirmed Vicks Zzzquil Ultra 1 tab PO HS 02/14/23 02/14/23 Previous Rx's Medication Instructions Recorded DULoxetine HCL [Cymbalta] 90 mg PO DAILY 30 Days #90 cap 02/20/23 buPROPion HCL [Wellbutrin XL] 150 mg PO DAILY 30 Days #30 tab 02/20/23 traZODone HCL [Desyrel] 100 mg PO HS 30 Days #60 tab 02/20/23 Allergies Allergy/AdvReac Type Severity Reaction Status Date / Time cinnamon Allergy Wheezing Verified 02/14/23 21:31 grass pollen AdvReac Unknown Verified 02/14/23 21:30 sun AdvReac skin Uncoded 02/14/23 21:31 blisters Review of Systems ROS Statement: Those systems with pertinent positive or pertinent negative responses have been documented in the HPI. ROS Other: All systems not noted in ROS Statement are negative. Past Medical History Past Medical History: Eye Disorder, GERD/Reflux, Hearing Disorder / Deafness, Osteoarthritis (OA) Additional Past Medical History / Comment(s): Hx Migraines. Hx Borderline Hypertension and Diabetes, no problems post weight loss. HX DYSPHAGIA. Macular Degeneration. Hard of hearing. OA bilateral knees, cyst on kidney. pain with eating and food getting stuck History of Any Multi-Drug Resistant Organisms: None Reported Past Surgical History: Appendectomy, Bariatric Surgery, Cholecystectomy, Hysterectomy, Orthopedic Surgery, Tubal Ligation Additional Past Surgical History / Comment(s): BILATERAL Carpal Tunnel Realease. GASTRIC SLEEVE 08/19, LEONCIO-EN-Y 02/19. MULTIPLE EGD's/EGD's W/ DILATION. Panniculectomy, LEEP, bilateral kidney cyst aspirations. lysis of adhesions 07/27/20. Past Anesthesia/Blood Transfusion Reactions: Previous Problems w/ Anesthesia, Motion Sickness, Postoperative Nausea & Vomiting (PONV) Additional Past Anesthesia/Blood Transfusion Reaction / Comment(s): STAYED 2 EXTRA DAYS R/T "ANESTHESIA NOT GETTING OUT OF MY SYSTEM" states takes "a long time to wake up" also "new anesthesia put me in AFIB" Past Psychological History: Depression Smoking Status: Former smoker Past Alcohol Use History: None Reported Past Drug Use History: None Reported - Past Family History Father History Unknown: Yes Mother History Unknown: Yes Family Medical History: No Reported History Brother(s) History Unknown: Yes Sister(s) History Unknown: Yes Daughter(s) Family Medical History: No Reported History Son(s) Family Medical History: No Reported History General Exam - General Exam Comments Initial Comments: This is a well-developed well-nourished awake alert oriented 4 female Limitations: no limitations General appearance: alert, in no apparent distress Head exam: Present: atraumatic, normocephalic, normal inspection Eye exam: Present: normal appearance, PERRL, EOMI. Absent: scleral icterus, conjunctival injection, periorbital swelling ENT exam: Present: normal exam, mucous membranes moist Neck exam: Present: normal inspection, full ROM. Absent: tenderness, meningismus, lymphadenopathy Respiratory exam: Present: normal lung sounds bilaterally. Absent: respiratory distress, wheezes, rales, rhonchi, stridor Cardiovascular Exam: Present: regular rate, normal rhythm, normal heart sounds. Absent: systolic murmur, diastolic murmur, rubs, gallop, clicks GI/Abdominal exam: Present: normal bowel sounds. Absent: distended, tenderness, guarding, rebound, rigid Extremities exam: Present: normal inspection, full ROM, normal capillary refill. Absent: tenderness, pedal edema, joint swelling, calf tenderness Back exam: Present: normal inspection Neurological exam: Present: alert, oriented X3, CN II-XII intact Psychiatric exam: Present: depressed, flat affect, suicidal ideation Skin exam: Present: warm, dry, intact, normal color. Absent: rash Course Vital Signs 02/14/23 02/15/23 02/15/23 15:24 06:17 11:00 Temperature 97.8 F 98.2 F 98.7 F Pulse Rate 68 74 87 Respiratory 16 18 18 Rate Blood Pressure 157/90 120/74 141/87 O2 Sat by Pulse 100 100 98 Oximetry 02/16/23 02/16/23 02/16/23 06:00 12:28 18:10 Temperature 98 F 98.6 F 98.2 F Pulse Rate 60 84 87 Respiratory 17 18 18 Rate Blood Pressure 108/61 150/67 118/89 O2 Sat by Pulse 98 98 100 Oximetry - Reevaluation(s) Reevaluation #1: 02/14/23 20:57 The patient was evaluated by the EPS service she was found to be a risk to herself she is suicidal she had told the EPS nurse that she would/her wrists. A petition is been filled out at this time. Patient is pending placement and possible transfer to a another facility. Reevaluation #2: 02/14/23 21:00 She'll be endorsed to Dr. Bermudez at our shift change. Medical Decision Making - Medical Decision Making Patient was evaluated by the EPS service found to be wrist herself and is suicidal and depressed. She has threatened to slash her wrists per EPS room service associate Kayce. Patient initially told me that she would overdose on her medications. She is pending transfer at this time. She is being petitioned.Was pt. sent in by a medical professional or institution (, PA, CREDIT ASSOCIATE, urgent care, hospital, or halfway...) When possible be specific @ -[No] Did you speak to anyone other than the patient for history (EMS, parent, family, police, friend...)? What history was obtained from this source @ -[Family] Did you review nursing and triage notes (agree or disagree)? Why? @ -[I reviewed and agree with nursing and triage notes] Were old charts reviewed (outside hosp., previous admission, EMS record, old EK G, old radiological studies, urgent care reports/EKG's, halfway records)? Report findings @ -[No old charts were reviewed] Differential Diagnosis (chest pain, altered mental status, abdominal pain women, abdominal pain men, vaginal bleeding, weakness, fever, dyspnea, syncope, headache, dizziness, GI bleed, back pain, seizure, CVA, palpatations, mental he alth, musculoskeletal)? @ -[Depression, suicidal ideation] EKG interpreted by me (3pts min.). @ -[Done] X-rays interpreted by me (1pt min.). @ -[None done] CT interpreted by me (1pt min.). @ -[None done] U/S interpreted by me (1pt. min.). @ -[None done] What testing was considered but not performed or refused? (CT, X-rays, U/S, labs)? Why? @ -[None] What meds were considered but not given or refused? Why? @ -[None] Did you discuss the management of the patient with other professionals (professionals i.e. , PA, CREDIT ASSOCIATE, lab, RT, psych nurse, social media job titles, panel coverer, teacher, correction officer, case assembler)? Give summary @ -[No] Was smoking cessation discussed for >3mins.? @ -[No] Was critical care preformed (if so, how long)? @ -[No] Were there social determinants of health that impacted care today? How? (Homelessness, low income, unemployed, alcoholism, drug addiction, transportation, low edu. Level, literacy, decrease access to med. care, [facility], rehab)? @ -[No] Was there de-escalation of care discussed even if they declined (Discuss DNR or withdrawal of care, Hospice)? DNR status @ -[No] What co-morbidities impacted this encounter? (DM, HTN, Smoking, COPD, CAD, Cancer, CVA, ARF, Chemo, Hep., AIDS, mental health diagnosis, sleep apnea, morbid obesity)? @ -[Pression] Was patient admitted / discharged? Hospital course, mention meds given and route, prescriptions, significant lab abnormalities, going to OR and other pertinent info. @ -[hospital course] Undiagnosed new problem with uncertain prognosis? @ -[No] Drug Therapy requiring intensive monitoring for toxicity (Heparin, Nitro, Insulin, Cardizem)? @ -[No] Were any procedures done? @ -[No] Diagnosis/symptom? @ -[Or depression, suicidal ideation] Acute, or Chronic, or Acute on Chronic? @ -[Acute on chronic chronic] Uncomplicated (without systemic symptoms) or Complicated (systemic symptoms)? @ -[default] Side effects of treatment? @ -[No] Exacerbation, Progression, or Severe Exacerbation? @ -[No] Poses a threat to life or bodily function? How? (Chest pain, USA, AR, pneumonia, PE, COPD, DKA, ARF, appy, cholecystitis, CVA, Diverticulitis, Homicidal, Suicidal, threat to staff... and all critical care pts) @ -[No] - Lab Data Result diagrams: 02/14/23 21:22 02/14/23 21:22 Lab Results 02/14/23 02/14/23 02/14/23 Range/Units 16:33 16:33 21:22 WBC 5.4 (3.8-10.6) k/uL RBC 4.74 (3.80-5.40) m/uL Hgb 14.1 (11.4-16.0) gm/dL Hct 39.9 (34.0-46.0) % MCV 84.1 (80.0-100.0) fL MCH 29.7 (25.0-35.0) pg MCHC 35.3 (31.0-37.0) g/dL RDW 13.5 (11.5-15.5) % Plt Count 187 (150-450) k/uL MPV 7.2 Sodium (137-145) mmol/L Potassium (3.5-5.1) mmol/L Chloride (98-107) mmol/L Carbon Dioxide (22-30) mmol/L Anion Gap mmol/L BUN (7-17) mg/dL Creatinine (0.52-1.04) mg/dL Est GFR (CKD-EPI)AfAm (>60 ml/min/1.73 sqM) Est GFR (CKD-EPI)NonAf (>60 ml/min/1.73 sqM) Glucose (74-99) mg/dL Calcium (8.4-10.2) mg/dL Total Bilirubin (0.2-1.3) mg/dL AST (14-36) U/L ALT (4-34) U/L Alkaline Phosphatase (38-126) U/L Total Protein (6.3-8.2) g/dL Albumin (3.5-5.0) g/dL Urine Color Colorless Urine Appearance Clear (Clear) Urine pH 6.0 (5.0-8.0) Ur Specific [place] 1.014 (1.001-1.035) Urine Protein Negative (Negative) Urine Glucose (UA) Negative (Negative) Urine Ketones Negative (Negative) Urine Blood Negative (Negative) Urine Nitrite Negative (Negative) Urine Bilirubin Negative (Negative) Urine Urobilinogen <2.0 (<2.0) mg/dL Ur Leukocyte Esterase Negative (Negative) Urine Opiates Screen Not Detected (NotDetected) Ur Oxycodone Screen Not Detected (NotDetected) Urine Methadone Screen Not Detected (NotDetected) Ur Propoxyphene Screen Not Detected (NotDetected) Ur Barbiturates Screen Not Detected (NotDetected) U Tricyclic Antidepress Not Detected (NotDetected) Ur Phencyclidine Scrn Not Detected (NotDetected) Ur Amphetamines Screen Not Detected (NotDetected) U Methamphetamines Scrn Not Detected (NotDetected) U Benzodiazepines Scrn Not Detected (NotDetected) Urine Cocaine Screen Not Detected (NotDetected) U Marijuana (THC) Screen Not Detected (NotDetected) Coronavirus (PCR) (Not Detectd) 02/14/23 02/14/23 Range/Units 21:22 21:22 WBC (3.8-10.6) k/uL RBC (3.80-5.40) m/uL Hgb (11.4-16.0) gm/dL Hct (34.0-46.0) % MCV (80.0-100.0) fL MCH (25.0-35.0) pg MCHC (31.0-37.0) g/dL RDW (11.5-15.5) % Plt Count (150-450) k/uL MPV Sodium 140 (137-145) mmol/L Potassium 3.7 (3.5-5.1) mmol/L Chloride 109 H (98-107) mmol/L Carbon Dioxide 23 (22-30) mmol/L Anion Gap 8 mmol/L BUN 11 (7-17) mg/dL Creatinine 0.95 (0.52-1.04) mg/dL Est GFR (CKD-EPI)AfAm 85 (>60 ml/min/1.73 sqM) Est GFR (CKD-EPI)NonAf 74 (>60 ml/min/1.73 sqM) Glucose 187 H (74-99) mg/dL Calcium 8.8 (8.4-10.2) mg/dL Total Bilirubin 0.4 (0.2-1.3) mg/dL AST 25 (14-36) U/L ALT 25 (4-34) U/L Alkaline Phosphatase 108 (38-126) U/L Total Protein 6.3 (6.3-8.2) g/dL Albumin 3.7 (3.5-5.0) g/dL Urine Color Urine Appearance (Clear) Urine pH (5.0-8.0) Ur Specific [place] (1.001-1.035) Urine Protein (Negative) Urine Glucose (UA) (Negative) Urine Ketones (Negative) Urine Blood (Negative) Urine Nitrite (Negative) Urine Bilirubin (Negative) Urine Urobilinogen (<2.0) mg/dL Ur Leukocyte Esterase (Negative) Urine Opiates Screen (NotDetected) Ur Oxycodone Screen (NotDetected) Urine Methadone Screen (NotDetected) Ur Propoxyphene Screen (NotDetected) Ur Barbiturates Screen (NotDetected) U Tricyclic Antidepress (NotDetected) Ur Phencyclidine Scrn (NotDetected) Ur Amphetamines Screen (NotDetected) U Methamphetamines Scrn (NotDetected) U Benzodiazepines Scrn (NotDetected) Urine Cocaine Screen (NotDetected) U Marijuana (THC) Screen (NotDetected) Coronavirus (PCR) Not Detected (Not Detectd) Disposition Clinical Impression: Depression, Suicidal ideation Disposition: ADMITTED IP TO THIS [facility] Condition: Stable
[2023-02-14 17:38] LABS: Amphetamine Screen,Urine Not Detected (NotDetected); Barbiturate Screen,Urine Not Detected (NotDetected); Benzodiazepines Screen,Urine Not Detected (NotDetected); Cocaine Screen,Urine Not Detected (NotDetected); Methadone Screen, Urine Not Detected (NotDetected); Opiate Screen,Urine Not Detected (NotDetected); Oxycodone Screen, Urine Not Detected (NotDetected); Phencyclidine Screen,Urine Not Detected (NotDetected); Tricyclic Antidepressant,Urine Not Detected (NotDetected); Urn Cannabinoid Scrn Not Detected (NotDetected)
[2023-02-14 22:04] LABS: HCT 39.9 % (34.0-46.0); HGB 14.1 gm/dL (11.4-16.0); MCH 29.7 pg (25.0-35.0); MCHC 35.3 g/dL (31.0-37.0); MCV 84.1 fL (80.0-100.0); Mean Platelet Volume 7.2; Platelet Count 187 k/uL (150-450); RBC 4.74 m/uL (3.80-5.40); RDW 13.5 % (11.5-15.5); WBC 5.4 k/uL (3.8-10.6)
[2023-02-14 22:05] LABS: Appearance,Urine Clear (Clear); Bilirubin,Urine Negative (Negative); Blood,Urine Negative (Negative); Color,Urine Colorless; Glucose,Urine (UA) Negative (Negative); Ketones,Urine Negative (Negative); Leukocyte Esterase,Urine Negative (Negative); Nitrite,Urine Negative (Negative); Protein,Urine Negative (Negative); Specific Gravity,Urine 1.014 (1.001-1.035); Urobilinogen,Urine <2.0 mg/dL (<2.0)
[2023-02-14 22:21] LABS: ALT 25 U/L (4-34); AST 25 U/L (14-36); African American GFR (CKD) 85 (>60 ml/min/1.73 sqM); Albumin 3.7 g/dL (3.5-5.0); Alkaline Phosphatase 108 U/L (38-126); Anion Gap 8 mmol/L; Blood Urea Nitrogen 11 mg/dL (7-17); Calcium 8.8 mg/dL (8.4-10.2); Carbon Dioxide 23 mmol/L (22-30); Chloride 109 mmol/L (98-107); Glucose 187 mg/dL (74-99); Non-African American GFR(CKD) 74 (>60 ml/min/1.73 sqM); Potassium 3.7 mmol/L (3.5-5.1); Sodium 140 mmol/L (137-145); Total Bilirubin 0.4 mg/dL (0.2-1.3); Total Protein 6.3 g/dL (6.3-8.2)
[2023-02-15] MEDS ORDERED: ACETAMINOPHEN TAB 500 MG TAB PO STA (22:36)
[2023-02-16] MEDS ORDERED: HALOPERIDOL LACTATE 5 MG/ML 1 ML VIAL IM PRN (18:32)
[2023-02-16] MEDS ORDERED: ACETAMINOPHEN TAB 325 MG TAB PO PRN (18:32)
[2023-02-16] MEDS ORDERED: LORazepam 2 MG/ML INJ IM PRN (18:32)
[2023-02-16] MEDS ORDERED: LORazepam 1 MG TAB PO PRN (18:32)
[2023-02-16] MEDS ORDERED: MAGNESIUM HYDROXIDE 2,400 MG/30 ML CUP PO PRN (18:32)
[2023-02-16] MEDS ORDERED: haloperidoL 5 MG TAB PO PRN (18:32)
[2023-02-16] MEDS ORDERED: MAG HYDROX/AL HYDROX/SIMETH 30 ML CUP PO PRN (18:32)
[2023-02-16] MEDS ORDERED: IBUPROFEN 600 MG TAB PO PRN (18:32)
[2023-02-16] MEDS ORDERED: DESVENLAFAXINE SUCCINATE 50 MG TAB.ER.24H PO SCH (21:00)
[2023-02-16] MEDS ORDERED: CARIPRAZINE HCL 4.5 MG PO SCH (21:00)
[2023-02-17] MEDS: buPROPion XL 150 MG TAB.ER.24H PO SCH (08:31)
[2023-02-17] MEDS ORDERED: NICOTINE 14MG/24HR PATCH TRANSDERM SCH (09:00)
--- NOTE | 2023-02-17 13:31 | P.HP ---
Psychiatric H&P - . H&P Date: 02/17/23 History & Physical: Allergies Allergy/AdvReac Type Severity Reaction Status Date / Time cinnamon Allergy Wheezing Verified 02/14/23 21:31 grass pollen AdvReac Unknown Verified 02/14/23 21:30 sun AdvReac skin Uncoded 02/14/23 21:31 blisters Vital Signs Temp 96.3 F L 02/17/23 08:32 Pulse 104 H 02/17/23 08:32 Resp 16 02/17/23 08:32 BP 131/82 02/17/23 08:32 Pulse Ox 96 02/17/23 08:32 FiO2 Intake & Output 02/16/23 02/17/23 02/17/23 18:59 06:59 18:59 Weight 106.339 kg Laboratory Last Values WBC 5.4 k/uL (3.8-10.6) 02/14/23 21:22 RBC 4.74 m/uL (3.80-5.40) 02/14/23 21:22 Hgb 14.1 gm/dL (11.4-16.0) 02/14/23 21:22 Hct 39.9 % (34.0-46.0) 02/14/23 21:22 MCV 84.1 fL (80.0-100.0) 02/14/23 21:22 MCH 29.7 pg (25.0-35.0) 02/14/23 21:22 MCHC 35.3 g/dL (31.0-37.0) 02/14/23 21:22 RDW 13.5 % (11.5-15.5) 02/14/23 21:22 Plt Count 187 k/uL (150-450) 02/14/23 21:22 MPV 7.2 02/14/23 21:22 Sodium 140 mmol/L (137-145) 02/14/23 21:22 Potassium 3.7 mmol/L (3.5-5.1) 02/14/23 21:22 Chloride 109 mmol/L (98-107) H 02/14/23 21:22 Carbon Dioxide 23 mmol/L (22-30) 02/14/23 21:22 Anion Gap 8 mmol/L 02/14/23 21:22 BUN 11 mg/dL (7-17) 02/14/23 21:22 Creatinine 0.95 mg/dL (0.52-1.04) 02/14/23 21:22 Est GFR (CKD-EPI)AfAm 85 (>60 ml/min/1.73 sqM) 02/14/23 21:22 Est GFR (CKD-EPI)NonAf 74 (>60 ml/min/1.73 sqM) 02/14/23 21:22 Glucose 187 mg/dL (74-99) H 02/14/23 21:[address] Glu mg/dL 105 mg/dL 02/17/23 07:55 Hemoglobin A1c 5.3 % (<=6.0) 02/17/23 07:55 Calcium 8.8 mg/dL (8.4-10.2) 02/14/23 21:22 Total Bilirubin 0.4 mg/dL (0.2-1.3) 02/14/23 21:22 AST 25 U/L (14-36) 02/14/23 21:22 ALT 25 U/L (4-34) 02/14/23 21:22 Alkaline Phosphatase 108 U/L (38-126) 02/14/23 21:22 Total Protein 6.3 g/dL (6.3-8.2) 02/14/23 21:22 Albumin 3.7 g/dL (3.5-5.0) 02/14/23 21:22 TSH 2.680 mIU/L (0.465-4.680) 02/17/23 07:55 Urine Color Colorless 02/14/23 16:33 Urine Appearance Clear (Clear) 02/14/23 16:33 Urine pH 6.0 (5.0-8.0) 02/14/23 16:33 Ur Specific [place] 1.014 (1.001-1.035) 02/14/23 16:33 Urine Protein Negative (Negative) 02/14/23 16:33 Urine Glucose (UA) Negative (Negative) 02/14/23 16:33 Urine Ketones Negative (Negative) 02/14/23 16:33 Urine Blood Negative (Negative) 02/14/23 16:33 Urine Nitrite Negative (Negative) 02/14/23 16:33 Urine Bilirubin Negative (Negative) 02/14/23 16:33 Urine Urobilinogen <2.0 mg/dL (<2.0) 02/14/23 16:33 Ur Leukocyte Esterase Negative (Negative) 02/14/23 16:33 Urine Opiates Screen Not Detected (NotDetected) 02/14/23 16:33 Ur Oxycodone Screen Not Detected (NotDetected) 02/14/23 16:33 Urine Methadone Screen Not Detected (NotDetected) 02/14/23 16:33 Ur Propoxyphene Screen Not Detected (NotDetected) 02/14/23 16:33 Ur Barbiturates Screen Not Detected (NotDetected) 02/14/23 16:33 U Tricyclic Antidepress Not Detected (NotDetected) 02/14/23 16:33 Ur Phencyclidine Scrn Not Detected (NotDetected) 02/14/23 16:33 Ur Amphetamines Screen Not Detected (NotDetected) 02/14/23 16:33 U Methamphetamines Scrn Not Detected (NotDetected) 02/14/23 16:33 U Benzodiazepines Scrn Not Detected (NotDetected) 02/14/23 16:33 Urine Cocaine Screen Not Detected (NotDetected) 02/14/23 16:33 U Marijuana (THC) Screen Not Detected (NotDetected) 02/14/23 16:33 Coronavirus (PCR) Not Detected (Not Detectd) 02/14/23 21:22 02/17/23 13:26 IDENTIFYING DATA: Patient is a 42-year-old female, currently lives with her , she has 3 kids, she also lives with her daughter and her girlfriend. She works as a warehouse shipping receiving clerk. HPI: Patient presented to the hospital presenting for depression, has history of cutting, had a plan to overdose on her sleeping medications. Patient was admitt ed voluntarily to the mental health unit. She states that she has been feeling more depressed lately" not wanting to wake up" she states she wanted to be "done with everything". She claims that she was on rexulti several weeks ago however states that that was making her feel more depressed and suicidal. States that she got switched to a different medication. She claims that she isn't having mo re job stressor lately and states that she started new job in June. Claims that "it's been too much work". Claims that she also has some financial stressors, denies any relationship issues, she is unable to leave his relationship. Denies any other stressors at this time. States that her anxiety is severe, claims that she has been crying a lot more lately. Denies any history of manic episodes. States that she has been having suicidal thoughts however no intent or plan. Denying any homicidal ideations. At this time patient denies any auditory or visual hallucinations. Patient denies any flight of ideas racing thoughts and increased in goal directed behavior. Consider sleep has been on and off, appetite is fair. Patient admits to using no recreational drugs or cigarettes. PAST PSYCHIATRIC HISTORY: Patient states that she has history of depression and anxiety. patient was previously on rexulti and vraylar and now on pristiq. Patient denies any previous psychiatric hospitalizations. She claims that she has a therapist, follows up with her primary care physician. States that recently she is an intelligent psychiatry. Patient denies any history of suicide attempts in the past. PMH:Past Medical History: Eye Disorder, GERD/Reflux, Hearing Disorder / Deafness, Osteoarthritis (OA) Additional Past Medical History / Comment(s): Hx Migraines. Hx Borderline Hypertension and Diabetes, no problems post weight loss. HX DYSPHAGIA. Macular Degeneration. Hard of hearing. OA bilateral knees, cyst on kidney. pain with eating and food getting stuck History of Any Multi-Drug Resistant Organisms: None Reported Past Surgical History: Appendectomy, Bariatric Surgery, Cholecystectomy, Hysterectomy, Orthopedic Surgery, Tubal Ligation Additional Past Surgical History / Comment(s): BILATERAL Carpal Tunnel Realease. GASTRIC SLEEVE 08/19, LEONCIO-EN-Y 02/19. MULTIPLE EGD's/EGD's W/ DILATION. Panniculectomy, LEEP, bilateral kidney cyst aspirations. lysis of adhesions 07/27/20. Past Anesthesia/Blood Transfusion Reactions: Previous Problems w/ Anesthesia, Motion Sickness, Postoperative Nausea & Vomiting (PONV) Additional Past Anesthesia/Blood Transfusion Reaction / Comment(s): STAYED 2 EXTRA DAYS R/T "ANESTHESIA NOT GETTING OUT OF MY SYSTEM" states takes "a long time to wake up" also "new anesthesia put me in AFIB" Past Psychological History: Depression Smoking Status: Former smoker Past Alcohol Use History: None Reported Past Drug Use History: None Reported ALLERGIES: as per EMR CHEMICAL DEPENDENCY HISTORY: as per HPI FAMILY PSYCHIATRIC/SUBSTANCE USE HISTORY: denies SOCIAL HISTORY: Patient was born and raised in [place]. States that she has 3 kids, she currently lives with her her daughter and her girlfriend in the house. She states that she works as a warehouse shipping receiving clerk. Claims that she completed high school. Denies any legal issues. MENTAL STATUS EXAM: General Appearance: Patient appears to be mildly overweight, several tattoos, stated age is alert, directable, and attempts to cooperate. Patient appears to have poor hygiene and grooming. Behavior: Patient is seated without any agitated behavior. Attempts to cooperate Speech: Patient's speech is fluent and nonpressured. Monotone Mood/Affect: Patient reports their mood is depressed anxious, affect is congruent and constricted. Suicidality/Homicidality: Patient denies having any homicidal ideation intent or plan claims that she does have suicidal thoughts, no intent or plan. Perceptions: Patient denies any visual hallucinations and denies any auditory hallucinations Though content/process: There is no evidence of any delusional thought content and thought process is linear and goal-directed. [place], positive content Memory and concentration: AOX3, grossly intact for the purposes of this session. Can spell "WORLD" backwards Judgment and insight: poor STRENGTHS/WEAKNESSES: strength is that patient is resilient. Weakness is that patient has poor judgment and is impulsive INTELLECT: average IMPRESSIONS: Major depressive disorder, without psychotic features Anxiety disorder unspecified PLAN: -Patient is admitted under voluntary status to MHU for stabilization of psy chiatric symptoms and safety. Patient has signed adult voluntary form and medication consent and is placed in patient's chart. -Medications : Cymbalta 20 mg twice a day for mood/anxiety, continue with Wellbutrin 150 mg XL daily for mood adjunct, Remeron 7.5 mg daily at bedtime for mood/appetite/sleep. -Ativan and Haldol PRN for agitation/aggression -Patient was informed of the risks, benefits and side effects of the medication and patient verbally consented to taking the medications. Patient signed med consent form and was placed in chart. -Internal Medicine consult to perform medical evaluation and physical. -NRT - not needed as patient does not smoke -SW on board for discharge planning. Encourage patient to participate in groups to work on coping skills.
[2023-02-17] MEDS: DULoxetine HCL 20 MG CAPSULE.DR PO SCH ×2 (13:46→20:52)
[2023-02-17] MEDS ORDERED: MIRTAZAPINE 15 MG TAB PO SCH (21:00)
--- NOTE | 2023-02-18 01:21 | CONS ---
CONSULTATION REASON FOR CONSULTATION: Advice regarding GERD, DJD and other medical issues, requested by Psychiatry. HISTORY OF PRESENT ILLNESS: This is a 42-year-old woman with a past history of GERD, DJD, bariatric surgery being performed by Dr. Yosvany Mccray. The patient was admitted with depression, anxiety. There is no history of any fever, rigors, chills at this time. PAST MEDICAL HISTORY: GERD, history of bariatric surgery, appendectomy, multiple medical issues, and the chart is also reviewed. HOME MEDICATIONS: Bupropion, dose and rest of the medications reviewed. ALLERGIES: To cinnamon. FAMILY HISTORY: History of cervical cancer. SOCIAL HISTORY: Quit smoking previously. REVIEW OF SYSTEMS: Fourteen-point review is negative except as mentioned earlier. PHYSICAL EXAMINATION: VITAL SIGNS: Pulse is 104, blood pressure 131/82, respirations 16. CHEST: Clear to auscultation. CARDIOVASCULAR: S1, S2. ABDOMEN: Soft. NERVOUS SYSTEM: Nonfocal. SKIN: No ulcer, rash, bleeding. JOINTS: No active deforming arthropathy. LEGS: Minimal bilateral leg edema, which is the patient' usual. Edema as mentioned earlier. LABORATORY DATA: Noted. Glucose 187 and 105. ASSESSMENT: 1. Anxiety, depression. 2. History of gastroesophageal reflux disease. 3. Degenerative joint disease. 4. History of migraine. 5. History of bariatric surgery. 6. Multiple medical issues. RECOMMENDATIONS: This is a 42-year-old woman, who presented with multiple medical issues. At this time, I recommend to continue current management and symptomatic treatment and recommended to resume the home medications, and the patient is started on the Maalox. I will recommend the patient to follow up closely with primary physician after discharge. MMODL / IJN: [id number] /
[2023-02-18] MEDS: DULoxetine HCL 20 MG CAPSULE.DR PO SCH (07:55)
[2023-02-18] MEDS: buPROPion XL 150 MG TAB.ER.24H PO SCH (07:55)
[2023-02-18] MEDS ORDERED: traZODone HCL 50 MG TAB PO PRN (11:06)
--- NOTE | 2023-02-18 11:09 | P.PN ---
Progress Note - Text Progress Note Date: 02/18/23 Interval history: Patient was seen wandering the hallways and was crippled stridor. She states that she is trying to go to some groups. She claims that she was a bit tired today. Claims that she believes that she overslept yesterday and was too sedated with the Remeron. She claims that she is doing better in terms of her mood and also anxiety. States that she is tolerating medications fairly well at this time. States that her appetite is fair, she is going to groups, and endorsing any paranoia or delusions at this time. She is not endorsing any suicidal or homicidal ideations or plan. Denying any auditory or visual hallucinations. MENTAL STATUS EXAM: General Appearance: Patient appears to be mildly overweight, several tattoos, stated age is alert, directable, and attempts to cooperate. Patient appears to have improving hygiene and grooming. Behavior: Patient is seated without any agitated behavior. Attempts to cooperate Speech: Patient's speech is fluent and nonpressured. Monotone Mood/Affect: Patient reports their mood is . Improving Mildly, affect is congruent and constricted. Suicidality/Homicidality: Patient denies having any homicidal ideation intent denies any suicidal thoughts, no intent or plan. Perceptions: Patient denies any visual hallucinations and denies any auditory hallucinations Though content/process: There is no evidence of any delusional thought content and thought process is linear and goal-directed. [place] Memory and concentration: AOX3, grossly intact for the purposes of this session. Can spell "WORLD" backwards Judgment and insight: poor, improving mildly IMPRESSIONS: Major depressive disorder, without psychotic features Anxiety disorder unspecified PLAN: -Patient is admitted under voluntary status to MHU for stabilization of psychiatric symptoms and safety. Patient has signed adult voluntary form and medication consent and is placed in patient's chart. -Medications : Changed Cymbalta 60 mg qhs for mood/anxiety, continue with Wellbutrin 150 mg XL daily for mood adjunct, d/c Remeron and replace with trazodone prn for mood/appetite/sleep. -Ativan and Haldol PRN for agitation/aggression -NRT - not needed as patient does not smoke -SW on board for discharge planning. Encourage patient to participate in groups to work on coping skills. liekly discharge thursday back home.
[2023-02-18] MEDS ORDERED: DULoxetine HCL 60 MG CAPSULE.DR PO SCH (21:00)
[2023-02-19] MEDS: buPROPion XL 150 MG TAB.ER.24H PO SCH (08:26)
--- NOTE | 2023-02-19 10:00 | P.PN ---
Progress Note - Text Progress Note Date: 02/19/23 Interval history: Patient was seen wandering the hallways and was agreeable to speak with video games storywriter in the office. Patient states she's doing 'good'. Mood and anxiety are improving. She states that she is going to groups. She claims that her sleep was "fair", it took her a while to get to sleep and we discussed increasing trazodone which she was ok with. She claims that she is doing better in terms of her mood and also anxiety. States that she is tolerating medications fairly well at this time. States that her appetite is good, she is going to groups, and endorsing any paranoia or delusions at this time. She is not endorsing any suicidal or homicidal ideations or plan. Denying any auditory or visual hallucinations. MENTAL STATUS EXAM: General Appearance: Patient appears to be mildly overweight, several tattoos, stated age is alert, directable, and attempts to cooperate. Patient appears to have improving hygiene and grooming. Behavior: Patient is seated without any agitated behavior. Attempts to cooperate Speech: Patient's speech is fluent and nonpressured. Monotone Mood/Affect: Patient reports their mood is improving, affect is congruent and constricted. Suicidality/Homicidality: Patient denies having any homicidal ideation intent denies any suicidal thoughts, no intent or plan. Perceptions: Patient denies any visual hallucinations and denies any auditory hallucinations Though content/process: There is no evidence of any delusional thought content and thought process is linear and goal-directed. Memory and concentration: AOX3, grossly intact for the purposes of this session. Can spell "WORLD" backwards Judgment and insight: improving mildly IMPRESSIONS: Major depressive disorder, without psychotic features Anxiety disorder unspecified PLAN: -Patient is admitted under voluntary status to MHU for stabilization of psychiatric symptoms and safety. Patient has signed adult voluntary form and medication consent and is placed in patient's chart. -Medications : Changed Cymbalta 90 mg qhs for mood/anxiety, continue with Wellbutrin 150 mg XL daily for mood adjunct, trazodone increased to 50mg qhs for mood/appetite/sleep. -Ativan and Haldol PRN for agitation/aggression -NRT - not needed as patient does not smoke -SW on board for discharge planning. Likely to discharge 02/20 if patient continues to improve. Encourage patient to participate in groups to work on coping skills.
[2023-02-19] MEDS ORDERED: traZODone HCL 50 MG TAB PO SCH (21:00)
[2023-02-19] MEDS ORDERED: DULoxetine HCL 30 MG CAPSULE.DR PO SCH (21:00)
[2023-02-19] MEDS ORDERED: IOPAMIDOL CONTRAST (ORAL USE) VIAL PO PRN (22:28)
[2023-02-19] MEDS: IOPAMIDOL CONTRAST (ORAL USE) VIAL PO PRN ×2 (22:39→23:56)
[2023-02-19 23:45] VITALS: TEMP 97.3
--- NOTE | 2023-02-20 05:24 | CT ---
EXAM: CT Abdomen and Pelvis Without Intravenous Contrast CLINICAL HISTORY: ITS.REASON CT Reason: abd pain- hx bariatric sx TECHNIQUE: Axial computed tomography images of the abdomen and pelvis without intravenous contrast. CTDI is 14.6 mGy and DLP is 844.8 mGy-cm. This CT exam was performed using one or more of the following dose reduction techniques: automated exposure control, adjustment of the mA and/or kV according to patient size, and/or use of iterative reconstruction technique. COMPARISON: No relevant prior studies available. FINDINGS: Limitations: Limited evaluation in the absence of intravenous contrast. Lung bases: Right lower lobe airspace disease with bronchiectasis which likely relates to infection. No consolidation. ABDOMEN: Liver: Unremarkable. Gallbladder and bile ducts: Unremarkable. No calcified stones. No ductal dilation. Pancreas: Unremarkable. No ductal dilation. Spleen: Unremarkable. No splenomegaly. Adrenals: Unremarkable. No mass. Kidneys and ureters: No evidence of radiopaque renal calculi or signs of collecting system dilatation. Simple bilateral renal cysts. No follow-up of these simple cysts is necessary. Stomach and bowel: Michelle-en-Y gastric bypass changes. No evidence of bowel obstruction. Oral contrast reaches the transverse colon. No mucosal thickening. PELVIS: Appendix: No findings to suggest acute appendicitis. Bladder: Unremarkable. No stones. Reproductive: Unremarkable as visualized. ABDOMEN and PELVIS: Intraperitoneal space: Unremarkable. No free air. No significant fluid collection. Bones/joints: Degenerative changes in the spine. No acute fracture. No dislocation. Soft tissues: Rectus medialization which may be due to prior surgery. Vasculature: Atherosclerotic disease. Lymph nodes: Unremarkable. No enlarged lymph nodes. IMPRESSION: 1. Limited evaluation in the absence of intravenous contrast. 2. No evidence of radiopaque renal calculi or signs of collecting system dilatation. 3. No evidence of bowel obstruction. Oral contrast reaches the transverse colon. 4. No other acute findings. 5. Incidental findings as described.
[2023-02-20 06:30] VITALS: BP 128/87; PULSE 92; RESP 18
[2023-02-20] MEDS: buPROPion XL 150 MG TAB.ER.24H PO SCH (08:27)
[2023-02-20] MEDS ORDERED: DULoxetine HCL 30 MG CAPSULE.DR PO SCH (10:30)
--- NOTE | 2023-02-20 11:19 | P.DS ---
Providers Date of admission: 02/16/23 18:13 Expected date of discharge: 02/20/23 Attending physician: Luís Chirinos MD Consults: 02/16/23 18:32 Consult Physician Routine Consulting Provider: Radha Nelson Consult Reason/Comments: H&P and medical Do you want consulting provider notified?: Yes Primary care physician: Yosvany Mccray - Discharge Diagnosis(es) (1) Major depressive disorder with psychotic features Current Visit: Yes Status: Acute Priority: High (2) Anxiety disorder Current Visit: Yes Status: Acute Priority: Medium Hospital Course: Admission HPI: Admission note was completed by mortgage underwriter "Patient is a 42-year-old female, currently lives with her , she has 3 kids, she also lives with her daughter and her girlfriend. She works as a warehouse assembly worker. Patient presented to the hospital presenting for depression, has history of cutting, had a plan to overdose on her sleeping medications. Patient was admitted voluntarily to the mental health unit. She states that she has been feeling more depressed lately" not wanting to wake up" she states she wanted to be "done with everything". She claims that she was on rexulti several weeks ago however states that that was making her feel more depressed and suicidal. States that she got switched to a different medication. She claims that she isn't having more job stressor lately and states that she started new job in June. Claims that "it's been too much work". Claims that she also has some financial stressors, denies any relationship issues, she is unable to leave his relationship. Denies any other stressors at this time. States that her anxiety is severe, claims that she has been crying a lot more lately. Denies any history of manic episodes. States that she has been having suicidal thoughts however no intent or plan. Denying any homicidal ideations. At this time patient denies any auditory or visual hallucinations. Patient denies any flight of ideas racing thoughts and increased in goal directed behavior. Consider sleep has been on and off, appetite is fair. Patient admits to using no recreational drugs or cigarettes." Hospital course: Upon admission to the unit patient was directable and agreeable to commence treatment and signed adult voluntary form. Patient got along well with other patients on the unit and followed unit protocol. Patient was compliant with the medications and denied any side effects throughout hospital course. Patient was started on Cymbalta increased to a dose of 90 mg daily for mood/anxiety. Patient was also started on trazodone increased to a dose of 100 mg daily at bedtime for mood/insomnia. He continued with patient's home dose of Wellbutrin 150 mg XL daily for mood adjunct. Patient was discontinued off of her Pristiq and also her vraylar. Patient spoke of her stressors and engaged in therapy both group and individual. Patient was also seen by medical team for history and physical exam. Throughout the course of the hospitalization patient gradually improved with regards to mood, anxiety, suicidal thoughts, sleep and returned back to their baseline level of functioning. On the day of discharge patient denied any suicidal or homicidal ideations intent or plan denied any auditory or visual hallucinations. Patient endorsed wanting to live for her kids/family. The patient denied any access to guns or weapons. Patient denied any paranoia and did not endorse any delusions. Patient does not have a significant history of substance abuse and was counseled on abstaining from all substances including alcohol and marijuana. Patient was also counseled on the medications and need for regular compliance and was encouraged to follow-up with their outpatient appointment for mental health and also for primary care. Prior to discharge a family meeting will be arranged by social worker health services to answer any questions and ensure safety upon discharge. Patient will follow-up at [facility] for outpatient psychiatric follow-up. Mental status exam: General Appearance: Patient appears to be stated age is alert, pleasant, and cooperative. Patient is in no acute distress and has improved hygiene and grooming Behavior: Patient is calmly seated without any agitated behavior. Speech: Patient's speech is fluent and nonpressured. Mood/Affect: Patient reports their mood is "better", affect is congruent and euthymic. Suicidality/Homicidality: Patient denies having any suicidal or homicidal ideation intent or plan. Perceptions: Patient denies any auditory or visual hallucinations. Though content/process: There is no evidence of any delusional thought content and thought process is linear and goal-directed. more future oriented Memory and concentration: AOX3, grossly intact for the purposes of this session. Can spell "WORLD" backwards correctly. Judgment and insight: chronically poor, however has improved with guarded prognosis Impression: Major depressive disorder without psychotic features Anxiety disorder unspecified Plan: -Continue with discharge today as patient has improved and stabilized psychiatrically and is not currently an imminent threat to herself and/or others. -Continue medications: Cymbalta 90 mg daily for mood/anxiety, Wellbutrin 150 mg XL daily for mood adjunct, trazodone 100 mg daily at bedtime for mood/insomnia. -Patient was counseled on the need for medication compliance and appropriate follow-up at mental health and also primary care for medical issues. Patient verbalized understanding and agreed. -Social work to arrange for and conduct family meeting to ensure safety upon discharge and answer any questions/concerns. Social work also to arrange for patients follow up appointments for psychiatric care along with follow up with primary care provider. -Patient counseled on abstaining from recreational drugs and marijuana and alcohol. Was informed/educated on the adverse effects on their physical and mental health. Patient verbally agreed and understood. -Patient was instructed to return to the hospital or seek immediate medical care if their psychiatric or medical symptoms do worsen or reoccur. Allergies Allergy/AdvReac Type Severity Reaction Status Date / Time cinnamon Allergy Wheezing Verified 02/14/23 21:31 grass pollen AdvReac Unknown Verified 02/14/23 21:30 sun AdvReac skin Uncoded 02/14/23 21:31 blisters Laboratory Results WBC 5.4 k/uL (3.8-10.6) 02/14/23 21: RBC 4.74 m/uL (3.80-5.40) 02/14/23 21:22 Hgb 14.1 gm/dL (11.4-16.0) 02/14/23 21: Hct 39.9 % (34.0-46.0) 02/14/23 21: MCV 84.1 fL (80.0-100.0) 02/14/23 21: MCH 29.7 pg (25.0-35.0) 02/14/23 21: MCHC 35.3 g/dL (31.0-37.0) 02/14/23 21: RDW 13.5 % (11.5-15.5) 02/14/23 21:22 Plt Count 187 k/uL (150-450) 02/14/23 21: MPV 7.2 02/14/23 21:22 Sodium 140 mmol/L (137-145) 02/14/23 21:22 Potassium 3.7 mmol/L (3.5-5.1) 02/14/23 21:22 Chloride 109 mmol/L (98-107) H 02/14/23 21:22 Carbon Dioxide 23 mmol/L (22-30) 02/14/23 21:22 Anion Gap 8 mmol/L 02/14/23 21:22 BUN 11 mg/dL (7-17) 02/14/23 21:22 Creatinine 0.95 mg/dL (0.52-1.04) 02/14/23 21:22 Est GFR (CKD-EPI)AfAm 85 (>60 ml/min/1.73 sqM) 02/14/23 21:22 Est GFR (CKD-EPI)NonAf 74 (>60 ml/min/1.73 sqM) 02/14/23 21:22 Glucose 187 mg/dL (74-99) H 02/14/23 21:[address] Glu mg/dL 105 mg/dL 02/17/23 07:55 Hemoglobin A1c 5.3 % (<=6.0) 02/17/23 07:55 Calcium 8.8 mg/dL (8.4-10.2) 02/14/23 21:22 Total Bilirubin 0.4 mg/dL (0.2-1.3) 02/14/23 21:22 AST 25 U/L (14-36) 02/14/23 21:22 ALT 25 U/L (4-34) 02/14/23 21:22 Alkaline Phosphatase 108 U/L (38-126) 02/14/23 21:22 Total Protein 6.3 g/dL (6.3-8.2) 02/14/23 21:22 Albumin 3.7 g/dL (3.5-5.0) 02/14/23 21:22 TSH 2.680 mIU/L (0.465-4.680) 02/17/23 07:55 Urine Color Colorless 02/14/23 16:33 Urine Appearance Clear (Clear) 02/14/23 16:33 Urine pH 6.0 (5.0-8.0) 02/14/23 16:33 Ur Specific [place] 1.014 (1.001-1.035) 02/14/23 16:33 Urine Protein Negative (Negative) 02/14/23 16:33 Urine Glucose (UA) Negative (Negative) 02/14/23 16:33 Urine Ketones Negative (Negative) 02/14/23 16:33 Urine Blood Negative (Negative) 02/14/23 16:33 Urine Nitrite Negative (Negative) 02/14/23 16:33 Urine Bilirubin Negative (Negative) 02/14/23 16:33 Urine Urobilinogen <2.0 mg/dL (<2.0) 02/14/23 16:33 Ur Leukocyte Esterase Negative (Negative) 02/14/23 16:33 Urine Opiates Screen Not Detected (NotDetected) 02/14/23 16:33 Ur Oxycodone Screen Not Detected (NotDetected) 02/14/23 16:33 Urine Methadone Screen Not Detected (NotDetected) 02/14/23 16:33 Ur Propoxyphene Screen Not Detected (NotDetected) 02/14/23 16:33 Ur Barbiturates Screen Not Detected (NotDetected) 02/14/23 16:33 U Tricyclic Antidepress Not Detected (NotDetected) 02/14/23 16:33 Ur Phencyclidine Scrn Not Detected (NotDetected) 02/14/23 16:33 Ur Amphetamines Screen Not Detected (NotDetected) 02/14/23 16:33 U Methamphetamines Scrn Not Detected (NotDetected) 02/14/23 16:33 U Benzodiazepines Scrn Not Detected (NotDetected) 02/14/23 16:33 Urine Cocaine Screen Not Detected (NotDetected) 02/14/23 16:33 U Marijuana (THC) Screen Not Detected (NotDetected) 02/14/23 16:33 Coronavirus (PCR) Not Detected (Not Detectd) 02/14/23 21:22 Vital Signs Temp 97.3 F L 02/19/23 22:00 Pulse 92 02/20/23 00:35 Resp 18 02/20/23 00:35 BP 128/87 02/20/23 00:35 Pulse Ox 100 02/20/23 00:35 FiO2 Patient Condition at Discharge: Stable Plan - Discharge Summary New Discharge Prescriptions: New DULoxetine HCL [Cymbalta] 90 mg PO DAILY 30 Days #90 cap traZODone HCL [Desyrel] 100 mg PO HS 30 Days #60 tab Continue Vicks Zzzquil Ultra 1 tab PO HS buPROPion HCL [Wellbutrin XL] 150 mg PO DAILY 30 Days #30 tab Discontinued Cariprazine HCl [Vraylar] 4.5 mg PO HS Desvenlafaxine Succinate [Pristiq] 100 mg PO HS Discharge Medication List Vicks Zzzquil Ultra 1 tab PO HS 02/14/23 [History] DULoxetine HCL [Cymbalta] 90 mg PO DAILY 30 Days #90 cap 02/20/23 [Rx] buPROPion HCL [Wellbutrin XL] 150 mg PO DAILY 30 Days #30 tab 02/20/23 [Rx] traZODone HCL [Desyrel] 100 mg PO HS 30 Days #60 tab 02/20/23 [Rx] Follow up Appointment(s)/Referral(s): [facility] [Outside] - 1 Week (Apt. with Rodolfo Harris on 02-25-23 at 12:30pm. ) Yosvany Mccray DO [Primary Care Provider] - 1-2 days Discharge Disposition: HOME SELF-CARE
[2023-02-20] MEDS ORDERED: traZODone HCL 100 MG TAB PO SCH (21:00)
== END 2023-02-20 12:03 | disposition home or self-care (01) | DRG 885 ==
LOC: EC 15:21 → 3MHU 02-16 18:13
PROVIDERS: ADMIT Psychiatry & Neurology Psychiatry; ATTEND Psychiatry & Neurology Psychiatry
DX: F32.3 Major depressive disorder, single episode, severe with psychotic features (principal); R45.851 Suicidal ideations; F41.9 Anxiety disorder, unspecified; G47.00 Insomnia, unspecified; H91.90 Unspecified hearing loss, unspecified ear; I10 Essential (primary) hypertension; E11.9 Type 2 diabetes mellitus without complications; M17.0 Bilateral primary osteoarthritis of knee; Z20.822 Contact with and (suspected) exposure to COVID-19; K21.9 Gastro-esophageal reflux disease without esophagitis; M19.90 Unspecified osteoarthritis, unspecified site; Z79.899 Other long term (current) drug therapy; Z90.710 Acquired absence of both cervix and uterus; Z91.52 Personal history of nonsuicidal self-harm; Z98.84 Bariatric surgery status
CPT/HCPCS: 36415; 74176; 80053; 80306; 81003; 82075; 83036; 84443; 85027; 87635; 99285

== ENCOUNTER → 2024-01-06 | Outpatient (CLI) | payer BC ==
--- NOTE | 2024-01-06 08:25 | MM ---
Reason for Exam: Clinical finding. Last mammogram was performed 5 year(s) and 7 month(s) ago. Indicated Problems: Pain of both sides (Focal) for 1 Month(s). Patient History: Menarche at age 10. First Full-Term at age 16. Left ovary removed at age 40. Right ovary removed at age 40. Hysterectomy at age 40. Patient used Hormonal Contraceptives for 4 years. Risk Values: Lilly 5 year model risk: 0.6%. NCI Lifetime model risk: 7.0%. Prior Study Comparison: 06/09/2018 Bilateral Screening Mammogram, [facility]. Tissue Density: The breasts are heterogeneously dense, which may obscure small masses. Findings: Analyzed By CAD. No distinct mass or distortion. No suspicious microcalcifications. No evidence for nipple inversion. No skin thickening seen. Overall Assessment: Benign, BI-RAD 2 Management: Screening Mammogram of both breasts in 1 year. . Results were given to the patient verbally at the time of exam. Patient should continue monthly self-breast exams. A clinical breast exam by your physician is recommended on an annual basis. This exam should not preclude additional follow-up of suspicious palpable abnormalities. Note on Lilly scores and lifetime risk: 1. A Lilly score greater than 3% is considered moderate risk. If this is the case, consider specialist referral to assess eligibility for a risk reducing agent. 2. If overall lifetime risk for the development of breast cancer is 20% or higher, the patient may qualify for future screening with alternating mammogram and breast MRI. [facility], , 01/06/2024 8:22 AM. Electronically signed and approved by: Leland Celeste M.D. Radiologis
== END | disposition home or self-care (01) ==
LOC: RADMAMWWP 07:49
PROVIDERS: ATTEND Obstetrics & Gynecology Obstetrics
DX: N64.4 Mastodynia
CPT/HCPCS: 77062; 77066

== ENCOUNTER → 2024-01-06 | Outpatient (CLI) | payer BC ==
--- NOTE | 2024-01-06 11:14 | CT ---
EXAMINATION TYPE: CT abdomen pelvis w con CT DLP: 1521.9 mGycm, Automated exposure control for dose reduction was used. DATE OF EXAM: 01/06/2024 10:58 AM COMPARISON: CT abdomen and pelvis 02/05/2021, abdominal ultrasound 11/13/2022 CLINICAL INDICATION:Female, 43 years old with history of N28.1 CYST OF KIDNEY, ACQUIRED; HX OF KIDNEY CYST. PT STATES SHE FEELS LIKE THEY ARE BACK WITH PAIN. TECHNIQUE: Standard CT of the abdomen and pelvis following the administration of 100 cc of Isovue 3 00 IV contrast material and oral contrast. Coronal and sagittal reformats were performed. FINDINGS: LOWER CHEST: Medial right lower lobe linear scarring. ABDOMEN LIVER: Diffusely hypoattenuating parenchyma. GALLBLADDER AND BILE DUCTS: Unremarkable. PANCREAS: Unremarkable. SPLEEN: Unremarkable. ADRENAL GLANDS: Unremarkable. KIDNEYS AND URETERS: No evidence of hydronephrosis or renal calculus. The kidneys enhance symmetrical ly. Contrast is demonstrated within both collecting systems on the delayed phase. Bilateral renal cys ts redemonstrated. Largest within the mid right kidney anteriorly measuring up to 2.5 cm. Largest wit hin the anterior mid to lower left kidney measures up to 4.8 cm. These are relatively stable in size from prior exams. These all demonstrate thin wall without evidence of enhancement. PELVIS BLADDER: Unremarkable REPRODUCTIVE: The uterus is surgically absent. ABDOMEN & PELVIS STOMACH AND BOWEL: Postsurgical changes from favored Michelle-en-Y gastric bypass.No focal bowel wall thi ckening or surrounding inflammatory changes. Enteric contrast reaches the ascending colon. No evidenc e of bowel obstruction. PERITONEUM: No evidence of pneumoperitoneum or free fluid. VASCULATURE: No evidence of aortic aneurysm. MUSCULOSKELETAL: No acute osseous abnormalities LYMPH NODES: No gross evidence for lymphadenopathy. SOFT TISSUE/ABDOMINAL WALL: Unremarkable IMPRESSION: 1. No acute abdominal/pelvic process. 2. Bilateral renal cysts redemonstrated without suspicious enhancement. Overall stable size from prio r exams. 3. Hepatic steatosis. [facility], , 01/06/2024 11:11 AM
== END | disposition home or self-care (01) ==
LOC: RADCTMAIN 08:30
PROVIDERS: ATTEND Family Medicine
DX: N28.1 Cyst of kidney, acquired
CPT/HCPCS: 74177